=== PATIENT | male | born 1950 | race Caucasian/White ===

== ENCOUNTER 2021-02-03 15:16 | Inpatient (IN) ==
[2021-02-03] MEDS ORDERED: ASPIRIN CHEW 324 MG PO STA (15:33)
[2021-02-03] MEDS ORDERED: SODIUM CHLORIDE 0.9% 500 ML IV ONE (15:33)
[2021-02-03] MEDS ORDERED: ASPIRIN CHEW 324 MG ONE (15:37)
[2021-02-03 15:48] LABS: Hemoglobin 17.2 g/dL (14.0-18.0); Mean Corpuscular Hemoglobin 30.3 pg (25-34); Mean Corpuscular Hgb Conc 33.7 g/dL (32-36); Mean Corpuscular Volume 89.9 fL (80-100); Mean Platelet Volume 12.2 fL (7.4-10.4); Platelet Count 326 K/uL (130-400); RDW Coefficient of Variation 13.6 % (11.5-14.5); RDW Standard Deviation 44.8 fL (36.4-46.3); Red Blood Count 5.67 M/uL (4.7-6.1); White Blood Count 11.34 K/uL (4.8-10.8)
--- NOTE | 2021-02-03 15:52 | XRay Report ---
XR chest 1V portable CLINICAL HISTORY: SEPSIS COMPARISON STUDY: Chest radiograph and chest CT February 27, 2012. FINDINGS: Left shoulder arthroplasty is incidentally noted. Lung volumes are diminished. Mild left ba silar opacity favors atelectasis. There is no evidence for pulmonary edema. Cardiomediastinal silhoue tte is unremarkable. Prominent gas-filled loops of bowel within the upper abdomen are partially image d on this study. IMPRESSION: 1. Low lung volumes with left basilar opacity that favors atelectasis. 2. Prominent gas-filled loops of bowel within the upper abdomen, partially imaged on this exam. ACT 112: Negative or not required by law. Electronically signed by: Ric Walton M.D. 02/03/2021 3:51 PM
[2021-02-03 15:55] LABS: iSTAT Creatinine 2.4 mg/dl (0.6-1.3); iSTAT Hemoglobin 18.4 g/dl (14.0-18.0); iSTAT Ionized Calcium 1.23 mmol/l (1.12-1.32); iSTAT Potassium 4.1 mmol/L (3.3-5.0)
[2021-02-03 15:56] LABS: Base Excess VBG -4.4 mEq/L; HCO3 VBG 23 mmol/L; PCO2 VBG 50 mmHg (38-50); PO2 VBG 33 mmHg; pH VBG 7.28 (7.36-7.41)
[2021-02-03] MEDS ORDERED: OPTIRAY 350 500ml IV ONE (15:56)
[2021-02-03 16:01] LABS: Oxygen Saturation VBG < 60.0 %
[2021-02-03 16:04] LABS: INR 1.3 (0.9-1.1); Partial Thromboplastin Time 26.4 Seconds (21.0-31.0); Prothrombin Time 12.9 Seconds (9.0-12.0)
[2021-02-03 16:15] LABS: Alanine Aminotransferase 127 U/L (12-78); Albumin Globulin Ratio 0.8 (0.9-2); Albumin Level 3.4 gm/dl (3.4-5.0); Alkaline Phosphatase 59 U/L (45-117); Aspartate Aminotransferase 280 U/L (15-37); BUN Creatinine Ratio 23.8 (10-20); Bilirubin Direct 0.4 mg/dl (0-0.2); Bilirubin,Total 1.6 mg/dl (0.2-1); Blood Urea Nitrogen 57 mg/dl (7-18); Calcium 11.5 mg/dl (8.5-10.1); Carbon Dioxide 23 mmol/L (21-32); Chloride 87 mmol/L (98-107); Est GFR (African American) 30.4 ml/min; Est GFR (Non-African American) 26.2 ml/min; Globulin 4.4 gm/dl (2.5-4.0); Glucose 310 mg/dl (70-99); Lipase 33 U/L (73-393); Magnesium 2.3 mg/dl (1.8-2.4); NT Pro B Type Natriuretic Pept 1194 pg/ml (0-900); Phosphorus 4.8 mg/dl (2.5-4.9); Sodium 129 mmol/L (136-145); Total Protein 7.8 gm/dl (6.4-8.2); Troponin I 0.041 ng/ml (0-0.045)
--- NOTE | 2021-02-03 16:17 | CT Scan Report ---
CT ANGIOGRAM OF THE CHEST CLINICAL HISTORY: Chest pain and shortness of breath COMPARISON STUDY: February 2012 TECHNIQUE: Following the IV administration of 120 mL of Optiray, CT angiogram of the thorax was perfo rmed from the thoracic inlet to the lung bases utilizing the pulmonary embolus protocol. Images are r eviewed in the axial, sagittal, and coronal planes. IV contrast was administered without complication . MIP imaging was performed. A dose lowering technique was utilized adhering to the principles of AL TAN. CT DOSE: 1457.22 mGy.cm FINDINGS: There is a dilated fluid-filled stomach. There is a moderate dilated fluid-filled esophagus. No pathologically enlarged axillary mediastinal or hilar lymph nodes were visualized. There was no evidence of thoracic aortic dilatation. The examination is significantly motion degraded. There are no pulmonary artery filling defects to in dicate acute pulmonary embolism given the technical limitations of the study Trace pleural fluid is suspected There are multifocal groundglass opacities most pronounced within the right upper lobe. The findings are suspicious for a multifocal pneumonia. There are coronary calcifications IMPRESSION: 1. Motion compromised study 2. No evidence of acute pulmonary embolism given the technical limitations of the study 3. Multifocal groundglass pulmonary opacities suspicious for multifocal pneumonia 4. Dilated fluid-filled stomach and esophagus ACT 112: Negative or not required by law. Electronically signed by: Reinaldo Castillo M.D. 02/03/2021 4:16 PM
--- NOTE | 2021-02-03 16:26 | CT Scan Report ---
CT abd pelvis IV con only CLINICAL HISTORY: Chest pain and shortness of breath COMPARISON STUDY: June 2019 TECHNIQUE: The patient was scanned in a dynamic helical fashion during intravenous administration of 120 cc of Optiray 350. A dose lowering technique was utilized adhering to the principles of ALARA. CT DOSE: FINDINGS: Lower chest: There is respiratory motion artifact. There are scattered groundglass opacities possibly representing a multifocal pneumonia. There is a dilated fluid-filled esophagus. There are coronary a rtery calcifications. Liver: There is an ill-defined 46 mm mass within the lateral segment left lobe of the liver. Gallbladder: Mildly distended. No calculi identified. Spleen: Normal in size and attenuation. Pancreas: Unremarkable. Adrenal glands: There is an indeterminate 24 mm left adrenal nodule. Kidneys: There are bilateral renal cortical cysts. There is no hydronephrosis. There are no solid oralia al masses identified Bowel: There is a high-grade small bowel obstruction with a transition at the level of an incarcerate d right inguinal hernia. There is no pneumatosis. There is no portal venous gas. Peritoneum: There is no intraperitoneal free air or abdominal ascites. Vasculature: The abdominal aorta is normal in course and caliber. Adenopathy: None. Pelvic viscera: There is mild prostatomegaly Skeletal structures: No destructive osseous lesions are seen. IMPRESSION: 1. High-grade small bowel obstruction with a transition zone at the level of an incarcerated right in guinal hernia. Surgical consultation recommended 2. Interval development of an indeterminate 46 mm ill-defined left hepatic lobe mass 3. Indeterminate 24 mm left adrenal nodule ACT 112: Negative or not required by law. Electronically signed by: Reinaldo Castillo M.D. 02/03/2021 4:24 PM
[2021-02-03] MEDS ORDERED: LACTATED RINGER'S 1,000 ML IV SCH (16:30)
[2021-02-03] MEDS ORDERED: LACTATED RINGER'S 1,000 ML IV ONE ×2 (16:31→16:58)
[2021-02-03 16:32] LABS: Beta-Hydroxybutyrate 3.98 mg/dl (0.2-2.81)
[2021-02-03] MEDS ORDERED: metroNIDAZOLE 500 MG/100 ML BAG IV STA (16:46)
[2021-02-03] MEDS ORDERED: VANCOMYCIN HCL 2,250 MG in SODIUM CHLORIDE 0.9% 500 ML IV ONE (16:46)
[2021-02-03] MEDS ORDERED: VANCOMYCIN CONSULT ACTIVE PRN ×2 (16:46→22:25)
[2021-02-03] MEDS ORDERED: CEFEPIME 2,000 MG/20 ML VIAL IV STA (16:46)
[2021-02-03 16:56] LABS: Basophils # (auto) 0.02 K/uL (0-0.2); Basophils % (auto) 0.2 %; Immature Granulocytes # (auto) 0.09 K/uL (0.00-0.02); Immature Granulocytes % (auto) 0.8 %; Lymphocytes # (auto) 0.82 K/uL (1.2-3.4); Lymphocytes % (auto) 7.2 %; Monocytes # (auto) 2.32 K/uL (0.11-0.59); Monocytes % (auto) 20.5 %; Neutrophils # (auto) 8.09 K/uL (1.4-6.5); Neutrophils % (auto) 71.3 %
--- NOTE | 2021-02-03 17:18 | Emergency Department Note ---
Impression & Plan SBO (small bowel obstruction), High anion gap metabolic acidosis, LIGIA (acute kidney injury), Pneumonia, Incarcerated inguinal hernia, Acute respiratory failure with hypoxia, Sepsis ED Provider Note NAME: SELAM CUEVAS AGE: 70 SEX: M ARRIVES VIA: Ambulance INFORMANT: Patient, ED PROVIDER(S): Jeff Quiroga MD CHIEF COMPLAINT: Shortness of breath PLAN: Disposition: Admit MEDICAL DECISION MAKING: The patient is a pleasant 70-year-old gentleman with a past medical history of diabetes, vascular dementia, hyperlipidemia who presents to the emergency department via EMS for worsening shortness of breath over the past several days leading to severe respiratory distress upon arrival breathing in the 40s and hypoxic placed on CPAP per EMS for transfer. Transmitted twelve-lead did show suspicious ST elevations anteriorly though the patient denied any chest pain suggestive of acute DE. He reports he had intermittent pain lasting a couple of minutes yesterday and the day before but nothing prolonged or anything like heavy pressure. He does report abdominal pain but denies any nausea or vomiting. He admits to decreased oral intake over the past week. He reports a mild sore throat as his main symptom. He denies any fevers. His unfortunately did pass away from COVID-19 on Mother's Day. He reports completing his second COVID-19 immunization last week and had not had any symptoms of Covid. On arrival the patient is in severe respiratory distress, tachypneic in the 40s. His lungs are relatively clear with mild rhonchi at the bases. He appears clinically dry. His abdomen is distended with moderate tenderness and involuntary guarding in the mid abdomen. He has a tender and reducible right inguinal hernia. EKG in the emergency department did not show evidence of acute ischemia nor any resemblance of prior ST abnormalities from EMS twelve-lead. Chest x-ray without overt acute cardiopulmonary process but dilated loops of bowel that are visualized are appreciated. WBC 11.3K. H/H 17/51 consistent with patient's clinical dry appearance. Platelets within normal limits. VBG with mild acidemia to 7.28 in the setting of the patient's tachypnea likely compensatory as the patient's chemistry does demonstrate elevated anion gap with a lactic acid of 13 which did improve to 9.1 following initial IV fluid hydration and antibiotics. There is however no significant metabolic acidosis noted this time. Initial creatinine 2.6 consistent with the patient's clinically dry appearance. Total bilirubin 1.6 with direct bilirubin 0.4 with AST and ALT elevated to 80 and 127, respectively. Troponin is within normal limits at 0.041. BNP 1100, nonspecific likely related to the patient's prolonged tachycardia. Lipase is not elevated. Procalcitonin is elevated at 34. The patient was treated with broad-spectrum antibiotics with cefepime, Flagyl and vancomycin. IV fluid hydration was administered cautiously given the patient's respiratory failure but he did tolerate hydration well. CT of the chest was performed and was negative for PE and was warranted despite renal failure given the patient's respiratory failure. CT abdomen pelvis demonstrates evidence of high-grade bowel obstruction related to incarcerated right inguinal hernia. Upon reevaluation patient's heart rate was improving to the 130s with IV fluid hydration. His work of breathing also showed interval improvement. I did review the findings with the patient and given his bowel obstruction and improving respiratory status we will proceed with transition from BiPAP to place NG tube with close monitoring. Unfortunately, I did attempt to reduce the patient's incarcerated right inguinal hernia and was unsuccessful. Case was discussed with Dr. Donald, general surgery on-call who evaluate the patient for further management. I also did review the case with Dr. Patel, interventional cardiology upon the patient's arrival and following further work- up and we agree that the patient's presentation is not consistent with ACS at this time and reasonable to proceed with acute management of his sepsis and bowel obstruction. Case also discussed with Dr. Barriga, ICU beef grinder, who will manage patient following OR. Case discussed with Sanjuana Sheppard and [facility] who will admit the patient to the ICU following OR. Patient was taken to the OR with Dr. Donald for surgical intervention for his bowel obstruction. NG tube placed prior to leaving for the OR with good effect and placement and improvement in patient's symptoms with removal of dark liquid gastric contents. Sister at bedside updated and in agreement with plan. Triage Nursing notes reviewed and agree them. Additional history obtained from EMS Prior medical records reviewed Vital Signs: reviewed and remarkable for tachycardia, tachypnea. Differential diagnosis: Sepsis, UTI, pneumonia, metabolic, electrolyte abnormalities, cardiac sources, intracerebral event, toxicologic, neurologic, as well as other pathologies. ER treatment provided: See below. Diagnostics interpreted by me: ECG:Sinus tachycardia, 139 bpm, no ectopy, no overt ST elevation or depression, QTC 413, QRS 80. Cardiac Monitoring: An order for continuous cardiac monitoring was placed and demonstrated sinus tachycardia, 139 bpm, no ectopy. Laboratory studies: See below Imaging studies: See below Consultation(s): Dr. Patel, interventional cardiology on-call Dr. Donald, General surgery on-call Dr. Barriga, ICU beef grinder. Sanjuana Sheppard, [facility] PAC with Dr. Rust, [facility] hospitalist. HPI: The patient is a pleasant 70-year-old gentleman with a past medical history of diabetes, vascular dementia, hyperlipidemia who presents emergency department via EMS for worsening shortness of breath over the past several days leading to severe respiratory distress upon arrival breathing in the 40s and hypoxic placed on CPAP per EMS for transfer. Transmitted twelve-lead did show suspicious ST elevations anteriorly though the patient denied any chest pain suggestive of a cute DE. He reports he had intermittent pain lasting a couple of minutes yesterday and the day before but nothing prolonged or anything like heavy pressure. He does report abdominal pain but denies any nausea vomiting. He reports a mild sore throat is his main symptom. He denies any fevers. His unfortunately did pass away from COVID-19 on Mother's Day. He reports completing his second COVID-19 immunization last week and had not had any symptoms of Covid. ROS: See above HPI for pertinent positives & negatives. A total of 10 systems reviewed and were otherwise negative. PAST MEDICAL HISTORY:See Below PAST SURGICAL HISTORY:See Below FAMILY HISTORY:See Below SOCIAL HISTORY:See Below HOME MEDICATIONS:See Below ALLERGIES:See Below VITALS:See Below PHYSICAL EXAMINATION: GENERAL: Awake, alert, ill-appearing, in no distress HENT: Normocephalic, atraumatic. Oropharynx with dry mucous membranes and otherwise unremarkable. EYES: Normal conjunctiva. Sclera non-icteric. NECK: Supple. No nuchal rigidity. FROM. No JVD. RESPIRATORY: Mild rhonchi at the bases otherwise clear to auscultation. CARDIAC: Tachycardic rate, normal rhythm. Extremities warm and well perfused. Pulses equal. ABDOMEN: Moderate distention. Moderate mid abdominal tenderness to palpation. Involuntary guarding. No rebound. Mildly tender right inguinal hernia that is hardened and not reducible. RECTAL: Deferred. MUSCULOSKELETAL: Chest examination reveals no tenderness. The back is symmetrical on inspection without obvious abnormality. There is no CVA tenderness to palpation. No joint edema. LOWER EXTREMITIES: Calves are equal size bilaterally and non-tender. No edema. No discoloration. NEURO: Normal sensorium. No sensory or motor deficits noted. SKIN: No rash or jaundice noted. ED COURSE: Critical Care: I have personally spent greater than 75 minutes of critical care time in the direct management of this patient. This includes bedside care, interpretation of diagnostic studies, and testing, discussion with consultants, patient, and family members, and other required patient management activities. This 75 minutes is in excess of all separately billable procedures. 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 H/O alcohol abuse H/O cerebral infarction H/O traumatic brain injury HLD (hyperlipidemia) HTN (hypertension) Hyperparathyroidism CODY (obstructive sleep apnea) T2DM (type 2 diabetes mellitus) Ulcerative pancolitis Surgical History History of appendectomy History of arthroscopic knee surgery History of arthroscopy of shoulder History of colonoscopy last 05/2020 erythematous mucosa in sigmoid colon, repeat in 2 years History of elbow surgery left, 1962 Social History Smoking Status: Former smoker Tobacco Type: Cigarettes packs per day: 1; Years Smoked: 30; Smoking End Date: 2009; Do You Dip or Chew Tobacco: No; Hx Alcohol Use: No Hx Substance Use: No Preferred Language: Greek Communication Ability: Effective Fish Worm Grower Required: No Beliefs That Will Affect Care: None marital status: / marital status details: recently 01/30/21 Current Living Situation: Alone Other Information That Helps Us Care for You: No Feels Safe at Home: Declines to Answer Allergies Allergies Allergy/AdvReac Type Severity Reaction Status Date / Time No Known Allergies Allergy Unknown Verified 02/03/21 19:41 Home Meds Home Medications Medication Instructions Recorded Confirmed atorvastatin 40 mg PO HS 07/14/19 02/03/21 balsalazide 2,250 mg PO TID 07/14/19 02/03/21 losartan [Cozaar] 25 mg PO DAILY 07/14/19 02/03/21 nortriptyline 50 mg PO HS 07/14/19 02/03/21 tamsulosin [Flomax] 0.8 mg PO DAILY 07/14/19 02/03/21 cholecalciferol (vitamin D3) 25 1,000 units PO DAILY 07/21/19 02/03/21 mcg (1,000 unit) capsule aspirin [Aspir-Low] 81 mg PO DAILY 02/03/21 02/03/21 mesalamine 1,000 mg NM UD 02/03/21 02/03/21 metformin 1,000 mg PO BID 02/03/21 02/03/21 nifedipine 60 mg PO DAILY 02/03/21 02/03/21 Results & Data (ED) Vital Signs Vital Signs - 24 hr 02/03/21 15:17 02/03/21 15:30 02/03/21 15:40 Pulse Rate 141 H 142 H Pulse Rate from SpO2 Sensor 143 H Pulse Rhythm Regular Respiratory Rate 45 H 42 H 42 H Respiratory Effort / Characteristics Short of Breath Spontaneous Labored Short of Breath Short of Breath Respiratory Depth Shallow Respiratory Pattern Rapid/Shallow Tachypnea Blood Pressure 127/81 114/91 Blood Pressure Mean 96 98 Pulse Oximetry 100 99 97 Oxygen Delivery Method BiPAP BiPAP BiPAP Oxygen Flow Rate Fraction of Inspired Oxygen 80 80 SaO2/FiO2 Ratio 125 Sepsis Recent Fever Within 48 Hours No Sepsis New/Unexplained Change in Mental Status No Sepsis Action Taken by Nursing Physician Notified End-Tidal CO2 43 02/03/21 15:41 02/03/21 15:46 02/03/21 16:25 Pulse Rate 142 H 141 H 136 H Pulse Rate from SpO2 Sensor 136 H Pulse Rhythm Regular Respiratory Rate 43 H Respiratory Effort / Characteristics Respiratory Depth Respiratory Pattern Blood Pressure 121/103 H 143/91 H Blood Pressure Mean 109 108 Pulse Oximetry 100 99 100 Oxygen Delivery Method BiPAP BiPAP BiPAP Oxygen Flow Rate Fraction of Inspired Oxygen 80 80 80 SaO2/FiO2 Ratio 125 Sepsis Recent Fever Within 48 Hours Sepsis New/Unexplained Change in Mental Status Sepsis Action Taken by Nursing End-Tidal CO2 43 39 02/03/21 16:47 02/03/21 17:00 02/03/21 17:15 Pulse Rate 138 H 132 H 128 H Pulse Rate from SpO2 Sensor 137 H 132 H 128 H Pulse Rhythm Respiratory Rate 36 H 38 H 36 H Respiratory Effort / Characteristics Respiratory Depth Respiratory Pattern Blood Pressure 127/85 130/76 121/80 Blood Pressure Mean 99 94 93 Pulse Oximetry 100 100 100 Oxygen Delivery Method BiPAP Oxygen Flow Rate Fraction of Inspired Oxygen 80 80 SaO2/FiO2 Ratio Sepsis Recent Fever Within 48 Hours Sepsis New/Unexplained Change in Mental Status Sepsis Action Taken by Nursing End-Tidal CO2 02/03/21 17:30 02/03/21 18:00 02/03/21 18:17 Pulse Rate 129 H 132 H 138 H Pulse Rate from SpO2 Sensor 129 H 126 H Pulse Rhythm Respiratory Rate 40 H 43 H 41 H Respiratory Effort / Characteristics Respiratory Depth Respiratory Pattern Blood Pressure 139/84 127/94 121/73 Blood Pressure Mean 102 105 89 Pulse Oximetry 100 96 96 Oxygen Delivery Method Oxygen Flow Rate Fraction of Inspired Oxygen 80 80 SaO2/FiO2 Ratio Sepsis Recent Fever Within 48 Hours Sepsis New/Unexplained Change in Mental Status Sepsis Action Taken by Nursing End-Tidal CO2 02/03/21 18:25 02/03/21 18:29 02/03/21 18:30 Pulse Rate 137 H Pulse Rate from SpO2 Sensor 139 H Pulse Rhythm Respiratory Rate Respiratory Effort / Characteristics Respiratory Depth Respiratory Pattern Blood Pressure 130/88 Blood Pressure Mean 102 Pulse Oximetry 99 100 Oxygen Delivery Method BiPAP Oxygen Flow Rate Fraction of Inspired Oxygen 50 50 50 SaO2/FiO2 Ratio 198 Sepsis Recent Fever Within 48 Hours Sepsis New/Unexplained Change in Mental Status Sepsis Action Taken by Nursing End-Tidal CO2 02/03/21 18:45 02/03/21 18:50 02/03/21 19:01 Pulse Rate 136 H 136 H Pulse Rate from SpO2 Sensor 136 H Pulse Rhythm Respiratory Rate Respiratory Effort / Characteristics Respiratory Depth Respiratory Pattern Blood Pressure 124/79 125/76 Blood Pressure Mean 94 92 Pulse Oximetry 100 96 94 Oxygen Delivery Method Oxymask Oxymask Oxygen Flow Rate 15 15 Fraction of Inspired Oxygen 50 SaO2/FiO2 Ratio Sepsis Recent Fever Within 48 Hours Sepsis New/Unexplained Change in Mental Status Sepsis Action Taken by Nursing End-Tidal CO2 02/03/21 19:06 Pulse Rate Pulse Rate from SpO2 Sensor Pulse Rhythm Respiratory Rate Respiratory Effort / Characteristics Respiratory Depth Respiratory Pattern Blood Pressure Blood Pressure Mean Pulse Oximetry Oxygen Delivery Method Oxymask Oxygen Flow Rate 15 Fraction of Inspired Oxygen SaO2/FiO2 Ratio Sepsis Recent Fever Within 48 Hours Sepsis New/Unexplained Change in Mental Status Sepsis Action Taken by Nursing End-Tidal CO2 Laboratory Data Attestation: I reviewed the patient's lab results. Result diagrams: 02/03/21 22:52 02/03/21 22:52 Lab Results 02/03/21 02/03/21 02/03/21 Range/Units 15:32 15:32 15:32 WBC 11.34 H (4.8-10.8) K/uL RBC 5.67 (4.7-6.1) M/uL Hgb 17.2 (14.0-18.0) g/dL POC Hgb (14.0-18.0) g/dl Hct 51.0 (42-52) % POC Hct (42-52) % MCV 89.9 (80-100) fL MCH 30.3 (25-34) pg MCHC 33.7 (32-36) g/dL RDW Std Deviation 44.8 (36.4-46.3) fL RDW Coeff of Marita 13.6 (11.5-14.5) % Plt Count 326 (130-400) K/uL MPV 12.2 H (7.4-10.4) fL Immature Gran % (Auto) 0.8 % Neut % (Auto) 71.3 % Lymph % (Auto) 7.2 % Florence % (Auto) 20.5 % Eos % (Auto) 0.0 % Baso % (Auto) 0.2 % Neut # (Auto) 8.09 H (1.4-6.5) K/uL Lymph # (Auto) 0.82 L (1.2-3.4) K/uL Florence # (Auto) 2.32 H (0.11-0.59) K/uL Eos # (Auto) 0.00 (0-0.5) K/uL Baso # (Auto) 0.02 (0-0.2) K/uL Immature Gran # (Auto) 0.09 H (0.00-0.02) K/uL PT (9.0-12.0) Seconds INR (0.9-1.1) APTT (21.0-31.0) Seconds PTT Ratio VBG pH (7.36-7.41) VBG pCO2 (38-50) mmHg VBG pO2 mmHg VBG HCO3 mmol/L VBG O2 Saturation % VBG Base Excess mEq/L Barometric Pressure mm/Hg POC Sodium (135-144) mmol/L Sodium 129 L (136-145) mmol/L POC Potassium (3.3-5.0) mmol/L Potassium 4.0 (3.5-5.1) mmol/L POC Chloride (101-112) mmol/L Chloride 87 L (98-107) mmol/L Carbon Dioxide 23 (21-32) mmol/L POC Total CO2 (24-31) mmol/L Anion Gap 19.0 H (3-11) POC Anion Gap (16-25) mmol/L POC BUN (7-18) mg/dl BUN 57 H (7-18) mg/dl Creatinine 2.41 H (0.6-1.4) mg/dl POC Creatinine (0.6-1.3) mg/dl Est Cr Clr Drug Dosing Not Reportable Est GFR ( Amer) 30.4 ml/min Est GFR (Non-Af Amer) 26.2 ml/min BUN/Creatinine Ratio 23.8 H (10-20) Glucose 310 H* (70-99) mg/dl POC Glucose (other) (70-99) mg/dl Lactate (0.4-2.0) mmol/L Calcium 11.5 H (8.5-10.1) mg/dl POC Ioniz Calcium Trey (1.12-1.32) mmol/l Phosphorus 4.8 (2.5-4.9) mg/dl Magnesium 2.3 (1.8-2.4) mg/dl Total Bilirubin 1.6 H (0.2-1) mg/dl Direct Bilirubin 0.4 H (0-0.2) mg/dl AST 280 H (15-37) U/L ALT 127 H (12-78) U/L Alkaline Phosphatase 59 (45-117) U/L Troponin I 0.041 (0-0.045) ng/ml NT-Pro-B Natriuret Pep 1194 H (0-900) pg/ml Total Protein 7.8 (6.4-8.2) gm/dl Albumin 3.4 (3.4-5.0) gm/dl Globulin 4.4 H (2.5-4.0) gm/dl Albumin/Globulin Ratio 0.8 L (0.9-2) Lipase 33 L (73-393) U/L Beta-Hydroxybutyric Acd 3.98 H (0.2-2.81) mg/dl Procalcitonin 34.13 H (0-0.5) ng/ml Urine Color Urine Appearance (Clear) Urine pH (4.5-7.5) Ur Specific Grass Range (1.000-1.030) Urine Protein (Negative) Urine Glucose (UA) (Negative) Urine Ketones (Negative) Urine Blood (Negative) Urine Nitrite (Negative) Urine Bilirubin (Negative) Urine Urobilinogen (Negative) Ur Leukocyte Esterase (Negative) Urine WBC (Auto) (0-5) /hpf Urine RBC (Auto) (0-4) /hpf U Hyaline Cast (Auto) (0-5) /lpf U Epithel Cells (Auto) (0-5) /lpf Urine Bacteria (Auto) (Negative) Urine Osmolality (500-800) mOsm/kg Ur Random Creatinine mg/dl Ur Random Sodium mmol/L Ur Random Potassium mmol/L Ur Random Chloride mmol/L Ur Random Uric Acid mg/dl COVID-19 Eval Order SARS-CoV-2 (PCR) (Negative) 02/03/21 02/03/21 02/03/21 Range/Units 15:32 15:32 15:32 WBC (4.8-10.8) K/uL RBC (4.7-6.1) M/uL Hgb (14.0-18.0) g/dL POC Hgb (14.0-18.0) g/dl Hct (42-52) % POC Hct (42-52) % MCV (80-100) fL MCH (25-34) pg MCHC (32-36) g/dL RDW Std Deviation (36.4-46.3) fL RDW Coeff of Marita (11.5-14.5) % Plt Count (130-400) K/uL MPV (7.4-10.4) fL Immature Gran % (Auto) % Neut % (Auto) % Lymph % (Auto) % Florence % (Auto) % Eos % (Auto) % Baso % (Auto) % Neut # (Auto) (1.4-6.5) K/uL Lymph # (Auto) (1.2-3.4) K/uL [place] # (Auto) (0.11-0.59) K/uL Eos # (Auto) (0-0.5) K/uL Baso # (Auto) (0-0.2) K/uL Immature Gran # (Auto) (0.00-0.02) K/uL PT 12.9 H (9.0-12.0) Seconds INR 1.3 H (0.9-1.1) APTT 26.4 (21.0-31.0) Seconds PTT Ratio 1.0 VBG pH 7.28 L (7.36-7.41) VBG pCO2 50 (38-50) mmHg VBG pO2 33 mmHg VBG HCO3 23 mmol/L VBG O2 Saturation < 60.0 % VBG Base Excess -4.4 mEq/L Barometric Pressure 737.7 mm/Hg POC Sodium (135-144) mmol/L Sodium (136-145) mmol/L POC Potassium (3.3-5.0) mmol/L Potassium (3.5-5.1) mmol/L POC Chloride (101-112) mmol/L Chloride (98-107) mmol/L Carbon Dioxide (21-32) mmol/L POC Total CO2 (24-31) mmol/L Anion Gap (3-11) POC Anion Gap (16-25) mmol/L POC BUN (7-18) mg/dl BUN (7-18) mg/dl Creatinine (0.6-1.4) mg/dl POC Creatinine (0.6-1.3) mg/dl Est Cr Clr Drug Dosing Est GFR ( Amer) ml/min Est GFR (Non-Af Amer) ml/min BUN/Creatinine Ratio (10-20) Glucose (70-99) mg/dl POC Glucose (other) (70-99) mg/dl Lactate 13.1 H* (0.4-2.0) mmol/L Calcium (8.5-10.1) mg/dl POC Ioniz Calcium Trey (1.12-1.32) mmol/l Phosphorus (2.5-4.9) mg/dl Magnesium (1.8-2.4) mg/dl Total Bilirubin (0.2-1) mg/dl Direct Bilirubin (0-0.2) mg/dl AST (15-37) U/L ALT (12-78) U/L Alkaline Phosphatase (45-117) U/L Troponin I (0-0.045) ng/ml NT-Pro-B Natriuret Pep (0-900) pg/ml Total Protein (6.4-8.2) gm/dl Albumin (3.4-5.0) gm/dl Globulin (2.5-4.0) gm/dl Albumin/Globulin Ratio (0.9-2) Lipase (73-393) U/L Beta-Hydroxybutyric Acd (0.2-2.81) mg/dl Procalcitonin (0-0.5) ng/ml Urine Color Urine Appearance (Clear) Urine pH (4.5-7.5) Ur Specific Grass Range (1.000-1.030) Urine Protein (Negative) Urine Glucose (UA) (Negative) Urine Ketones (Negative) Urine Blood (Negative) Urine Nitrite (Negative) Urine Bilirubin (Negative) Urine Urobilinogen (Negative) Ur Leukocyte Esterase (Negative) Urine WBC (Auto) (0-5) /hpf Urine RBC (Auto) (0-4) /hpf U Hyaline Cast (Auto) (0-5) /lpf U Epithel Cells (Auto) (0-5) /lpf Urine Bacteria (Auto) (Negative) Urine Osmolality (500-800) mOsm/kg Ur Random Creatinine mg/dl Ur Random Sodium mmol/L Ur Random Potassium mmol/L Ur Random Chloride mmol/L Ur Random Uric Acid mg/dl COVID-19 Eval Order SARS-CoV-2 (PCR) (Negative) 02/03/21 02/03/21 02/03/21 Range/Units 15:38 15:38 15:39 WBC (4.8-10.8) K/uL RBC (4.7-6.1) M/uL Hgb (14.0-18.0) g/dL POC Hgb 18.4 H (14.0-18.0) g/dl Hct (42-52) % POC Hct 54 H (42-52) % MCV (80-100) fL MCH (25-34) pg MCHC (32-36) g/dL RDW Std Deviation (36.4-46.3) fL RDW Coeff of Marita (11.5-14.5) % Plt Count (130-400) K/uL MPV (7.4-10.4) fL Immature Gran % (Auto) % Neut % (Auto) % Lymph % (Auto) % [place] % (Auto) % Eos % (Auto) % Baso % (Auto) % Neut # (Auto) (1.4-6.5) K/uL Lymph # (Auto) (1.2-3.4) K/uL [place] # (Auto) (0.11-0.59) K/uL Eos # (Auto) (0-0.5) K/uL Baso # (Auto) (0-0.2) K/uL Immature Gran # (Auto) (0.00-0.02) K/uL PT (9.0-12.0) Seconds INR (0.9-1.1) APTT (21.0-31.0) Seconds PTT Ratio VBG pH (7.36-7.41) VBG pCO2 (38-50) mmHg VBG pO2 mmHg VBG HCO3 mmol/L VBG O2 Saturation % VBG Base Excess mEq/L Barometric Pressure mm/Hg POC Sodium 129 L (135-144) mmol/L Sodium (136-145) mmol/L POC Potassium 4.1 (3.3-5.0) mmol/L Potassium (3.5-5.1) mmol/L POC Chloride 87 L (101-112) mmol/L Chloride (98-107) mmol/L Carbon Dioxide (21-32) mmol/L POC Total CO2 24 (24-31) mmol/L Anion Gap (3-11) POC Anion Gap 23.0 (16-25) mmol/L POC BUN 57 H (7-18) mg/dl BUN (7-18) mg/dl Creatinine (0.6-1.4) mg/dl POC Creatinine 2.4 H (0.6-1.3) mg/dl Est Cr Clr Drug Dosing Est GFR ( Amer) ml/min Est GFR (Non-Af Amer) ml/min BUN/Creatinine Ratio (10-20) Glucose (70-99) mg/dl POC Glucose (other) 321 H (70-99) mg/dl Lactate (0.4-2.0) mmol/L Calcium (8.5-10.1) mg/dl POC Ioniz Calcium Trey 1.23 (1.12-1.32) mmol/l Phosphorus (2.5-4.9) mg/dl Magnesium (1.8-2.4) mg/dl Total Bilirubin (0.2-1) mg/dl Direct Bilirubin (0-0.2) mg/dl AST (15-37) U/L ALT (12-78) U/L Alkaline Phosphatase (45-117) U/L Troponin I (0-0.045) ng/ml NT-Pro-B Natriuret Pep (0-900) pg/ml Total Protein (6.4-8.2) gm/dl Albumin (3.4-5.0) gm/dl Globulin (2.5-4.0) gm/dl Albumin/Globulin Ratio (0.9-2) Lipase (73-393) U/L Beta-Hydroxybutyric Acd (0.2-2.81) mg/dl Procalcitonin (0-0.5) ng/ml Urine Color Urine Appearance (Clear) Urine pH (4.5-7.5) Ur Specific Grass Range (1.000-1.030) Urine Protein (Negative) Urine Glucose (UA) (Negative) Urine Ketones (Negative) Urine Blood (Negative) Urine Nitrite (Negative) Urine Bilirubin (Negative) Urine Urobilinogen (Negative) Ur Leukocyte Esterase (Negative) Urine WBC (Auto) (0-5) /hpf Urine RBC (Auto) (0-4) /hpf U Hyaline Cast (Auto) (0-5) /lpf U Epithel Cells (Auto) (0-5) /lpf Urine Bacteria (Auto) (Negative) Urine Osmolality (500-800) mOsm/kg Ur Random Creatinine mg/dl Ur Random Sodium mmol/L Ur Random Potassium mmol/L Ur Random Chloride mmol/L Ur Random Uric Acid mg/dl COVID-19 Eval Order Covid19 at [facility] SARS-CoV-2 (PCR) NEGATIVE (Negative) 02/03/21 02/03/21 02/03/21 Range/Units 17:00 17:00 17:00 WBC (4.8-10.8) K/uL RBC (4.7-6.1) M/uL Hgb (14.0-18.0) g/dL POC Hgb (14.0-18.0) g/dl Hct (42-52) % POC Hct (42-52) % MCV (80-100) fL MCH (25-34) pg MCHC (32-36) g/dL RDW Std Deviation (36.4-46.3) fL RDW Coeff of Marita (11.5-14.5) % Plt Count (130-400) K/uL MPV (7.4-10.4) fL Immature Gran % (Auto) % Neut % (Auto) % Lymph % (Auto) % [place] % (Auto) % Eos % (Auto) % Baso % (Auto) % Neut # (Auto) (1.4-6.5) K/uL Lymph # (Auto) (1.2-3.4) K/uL [place] # (Auto) (0.11-0.59) K/uL Eos # (Auto) (0-0.5) K/uL Baso # (Auto) (0-0.2) K/uL Immature Gran # (Auto) (0.00-0.02) K/uL PT (9.0-12.0) Seconds INR (0.9-1.1) APTT (21.0-31.0) Seconds PTT Ratio VBG pH (7.36-7.41) VBG pCO2 (38-50) mmHg VBG pO2 mmHg VBG HCO3 mmol/L VBG O2 Saturation % VBG Base Excess mEq/L Barometric Pressure mm/Hg POC Sodium (135-144) mmol/L Sodium (136-145) mmol/L POC Potassium (3.3-5.0) mmol/L Potassium (3.5-5.1) mmol/L POC Chloride (101-112) mmol/L Chloride (98-107) mmol/L Carbon Dioxide (21-32) mmol/L POC Total CO2 (24-31) mmol/L Anion Gap (3-11) POC Anion Gap (16-25) mmol/L POC BUN (7-18) mg/dl BUN (7-18) mg/dl Creatinine (0.6-1.4) mg/dl POC Creatinine (0.6-1.3) mg/dl Est Cr Clr Drug Dosing Est GFR ( Amer) ml/min Est GFR (Non-Af Amer) ml/min BUN/Creatinine Ratio (10-20) Glucose (70-99) mg/dl POC Glucose (other) (70-99) mg/dl Lactate (0.4-2.0) mmol/L Calcium (8.5-10.1) mg/dl POC Ioniz Calcium Trey (1.12-1.32) mmol/l Phosphorus (2.5-4.9) mg/dl Magnesium (1.8-2.4) mg/dl Total Bilirubin (0.2-1) mg/dl Direct Bilirubin (0-0.2) mg/dl AST (15-37) U/L ALT (12-78) U/L Alkaline Phosphatase (45-117) U/L Troponin I (0-0.045) ng/ml NT-Pro-B Natriuret Pep (0-900) pg/ml Total Protein (6.4-8.2) gm/dl Albumin (3.4-5.0) gm/dl Globulin (2.5-4.0) gm/dl Albumin/Globulin Ratio (0.9-2) Lipase (73-393) U/L Beta-Hydroxybutyric Acd (0.2-2.81) mg/dl Procalcitonin (0-0.5) ng/ml Urine Color Dark Yellow Urine Appearance Cloudy A (Clear) Urine pH 5.0 (4.5-7.5) Ur Specific [place] 1.037 H (1.000-1.030) Urine Protein 1+ H (Negative) Urine Glucose (UA) 2+ H (Negative) Urine Ketones Trace H (Negative) Urine Blood 2+ H (Negative) Urine Nitrite Negative (Negative) Urine Bilirubin 1+ H (Negative) Urine Urobilinogen Negative (Negative) Ur Leukocyte Esterase Negative (Negative) Urine WBC (Auto) 1-5 (0-5) /hpf Urine RBC (Auto) 10-30 H (0-4) /hpf U Hyaline Cast (Auto) 10-30 H (0-5) /lpf U Epithel Cells (Auto) >30 H (0-5) /lpf Urine Bacteria (Auto) Negative (Negative) Urine Osmolality 509 (500-800) mOsm/kg Ur Random Creatinine 115.0 mg/dl Ur Random Sodium 15 mmol/L Ur Random Potassium 62.7 mmol/L Ur Random Chloride < 10 mmol/L Ur Random Uric Acid 14.4 mg/dl COVID-19 Eval Order SARS-CoV-2 (PCR) (Negative) 02/03/21 02/03/21 02/03/21 Range/Units 17:00 17:46 18:27 WBC (4.8-10.8) K/uL RBC (4.7-6.1) M/uL Hgb (14.0-18.0) g/dL POC Hgb (14.0-18.0) g/dl Hct (42-52) % POC Hct (42-52) % MCV (80-100) fL MCH (25-34) pg MCHC (32-36) g/dL RDW Std Deviation (36.4-46.3) fL RDW Coeff of Marita (11.5-14.5) % Plt Count (130-400) K/uL MPV (7.4-10.4) fL Immature Gran % (Auto) % Neut % (Auto) % Lymph % (Auto) % [place] % (Auto) % Eos % (Auto) % Baso % (Auto) % Neut # (Auto) (1.4-6.5) K/uL Lymph # (Auto) (1.2-3.4) K/uL [place] # (Auto) (0.11-0.59) K/uL Eos # (Auto) (0-0.5) K/uL Baso # (Auto) (0-0.2) K/uL Immature Gran # (Auto) (0.00-0.02) K/uL PT (9.0-12.0) Seconds INR (0.9-1.1) APTT (21.0-31.0) Seconds PTT Ratio VBG pH (7.36-7.41) VBG pCO2 (38-50) mmHg VBG pO2 mmHg VBG HCO3 mmol/L VBG O2 Saturation % VBG Base Excess mEq/L Barometric Pressure mm/Hg POC Sodium (135-144) mmol/L Sodium 131 L (136-145) mmol/L POC Potassium (3.3-5.0) mmol/L Potassium 4.0 (3.5-5.1) mmol/L POC Chloride (101-112) mmol/L Chloride 91 L (98-107) mmol/L Carbon Dioxide 25 (21-32) mmol/L POC Total CO2 (24-31) mmol/L Anion Gap 14.0 H (3-11) POC Anion Gap (16-25) mmol/L POC BUN (7-18) mg/dl BUN 55 H (7-18) mg/dl Creatinine 1.65 H D (0.6-1.4) mg/dl POC Creatinine (0.6-1.3) mg/dl Est Cr Clr Drug Dosing Not Reportable Est GFR ( Amer) 48.0 ml/min Est GFR (Non-Af Amer) 41.4 ml/min BUN/Creatinine Ratio 33.1 H (10-20) Glucose 253 H (70-99) mg/dl POC Glucose (other) (70-99) mg/dl Lactate 9.1 H* (0.4-2.0) mmol/L Calcium 10.8 H (8.5-10.1) mg/dl POC Ioniz Calcium Trey (1.12-1.32) mmol/l Phosphorus (2.5-4.9) mg/dl Magnesium (1.8-2.4) mg/dl Total Bilirubin 1.3 H (0.2-1) mg/dl Direct Bilirubin (0-0.2) mg/dl AST 548 H (15-37) U/L ALT 219 H (12-78) U/L Alkaline Phosphatase 50 (45-117) U/L Troponin I (0-0.045) ng/ml NT-Pro-B Natriuret Pep (0-900) pg/ml Total Protein 6.4 (6.4-8.2) gm/dl Albumin 2.9 L (3.4-5.0) gm/dl Globulin 3.5 (2.5-4.0) gm/dl Albumin/Globulin Ratio 0.8 L (0.9-2) Lipase (73-393) U/L Beta-Hydroxybutyric Acd (0.2-2.81) mg/dl Procalcitonin (0-0.5) ng/ml Urine Color Urine Appearance (Clear) Urine pH (4.5-7.5) Ur Specific [place] (1.000-1.030) Urine Protein (Negative) Urine Glucose (UA) (Negative) Urine Ketones (Negative) Urine Blood (Negative) Urine Nitrite (Negative) Urine Bilirubin (Negative) Urine Urobilinogen (Negative) Ur Leukocyte Esterase (Negative) Urine WBC (Auto) (0-5) /hpf Urine RBC (Auto) (0-4) /hpf U Hyaline Cast (Auto) (0-5) /lpf U Epithel Cells (Auto) (0-5) /lpf Urine Bacteria (Auto) (Negative) Urine Osmolality (500-800) mOsm/kg Ur Random Creatinine mg/dl Ur Random Sodium mmol/L Ur Random Potassium mmol/L Ur Random Chloride mmol/L Ur Random Uric Acid Cancelled mg/dl COVID-19 Eval Order SARS-CoV-2 (PCR) (Negative) Administered Medications Famotidine 20 mg/ Syringe 5 mls @ 2.5 mls/min IV Q12 [facility] Stop: 03/05/21 22:59 Last Admin: 02/03/21 23:38 Dose: 2.5 mls/min Documented by: [id number] Sodium Chloride (Nss) 500 mls @ 125 mls/hr IV .Q4H [facility] Stop: 03/05/21 22:24 Last Admin: 02/03/21 22:59 Dose: 125 mls/hr Documented by: [id number] Propofol (Diprivan) 1,000 mg in 100 mls @ 10.992 mls/hr IV .Q9H6M [facility]; Protocol Stop: 02/06/21 22:44 Last Admin: 02/03/21 22:48 Dose: 20 mcg/kg/min, 11 mls/hr Documented by: [id number] Cosigned by: [id number] Fentanyl Citrate (Fentanyl Drip) 1,250 mcg in 250 mls @ 5 mls/hr IV .Q50H [facility]; Protocol Stop: 02/17/21 22:44 Last Admin: 02/03/21 23:34 Dose: 25 mcg/hr, 5 mls/hr Documented by: [id number] Cosigned by: [id number] Discontinued Medications Aspirin (Aspirin Chew 324 Mg) Confirm Administered Dose 324 mg .ROUTE .STK-MED ONE Stop: 02/03/21 15:38 Last Admin: 02/03/21 15:45 Dose: Not Given Documented by: [id number] Aspirin (Aspirin Chew 324 Mg) 324 mg PO NOW STA Stop: 02/03/21 15:34 Last Admin: 02/03/21 15:38 Dose: 324 mg Documented by: [id number] Bupivacaine HCl (Bupivacaine 0.5 % 5 Mg/1 Ml Mpf 30ml Vial) Confirm Administered Dose 30 ml .ROUTE .STK-MED ONE Stop: 02/03/21 20:16 Last Admin: 02/03/21 21:41 Dose: 30 ml Documented by: [id number] Fentanyl Citrate (Fentanyl Citrate 100 Mcg/2 Ml Vial) 100 mcg IV NOW STA Stop: 02/03/21 22:40 Last Admin: 02/03/21 22:49 Dose: 100 mcg Documented by: [id number] Fentanyl Citrate (Fentanyl Citrate 100 Mcg/2 Ml Vial) Confirm Administered Dose 100 mcg .ROUTE .STK-MED ONE Stop: 02/03/21 22:42 Last Admin: 02/03/21 22:58 Dose: Not Given Documented by: [id number] Sodium Chloride (Nss) 500 mls @ 999 mls/hr IV .Q31M ONE Stop: 02/03/21 16:03 Last Infusion: 02/03/21 16:30 Dose: 0 mls/hr Documented by: [id number] Admin: 02/03/21 15:45 Dose: 999 mls/hr Documented by: [id number] Lactated Ringer's (Lr) 1,000 mls @ 125 mls/hr IV .Q8H [facility] Stop: 03/05/21 16:29 Last Admin: 02/03/21 16:52 Dose: Not Given Documented by: [id number] Lactated Ringer's (Lr) 1,000 mls @ 999 mls/hr IV .Q1H1M ONE Stop: 02/03/21 17:31 Last Infusion: 02/03/21 18:05 Dose: 0 mls/hr Documented by: [id number] Admin: 02/03/21 16:52 Dose: 999 mls/hr Documented by: [id number] Cefepime HCl (Maxipime) 2,000 mg in 20 mls @ 5 mls/min IV NOW STA; Protocol Stop: 02/03/21 16:49 Last Admin: 02/03/21 17:15 Dose: 5 mls/min Documented by: [id number] Metronidazole (Flagyl) 500 mg in 100 mls @ 100 mls/hr IV NOW STA Stop: 02/03/21 17:45 Last Infusion: 02/03/21 18:47 Dose: 0 mls/hr Documented by: [id number] Admin: 02/03/21 17:41 Dose: 100 mls/hr Documented by: [id number] Vancomycin HCl 2,250 mg/ (Sodium Chloride) 545 mls @ 200 mls/hr IV NOW ONE Stop: 02/03/21 19:29 Last Infusion: 02/03/21 18:47 Dose: 0 mls/hr Documented by: [id number] Admin: 02/03/21 17:15 Dose: 200 mls/hr Documented by: [id number] Lactated Ringer's (Lr) 1,000 mls @ 999 mls/hr IV .Q1H1M ONE Stop: 02/03/21 17:58 Last Infusion: 02/03/21 18:49 Dose: 0 mls/hr Documented by: [id number] Admin: 02/03/21 17:42 Dose: 999 mls/hr Documented by: [id number] Ioversol (Optiray 350 500ml) 120 ml IV ONCE ONE Stop: 02/03/21 15:57 Last Admin: 02/03/21 15:57 Dose: 120 ml Documented by: [id number] Propofol (Propofol Iv Emulsion 10 Mg/Ml 100 Ml Vial) Confirm Administered Dose 1,000 mg IV .STK-MED ONE Stop: 02/03/21 22:24 Last Admin: 02/03/21 22:58 Dose: Not Given Documented by: [id number] Imaging Data Radiologist's Impression: Chest X-Ray 02/03/21 15:21 XR chest 1V portable CLINICAL HISTORY: SEPSIS COMPARISON STUDY: Chest radiograph and chest CT February 27, 2012. FINDINGS: Left shoulder arthroplasty is incidentally noted. Lung volumes are diminished. Mild left basilar opacity favors atelectasis. There is no evidence for pulmonary edema. Cardiomediastinal silhouette is unremarkable. Prominent gas-filled loops of bowel within the upper abdomen are partially imaged on this study. IMPRESSION: 1. Low lung volumes with left basilar opacity that favors atelectasis. 2. Prominent gas-filled loops of bowel within the upper abdomen, partially imaged on this exam. ACT 112: Negative or not required by law. Electronically signed by: Ric Walton M.D. 02/03/2021 3:51 PM Abdomen/Pelvis CT 02/03/21 15:38 CT abd pelvis IV con only CLINICAL HISTORY: Chest pain and shortness of breath COMPARISON STUDY: June 2019 TECHNIQUE: The patient was scanned in a dynamic helical fashion during intravenous administration of 120 cc of Optiray 350. A dose lowering technique was utilized adhering to the principles of ALARA. CT DOSE: FINDINGS: Lower chest: There is respiratory motion artifact. There are scattered groundglass opacities possibly representing a multifocal pneumonia. There is a dilated fluid-filled esophagus. There are coronary artery calcifications. Liver: There is an ill-defined 46 mm mass within the lateral segment left lobe of the liver. Gallbladder: Mildly distended. No calculi identified. Spleen: Normal in size and attenuation. Pancreas: Unremarkable. Adrenal glands: There is an indeterminate 24 mm left adrenal nodule. Kidneys: There are bilateral renal cortical cysts. There is no hydronephrosis. There are no solid renal masses identified Bowel: There is a high-grade small bowel obstruction with a transition at the level of an incarcerated right inguinal hernia. There is no pneumatosis. There is no portal venous gas. Peritoneum: There is no intraperitoneal free air or abdominal ascites. Vasculature: The abdominal aorta is normal in course and caliber. Adenopathy: None. Pelvic viscera: There is mild prostatomegaly Skeletal structures: No destructive osseous lesions are seen. IMPRESSION: 1. High-grade small bowel obstruction with a transition zone at the level of an incarcerated right inguinal hernia. Surgical consultation recommended 2. Interval development of an indeterminate 46 mm ill-defined left hepatic lobe mass 3. Indeterminate 24 mm left adrenal nodule ACT 112: Negative or not required by law. Electronically signed by: Reinaldo Castillo M.D. 02/03/2021 4:24 PM Chest CTA 02/03/21 15:38 CT ANGIOGRAM OF THE CHEST CLINICAL HISTORY: Chest pain and shortness of breath COMPARISON STUDY: February 2012 TECHNIQUE: Following the IV administration of 120 mL of Optiray, CT angiogram of the thorax was performed from the thoracic inlet to the lung bases utilizing the pulmonary embolus protocol. Images are reviewed in the axial, sagittal, and coronal planes. IV contrast was administered without complication. MIP imaging was performed. A dose lowering technique was utilized adhering to the principles of ALARA. CT DOSE: 1457.22 mGy.cm FINDINGS: There is a dilated fluid-filled stomach. There is a moderate dilated fluid-fi lled esophagus. No pathologically enlarged axillary mediastinal or hilar lymph nodes were visualized. There was no evidence of thoracic aortic dilatation. The examination is significantly motion degraded. There are no pulmonary artery filling defects to indicate acute pulmonary embolism given the technical limitations of the study Trace pleural fluid is suspected There are multifocal groundglass opacities most pronounced within the right upper lobe. The findings are suspicious for a multifocal pneumonia. There are coronary calcifications IMPRESSION: 1. Motion compromised study 2. No evidence of acute pulmonary embolism given the technical limitations of the study 3. Multifocal groundglass pulmonary opacities suspicious for multifocal pneumonia 4. Dilated fluid-filled stomach and esophagus ACT 112: Negative or not required by law. Electronically signed by: Reinaldo Castillo M.D. 02/03/2021 4:16 PM Chest X-Ray 02/03/21 18:48 XR chest 1V portable CLINICAL HISTORY: Confirm NG Tube placement COMPARISON STUDY: 02/03/2021 FINDINGS: There is been interval placement of an enteric tube which passes into the stomach. There are nonspecific bilateral pulmonary airspace opacities.[ IMPRESSION: 1. Bilateral pulmonary airspace opacities 2. Enteric tube which passes into the stomach ACT 112: Negative or not required by law. Electronically signed by: Reinaldo Castillo M.D. 02/03/2021 7:05 PM Discharge Plan Visit Data Chief Complaint: Respiratory Distress ED Provider: Jeff Quiroga Discharge Problem: SBO (small bowel obstruction), High anion gap metabolic acidosis, LIGIA (acute kidney injury), Pneumonia, Incarcerated inguinal hernia, Acute respiratory failure with hypoxia, Sepsis Patient Disposition: Admitted As Inpatient Discharge Instructions Interventions: ED Discharge Assessment Last Done: 02/03/21 19:06
[2021-02-03 17:21] LABS: Appearance Urine Cloudy (Clear); Bacteria Urine Automated Negative (Negative); Blood Urine 2+ (Negative); Color Urine Dark Yellow; Epithelial Cell Urine Auto >30 /lpf (0-5); Glucose Urine UA 2+ (Negative); Ketones Urine Trace (Negative); Leukocyte Esterase Urine Negative (Negative); Nitrite Urine Negative (Negative); Protein Urine 1+ (Negative); Specific Gravity Urine 1.037 (1.000-1.030); Urobilinogen Urine Negative (Negative)
[2021-02-03 17:23] LABS: Bilirubin Urine 1+ (Negative)
--- NOTE | 2021-02-03 18:22 | Anesthesiology Consultation ---
Date of Service February 03, 2021 Assessment & Plan Chart Review Chart Review: Acceptable Risk for Surgery and Patient NOT seen in Pre Admission Testing Covid NEGATIVE 02/03/21 ER visit today 02/03/21: Troponin is within normal limits at 0.041. BNP 1100, nonspecific likely related to the patient's prolonged tachycardia. Lipase is not elevated. Procalcitonin is elevated at 34. CT of the chest was performed and was negative for PE and was warranted despite renal failure given the patient's respiratory failure. CT abdomen pelvis demonstrates evidence of high-grade bowel obstruction related to incarcerated right inguinal hernia. Upon reevaluation patient's heart rate was improving to the 130s with IV fluid hydration. His work of breathing also showed interval improvement. Did review the findings with the patient and given his bowel obstruction and improving respiratory status we will proceed with transition from BiPAP to place NG tube with close monitoring. Case was discussed with Dr. Donald, general surgery on-call who evaluate the patient for further management. I also did review the case with Dr. Patel, interventional cardiology upon the patient's arrival and following further work-up and we agree that the patient's presentation is not consistent with ACS at this time and reasonable to proceed with acute management of his sepsis and bowel obstruction. Consults Requested none History Surgery Operation Date: 02/03/21 19:00 Proposed Procedures p Exploratory Laparotomy - Kurt Donald MD Height/Weight Weight: 92.8 kg Allergies Allergy/AdvReac Type Severity Reaction Status Date / Time No Known Allergies Allergy Unknown Verified 02/03/21 19:41 Medications Home Medications Medication Instructions Recorded Confirmed Last Taken atorvastatin 40 mg PO HS 07/14/19 02/03/21 07/13/19 balsalazide 2,250 mg PO TID 07/14/19 02/03/21 07/14/19 losartan [Cozaar] 25 mg PO DAILY 07/14/19 02/03/21 07/14/19 nortriptyline 50 mg PO HS 07/14/19 02/03/21 07/13/19 tamsulosin [Flomax] 0.8 mg PO DAILY 07/14/19 02/03/21 07/14/19 cholecalciferol (vitamin D3) 25 1,000 units PO DAILY 07/21/19 02/03/21 Unknown mcg (1,000 unit) capsule aspirin [Aspir-Low] 81 mg PO DAILY 02/03/21 02/03/21 Unknown mesalamine 1,000 mg TX UD 02/03/21 02/03/21 Unknown metformin 1,000 mg PO BID 02/03/21 02/03/21 Unknown nifedipine 60 mg PO DAILY 02/03/21 02/03/21 Unknown Past Medical History Medical History Adenoma of 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 H/O alcohol abuse H/O cerebral infarction H/O traumatic brain injury HLD (hyperlipidemia) HTN (hypertension) Hyperparathyroidism CODY (obstructive sleep apnea) T2DM (type 2 diabetes mellitus) Ulcerative pancolitis Exercise / Class Metabolic Activity II 4-5 Yardwork/Stairs/Walk up hill Past Surgical History Surgical History History of appendectomy History of arthroscopic knee surgery History of arthroscopy of shoulder History of colonoscopy last 05/2020 erythematous mucosa in sigmoid colon, repeat in 2 years History of elbow surgery left, 1963 Past Anesthesia History No Hx of Anesthesia Complications and No Family Hx of Anesthesia Complications History of PONV No Hx of PONV and No Hx of Motion Sickness Social History Smoking Status: Former smoker Do You Dip or Chew Tobacco: No Physical Exam Vital Signs Last Vital Signs Pulse 136 H 02/03/21 19:01 Resp 41 H 02/03/21 18:17 BP 125/76 02/03/21 19:01 Pulse Ox 94 02/03/21 19:01 Testing Laboratory Results 02/03/21 15:32 02/03/21 18:27 PT 12.9 Seconds (9.0-12.0) H 02/03/21 15:32 INR 1.3 (0.9-1.1) H 02/03/21 15:32 APTT 26.4 Seconds (21.0-31.0) 02/03/21 15:32 Urine Color Dark Yellow 02/03/21 17:00 Urine Appearance Cloudy (Clear) A 02/03/21 17:00 Urine pH 5.0 (4.5-7.5) 02/03/21 17:00 Ur Specific [place] 1.037 (1.000-1.030) H 02/03/21 17:00 Urine Protein 1+ (Negative) H 02/03/21 17:00 Urine Glucose (UA) 2+ (Negative) H 02/03/21 17:00 Urine Ketones Trace (Negative) H 02/03/21 17:00 Urine Nitrite Negative (Negative) 02/03/21 17:00 Ur Leukocyte Esterase Negative (Negative) 02/03/21 17:00 Urine WBC (Auto) 1-5 /hpf (0-5) 02/03/21 17:00 Urine RBC (Auto) 10-30 /hpf (0-4) H 02/03/21 17:00 U Hyaline Cast (Auto) 10-30 /lpf (0-5) H 02/03/21 17:00 U Epithel Cells (Auto) >30 /lpf (0-5) H 02/03/21 17:00 Urine Bacteria (Auto) Negative (Negative) 02/03/21 17:00 02/03/21 15:39 POC Glucose (other) 321 H Electrocardiogram Date: 02/03/21 Sinus tachycardia Nonspecific T wave abnormality Abnormal ECG When compared with ECG of 03-FEB-2021 15:21, (unconfirmed) Nonspecific T wave abnormality now evident in Lateral leads Other Testing CT ANGIOGRAM OF THE CHEST CLINICAL HISTORY: Chest pain and shortness of breath COMPARISON STUDY: February 2012 TECHNIQUE: Following the IV administration of 120 mL of Optiray, CT angiogram of the thorax was performed from the thoracic inlet to the lung bases utilizing the pulmonary embolus protocol. Images are reviewed in the axial, sagittal, and coronal planes. IV contrast was administered without complication. MIP imaging was performed. A dose lowering technique was utilized adhering to the principles of ALARA. CT DOSE: 1457.22 mGy.cm FINDINGS: There is a dilated fluid-filled stomach. There is a moderate dilated fluid- filled esophagus. No pathologically enlarged axillary mediastinal or hilar lymph nodes were visualized. There was no evidence of thoracic aortic dilatation. The examination is significantly motion degraded. There are no pulmonary artery filling defects to indicate acute pulmonary embolism given the technical limitations of the study Trace pleural fluid is suspected There are multifocal groundglass opacities most pronounced within the right upper lobe. The findings are suspicious for a multifocal pneumonia. There are coronary calcifications IMPRESSION: 1. Motion compromised study 2. No evidence of acute pulmonary embolism given the technical limitations of the study 3. Multifocal groundglass pulmonary opacities suspicious for multifocal pneumonia 4. Dilated fluid-filled stomach and esophagus
[2021-02-03] MEDS ORDERED: ALBUMIN HUMAN 5% 12.5 GM/250 ML VIAL IV ONE (18:28)
--- NOTE | 2021-02-03 18:39 | Critical Care Consultation ---
Date of Consultation February 03, 2021 Assessment & Plan (1) SBO (small bowel obstruction): CT chest 02/03/2021 personally reviewed: Centrilobular emphysema appreciated bilaterally, patient had groundglass opacities in the right upper, left lower lobe. No mediastinal lymphadenopathy Dilated fluid-filled esophagus as well as dilated stomach --SBO Likely from incarcerated small bowel Patient has been seen by Dr. Donald Patient will be taken to the OR directly. NGT has not been placed right now. --Multilobar pneumonia Seems to be likely aspiration pneumonia Follow-up nasal MRSA COVID-19 PCR negative Procalcitonin 34.1 -- HAGMA Delta-delta: Greater than 2, combined metabolic acidosis with metabolic alkalosis Metabolic acidosis likely from lactic acidosis as well as elevated beta hydroxybutyrate likely from starvation Metabolic alkalosis likely from nausea and vomiting Follow up ABG Monitor -- LIGIA Likely prerenal from decreased p.o. intake Follow-up urine lites Monitor BUN/creatinine Avoid nephrotoxic medications Strict ins and outs --Transaminitis With elevated conjugated bilirubin Could be from the septic picture with incarcerated small bowel Continue to monitor --Hyponatremia with hypochloremia Likely from nausea and vomiting Patient is getting IV fluids --Diabetes type 2 We will start ICU hyperglycemia protocol Keep blood sugar between 140-180 --COPD with emphysema Not in exacerbation Continue with inhaled bronchodilators --CODY On CPAP at home --Erythrocytosis Likely combination of dehydration plus history of COPD and CODY Monitor --Prophylaxis VTE: IPC's GI: Protonix Lines: Peripheral Diet: N.p.o. Plan: Patient needs a decompression of his belly which will benefit his respiratory status. There is high likelihood that he might aspirate while putting the NG tube in. Need to be very careful while doing it. Currently he is not complaining of nausea. I did advise the patient that if at any time he feels like throwing up he should pull off the BiPAP mask. Repeat lactate has been ordered. I will repeat CMP as well Recommend aggressive IV fluid resuscitation. In the ED patient already got vancomycin cefepime and Flagyl which will take care of intra-abdominal anaerobes. Repeat CMP and lactate I have personally spent 62 minutes of critical care time in the direct management of this patient. This is a life/limb threatening event. This includes time spent evaluating patient, direct bedside care, chart review, placing orders, interpretation of diagnostic studies, discussion with consultants, patient, and family members, as well as other required patient management activities. This time is exclusive of all separately billable procedures, and teaching time and separate from and in addition to any other critical care service time. Please note the above document was generated using voice recognition software. It may contain grammatical, syntax or spelling errors. (2) Shortness of breath: (3) High anion gap metabolic acidosis: (4) LIGIA (acute kidney injury): (5) Pneumonia: History of Present Illness History of Present Illness 70-year-old male past medical history of diabetes type 2, dyslipidemia, COPD, CODY on CPAP presented to the ED with complaints of distention of the belly going on since the last couple of days. He was also in respiratory distress breathing in the 30s at the time of presentation. He was put on BiPAP given IV fluids. Patient had CT chest abdomen pelvis which showed distended bowel loops. ICU was consulted because of severe lactic acidosis and possibility of patient going to the OR and coming to the ICU following that. Dr. Quiroga as well as Dr. Donald gave brief signout on the phone. At the time of examination patient was on BiPAP 16/8 40% saturating in the 90s. His respiratory rate was in the low 30s. He was talking in full sentences. He said that his breathing was better than before. He complained of abdominal distention and pain especially epigastric which was reproducible on palpation. Patient denies any nausea right now. He says that he feels nauseous when he is leaning forward. Patient has decreased appetite and multiple bouts of throwing up since last couple of days. Denies any fever or chills. No cough. No dysuria, no diarrhea. No headache. Social history: Greater than [id number] smoking history quit approximately 10 years ago Allergies Allergy/AdvReac Type Severity Reaction Status Date / Time No Known Allergies Allergy Unknown Verified 02/03/21 15:43 Home Medications Medication Instructions Recorded Confirmed Type atorvastatin 40 mg PO HS 07/14/19 02/03/21 History balsalazide 2,250 mg PO TID 07/14/19 02/03/21 History losartan [Cozaar] 25 mg PO DAILY 07/14/19 02/03/21 History nortriptyline 50 mg PO HS 07/14/19 02/03/21 History tamsulosin [Flomax] 0.8 mg PO DAILY 07/14/19 02/03/21 History cholecalciferol (vitamin D3) 25 1,000 units PO DAILY 07/21/19 02/03/21 History mcg (1,000 unit) capsule aspirin [Aspir-Low] 81 mg PO DAILY 02/03/21 02/03/21 History mesalamine 1,000 mg CA UD 02/03/21 02/03/21 History metformin 1,000 mg PO BID 02/03/21 02/03/21 History nifedipine 60 mg PO DAILY 02/03/21 02/03/21 History Patient History Medical History (Updated 02/03/21 @ 18:19 by Alia Barriga MD) Prediabetes Social History Smoking Status: Former smoker Feels Safe at Home: Yes Review of Systems Review of Systems: All systems reviewed & are unremarkable except as noted in HPI & below Physical Exam Physical Exam: Constitutional: In respiratory distress, talking in full sentences HEENT: EOMI, PERRLA Respiratory system: Decreased air entry bilaterally, no wheeze, no rhonchi, mild crackles bilateral lower lobes CVS: S1-S2 positive, no murmurs or gallops, tachycardia Abdomen: Soft, distended, positive epigastric tenderness, tympanic to percussion, decreased bowel sounds x4, right inguinal hernia Extremities: +2 pulses bilaterally radialis/ dorsalis pedis, no cyanosis, no edema Neuro: Awake alert oriented x3 Psych: Normal mood and affect G/U: Positive [place] Skin: no rashes, warm and dry Lymphatic: no cervical or axillary lymphadenopathy Results & Data Results & Data ([facility]) Vital Signs (Past 12 Hours) Vital Signs Pulse Resp BP Pulse Ox 02/03/21 18:00 132 H 43 H 127/94 96 02/03/21 17:30 129 H 40 H 139/84 100 02/03/21 17:15 128 H 36 H 121/80 100 02/03/21 17:00 132 H 38 H 130/76 100 02/03/21 16:47 138 H 36 H 127/85 100 02/03/21 16:25 136 H 143/91 H 100 02/03/21 15:46 141 H 43 H 121/103 H 99 02/03/21 15:41 142 H 100 02/03/21 15:40 42 H 97 02/03/21 15:30 142 H 42 H 114/91 99 02/03/21 15:17 141 H 45 H 127/81 100 02/03/21 15:32 02/03/21 15:32 Coding Level of Care Code Critical Care 1st 30-74 mins Diagnoses SBO (small bowel obstruction) K56.609 Shortness of breath R06.02 High anion gap metabolic acidosis E87.2 LIGIA (acute kidney injury) N17.9 Pneumonia J18.9 Time Spent (min) 62
[2021-02-03] MEDS ORDERED: MIDAZOLAM HCL 1 MG/ML 2ML VIAL ONE ×2 (18:43→22:09)
[2021-02-03] MEDS ORDERED: fentaNYL citrate 100 MCG/2 ML VIAL ONE ×3 (18:43→22:41)
[2021-02-03 18:58] LABS: Alanine Aminotransferase 219 U/L (12-78); Albumin Level 2.9 gm/dl (3.4-5.0); Aspartate Aminotransferase 548 U/L (15-37); BUN Creatinine Ratio 33.1 (10-20); Blood Urea Nitrogen 55 mg/dl (7-18); Calcium 10.8 mg/dl (8.5-10.1); Carbon Dioxide 25 mmol/L (21-32); Chloride 91 mmol/L (98-107); Est GFR (Non-African American) 41.4 ml/min; Glucose 253 mg/dl (70-99); Sodium 131 mmol/L (136-145)
--- NOTE | 2021-02-03 18:59 | History & Physical Report ---
Date of Service February 03, 2021 Assessment & Plan (1) Incarcerated inguinal hernia: High-grade small bowel obstruction Secondary to incarcerated right inguinal hernia Lactic Acidosis likely secondary to bowel ischemia -CT ABD:High-grade small bowel obstruction with a transition zone at the level of an incarcerated right inguinal hernia. Surgical consultation recommended -NG tube placement, IV fluids, bowel rest Surgery on board Plan for exploratory laparotomy today Pain Control Acute respiratory failure Multifocal pneumonia Possible Sepsis Negative COVID screen CTA:No evidence of acute pulmonary embolism given the technical limitations of the study. Multifocal groundglass pulmonary opacities suspicious for multifocal pneumonia. Dilated fluid-filled stomach and esophagus Elevated procalcitonin Continue oxygen support with BiPAP Start on broad spectrum IV Antibiotics Duonebs Blood cultures Aspiration precautions Critical Care consulted Check MRSA screen Acute kidney injury Hyponatremia Hypochloremia Likely due to GI loses IV fluids Avoid nephrotoxic agents as able H/O COPD CODY on CPAP No signs of COPD exacerbation DM Type II: Will hold metformin Last A1c:7.7 on Oct 12 Insulin therapy while hospitalized Monitor BGs Transaminitis Likely secondary to above Monitor LFTs Left hepatic lobe mass Left adrenal nodule Incidental Findings on CT scan CT abd: Interval development of an indeterminate 46 mm ill-defined left hepatic lobe mass. Indeterminate 24 mm left adrenal nodule Further work-up as outpatient Ulcerative colitis On mesalamine Hyperlipidemia On atorvastatin BPH Continue Flomax as able H/O CVA Resume aspirin, statin as able DVT prophylaxis SCDs for now given Plan for surgery Code Status Full Code Disposition Admit in ICU History of Present Illness Chief Complaint: Shortness of breath Primary Care Provider: Bg Clarke MD Patient is a 70-year-old male with history of diabetes mellitus type 2, ulcerative colitis, hyperparathyroidism, obstructive sleep apnea, hypertension, BPH, traumatic brain injury, CVA, dyslipidemia, history of alcohol abuse, Raynaud's phenomenon and other medical problems presents with history of worsening shortness of breath, respiratory distress associated with dizziness since 2-3 days duration. Patient was noted to be have significant respiratory distress, tachypneic while in ED and so was placed on BiPAP. Detailed history was difficult to obtain from the patient secondary to respiratory distress. Most of the history is obtained from patient's records, ER physician and patient's family as well. Patient's recently and was undergoing through a lot of stress since last few days. His initial EKG was suspicious for ST elevation PA but patient denied any chest pain as per ER physician, and repeat EKGs showed sinus tachycardia without any significant ischemic changes. He admits to having significant abdominal pain associated with distention but denies any fever, chills. Admits to being nauseous when he leans forward and had vomited since last 2 days. Reports having decreased appetite. CT abdomen showed high-grade small bowel obstruction with transition zone at the level of the incarcerated right inguinal hernia. Patient was planned to be taken to the OR for exploratory laparotomy by Dr. Donald. Allergies Allergy/AdvReac Type Severity Reaction Status Date / Time No Known Allergies Allergy Unknown Verified 02/03/21 19:41 Home Medications Medication Instructions Recorded Confirmed Type atorvastatin 40 mg PO HS 07/14/19 02/03/21 History balsalazide 2,250 mg PO TID 07/14/19 02/03/21 History losartan [Cozaar] 25 mg PO DAILY 07/14/19 02/03/21 History nortriptyline 50 mg PO HS 07/14/19 02/03/21 History tamsulosin [Flomax] 0.8 mg PO DAILY 07/14/19 02/03/21 History cholecalciferol (vitamin D3) 25 1,000 units PO DAILY 07/21/19 02/03/21 History mcg (1,000 unit) capsule aspirin [Aspir-Low] 81 mg PO DAILY 02/03/21 02/03/21 History mesalamine 1,000 mg [place] UD 02/03/21 02/03/21 History metformin 1,000 mg PO BID 02/03/21 02/03/21 History nifedipine 60 mg PO DAILY 02/03/21 02/03/21 History Past Med/Surg History Medical History Adenoma of 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 H/O alcohol abuse H/O cerebral infarction H/O traumatic brain injury HLD (hyperlipidemia) HTN (hypertension) Hyperparathyroidism CODY (obstructive sleep apnea) T2DM (type 2 diabetes mellitus) Ulcerative pancolitis Surgical History History of appendectomy History of arthroscopic knee surgery History of arthroscopy of shoulder History of colonoscopy last 05/2020 erythematous mucosa in sigmoid colon, repeat in 2 years History of elbow surgery left, 1963 Social History Smoking Status: Former smoker Tobacco Type: Cigarettes packs per day: 1; Years Smoked: 30; Smoking End Date: 2009; Hx Alcohol Use: Yes (h/o alcoholism, quit in 1994) Hx Substance Use: No Preferred Language: Turkish Communication Ability: Effective marital status: / marital status details: recently 01/30/21 Current Living Situation: Alone Feels Safe at Home: Yes Review of Systems Review of Systems: All systems reviewed & are unremarkable except as noted in HPI & below Physical Exam Physical Exam: Physical Exam: Vitals signs as noted above General Appearance:Moderately built and nourished, + respiratory distress Head: normocephalic, Atraumatic Eyes: normal inspection, EOMI Neck: supple, Trachea midline Respiratory/Chest: Decreased breath sounds, minimal crackles, +accessory muscle use Cardiovascular: S1, S2, No murmur, Tachycardia Abdomen/GI:Soft, tender, distended, Hypoactive Bowel sounds Extremities/Musculoskeletal:normal inspection, no edema Neurologic/Psych:AAOX3, grossly no focal neurological deficits Skin: normal color, warm Results & Data Results & Data ([facility]) Vital Signs (Past 12 Hours) Vital Signs Pulse Resp BP Pulse Ox 02/03/21 18:50 96 02/03/21 18:45 136 H 124/79 100 02/03/21 18:30 137 H 130/88 100 02/03/21 18:25 99 02/03/21 18:17 138 H 41 H 121/73 96 02/03/21 18:00 132 H 43 H 127/94 96 02/03/21 17:30 129 H 40 H 139/84 100 02/03/21 17:15 128 H 36 H 121/80 100 02/03/21 17:00 132 H 38 H 130/76 100 02/03/21 16:47 138 H 36 H 127/85 100 02/03/21 16:25 136 H 143/91 H 100 02/03/21 15:46 141 H 43 H 121/103 H 99 02/03/21 15:41 142 H 100 02/03/21 15:40 42 H 97 02/03/21 15:30 142 H 42 H 114/91 99 02/03/21 15:17 141 H 45 H 127/81 100 Laboratory Results Short CBC 02/03/21 Range/Units 15:32 WBC 11.34 H (4.8-10.8) K/uL Hgb 17.2 (14.0-18.0) g/dL Hct 51.0 (42-52) % Plt Count 326 (130-400) K/uL BMP 02/03/21 02/03/21 15:32 18:27 Sodium 129 L 131 L Potassium 4.0 4.0 Chloride 87 L 91 L Carbon Dioxide 23 25 BUN 57 H 55 H Creatinine 2.41 H 1.65 H D Glucose 310 H* 253 H Calcium 11.5 H 10.8 H Cardiac Enzymes 02/03/21 Range/Units 15:32 Troponin I 0.041 (0-0.045) ng/ml Liver Function 02/03/21 02/03/21 Range/Units 15:32 18:27 Total Bilirubin 1.6 H 1.3 H (0.2-1) mg/dl Direct Bilirubin 0.4 H (0-0.2) mg/dl AST 280 H 548 H (15-37) U/L ALT 127 H 219 H (12-78) U/L Alkaline Phosphatase 59 50 (45-117) U/L Albumin 3.4 2.9 L (3.4-5.0) gm/dl Urine 02/03/21 Range/Units 17:00 Urine Color Dark Yellow Urine Appearance Cloudy A (Clear) Urine pH 5.0 (4.5-7.5) Ur Specific [place] 1.037 H (1.000-1.030) Urine Protein 1+ H (Negative) Urine Glucose (UA) 2+ H (Negative) Diagnostic Findings CTA:1. Motion compromised study 2. No evidence of acute pulmonary embolism given the technical limitations of the study 3. Multifocal groundglass pulmonary opacities suspicious for multifocal pneumonia 4. Dilated fluid-filled stomach and esophagus CT ABD: 1. High-grade small bowel obstruction with a transition zone at the level of an incarcerated right inguinal hernia. Surgical consultation recommended 2. Interval development of an indeterminate 46 mm ill-defined left hepatic lobe mass 3. Indeterminate 24 mm left adrenal nodule ECG Additional Comments: EKG: Sinus tachycardia, nonspecific T wave abnormality, QTC 406.
[2021-02-03 19:07] LABS: Chloride Random Urine < 10 mmol/L; Potassium Random Urine 62.7 mmol/L; Sodium Random Urine 15 mmol/L; Uric Acid Urine Random 14.4 mg/dl
--- NOTE | 2021-02-03 19:07 | XRay Report ---
XR chest 1V portable CLINICAL HISTORY: Confirm NG Tube placement COMPARISON STUDY: 02/03/2021 FINDINGS: There is been interval placement of an enteric tube which passes into the stomach. There ar e nonspecific bilateral pulmonary airspace opacities.[ IMPRESSION: 1. Bilateral pulmonary airspace opacities 2. Enteric tube which passes into the stomach ACT 112: Negative or not required by law. Electronically signed by: Reinaldo Castillo M.D. 02/03/2021 7:05 PM
[2021-02-03 19:11] LABS: Albumin Globulin Ratio 0.8 (0.9-2); Alkaline Phosphatase 50 U/L (45-117); Bilirubin,Total 1.3 mg/dl (0.2-1); Globulin 3.5 gm/dl (2.5-4.0); Total Protein 6.4 gm/dl (6.4-8.2)
--- NOTE | 2021-02-03 19:24 | Surgery Consultation ---
Date of Consultation February 03, 2021 Assessment & Plan (1) Incarcerated inguinal hernia: This patient has a right inguinal hernia that is not reducible. It is resulting in a small bowel obstruction. I explained to the patient that repair would be indicated. I would do this with an open procedure due to the significant distention of the small bowel. I explained the procedure and the possible complications. We may also need to perform a laparotomy with removal portion of small bowel if there is any ischemic bowel identified. I explained the possible complications and answered his questions. An NG can be placed after he has been put to sleep for decompression of his stomach. Critical care medicine has been consulted as I believe he will need intensive care unit care following the procedure. History of Present Illness Reason for Consultation: Incarcerated inguinal hernia with bowel obstruction Requesting Physician: Dr. Quiroga History of Present Illness I was asked by Dr. Quiroga to see this 70-year-old male who presented to the emergency room with shortness of breath, tachypnea and hypoxia. The patient was not able to give a good history and much of the history was obtained from nursing. His 3 days ago as a result of Covid complications. He began to develop abdominal discomfort yesterday. His abdomen became distended. He has had vomiting when he bends over. He did not move his bowels today and he has not been passing flatus. He has never had the symptoms in the past. He is not had any fever or chills. Upon arrival he was found to be quite tachypneic. He was placed on CPAP. He was also tachycardic. He underwent a CT scan of the chest that did not demonstrate pulmonary embolus but he did have then a CT of the abdomen and pelvis that demonstrated a bowel obstruction with a transition point with in an incarcerated right inguinal hernia. There was no pneumatosis nor was there any free air. He was unaware that he had a hernia. Allergies Allergy/AdvReac Type Severity Reaction Status Date / Time No Known Allergies Allergy Unknown Verified 02/03/21 15:43 Home Medications Medication Instructions Recorded Confirmed Type atorvastatin 40 mg PO HS 07/14/19 02/03/21 History balsalazide 2,250 mg PO TID 07/14/19 02/03/21 History losartan [Cozaar] 25 mg PO DAILY 07/14/19 02/03/21 History nortriptyline 50 mg PO HS 07/14/19 02/03/21 History tamsulosin [Flomax] 0.8 mg PO DAILY 07/14/19 02/03/21 History cholecalciferol (vitamin D3) 25 1,000 units PO DAILY 07/21/19 02/03/21 History mcg (1,000 unit) capsule aspirin [Aspir-Low] 81 mg PO DAILY 02/03/21 02/03/21 History mesalamine 1,000 mg [place] UD 02/03/21 02/03/21 History metformin 1,000 mg PO BID 02/03/21 02/03/21 History nifedipine 60 mg PO DAILY 02/03/21 02/03/21 History Patient History Medical History Prediabetes Surgical History (Updated 02/03/21 @ 19:26 by Kurt Donald MD) History of appendectomy Social History Smoking Status: Former smoker Feels Safe at Home: Yes Physical Exam Neck: trachea midline Respiratory: + labored breathing and + uses accessory muscles Auscultation: + rhonchi (Scattered) Cardiovascular: Rate/Rhythm: regular rate, regular rhythm and + tachycardic Gastrointestinal (Abdomen): Inspection/Auscultation: + abdomen distended (Markedly distended but soft) and + hypoactive bowel sounds Percussion/Palpation: + abdomen tender (Right inguinal area), abdomen soft and + hernia (Right inguinal hernia that cannot be reduced it is small but tender) Results & Data ([facility]) Vital Signs (Past 12 Hours) Vital Signs Pulse Resp BP Pulse Ox 02/03/21 19:01 136 H 125/76 94 02/03/21 18:50 96 02/03/21 18:45 136 H 124/79 100 02/03/21 18:30 137 H 130/88 100 02/03/21 18:25 99 02/03/21 18:17 138 H 41 H 121/73 96 02/03/21 18:00 132 H 43 H 127/94 96 02/03/21 17:30 129 H 40 H 139/84 100 02/03/21 17:15 128 H 36 H 121/80 100 02/03/21 17:00 132 H 38 H 130/76 100 02/03/21 16:47 138 H 36 H 127/85 100 02/03/21 16:25 136 H 143/91 H 100 02/03/21 15:46 141 H 43 H 121/103 H 99 02/03/21 15:41 142 H 100 02/03/21 15:40 42 H 97 02/03/21 15:30 142 H 42 H 114/91 99 02/03/21 15:17 141 H 45 H 127/81 100 Laboratory Results 02/03/21 02/03/21 02/03/21 Range/Units 18:27 17:46 17:00 WBC (4.8-10.8) K/uL RBC (4.7-6.1) M/uL Hgb (14.0-18.0) g/dL POC Hgb (14.0-18.0) g/dl Hct (42-52) % POC Hct (42-52) % MCV (80-100) fL MCH (25-34) pg MCHC (32-36) g/dL RDW Std Deviation (36.4-46.3) fL RDW Coeff of Marita (11.5-14.5) % Plt Count (130-400) K/uL MPV (7.4-10.4) fL Immature Gran % (Auto) % Neut % (Auto) % Lymph % (Auto) % Miller % (Auto) % Eos % (Auto) % Baso % (Auto) % Neut # (Auto) (1.4-6.5) K/uL Lymph # (Auto) (1.2-3.4) K/uL Miller # (Auto) (0.11-0.59) K/uL Eos # (Auto) (0-0.5) K/uL Baso # (Auto) (0-0.2) K/uL Immature Gran # (Auto) (0.00-0.02) K/uL PT (9.0-12.0) Seconds INR (0.9-1.1) APTT (21.0-31.0) Seconds PTT Ratio VBG pH (7.36-7.41) VBG pCO2 (38-50) mmHg VBG pO2 mmHg VBG HCO3 mmol/L VBG O2 Saturation % VBG Base Excess mEq/L Barometric Pressure mm/Hg POC Sodium (135-144) mmol/L Sodium 131 L (136-145) mmol/L POC Potassium (3.3-5.0) mmol/L Potassium 4.0 (3.5-5.1) mmol/L POC Chloride (101-112) mmol/L Chloride 91 L (98-107) mmol/L Carbon Dioxide 25 (21-32) mmol/L POC Total CO2 (24-31) mmol/L Anion Gap 14.0 H (3-11) POC Anion Gap (16-25) mmol/L POC BUN (7-18) mg/dl BUN 55 H (7-18) mg/dl Creatinine 1.65 H D (0.6-1.4) mg/dl POC Creatinine (0.6-1.3) mg/dl Est Cr Clr Drug Dosing Not Reportable Est GFR ( Amer) 48.0 ml/min Est GFR (Non-Af Amer) 41.4 ml/min BUN/Creatinine Ratio 33.1 H (10-20) Glucose 253 H (70-99) mg/dl POC Glucose (other) (70-99) mg/dl Lactate 9.1 H* (0.4-2.0) mmol/L Calcium 10.8 H (8.5-10.1) mg/dl POC Ioniz Calcium Trey (1.12-1.32) mmol/l Phosphorus (2.5-4.9) mg/dl Magnesium (1.8-2.4) mg/dl Total Bilirubin 1.3 H (0.2-1) mg/dl Direct Bilirubin (0-0.2) mg/dl AST 548 H (15-37) U/L ALT 219 H (12-78) U/L Alkaline Phosphatase 50 (45-117) U/L Troponin I (0-0.045) ng/ml NT-Pro-B Natriuret Pep (0-900) pg/ml Total Protein 6.4 (6.4-8.2) gm/dl Albumin 2.9 L (3.4-5.0) gm/dl Globulin 3.5 (2.5-4.0) gm/dl Albumin/Globulin Ratio 0.8 L (0.9-2) Lipase (73-393) U/L Beta-Hydroxybutyric Acd (0.2-2.81) mg/dl Procalcitonin (0-0.5) ng/ml Urine Color Urine Appearance (Clear) Urine pH (4.5-7.5) Ur Specific [place] (1.000-1.030) Urine Protein (Negative) Urine Glucose (UA) (Negative) Urine Ketones (Negative) Urine Blood (Negative) Urine Nitrite (Negative) Urine Bilirubin (Negative) Urine Urobilinogen (Negative) Ur Leukocyte Esterase (Negative) Urine WBC (Auto) (0-5) /hpf Urine RBC (Auto) (0-4) /hpf U Hyaline Cast (Auto) (0-5) /lpf U Epithel Cells (Auto) (0-5) /lpf Urine Bacteria (Auto) (Negative) Urine Osmolality (500-800) mOsm/kg Ur Random Creatinine mg/dl Ur Random Sodium mmol/L Ur Random Potassium mmol/L Ur Random Chloride mmol/L Ur Random Uric Acid Cancelled mg/dl COVID-19 Eval Order SARS-CoV-2 (PCR) (Negative) 02/03/21 02/03/21 02/03/21 Range/Units 17:00 17:00 17:00 WBC (4.8-10.8) K/uL RBC (4.7-6.1) M/uL Hgb (14.0-18.0) g/dL POC Hgb (14.0-18.0) g/dl Hct (42-52) % POC Hct (42-52) % MCV (80-100) fL MCH (25-34) pg MCHC (32-36) g/dL RDW Std Deviation (36.4-46.3) fL RDW Coeff of Marita (11.5-14.5) % Plt Count (130-400) K/uL MPV (7.4-10.4) fL Immature Gran % (Auto) % Neut % (Auto) % Lymph % (Auto) % Miller % (Auto) % Eos % (Auto) % Baso % (Auto) % Neut # (Auto) (1.4-6.5) K/uL Lymph # (Auto) (1.2-3.4) K/uL Miller # (Auto) (0.11-0.59) K/uL Eos # (Auto) (0-0.5) K/uL Baso # (Auto) (0-0.2) K/uL Immature Gran # (Auto) (0.00-0.02) K/uL PT (9.0-12.0) Seconds INR (0.9-1.1) APTT (21.0-31.0) Seconds PTT Ratio VBG pH (7.36-7.41) VBG pCO2 (38-50) mmHg VBG pO2 mmHg VBG HCO3 mmol/L VBG O2 Saturation % VBG Base Excess mEq/L Barometric Pressure mm/Hg POC Sodium (135-144) mmol/L Sodium (136-145) mmol/L POC Potassium (3.3-5.0) mmol/L Potassium (3.5-5.1) mmol/L POC Chloride (101-112) mmol/L Chloride (98-107) mmol/L Carbon Dioxide (21-32) mmol/L POC Total CO2 (24-31) mmol/L Anion Gap (3-11) POC Anion Gap (16-25) mmol/L POC BUN (7-18) mg/dl BUN (7-18) mg/dl Creatinine (0.6-1.4) mg/dl POC Creatinine (0.6-1.3) mg/dl Est Cr Clr Drug Dosing Est GFR ( Amer) ml/min Est GFR (Non-Af Amer) ml/min BUN/Creatinine Ratio (10-20) Glucose (70-99) mg/dl POC Glucose (other) (70-99) mg/dl Lactate (0.4-2.0) mmol/L Calcium (8.5-10.1) mg/dl POC Ioniz Calcium Trey (1.12-1.32) mmol/l Phosphorus (2.5-4.9) mg/dl Magnesium (1.8-2.4) mg/dl Total Bilirubin (0.2-1) mg/dl Direct Bilirubin (0-0.2) mg/dl AST (15-37) U/L ALT (12-78) U/L Alkaline Phosphatase (45-117) U/L Troponin I (0-0.045) ng/ml NT-Pro-B Natriuret Pep (0-900) pg/ml Total Protein (6.4-8.2) gm/dl Albumin (3.4-5.0) gm/dl Globulin (2.5-4.0) gm/dl Albumin/Globulin Ratio (0.9-2) Lipase (73-393) U/L Beta-Hydroxybutyric Acd (0.2-2.81) mg/dl Procalcitonin (0-0.5) ng/ml Urine Color Dark Yellow Urine Appearance Cloudy A (Clear) Urine pH 5.0 (4.5-7.5) Ur Specific [place] 1.037 H (1.000-1.030) Urine Protein 1+ H (Negative) Urine Glucose (UA) 2+ H (Negative) Urine Ketones Trace H (Negative) Urine Blood 2+ H (Negative) Urine Nitrite Negative (Negative) Urine Bilirubin 1+ H (Negative) Urine Urobilinogen Negative (Negative) Ur Leukocyte Esterase Negative (Negative) Urine WBC (Auto) 1-5 (0-5) /hpf Urine RBC (Auto) 10-30 H (0-4) /hpf U Hyaline Cast (Auto) 10-30 H (0-5) /lpf U Epithel Cells (Auto) >30 H (0-5) /lpf Urine Bacteria (Auto) Negative (Negative) Urine Osmolality 509 (500-800) mOsm/kg Ur Random Creatinine 115.0 mg/dl Ur Random Sodium 15 mmol/L Ur Random Potassium 62.7 mmol/L Ur Random Chloride < 10 mmol/L Ur Random Uric Acid 14.4 mg/dl COVID-19 Eval Order SARS-CoV-2 (PCR) (Negative) 02/03/21 02/03/21 02/03/21 Range/Units 15:39 15:38 15:38 WBC (4.8-10.8) K/uL RBC (4.7-6.1) M/uL Hgb (14.0-18.0) g/dL POC Hgb 18.4 H (14.0-18.0) g/dl Hct (42-52) % POC Hct 54 H (42-52) % MCV (80-100) fL MCH (25-34) pg MCHC (32-36) g/dL RDW Std Deviation (36.4-46.3) fL RDW Coeff of Marita (11.5-14.5) % Plt Count (130-400) K/uL MPV (7.4-10.4) fL Immature Gran % (Auto) % Neut % (Auto) % Lymph % (Auto) % Miller % (Auto) % Eos % (Auto) % Baso % (Auto) % Neut # (Auto) (1.4-6.5) K/uL Lymph # (Auto) (1.2-3.4) K/uL [place] # (Auto) (0.11-0.59) K/uL Eos # (Auto) (0-0.5) K/uL Baso # (Auto) (0-0.2) K/uL Immature Gran # (Auto) (0.00-0.02) K/uL PT (9.0-12.0) Seconds INR (0.9-1.1) APTT (21.0-31.0) Seconds PTT Ratio VBG pH (7.36-7.41) VBG pCO2 (38-50) mmHg VBG pO2 mmHg VBG HCO3 mmol/L VBG O2 Saturation % VBG Base Excess mEq/L Barometric Pressure mm/Hg POC Sodium 129 L (135-144) mmol/L Sodium (136-145) mmol/L POC Potassium 4.1 (3.3-5.0) mmol/L Potassium (3.5-5.1) mmol/L POC Chloride 87 L (101-112) mmol/L Chloride (98-107) mmol/L Carbon Dioxide (21-32) mmol/L POC Total CO2 24 (24-31) mmol/L Anion Gap (3-11) POC Anion Gap 23.0 (16-25) mmol/L POC BUN 57 H (7-18) mg/dl BUN (7-18) mg/dl Creatinine (0.6-1.4) mg/dl POC Creatinine 2.4 H (0.6-1.3) mg/dl Est Cr Clr Drug Dosing Est GFR ( Amer) ml/min Est GFR (Non-Af Amer) ml/min BUN/Creatinine Ratio (10-20) Glucose (70-99) mg/dl POC Glucose (other) 321 H (70-99) mg/dl Lactate (0.4-2.0) mmol/L Calcium (8.5-10.1) mg/dl POC Ioniz Calcium Trey 1.23 (1.12-1.32) mmol/l Phosphorus (2.5-4.9) mg/dl Magnesium (1.8-2.4) mg/dl Total Bilirubin (0.2-1) mg/dl Direct Bilirubin (0-0.2) mg/dl AST (15-37) U/L ALT (12-78) U/L Alkaline Phosphatase (45-117) U/L Troponin I (0-0.045) ng/ml NT-Pro-B Natriuret Pep (0-900) pg/ml Total Protein (6.4-8.2) gm/dl Albumin (3.4-5.0) gm/dl Globulin (2.5-4.0) gm/dl Albumin/Globulin Ratio (0.9-2) Lipase (73-393) U/L Beta-Hydroxybutyric Acd (0.2-2.81) mg/dl Procalcitonin (0-0.5) ng/ml Urine Color Urine Appearance (Clear) Urine pH (4.5-7.5) Ur Specific [place] (1.000-1.030) Urine Protein (Negative) Urine Glucose (UA) (Negative) Urine Ketones (Negative) Urine Blood (Negative) Urine Nitrite (Negative) Urine Bilirubin (Negative) Urine Urobilinogen (Negative) Ur Leukocyte Esterase (Negative) Urine WBC (Auto) (0-5) /hpf Urine RBC (Auto) (0-4) /hpf U Hyaline Cast (Auto) (0-5) /lpf U Epithel Cells (Auto) (0-5) /lpf Urine Bacteria (Auto) (Negative) Urine Osmolality (500-800) mOsm/kg Ur Random Creatinine mg/dl Ur Random Sodium mmol/L Ur Random Potassium mmol/L Ur Random Chloride mmol/L Ur Random Uric Acid mg/dl COVID-19 Eval Order Covid19 at [facility] SARS-CoV-2 (PCR) NEGATIVE (Negative) 02/03/21 02/03/21 02/03/21 Range/Units 15:32 15:32 15:32 WBC (4.8-10.8) K/uL RBC (4.7-6.1) M/uL Hgb (14.0-18.0) g/dL POC Hgb (14.0-18.0) g/dl Hct (42-52) % POC Hct (42-52) % MCV (80-100) fL MCH (25-34) pg MCHC (32-36) g/dL RDW Std Deviation (36.4-46.3) fL RDW Coeff of Marita (11.5-14.5) % Plt Count (130-400) K/uL MPV (7.4-10.4) fL Immature Gran % (Auto) % Neut % (Auto) % Lymph % (Auto) % Miller % (Auto) % Eos % (Auto) % Baso % (Auto) % Neut # (Auto) (1.4-6.5) K/uL Lymph # (Auto) (1.2-3.4) K/uL Miller # (Auto) (0.11-0.59) K/uL Eos # (Auto) (0-0.5) K/uL Baso # (Auto) (0-0.2) K/uL Immature Gran # (Auto) (0.00-0.02) K/uL PT 12.9 H (9.0-12.0) Seconds INR 1.3 H (0.9-1.1) APTT 26.4 (21.0-31.0) Seconds PTT Ratio 1.0 VBG pH 7.28 L (7.36-7.41) VBG pCO2 50 (38-50) mmHg VBG pO2 33 mmHg VBG HCO3 23 mmol/L VBG O2 Saturation < 60.0 % VBG Base Excess -4.4 mEq/L Barometric Pressure 737.7 mm/Hg POC Sodium (135-144) mmol/L Sodium (136-145) mmol/L POC Potassium (3.3-5.0) mmol/L Potassium (3.5-5.1) mmol/L POC Chloride (101-112) mmol/L Chloride (98-107) mmol/L Carbon Dioxide (21-32) mmol/L POC Total CO2 (24-31) mmol/L Anion Gap (3-11) POC Anion Gap (16-25) mmol/L POC BUN (7-18) mg/dl BUN (7-18) mg/dl Creatinine (0.6-1.4) mg/dl POC Creatinine (0.6-1.3) mg/dl Est Cr Clr Drug Dosing Est GFR ( Amer) ml/min Est GFR (Non-Af Amer) ml/min BUN/Creatinine Ratio (10-20) Glucose (70-99) mg/dl POC Glucose (other) (70-99) mg/dl Lactate 13.1 H* (0.4-2.0) mmol/L Calcium (8.5-10.1) mg/dl POC Ioniz Calcium Trey (1.12-1.32) mmol/l Phosphorus (2.5-4.9) mg/dl Magnesium (1.8-2.4) mg/dl Total Bilirubin (0.2-1) mg/dl Direct Bilirubin (0-0.2) mg/dl AST (15-37) U/L ALT (12-78) U/L Alkaline Phosphatase (45-117) U/L Troponin I (0-0.045) ng/ml NT-Pro-B Natriuret Pep (0-900) pg/ml Total Protein (6.4-8.2) gm/dl Albumin (3.4-5.0) gm/dl Globulin (2.5-4.0) gm/dl Albumin/Globulin Ratio (0.9-2) Lipase (73-393) U/L Beta-Hydroxybutyric Acd (0.2-2.81) mg/dl Procalcitonin (0-0.5) ng/ml Urine Color Urine Appearance (Clear) Urine pH (4.5-7.5) Ur Specific [place] (1.000-1.030) Urine Protein (Negative) Urine Glucose (UA) (Negative) Urine Ketones (Negative) Urine Blood (Negative) Urine Nitrite (Negative) Urine Bilirubin (Negative) Urine Urobilinogen (Negative) Ur Leukocyte Esterase (Negative) Urine WBC (Auto) (0-5) /hpf Urine RBC (Auto) (0-4) /hpf U Hyaline Cast (Auto) (0-5) /lpf U Epithel Cells (Auto) (0-5) /lpf Urine Bacteria (Auto) (Negative) Urine Osmolality (500-800) mOsm/kg Ur Random Creatinine mg/dl Ur Random Sodium mmol/L Ur Random Potassium mmol/L Ur Random Chloride mmol/L Ur Random Uric Acid mg/dl COVID-19 Eval Order SARS-CoV-2 (PCR) (Negative) 02/03/21 02/03/21 02/03/21 Range/Units 15:32 15:32 15:32 WBC 11.34 H (4.8-10.8) K/uL RBC 5.67 (4.7-6.1) M/uL Hgb 17.2 (14.0-18.0) g/dL POC Hgb (14.0-18.0) g/dl Hct 51.0 (42-52) % POC Hct (42-52) % MCV 89.9 (80-100) fL MCH 30.3 (25-34) pg MCHC 33.7 (32-36) g/dL RDW Std Deviation 44.8 (36.4-46.3) fL RDW Coeff of Marita 13.6 (11.5-14.5) % Plt Count 326 (130-400) K/uL MPV 12.2 H (7.4-10.4) fL Immature Gran % (Auto) 0.8 % Neut % (Auto) 71.3 % Lymph % (Auto) 7.2 % Miller % (Auto) 20.5 % Eos % (Auto) 0.0 % Baso % (Auto) 0.2 % Neut # (Auto) 8.09 H (1.4-6.5) K/uL Lymph # (Auto) 0.82 L (1.2-3.4) K/uL [place] # (Auto) 2.32 H (0.11-0.59) K/uL Eos # (Auto) 0.00 (0-0.5) K/uL Baso # (Auto) 0.02 (0-0.2) K/uL Immature Gran # (Auto) 0.09 H (0.00-0.02) K/uL PT (9.0-12.0) Seconds INR (0.9-1.1) APTT (21.0-31.0) Seconds PTT Ratio VBG pH (7.36-7.41) VBG pCO2 (38-50) mmHg VBG pO2 mmHg VBG HCO3 mmol/L VBG O2 Saturation % VBG Base Excess mEq/L Barometric Pressure mm/Hg POC Sodium (135-144) mmol/L Sodium 129 L (136-145) mmol/L POC Potassium (3.3-5.0) mmol/L Potassium 4.0 (3.5-5.1) mmol/L POC Chloride (101-112) mmol/L Chloride 87 L (98-107) mmol/L Carbon Dioxide 23 (21-32) mmol/L POC Total CO2 (24-31) mmol/L Anion Gap 19.0 H (3-11) POC Anion Gap (16-25) mmol/L POC BUN (7-18) mg/dl BUN 57 H (7-18) mg/dl Creatinine 2.41 H (0.6-1.4) mg/dl POC Creatinine (0.6-1.3) mg/dl Est Cr Clr Drug Dosing Not Reportable Est GFR ( Amer) 30.4 ml/min Est GFR (Non-Af Amer) 26.2 ml/min BUN/Creatinine Ratio 23.8 H (10-20) Glucose 310 H* (70-99) mg/dl POC Glucose (other) (70-99) mg/dl Lactate (0.4-2.0) mmol/L Calcium 11.5 H (8.5-10.1) mg/dl POC Ioniz Calcium Trey (1.12-1.32) mmol/l Phosphorus 4.8 (2.5-4.9) mg/dl Magnesium 2.3 (1.8-2.4) mg/dl Total Bilirubin 1.6 H (0.2-1) mg/dl Direct Bilirubin 0.4 H (0-0.2) mg/dl AST 280 H (15-37) U/L ALT 127 H (12-78) U/L Alkaline Phosphatase 59 (45-117) U/L Troponin I 0.041 (0-0.045) ng/ml NT-Pro-B Natriuret Pep 1194 H (0-900) pg/ml Total Protein 7.8 (6.4-8.2) gm/dl Albumin 3.4 (3.4-5.0) gm/dl Globulin 4.4 H (2.5-4.0) gm/dl Albumin/Globulin Ratio 0.8 L (0.9-2) Lipase 33 L (73-393) U/L Beta-Hydroxybutyric Acd 3.98 H (0.2-2.81) mg/dl Procalcitonin 34.13 H (0-0.5) ng/ml Urine Color Urine Appearance (Clear) Urine pH (4.5-7.5) Ur Specific [place] (1.000-1.030) Urine Protein (Negative) Urine Glucose (UA) (Negative) Urine Ketones (Negative) Urine Blood (Negative) Urine Nitrite (Negative) Urine Bilirubin (Negative) Urine Urobilinogen (Negative) Ur Leukocyte Esterase (Negative) Urine WBC (Auto) (0-5) /hpf Urine RBC (Auto) (0-4) /hpf U Hyaline Cast (Auto) (0-5) /lpf U Epithel Cells (Auto) (0-5) /lpf Urine Bacteria (Auto) (Negative) Urine Osmolality (500-800) mOsm/kg Ur Random Creatinine mg/dl Ur Random Sodium mmol/L Ur Random Potassium mmol/L Ur Random Chloride mmol/L Ur Random Uric Acid mg/dl COVID-19 Eval Order SARS-CoV-2 (PCR) (Negative) Diagnostic Findings CT abd pelvis IV con only CLINICAL HISTORY: Chest pain and shortness of breath COMPARISON STUDY: June 2019 TECHNIQUE: The patient was scanned in a dynamic helical fashion during intravenous administration of 120 cc of Optiray 350. A dose lowering technique was utilized adhering to the principles of ALARA. CT DOSE: FINDINGS: Lower chest: There is respiratory motion artifact. There are scattered groundgl ass opacities possibly representing a multifocal pneumonia. There is a dilated fluid-filled esophagus. There are coronary artery calcifications. Liver: There is an ill-defined 46 mm mass within the lateral segment left lobe of the liver. Gallbladder: Mildly distended. No calculi identified. Spleen: Normal in size and attenuation. Pancreas: Unremarkable. Adrenal glands: There is an indeterminate 24 mm left adrenal nodule. Kidneys: There are bilateral renal cortical cysts. There is no hydronephrosis. There are no solid renal masses identified Bowel: There is a high-grade small bowel obstruction with a transition at the level of an incarcerated right inguinal hernia. There is no pneumatosis. There is no portal venous gas. Peritoneum: There is no intraperitoneal free air or abdominal ascites. Vasculature: The abdominal aorta is normal in course and caliber. Adenopathy: None. Pelvic viscera: There is mild prostatomegaly Skeletal structures: No destructive osseous lesions are seen. IMPRESSION: 1. High-grade small bowel obstruction with a transition zone at the level of an incarcerated right inguinal hernia. Surgical consultation recommended 2. Interval development of an indeterminate 46 mm ill-defined left hepatic lobe mass 3. Indeterminate 24 mm left adrenal nodule
[2021-02-03] MEDS ORDERED: BUPIVACAINE 0.5 % 5 MG/1 ML MPF 30ML VIAL ONE (20:15)
[2021-02-03] MEDS ORDERED: PROPOFOL IV EMULSION 10 MG/ML 20 ML VIAL IV ONE (20:29)
[2021-02-03] MEDS ORDERED: PHENYLEPHRINE HCL 10 MG/ML VIAL ONE (20:29)
[2021-02-03] MEDS ORDERED: ROCURONIUM BROMIDE 10 MG/ML 5 ML VIAL IV ONE (20:29)
[2021-02-03] MEDS ORDERED: SUCCINYLCHOLINE CHLORIDE 20 MG/ML 10 ML VIAL IV ONE (20:29)
--- NOTE | 2021-02-03 21:48 | Post Operative Brief Note ---
Immediate Post Op Note v1 Date of Surgery February 03, 2021 Pre & Post Diagnosis Operation Date: 02/03/21 19:00 Pre-Op Diagnosis: Incarcerated inguinal hernia Post-Op Diagnosis: Incarcerated inguinal hernia, small bowel obstruction I identified the patient and participated in the time-out.: Yes Procedure Operation Date: 02/03/21 19:00 Actual Procedures p Exploratory Laparotomy, Small Bowel Resection, Reduction of Incarcerated Right Femoral Hernia(Not Applicable) - Kurt Donald MD Surgeon Kurt Donald MD Rn Recovery None Estimated Blood Loss 5 Findings Consistent with Post-Op Diagnosis Drains Kovacs Catheter
[2021-02-03] MEDS ORDERED: PROPOFOL IV EMULSION 10 MG/ML 100 ML VIAL IV ONE (22:23)
[2021-02-03] MEDS ORDERED: ALBUT/IPRATROP 3MG/0.5MG NEB 3 ML VIAL NEB PRN (22:25)
[2021-02-03] MEDS ORDERED: ICU PROTOCOL FOR HYPERGLYCEMIA PRN ×2 (22:25→22:39)
[2021-02-03] MEDS ORDERED: CEFEPIME CONSULT ACTIVE PRN (22:25)
--- NOTE | 2021-02-03 22:37 | Anesthesiology Progress Note ---
Date of Service February 03, 2021 Anesthesia Post Procedure Vital Signs Vital Signs: Pulse Resp BP Pulse Ox 02/03/21 22:20 117 H 132/75 95 02/03/21 22:15 114 H 14 122/72 02/03/21 19:01 136 H 125/76 94 02/03/21 18:50 96 02/03/21 18:45 136 H 124/79 100 02/03/21 18:30 137 H 130/88 100 02/03/21 18:25 99 02/03/21 18:17 138 H 41 H 121/73 96 02/03/21 18:00 132 H 43 H 127/94 96 02/03/21 17:30 129 H 40 H 139/84 100 02/03/21 17:15 128 H 36 H 121/80 100 02/03/21 17:00 132 H 38 H 130/76 100 02/03/21 16:47 138 H 36 H 127/85 100 02/03/21 16:25 136 H 143/91 H 100 02/03/21 15:46 141 H 43 H 121/103 H 99 02/03/21 15:41 142 H 100 02/03/21 15:40 42 H 97 02/03/21 15:30 142 H 42 H 114/91 99 02/03/21 15:17 141 H 45 H 127/81 100 Transfer of Care Handoff Completed per policy Notes Mental Status: see notes below Airway Patency, RR, SpO2: see Notes below BP & HR: stable & adequate and see Notes below Hydration State: stable & adequate and see Notes below Anesthetic Complications: see Notes below Notes: Patient kept intubated and sedated after the procedure and brought to ICU on monitors with oxygen via ambu bag. Full report given to ICU nursing and providers. Questions answered. Patient was not on vasoactive support with stable BP. Of note, gave 2mg versed on the way to ICU for sedation (total of 4mg for the case).
[2021-02-03] MEDS ORDERED: PROPOFOL BOLUS FROM BAG IV PRN (22:39)
[2021-02-03] MEDS ORDERED: fentaNYL citrate 100 MCG/2 ML VIAL IV STA (22:39)
[2021-02-03] MEDS ORDERED: STAT IV Infusion **Titration per Protocol STA (22:39)
--- NOTE | 2021-02-03 22:39 | Communication Note ---
Date of Service: February 03, 2021 Patient presents to the ICU postoperatively status post exploratory laparotomy with reduction of incarcerated RIGHT femoral hernia with repair of RIGHT femoral hernia, partial small bowel resection, and exploration of right inguinal canal. Patient remains intubated and sedated status post abdominal surgery. Orders placed for fentanyl and propofol drips. Will repeat labs status post surgical intervention. Continue with current antibiotics. Wean ventilator settings as able. I have personally spent 25 minutes of critical care time in the direct ma nagement of this patient. This is a life/limb threatening event. This includes time spent evaluating patient, direct bedside care, chart review, placing orders, interpretation of diagnostic studies, discussion with consultants, patient, and family members, as well as other required patient management activities. This time is exclusive of all separately billable procedures, and teaching time and separate from and in addition to any other critical care service time. Coding Level of Care Code Critical Care [email or web address] 30 min Time Spent (min) 25
[2021-02-03] MEDS ORDERED: PATIENT'S HEIGHT AND/OR WEIGHT NEEDED SCH (22:45)
[2021-02-03] MEDS: propofoL 1,000 MG/100 ML VIAL IV SCH (22:48)
[2021-02-03] MEDS: SODIUM CHLORIDE 0.9% 500 ML IV SCH (22:59)
[2021-02-03 23:04] LABS: Base Excess VBG 1.3 mEq/L; Oxygen Saturation VBG 94.2 %; pH VBG 7.39 (7.36-7.41)
[2021-02-03 23:05] LABS: Hematocrit (blood only) 39.6 % (42-52); Hemoglobin 13.5 g/dL (14.0-18.0)
[2021-02-03] MEDS ORDERED: PNEUMOCOCCAL POLYSACCHARIDES 25 MCG/0.5 ML VIAL/SYR IM ONE (23:26)
[2021-02-03 23:32] LABS: Albumin Level 2.7 gm/dl (3.4-5.0); BUN Creatinine Ratio 46.1 (10-20); Bilirubin,Total 1.5 mg/dl (0.2-1); Calcium 9.1 mg/dl (8.5-10.1); Creatinine Clr Calc Pharmacy 69.9 ml/min; Est GFR (African American) 80.2 ml/min; Est GFR (Non-African American) 69.2 ml/min; Globulin 2.6 gm/dl (2.5-4.0); Magnesium 1.7 mg/dl (1.8-2.4); Potassium 3.4 mmol/L (3.5-5.1); Total Protein 5.3 gm/dl (6.4-8.2); Troponin I 0.036 ng/ml (0-0.045)
[2021-02-03] MEDS: fentaNYL DRIP 1,250 MCG/250 ML BAG IV SCH (23:34)
[2021-02-03] MEDS: FAMOTIDINE 20 MG in SYRINGE 3 ML IV SCH (23:38)
[2021-02-03] MEDS ORDERED: MAGNESIUM SULFATE / D5W 1 GM/100 ML BAG IV ONE (23:44)
[2021-02-04 00:23] LABS: Phosphorus 3.2 mg/dl (2.5-4.9)
[2021-02-04] MEDS: POTASSIUM CHLORIDE / WTR 10 MEQ/100 ML PLCT IV SCH ×6 (00:38→14:31)
[2021-02-04] MEDS: NORMOSOL-R 1,000 ML IV SCH ×2 (00:38→14:32)
--- NOTE | 2021-02-04 01:03 | Operative Report (OR) ---
DATE OF OPERATION: 02/03/2021 PREOPERATIVE DIAGNOSIS: Incarcerated right femoral hernia with ischemic portion of ileum. POSTOPERATIVE DIAGNOSIS: Incarcerated right femoral hernia with ischemic portion of ileum. PROCEDURE: Exploratory laparotomy with reduction of incarcerated right femoral hernia, repair of right femoral hernia, partial small bowel resection, and exploration of right inguinal canal. SURGEON: Kurt Donald MD FINDINGS: The right inguinal area was opened first. The CT scan indicated a probable inguinal hernia. After opening the inguinal canal, it was clear that there was no hernia, incarcerated; however, I could feel the hernia sac laterally and inferiorly below the inguinal ligament. After freeing that up and opening it, it was clear that there was a loop of bowel within the small hernia defect protruding. I then opened the abdomen and after reducing the hernia, it was a Pérez type hernia, but the portion of bowel that had been protruding was clearly ischemic. It was black in color. The actual hernia defect was to a size that it only admitted my index fingertip. The inguinal canal was inspected. There was no indirect sac. TECHNIQUE: The patient was given a general anesthetic and the area was prepped and draped in the usual sterile fashion. Right inguinal incision was made and carried down through the subcutaneous tissue. There was one bridging vein that was doubly clamped, divided, and ligated with 2-0 Vicryl ties. The dissection was carried posteriorly until the external oblique fascia could be identified. A small incision was made in the external oblique and the underlying structures were off its undersurface and it was opened through the external ring. The cord structures were identified and away from the floor. The cord was dissected. The cremasteric fibers were opened and there was no indirect sac identified protruding through the internal ring. The direct space was inspected and there was no hernia there either. I could then feel thickening inferior to the inguinal ligament. I dissected away the tissues there and identified the sac. I opened the sac and then bluntly and sharply dissected the sac away from the subcutaneous tissue and fatty tissue in that area. I dissected down in the sac and was able to see what appeared to be a loop of bowel that appeared black. I could not bring any additional bowel out through the defect since it was so small. I made a transverse incision in the right lower quadrant, carried that down through the subcutaneous tissue to the external oblique and anterior sheath fascia. These were opened. The lateral portion of the rectus muscle was divided. The posterior sheath and peritoneum were opened and the abdomen was entered. I then began to place upward traction on the small bowel and the portion of the bowel that had been incarcerated was easily identified and brought out through the incision. It appeared then that it was a Pérez type hernia; however, the antimesenteric border of the small bowel that had been protruding through the femoral canal was clearly not vascularized. I made a decision to remove that portion of the bowel. A site on the small bowel proximal and distal to that area was chosen for transection and the mesentery was away from the wall of the bowel at those two sites. The bowel was then transected at both of those places. The intervening mesentery was then divided using a clamp, clamp, divide, and ligate technique using 2-0 Vicryl ties. The necrotic bowel was sent for pathology. The anastomosis was then performed. The bowel wall on each side was approximated to each other using 3-0 silk stay sutures. The mesentery was not twisted in performing that part of the procedure. The antimesenteric border of each of the limbs was removed and a limb of the YOBANY was then passed into each limb. The YOBANY was fired. The common opening was closed with a TA stapler. Additional silk sutures were placed for reinforcement with one at the crotch of the anastomosis and others over the anterior staple line. The mesentery was then closed with a running 2-0 Vicryl. This was placed back into its anatomic position. I then approached the femoral hernia. The hernia sac was amputated using cautery. Once that was amputated and it fell back into its anatomic position, then the femoral hernia was closed approximating Randal's ligament to the inguinal ligament using 2-0 Prolene suture. The external oblique fascia of the inguinal canal was closed with a running 2-0 Vicryl. The peritoneum of the right lower quadrant site was closed with running 2-0 Vicryl and the internal oblique fascia was closed with a running 2-0 Vicryl and the anterior sheath and external oblique fascia was closed with a running #1 PDS. The wounds were irrigated and the skin was closed with braxton. The estimated blood loss was 5 mL. Sponge, needle, and instrument counts were correct prior to closure. The patient tolerated the surgical procedure without complication and was transferred to recovery. I attest to the content of the Intraoperative Record and any orders documented therein. Any exception s are noted below.
[2021-02-04] MEDS: metroNIDAZOLE 500 MG/100 ML BAG IV SCH ×3 (01:29→17:14)
[2021-02-04] MEDS: propofoL 1,000 MG/100 ML VIAL IV SCH ×5 (02:29→21:37)
[2021-02-04 02:57] LABS: Albumin Level 2.7 gm/dl (3.4-5.0); BUN Creatinine Ratio 45.3 (10-20); Calcium 8.7 mg/dl (8.5-10.1); Creatinine Clr Calc Pharmacy 79.4 ml/min; Est GFR (African American) 93.6 ml/min; Est GFR (Non-African American) 80.8 ml/min; Potassium 3.3 mmol/L (3.5-5.1)
[2021-02-04 03:00] LABS: Bilirubin,Total 1.2 mg/dl (0.2-1); Globulin 2.6 gm/dl (2.5-4.0); Total Protein 5.3 gm/dl (6.4-8.2)
[2021-02-04 03:19] LABS: Base Excess VBG 1.9 mEq/L; HCO3 VBG 25 mmol/L; Oxygen Saturation VBG 97.8 %; PCO2 VBG 36 mmHg (38-50); PO2 VBG 100 mmHg; pH VBG 7.47 (7.36-7.41)
[2021-02-04] MEDS: SODIUM CHLORIDE 0.9% 500 ML IV SCH ×2 (03:34→06:55)
[2021-02-04 04:26] LABS: iSTAT Arterial Blood Gas HCO3 27 meg/L (19-24); iSTAT Arterial Blood Gas pCO2 40 mmHg (35-46); iSTAT Arterial Blood Gas pH 7.44 (7.35-7.45); iSTAT Arterial Blood Gas pO2 90 mmHg (80-95); iSTAT Carbon Dioxide 28 mmol/L (24-31)
[2021-02-04 04:53] LABS: Hematocrit (blood only) 41.2 % (42-52); Mean Corpuscular Hemoglobin 30.3 pg (25-34); Mean Corpuscular Volume 89.2 fL (80-100); Mean Platelet Volume 11.6 fL (7.4-10.4); Platelet Count 270 K/uL (130-400); RDW Coefficient of Variation 13.7 % (11.5-14.5); Red Blood Count 4.62 M/uL (4.7-6.1); White Blood Count 6.87 K/uL (4.8-10.8)
[2021-02-04] MEDS ORDERED: CEFEPIME 2,000 MG in SYRINGE 0 ML IV SCH (05:00)
[2021-02-04 05:13] LABS: Albumin Level 2.6 gm/dl (3.4-5.0); BUN Creatinine Ratio 44.1 (10-20); Bilirubin Direct 0.4 mg/dl (0-0.2); Calcium 8.6 mg/dl (8.5-10.1); Creatinine Clr Calc Pharmacy 85.7 ml/min; Est GFR (African American) 100.9 ml/min; Magnesium 2.4 mg/dl (1.8-2.4); Potassium 3.9 mmol/L (3.5-5.1)
[2021-02-04 05:32] LABS: Bilirubin,Total 1.2 mg/dl (0.2-1); Total Protein 5.4 gm/dl (6.4-8.2); Troponin I 0.025 ng/ml (0-0.045)
[2021-02-04 05:45] LABS: ALC (manual) 0.66 K/uL (1.2-3.4); Eosinophils # (manual) 0.06 K/uL (0-0.5); Eosinophils % (manual) 0.9 %; Lymphocytes # (manual) 0.66 K/uL (1.2-3.4); Lymphocytes % (manual) 9.6 %; Metamyelocytes # (manual) 1.33 K/uL (0-0); Metamyelocytes % (manual) 19.3 %; Monocytes # (manual) 0.72 K/uL (0.11-0.59); Monocytes % (manual) 10.5 %; Myelocytes % (manual) 8.8 %; Neutrophils % (manual) 50.9 %; RBC Morphology Unremarkable
[2021-02-04 07:06] LABS: Oxygen Saturation VBG 95.7 %; pH VBG 7.47 (7.36-7.41)
[2021-02-04 07:49] LABS: Albumin Globulin Ratio 0.8 (0.9-2); Albumin Level 2.2 gm/dl (3.4-5.0); BUN Creatinine Ratio 53.3 (10-20); Bilirubin,Total 0.9 mg/dl (0.2-1); Calcium 7.9 mg/dl (8.5-10.1); Creatinine Clr Calc Pharmacy 116.1 ml/min; Est GFR (African American) 114.2 ml/min; Est GFR (Non-African American) 98.6 ml/min; Globulin 2.6 gm/dl (2.5-4.0); Potassium 3.1 mmol/L (3.5-5.1); Total Protein 4.8 gm/dl (6.4-8.2)
--- NOTE | 2021-02-04 08:20 | XRay Report ---
SINGLE VIEW CHEST CLINICAL HISTORY: Respiratory failure. Intubation. FINDINGS: An AP, portable, upright chest radiograph is compared to chest x-ray and chest CT dated 01/22. The examination is degraded by portable technique and patient rotation. An endotracheal tube has been placed. The tip projects 3 cm above the giovany. An enteric tube has been placed. The tip pro jects below the diaphragm over the gastric fundus. The cardiomediastinal silhouette is unremarkable. There is elevation of the right hemidiaphragm and bibasilar atelectasis. Patchy airspace consolidatio n is present in both lungs. Trace pleural effusions are suspected. No pneumothorax is seen. The skele rj structures are osteopenic. The bony thorax is grossly intact. A left shoulder arthroplasty is in place. IMPRESSION: 1. Endotracheal and enteric tubes have been placed as above. 2. Patchy airspace consolidation is noted in both lungs. Correlate clinically for evidence of pneumon ia/aspiration pneumonitis. Radiographic follow-up to resolution is recommended. 3. Trace pleural effusions. ACT 112: Negative or not required by law. Electronically signed by: Bob Croft M.D. 02/04/2021 8:19 AM
--- NOTE | 2021-02-04 08:21 | XRay Report ---
SINGLE VIEW CHEST CLINICAL HISTORY: Respiratory failure. FINDINGS: 2 AP, portable, upright chest radiographs are compared to chest x-rays and chest CT dated . The examination is degraded by portable technique and patient rotation. Endotracheal and en teric tubes are unchanged in position. The cardiomediastinal silhouette is unremarkable. There is butch vation of the right hemidiaphragm and bibasilar atelectasis. Patchy airspace consolidation is present in both lungs. Trace pleural effusions are suspected. No pneumothorax is seen. The skeletal structur es are osteopenic. The bony thorax is grossly intact. A left shoulder arthroplasty is in place. IMPRESSION: 1. Stable lines and tubes. 2. Patchy airspace opacities and trace pleural effusions are unchanged. ACT 112: Negative or not required by law. Electronically signed by: Bob Croft M.D. 02/04/2021 8:20 AM
[2021-02-04] MEDS ORDERED: PHARMACY GLYCEMIC MGMT CONSULT PRN (08:41)
[2021-02-04] MEDS: ACETAMINOPHEN 65 ML IV PRN ×2 (08:41→17:15)
[2021-02-04] MEDS: FAMOTIDINE 20 MG in SYRINGE 3 ML IV SCH ×2 (08:41→20:51)
[2021-02-04] MEDS ORDERED: GLUCOSE 40% GEL 15 GM TUBE PO PRN (08:45)
[2021-02-04] MEDS ORDERED: GLUCAGON FOR INJ 1 MG VIAL IM PRN (08:45)
[2021-02-04] MEDS ORDERED: CARBOHYDRATES FOR HYPOGLYCEMIA PO PRN (08:45)
[2021-02-04] MEDS ORDERED: DEXTROSE 50% 50 ML SYRINGE IV PRN (08:45)
[2021-02-04] MEDS ORDERED: GLUCOSE 10 TABS/TUBE PO PRN (08:45)
[2021-02-04] MEDS ORDERED: METOPROLOL TARTRATE 1 MG/ML VIAL IV PRN (08:56)
[2021-02-04] MEDS: INSULIN ASPART 100 UNITS/ML 3 ML PEN SC SCH ×4 (09:22→20:59)
--- NOTE | 2021-02-04 10:31 | Surgery Progress Note ---
Date of Service February 04, 2021 Assessment & Plan (1) Incarcerated inguinal hernia: Postoperative day #1 status post reduction and repair of incarcerated femoral hernia with partial small bowel resection. Remains intubated Vent management as per ICU team No peristalsis as yet. I would expect that he is going to have an ileus. Continue NG tube. Febrile. Continue antibiotics Urine output seems adequate. Creatinine has returned to normal Continue supportive measures Admission and Anticipated Discharge Date Admission Date: February 03, 2021 Subjective Postoperative day #1 status post reduction of incarcerated femoral hernia with small bowel resection. Remains intubated and sedated Has had 1000 cc additional out of his NG tube since the operation Temperature has been consistently 38.6 Physical Exam Gastrointestinal (Abdomen): Inspection/Auscultation: + abdomen distended (Less than preop), + abdominal surgical incision (Dressings are clean and dry) and + hypoactive bowel sounds (Some high-pitched sounds present) Perc ussion/Palpation: + abdomen tender (Cannot assess) and abdomen soft Results & Data ([facility]) Vital Signs (Past 12 Hours) Vital Signs Temp Pulse Resp BP Pulse Ox 02/04/21 10:00 38.6 C H 127 H 93 02/04/21 09:46 38.6 C H 129 H 130/79 94 02/04/21 09:16 38.6 C H 127 H 131/79 94 02/04/21 09:00 38.6 C H 128 H 94 02/04/21 08:46 38.6 C H 128 H 130/78 94 02/04/21 08:16 38.6 C H 129 H 127/79 94 02/04/21 08:15 128 H 21 94 02/04/21 08:00 38.5 C H 123 H 95 02/04/21 07:46 126 H 147/83 H 95 02/04/21 07:16 126 H 130/79 95 02/04/21 07:00 123 H 95 02/04/21 06:46 123 H 136/75 94 02/04/21 06:16 122 H 131/82 95 02/04/21 06:00 120 H 96 02/04/21 05:46 120 H 137/81 96 02/04/21 05:15 119 H 130/80 96 02/04/21 05:00 118 H 96 02/04/21 04:46 120 H 133/78 96 02/04/21 04:15 118 H 140/76 96 02/04/21 04:00 117 H 96 02/04/21 03:46 117 H 119/76 96 02/04/21 03:45 117 H 21 96 02/04/21 03:15 117 H 139/76 97 02/04/21 03:00 116 H 97 02/04/21 02:45 115 H 120/72 97 02/04/21 02:24 114 H 120/71 96 02/04/21 02:15 114 H 120/71 97 02/04/21 02:00 114 H 96 02/04/21 01:45 109 H 118/71 96 02/04/21 01:15 117 H 127/73 96 02/04/21 01:00 117 H 97 02/04/21 00:45 118 H 118/70 97 02/04/21 00:15 122 H 135/77 97 02/04/21 00:00 124 H 97 02/03/21 23:45 125 H 145/76 H 96 02/03/21 23:16 123 H 95 02/03/21 23:15 124 H 142/73 H 96 02/03/21 23:14 123 H 142/74 H 96 02/03/21 23:10 124 H 142/74 H 95 02/03/21 23:05 124 H 146/77 H 95 02/03/21 23:01 124 H 96 02/03/21 23:00 124 H 162/81 H 95 02/03/21 22:55 124 H 154/83 H 95 02/03/21 22:50 123 H 146/86 H 95 02/03/21 22:46 122 H 93 02/03/21 22:45 122 H 139/81 94 02/03/21 22:43 121 H 142/78 H 94 02/03/21 22:40 122 H 151/82 H 94 02/03/21 22:35 124 H 160/97 H 95 Laboratory Results 02/04/21 02/04/21 02/04/21 Range/Units 09:21 07:54 07:14 WBC (4.8-10.8) K/uL RBC (4.7-6.1) M/uL Hgb (14.0-18.0) g/dL POC Hgb (14.0-18.0) g/dl Hct (42-52) % POC Hct (42-52) % MCV (80-100) fL MCH (25-34) pg MCHC (32-36) g/dL RDW Std Deviation (36.4-46.3) fL RDW Coeff of Marita (11.5-14.5) % Plt Count (130-400) K/uL MPV (7.4-10.4) fL Immature Gran % (Auto) % Neut % (Auto) % Lymph % (Auto) % Russell % (Auto) % Eos % (Auto) % Baso % (Auto) % Neut # (Auto) (1.4-6.5) K/uL Lymph # (Auto) (1.2-3.4) K/uL Russell # (Auto) (0.11-0.59) K/uL Eos # (Auto) (0-0.5) K/uL Baso # (Auto) (0-0.2) K/uL Immature Gran # (Auto) (0.00-0.02) K/uL Neutrophils % (Manual) % Lymphocytes % (Manual) % Monocytes % (Manual) % Eosinophils % (Manual) % Metamyelocytes % (Man) % Myelocytes % (Man) % Neutrophils # (Manual) (1.4-6.5) K/uL Total Absolute Neuts (1.4-6.5) K/uL Lymphocytes # (Manual) (1.2-3.4) K/uL Total Abs Lymphocytes (1.2-3.4) K/uL Monocytes # (Manual) (0.11-0.59) K/uL Eosinophils # (Manual) (0-0.5) K/uL Metamyelocytes # (Man) (0-0) K/uL Myelocytes # (Manual) (0-0) K/uL RBC Morphology PT (9.0-12.0) Seconds INR (0.9-1.1) APTT (21.0-31.0) Seconds PTT Ratio POC pH (7.35-7.45) POC pCO2 (35-46) mmHg POC pO2 (80-95) mmHg POC HCO3 (19-24) franck/L POC Base Excess (-9-1.8) franck/L POC ABG O2 Sat (90-95) % VBG pH (7.36-7.41) VBG pCO2 (38-50) mmHg VBG pO2 mmHg VBG HCO3 mmol/L VBG O2 Saturation % VBG Base Excess mEq/L Barometric Pressure mm/Hg POC Sodium (135-144) mmol/L Sodium (136-145) mmol/L POC Potassium (3.3-5.0) mmol/L Potassium (3.5-5.1) mmol/L POC Chloride (101-112) mmol/L Chloride (98-107) mmol/L Carbon Dioxide (21-32) mmol/L POC Total CO2 (24-31) mmol/L Anion Gap (3-11) POC Anion Gap (16-25) mmol/L POC BUN (7-18) mg/dl BUN (7-18) mg/dl Creatinine (0.6-1.4) mg/dl POC Creatinine (0.6-1.3) mg/dl Est Cr Clr Drug Dosing Est GFR ( Amer) ml/min Est GFR (Non-Af Amer) ml/min BUN/Creatinine Ratio (10-20) Glucose (70-99) mg/dl POC Glucose 141 H 147 H (70-99) mg/dl POC Glucose (other) (70-99) mg/dl Lactate (0.4-2.0) mmol/L Calcium (8.5-10.1) mg/dl POC Ioniz Calcium Trey (1.12-1.32) mmol/l Phosphorus (2.5-4.9) mg/dl Magnesium (1.8-2.4) mg/dl Total Bilirubin (0.2-1) mg/dl Direct Bilirubin (0-0.2) mg/dl AST (15-37) U/L ALT (12-78) U/L Alkaline Phosphatase (45-117) U/L Troponin I (0-0.045) ng/ml NT-Pro-B Natriuret Pep (0-900) pg/ml Total Protein (6.4-8.2) gm/dl Albumin (3.4-5.0) gm/dl Globulin (2.5-4.0) gm/dl Albumin/Globulin Ratio (0.9-2) Lipase (73-393) U/L Beta-Hydroxybutyric Acd (0.2-2.81) mg/dl Procalcitonin (0-0.5) ng/ml Urine Color Urine Appearance (Clear) Urine pH (4.5-7.5) Ur Specific [place] (1.000-1.030) Urine Protein (Negative) Urine Glucose (UA) (Negative) Urine Ketones (Negative) Urine Blood (Negative) Urine Nitrite (Negative) Urine Bilirubin (Negative) Urine Urobilinogen (Negative) Ur Leukocyte Esterase (Negative) Urine WBC (Auto) (0-5) /hpf Urine RBC (Auto) (0-4) /hpf U Hyaline Cast (Auto) (0-5) /lpf U Epithel Cells (Auto) (0-5) /lpf Urine Bacteria (Auto) (Negative) Urine Osmolality (500-800) mOsm/kg Ur Random Creatinine mg/dl Ur Random Sodium mmol/L Ur Random Potassium mmol/L Ur Random Chloride mmol/L Ur Random Uric Acid mg/dl Nasal Screen MRSA (PCR) Negative (Negative) COVID-19 Eval Order SARS-CoV-2 (PCR) (Negative) 02/04/21 02/04/21 02/04/21 Range/Units 06:43 06:43 06:43 WBC (4.8-10.8) K/uL RBC (4.7-6.1) M/uL Hgb (14.0-18.0) g/dL POC Hgb (14.0-18.0) g/dl Hct (42-52) % POC Hct (42-52) % MCV (80-100) fL MCH (25-34) pg MCHC (32-36) g/dL RDW Std Deviation (36.4-46.3) fL RDW Coeff of Marita (11.5-14.5) % Plt Count (130-400) K/uL MPV (7.4-10.4) fL Immature Gran % (Auto) % Neut % (Auto) % Lymph % (Auto) % Russell % (Auto) % Eos % (Auto) % Baso % (Auto) % Neut # (Auto) (1.4-6.5) K/uL Lymph # (Auto) (1.2-3.4) K/uL Russell # (Auto) (0.11-0.59) K/uL Eos # (Auto) (0-0.5) K/uL Baso # (Auto) (0-0.2) K/uL Immature Gran # (Auto) (0.00-0.02) K/uL Neutrophils % (Manual) % Lymphocytes % (Manual) % Monocytes % (Manual) % Eosinophils % (Manual) % Metamyelocytes % (Man) % Myelocytes % (Man) % Neutrophils # (Manual) (1.4-6.5) K/uL Total Absolute Neuts (1.4-6.5) K/uL Lymphocytes # (Manual) (1.2-3.4) K/uL Total Abs Lymphocytes (1.2-3.4) K/uL Monocytes # (Manual) (0.11-0.59) K/uL Eosinophils # (Manual) (0-0.5) K/uL Metamyelocytes # (Man) (0-0) K/uL Myelocytes # (Manual) (0-0) K/uL RBC Morphology PT (9.0-12.0) Seconds INR (0.9-1.1) APTT (21.0-31.0) Seconds PTT Ratio POC pH (7.35-7.45) POC pCO2 (35-46) mmHg POC pO2 (80-95) mmHg POC HCO3 (19-24) franck/L POC Base Excess (-9-1.8) franck/L POC ABG O2 Sat (90-95) % VBG pH 7.47 H (7.36-7.41) VBG pCO2 34 L (38-50) mmHg VBG pO2 72 mmHg VBG HCO3 24 mmol/L VBG O2 Saturation 95.7 % VBG Base Excess 1.0 mEq/L Barometric Pressure 739.4 mm/Hg POC Sodium (135-144) mmol/L Sodium 136 (136-145) mmol/L POC Potassium (3.3-5.0) mmol/L Potassium 3.1 L D (3.5-5.1) mmol/L POC Chloride (101-112) mmol/L Chloride 105 (98-107) mmol/L Carbon Dioxide 25 (21-32) mmol/L POC Total CO2 (24-31) mmol/L Anion Gap 7.0 (3-11) POC Anion Gap (16-25) mmol/L POC BUN (7-18) mg/dl BUN 35 H (7-18) mg/dl Creatinine 0.65 (0.6-1.4) mg/dl POC Creatinine (0.6-1.3) mg/dl Est Cr Clr Drug Dosing 116.1 Est GFR ( Amer) 114.2 ml/min Est GFR (Non-Af Amer) 98.6 ml/min BUN/Creatinine Ratio 53.3 H (10-20) Glucose 147 H (70-99) mg/dl POC Glucose (70-99) mg/dl POC Glucose (other) (70-99) mg/dl Lactate 2.4 H* (0.4-2.0) mmol/L Calcium 7.9 L (8.5-10.1) mg/dl POC Ioniz Calcium Trey (1.12-1.32) mmol/l Phosphorus (2.5-4.9) mg/dl Magnesium (1.8-2.4) mg/dl Total Bilirubin 0.9 (0.2-1) mg/dl Direct Bilirubin (0-0.2) mg/dl AST 245 H (15-37) U/L ALT 150 H (12-78) U/L Alkaline Phosphatase 30 L (45-117) U/L Troponin I (0-0.045) ng/ml NT-Pro-B Natriuret Pep (0-900) pg/ml Total Protein 4.8 L (6.4-8.2) gm/dl Albumin 2.2 L (3.4-5.0) gm/dl Globulin 2.6 (2.5-4.0) gm/dl Albumin/Globulin Ratio 0.8 L (0.9-2) Lipase (73-393) U/L Beta-Hydroxybutyric Acd (0.2-2.81) mg/dl Procalcitonin (0-0.5) ng/ml Urine Color Urine Appearance (Clear) Urine pH (4.5-7.5) Ur Specific [place] (1.000-1.030) Urine Protein (Negative) Urine Glucose (UA) (Negative) Urine Ketones (Negative) Urine Blood (Negative) Urine Nitrite (Negative) Urine Bilirubin (Negative) Urine Urobilinogen (Negative) Ur Leukocyte Esterase (Negative) Urine WBC (Auto) (0-5) /hpf Urine RBC (Auto) (0-4) /hpf U Hyaline Cast (Auto) (0-5) /lpf U Epithel Cells (Auto) (0-5) /lpf Urine Bacteria (Auto) (Negative) Urine Osmolality (500-800) mOsm/kg Ur Random Creatinine mg/dl Ur Random Sodium mmol/L Ur Random Potassium mmol/L Ur Random Chloride mmol/L Ur Random Uric Acid mg/dl Nasal Screen MRSA (PCR) (Negative) COVID-19 Eval Order SARS-CoV-2 (PCR) (Negative) 02/04/21 02/04/21 02/04/21 Range/Units 04:38 04:38 04:38 WBC 6.87 (4.8-10.8) K/uL RBC 4.62 L (4.7-6.1) M/uL Hgb 14.0 (14.0-18.0) g/dL POC Hgb (14.0-18.0) g/dl Hct 41.2 L (42-52) % POC Hct (42-52) % MCV 89.2 (80-100) fL MCH 30.3 (25-34) pg MCHC 34.0 (32-36) g/dL RDW Std Deviation 45.0 (36.4-46.3) fL RDW Coeff of Marita 13.7 (11.5-14.5) % Plt Count 270 (130-400) K/uL MPV 11.6 H (7.4-10.4) fL Immature Gran % (Auto) % Neut % (Auto) % Lymph % (Auto) % Russell % (Auto) % Eos % (Auto) % Baso % (Auto) % Neut # (Auto) (1.4-6.5) K/uL Lymph # (Auto) (1.2-3.4) K/uL Russell # (Auto) (0.11-0.59) K/uL Eos # (Auto) (0-0.5) K/uL Baso # (Auto) (0-0.2) K/uL Immature Gran # (Auto) (0.00-0.02) K/uL Neutrophils % (Manual) 50.9 % Lymphocytes % (Manual) 9.6 % Monocytes % (Manual) 10.5 % Eosinophils % (Manual) 0.9 % Metamyelocytes % (Man) 19.3 % Myelocytes % (Man) 8.8 % Neutrophils # (Manual) 3.50 (1.4-6.5) K/uL Total Absolute Neuts 3.50 (1.4-6.5) K/uL Lymphocytes # (Manual) 0.66 L (1.2-3.4) K/uL Total Abs Lymphocytes 0.66 L (1.2-3.4) K/uL Monocytes # (Manual) 0.72 H (0.11-0.59) K/uL Eosinophils # (Manual) 0.06 (0-0.5) K/uL Metamyelocytes # (Man) 1.33 H (0-0) K/uL Myelocytes # (Manual) 0.60 H (0-0) K/uL RBC Morphology Unremarkable PT (9.0-12.0) Seconds INR (0.9-1.1) APTT (21.0-31.0) Seconds PTT Ratio POC pH (7.35-7.45) POC pCO2 (35-46) mmHg POC pO2 (80-95) mmHg POC HCO3 (19-24) franck/L POC Base Excess (-9-1.8) franck/L POC ABG O2 Sat (90-95) % VBG pH (7.36-7.41) VBG pCO2 (38-50) mmHg VBG pO2 mmHg VBG HCO3 mmol/L VBG O2 Saturation % VBG Base Excess mEq/L Barometric Pressure mm/Hg POC Sodium (135-144) mmol/L Sodium 134 L (136-145) mmol/L POC Potassium (3.3-5.0) mmol/L Potassium 3.9 D (3.5-5.1) mmol/L POC Chloride (101-112) mmol/L Chloride 101 (98-107) mmol/L Carbon Dioxide 28 (21-32) mmol/L POC Total CO2 (24-31) mmol/L Anion Gap 5.0 (3-11) POC Anion Gap (16-25) mmol/L POC BUN (7-18) mg/dl BUN 39 H (7-18) mg/dl Creatinine 0.88 (0.6-1.4) mg/dl POC Creatinine (0.6-1.3) mg/dl Est Cr Clr Drug Dosing 85.7 Est GFR ( Amer) 100.9 ml/min Est GFR (Non-Af Amer) 87.0 ml/min BUN/Creatinine Ratio 44.1 H (10-20) Glucose 178 H (70-99) mg/dl POC Glucose (70-99) mg/dl POC Glucose (other) (70-99) mg/dl Lactate (0.4-2.0) mmol/L Calcium 8.6 (8.5-10.1) mg/dl POC Ioniz Calcium Trey (1.12-1.32) mmol/l Phosphorus (2.5-4.9) mg/dl Magnesium 2.4 (1.8-2.4) mg/dl Total Bilirubin 1.2 H (0.2-1) mg/dl Direct Bilirubin 0.4 H (0-0.2) mg/dl AST 318 H (15-37) U/L ALT 176 H (12-78) U/L Alkaline Phosphatase 35 L (45-117) U/L Troponin I 0.025 (0-0.045) ng/ml NT-Pro-B Natriuret Pep (0-900) pg/ml Total Protein 5.4 L (6.4-8.2) gm/dl Albumin 2.6 L (3.4-5.0) gm/dl Globulin (2.5-4.0) gm/dl Albumin/Globulin Ratio (0.9-2) Lipase (73-393) U/L Beta-Hydroxybutyric Acd (0.2-2.81) mg/dl Procalcitonin 35.52 H (0-0.5) ng/ml Urine Color Urine Appearance (Clear) Urine pH (4.5-7.5) Ur Specific [place] (1.000-1.030) Urine Protein (Negative) Urine Glucose (UA) (Negative) Urine Ketones (Negative) Urine Blood (Negative) Urine Nitrite (Negative) Urine Bilirubin (Negative) Urine Urobilinogen (Negative) Ur Leukocyte Esterase (Negative) Urine WBC (Auto) (0-5) /hpf Urine RBC (Auto) (0-4) /hpf U Hyaline Cast (Auto) (0-5) /lpf U Epithel Cells (Auto) (0-5) /lpf Urine Bacteria (Auto) (Negative) Urine Osmolality (500-800) mOsm/kg Ur Random Creatinine mg/dl Ur Random Sodium mmol/L Ur Random Potassium mmol/L Ur Random Chloride mmol/L Ur Random Uric Acid mg/dl Nasal Screen MRSA (PCR) (Negative) COVID-19 Eval Order SARS-CoV-2 (PCR) (Negative) 02/04/21 02/04/21 02/04/21 Range/Units 04:13 02:26 02:26 WBC (4.8-10.8) K/uL RBC (4.7-6.1) M/uL Hgb (14.0-18.0) g/dL POC Hgb (14.0-18.0) g/dl Hct (42-52) % POC Hct (42-52) % MCV (80-100) fL MCH (25-34) pg MCHC (32-36) g/dL RDW Std Deviation (36.4-46.3) fL RDW Coeff of Marita (11.5-14.5) % Plt Count (130-400) K/uL MPV (7.4-10.4) fL Immature Gran % (Auto) % Neut % (Auto) % Lymph % (Auto) % Russell % (Auto) % Eos % (Auto) % Baso % (Auto) % Neut # (Auto) (1.4-6.5) K/uL Lymph # (Auto) (1.2-3.4) K/uL Russell # (Auto) (0.11-0.59) K/uL Eos # (Auto) (0-0.5) K/uL Baso # (Auto) (0-0.2) K/uL Immature Gran # (Auto) (0.00-0.02) K/uL Neutrophils % (Manual) % Lymphocytes % (Manual) % Monocytes % (Manual) % Eosinophils % (Manual) % Metamyelocytes % (Man) % Myelocytes % (Man) % Neutrophils # (Manual) (1.4-6.5) K/uL Total Absolute Neuts (1.4-6.5) K/uL Lymphocytes # (Manual) (1.2-3.4) K/uL Total Abs Lymphocytes (1.2-3.4) K/uL Monocytes # (Manual) (0.11-0.59) K/uL Eosinophils # (Manual) (0-0.5) K/uL Metamyelocytes # (Man) (0-0) K/uL Myelocytes # (Manual) (0-0) K/uL RBC Morphology PT (9.0-12.0) Seconds INR (0.9-1.1) APTT (21.0-31.0) Seconds PTT Ratio POC pH 7.44 (7.35-7.45) POC pCO2 40 (35-46) mmHg POC pO2 90 (80-95) mmHg POC HCO3 27 H (19-24) franck/L POC Base Excess 3.0 H (-9-1.8) franck/L POC ABG O2 Sat 97.0 H (90-95) % VBG pH 7.47 H (7.36-7.41) VBG pCO2 36 L (38-50) mmHg VBG pO2 100 mmHg VBG HCO3 25 mmol/L VBG O2 Saturation 97.8 % VBG Base Excess 1.9 mEq/L Barometric Pressure mm/Hg POC Sodium (135-144) mmol/L Sodium (136-145) mmol/L POC Potassium (3.3-5.0) mmol/L Potassium (3.5-5.1) mmol/L POC Chloride (101-112) mmol/L Chloride (98-107) mmol/L Carbon Dioxide (21-32) mmol/L POC Total CO2 28 (24-31) mmol/L Anion Gap (3-11) POC Anion Gap (16-25) mmol/L POC BUN (7-18) mg/dl BUN (7-18) mg/dl Creatinine (0.6-1.4) mg/dl POC Creatinine (0.6-1.3) mg/dl Est Cr Clr Drug Dosing Est GFR ( Amer) ml/min Est GFR (Non-Af Amer) ml/min BUN/Creatinine Ratio (10-20) Glucose (70-99) mg/dl POC Glucose (70-99) mg/dl POC Glucose (other) (70-99) mg/dl Lactate 2.8 H* (0.4-2.0) mmol/L Calcium (8.5-10.1) mg/dl POC Ioniz Calcium Trey (1.12-1.32) mmol/l Phosphorus (2.5-4.9) mg/dl Magnesium (1.8-2.4) mg/dl Total Bilirubin (0.2-1) mg/dl Direct Bilirubin (0-0.2) mg/dl AST (15-37) U/L ALT (12-78) U/L Alkaline Phosphatase (45-117) U/L Troponin I (0-0.045) ng/ml NT-Pro-B Natriuret Pep (0-900) pg/ml Total Protein (6.4-8.2) gm/dl Albumin (3.4-5.0) gm/dl Globulin (2.5-4.0) gm/dl Albumin/Globulin Ratio (0.9-2) Lipase (73-393) U/L Beta-Hydroxybutyric Acd (0.2-2.81) mg/dl Procalcitonin (0-0.5) ng/ml Urine Color Urine Appearance (Clear) Urine pH (4.5-7.5) Ur Specific [place] (1.000-1.030) Urine Protein (Negative) Urine Glucose (UA) (Negative) Urine Ketones (Negative) Urine Blood (Negative) Urine Nitrite (Negative) Urine Bilirubin (Negative) Urine Urobilinogen (Negative) Ur Leukocyte Esterase (Negative) Urine WBC (Auto) (0-5) /hpf Urine RBC (Auto) (0-4) /hpf U Hyaline Cast (Auto) (0-5) /lpf U Epithel Cells (Auto) (0-5) /lpf Urine Bacteria (Auto) (Negative) Urine Osmolality (500-800) mOsm/kg Ur Random Creatinine mg/dl Ur Random Sodium mmol/L Ur Random Potassium mmol/L Ur Random Chloride mmol/L Ur Random Uric Acid mg/dl Nasal Screen MRSA (PCR) (Negative) COVID-19 Eval Order SARS-CoV-2 (PCR) (Negative) 02/04/21 02/03/21 02/03/21 Range/Units 02:26 22:52 22:52 WBC (4.8-10.8) K/uL RBC (4.7-6.1) M/uL Hgb 13.5 L D (14.0-18.0) g/dL POC Hgb (14.0-18.0) g/dl Hct 39.6 L (42-52) % POC Hct (42-52) % MCV (80-100) fL MCH (25-34) pg MCHC (32-36) g/dL RDW Std Deviation (36.4-46.3) fL RDW Coeff of Marita (11.5-14.5) % Plt Count (130-400) K/uL MPV (7.4-10.4) fL Immature Gran % (Auto) % Neut % (Auto) % Lymph % (Auto) % Russell % (Auto) % Eos % (Auto) % Baso % (Auto) % Neut # (Auto) (1.4-6.5) K/uL Lymph # (Auto) (1.2-3.4) K/uL Russell # (Auto) (0.11-0.59) K/uL Eos # (Auto) (0-0.5) K/uL Baso # (Auto) (0-0.2) K/uL Immature Gran # (Auto) (0.00-0.02) K/uL Neutrophils % (Manual) % Lymphocytes % (Manual) % Monocytes % (Manual) % Eosinophils % (Manual) % Metamyelocytes % (Man) % Myelocytes % (Man) % Neutrophils # (Manual) (1.4-6.5) K/uL Total Absolute Neuts (1.4-6.5) K/uL Lymphocytes # (Manual) (1.2-3.4) K/uL Total Abs Lymphocytes (1.2-3.4) K/uL Monocytes # (Manual) (0.11-0.59) K/uL Eosinophils # (Manual) (0-0.5) K/uL Metamyelocytes # (Man) (0-0) K/uL Myelocytes # (Manual) (0-0) K/uL RBC Morphology PT (9.0-12.0) Seconds INR (0.9-1.1) APTT (21.0-31.0) Seconds PTT Ratio POC pH (7.35-7.45) POC pCO2 (35-46) mmHg POC pO2 (80-95) mmHg POC HCO3 (19-24) franck/L POC Base Excess (-9-1.8) franck/L POC ABG O2 Sat (90-95) % VBG pH (7.36-7.41) VBG pCO2 (38-50) mmHg VBG pO2 mmHg VBG HCO3 mmol/L VBG O2 Saturation % VBG Base Excess mEq/L Barometric Pressure mm/Hg POC Sodium (135-144) mmol/L Sodium 136 (136-145) mmol/L POC Potassium (3.3-5.0) mmol/L Potassium 3.3 L (3.5-5.1) mmol/L POC Chloride (101-112) mmol/L Chloride 100 (98-107) mmol/L Carbon Dioxide 28 (21-32) mmol/L POC Total CO2 (24-31) mmol/L Anion Gap 8.0 (3-11) POC Anion Gap (16-25) mmol/L POC BUN (7-18) mg/dl BUN 43 H (7-18) mg/dl Creatinine 0.95 (0.6-1.4) mg/dl POC Creatinine (0.6-1.3) mg/dl Est Cr Clr Drug Dosing 79.4 Est GFR ( Amer) 93.6 ml/min Est GFR (Non-Af Amer) 80.8 ml/min BUN/Creatinine Ratio 45.3 H (10-20) Glucose 207 H (70-99) mg/dl POC Glucose (70-99) mg/dl POC Glucose (other) (70-99) mg/dl Lactate 3.5 H* (0.4-2.0) mmol/L Calcium 8.7 (8.5-10.1) mg/dl POC Ioniz Calcium Trey (1.12-1.32) mmol/l Phosphorus (2.5-4.9) mg/dl Magnesium (1.8-2.4) mg/dl Total Bilirubin 1.2 H (0.2-1) mg/dl Direct Bilirubin (0-0.2) mg/dl AST 380 H (15-37) U/L ALT 177 H (12-78) U/L Alkaline Phosphatase 36 L (45-117) U/L Troponin I (0-0.045) ng/ml NT-Pro-B Natriuret Pep (0-900) pg/ml Total Protein 5.3 L (6.4-8.2) gm/dl Albumin 2.7 L (3.4-5.0) gm/dl Globulin 2.6 (2.5-4.0) gm/dl Albumin/Globulin Ratio 1.0 (0.9-2) Lipase (73-393) U/L Beta-Hydroxybutyric Acd (0.2-2.81) mg/dl Procalcitonin (0-0.5) ng/ml Urine Color Urine Appearance (Clear) Urine pH (4.5-7.5) Ur Specific [place] (1.000-1.030) Urine Protein (Negative) Urine Glucose (UA) (Negative) Urine Ketones (Negative) Urine Blood (Negative) Urine Nitrite (Negative) Urine Bilirubin (Negative) Urine Urobilinogen (Negative) Ur Leukocyte Esterase (Negative) Urine WBC (Auto) (0-5) /hpf Urine RBC (Auto) (0-4) /hpf U Hyaline Cast (Auto) (0-5) /lpf U Epithel Cells (Auto) (0-5) /lpf Urine Bacteria (Auto) (Negative) Urine Osmolality (500-800) mOsm/kg Ur Random Creatinine mg/dl Ur Random Sodium mmol/L Ur Random Potassium mmol/L Ur Random Chloride mmol/L Ur Random Uric Acid mg/dl Nasal Screen MRSA (PCR) (Negative) COVID-19 Eval Order SARS-CoV-2 (PCR) (Negative) 02/03/21 02/03/21 02/03/21 Range/Units 22:52 22:51 22:42 WBC (4.8-10.8) K/uL RBC (4.7-6.1) M/uL Hgb (14.0-18.0) g/dL POC Hgb (14.0-18.0) g/dl Hct (42-52) % POC Hct (42-52) % MCV (80-100) fL MCH (25-34) pg MCHC (32-36) g/dL RDW Std Deviation (36.4-46.3) fL RDW Coeff of Marita (11.5-14.5) % Plt Count (130-400) K/uL MPV (7.4-10.4) fL Immature Gran % (Auto) % Neut % (Auto) % Lymph % (Auto) % Russell % (Auto) % Eos % (Auto) % Baso % (Auto) % Neut # (Auto) (1.4-6.5) K/uL Lymph # (Auto) (1.2-3.4) K/uL Russell # (Auto) (0.11-0.59) K/uL Eos # (Auto) (0-0.5) K/uL Baso # (Auto) (0-0.2) K/uL Immature Gran # (Auto) (0.00-0.02) K/uL Neutrophils % (Manual) % Lymphocytes % (Manual) % Monocytes % (Manual) % Eosinophils % (Manual) % Metamyelocytes % (Man) % Myelocytes % (Man) % Neutrophils # (Manual) (1.4-6.5) K/uL Total Absolute Neuts (1.4-6.5) K/uL Lymphocytes # (Manual) (1.2-3.4) K/uL Total Abs Lymphocytes (1.2-3.4) K/uL Monocytes # (Manual) (0.11-0.59) K/uL Eosinophils # (Manual) (0-0.5) K/uL Metamyelocytes # (Man) (0-0) K/uL Myelocytes # (Manual) (0-0) K/uL RBC Morphology PT (9.0-12.0) Seconds INR (0.9-1.1) APTT (21.0-31.0) Seconds PTT Ratio POC pH (7.35-7.45) POC pCO2 (35-46) mmHg POC pO2 (80-95) mmHg POC HCO3 (19-24) franck/L POC Base Excess (-9-1.8) franck/L POC ABG O2 Sat (90-95) % VBG pH 7.39 (7.36-7.41) VBG pCO2 45 (38-50) mmHg VBG pO2 71 mmHg VBG HCO3 27 mmol/L VBG O2 Saturation 94.2 % VBG Base Excess 1.3 mEq/L Barometric Pressure 738.3 mm/Hg POC Sodium (135-144) mmol/L Sodium 134 L (136-145) mmol/L POC Potassium (3.3-5.0) mmol/L Potassium 3.4 L (3.5-5.1) mmol/L POC Chloride (101-112) mmol/L Chloride 98 (98-107) mmol/L Carbon Dioxide 27 (21-32) mmol/L POC Total CO2 (24-31) mmol/L Anion Gap 9.0 (3-11) POC Anion Gap (16-25) mmol/L POC BUN (7-18) mg/dl BUN 50 H (7-18) mg/dl Creatinine 1.08 (0.6-1.4) mg/dl POC Creatinine (0.6-1.3) mg/dl Est Cr Clr Drug Dosing 69.9 Est GFR ( Amer) 80.2 ml/min Est GFR (Non-Af Amer) 69.2 ml/min BUN/Creatinine Ratio 46.1 H (10-20) Glucose 183 H (70-99) mg/dl POC Glucose 200 H (70-99) mg/dl POC Glucose (other) (70-99) mg/dl Lactate (0.4-2.0) mmol/L Calcium 9.1 D (8.5-10.1) mg/dl POC Ioniz Calcium Trey (1.12-1.32) mmol/l Phosphorus 3.2 D (2.5-4.9) mg/dl Magnesium 1.7 L (1.8-2.4) mg/dl Total Bilirubin 1.5 H (0.2-1) mg/dl Direct Bilirubin (0-0.2) mg/dl AST 496 H (15-37) U/L ALT 178 H (12-78) U/L Alkaline Phosphatase 35 L (45-117) U/L Troponin I 0.036 (0-0.045) ng/ml NT-Pro-B Natriuret Pep (0-900) pg/ml Total Protein 5.3 L (6.4-8.2) gm/dl Albumin 2.7 L (3.4-5.0) gm/dl Globulin 2.6 (2.5-4.0) gm/dl Albumin/Globulin Ratio 1.0 (0.9-2) Lipase (73-393) U/L Beta-Hydroxybutyric Acd (0.2-2.81) mg/dl Procalcitonin (0-0.5) ng/ml Urine Color Urine Appearance (Clear) Urine pH (4.5-7.5) Ur Specific [place] (1.000-1.030) Urine Protein (Negative) Urine Glucose (UA) (Negative) Urine Ketones (Negative) Urine Blood (Negative) Urine Nitrite (Negative) Urine Bilirubin (Negative) Urine Urobilinogen (Negative) Ur Leukocyte Esterase (Negative) Urine WBC (Auto) (0-5) /hpf Urine RBC (Auto) (0-4) /hpf U Hyaline Cast (Auto) (0-5) /lpf U Epithel Cells (Auto) (0-5) /lpf Urine Bacteria (Auto) (Negative) Urine Osmolality (500-800) mOsm/kg Ur Random Creatinine mg/dl Ur Random Sodium mmol/L Ur Random Potassium mmol/L Ur Random Chloride mmol/L Ur Random Uric Acid mg/dl Nasal Screen MRSA (PCR) (Negative) COVID-19 Eval Order SARS-CoV-2 (PCR) (Negative) 02/03/21 02/03/21 02/03/21 Range/Units 18:27 17:46 17:00 WBC (4.8-10.8) K/uL RBC (4.7-6.1) M/uL Hgb (14.0-18.0) g/dL POC Hgb (14.0-18.0) g/dl Hct (42-52) % POC Hct (42-52) % MCV (80-100) fL MCH (25-34) pg MCHC (32-36) g/dL RDW Std Deviation (36.4-46.3) fL RDW Coeff of Marita (11.5-14.5) % Plt Count (130-400) K/uL MPV (7.4-10.4) fL Immature Gran % (Auto) % Neut % (Auto) % Lymph % (Auto) % Russell % (Auto) % Eos % (Auto) % Baso % (Auto) % Neut # (Auto) (1.4-6.5) K/uL Lymph # (Auto) (1.2-3.4) K/uL Russell # (Auto) (0.11-0.59) K/uL Eos # (Auto) (0-0.5) K/uL Baso # (Auto) (0-0.2) K/uL Immature Gran # (Auto) (0.00-0.02) K/uL Neutrophils % (Manual) % Lymphocytes % (Manual) % Monocytes % (Manual) % Eosinophils % (Manual) % Metamyelocytes % (Man) % Myelocytes % (Man) % Neutrophils # (Manual) (1.4-6.5) K/uL Total Absolute Neuts (1.4-6.5) K/uL Lymphocytes # (Manual) (1.2-3.4) K/uL Total Abs Lymphocytes (1.2-3.4) K/uL Monocytes # (Manual) (0.11-0.59) K/uL Eosinophils # (Manual) (0-0.5) K/uL Metamyelocytes # (Man) (0-0) K/uL Myelocytes # (Manual) (0-0) K/uL RBC Morphology PT (9.0-12.0) Seconds INR (0.9-1.1) APTT (21.0-31.0) Seconds PTT Ratio POC pH (7.35-7.45) POC pCO2 (35-46) mmHg POC pO2 (80-95) mmHg POC HCO3 (19-24) franck/L POC Base Excess (-9-1.8) franck/L POC ABG O2 Sat (90-95) % VBG pH (7.36-7.41) VBG pCO2 (38-50) mmHg VBG pO2 mmHg VBG HCO3 mmol/L VBG O2 Saturation % VBG Base Excess mEq/L Barometric Pressure mm/Hg POC Sodium (135-144) mmol/L Sodium 131 L (136-145) mmol/L POC Potassium (3.3-5.0) mmol/L Potassium 4.0 (3.5-5.1) mmol/L POC Chloride (101-112) mmol/L Chloride 91 L (98-107) mmol/L Carbon Dioxide 25 (21-32) mmol/L POC Total CO2 (24-31) mmol/L Anion Gap 14.0 H (3-11) POC Anion Gap (16-25) mmol/L POC BUN (7-18) mg/dl BUN 55 H (7-18) mg/dl Creatinine 1.65 H D (0.6-1.4) mg/dl POC Creatinine (0.6-1.3) mg/dl Est Cr Clr Drug Dosing Not Reportable Est GFR ( Amer) 48.0 ml/min Est GFR (Non-Af Amer) 41.4 ml/min BUN/Creatinine Ratio 33.1 H (10-20) Glucose 253 H (70-99) mg/dl POC Glucose (70-99) mg/dl POC Glucose (other) (70-99) mg/dl Lactate 9.1 H* (0.4-2.0) mmol/L Calcium 10.8 H (8.5-10.1) mg/dl POC Ioniz Calcium Trey (1.12-1.32) mmol/l Phosphorus (2.5-4.9) mg/dl Magnesium (1.8-2.4) mg/dl Total Bilirubin 1.3 H (0.2-1) mg/dl Direct Bilirubin (0-0.2) mg/dl AST 548 H (15-37) U/L ALT 219 H (12-78) U/L Alkaline Phosphatase 50 (45-117) U/L Troponin I (0-0.045) ng/ml NT-Pro-B Natriuret Pep (0-900) pg/ml Total Protein 6.4 (6.4-8.2) gm/dl Albumin 2.9 L (3.4-5.0) gm/dl Globulin 3.5 (2.5-4.0) gm/dl Albumin/Globulin Ratio 0.8 L (0.9-2) Lipase (73-393) U/L Beta-Hydroxybutyric Acd (0.2-2.81) mg/dl Procalcitonin (0-0.5) ng/ml Urine Color Urine Appearance (Clear) Urine pH (4.5-7.5) Ur Specific [place] (1.000-1.030) Urine Protein (Negative) Urine Glucose (UA) (Negative) Urine Ketones (Negative) Urine Blood (Negative) Urine Nitrite (Negative) Urine Bilirubin (Negative) Urine Urobilinogen (Negative) Ur Leukocyte Esterase (Negative) Urine WBC (Auto) (0-5) /hpf Urine RBC (Auto) (0-4) /hpf U Hyaline Cast (Auto) (0-5) /lpf U Epithel Cells (Auto) (0-5) /lpf Urine Bacteria (Auto) (Negative) Urine Osmolality (500-800) mOsm/kg Ur Random Creatinine mg/dl Ur Random Sodium mmol/L Ur Random Potassium mmol/L Ur Random Chloride mmol/L Ur Random Uric Acid Cancelled mg/dl Nasal Screen MRSA (PCR) (Negative) COVID-19 Eval Order SARS-CoV-2 (PCR) (Negative) 02/03/21 02/03/21 02/03/21 Range/Units 17:00 17:00 17:00 WBC (4.8-10.8) K/uL RBC (4.7-6.1) M/uL Hgb (14.0-18.0) g/dL POC Hgb (14.0-18.0) g/dl Hct (42-52) % POC Hct (42-52) % MCV (80-100) fL MCH (25-34) pg MCHC (32-36) g/dL RDW Std Deviation (36.4-46.3) fL RDW Coeff of Marita (11.5-14.5) % Plt Count (130-400) K/uL MPV (7.4-10.4) fL Immature Gran % (Auto) % Neut % (Auto) % Lymph % (Auto) % Russell % (Auto) % Eos % (Auto) % Baso % (Auto) % Neut # (Auto) (1.4-6.5) K/uL Lymph # (Auto) (1.2-3.4) K/uL Russell # (Auto) (0.11-0.59) K/uL Eos # (Auto) (0-0.5) K/uL Baso # (Auto) (0-0.2) K/uL Immature Gran # (Auto) (0.00-0.02) K/uL Neutrophils % (Manual) % Lymphocytes % (Manual) % Monocytes % (Manual) % Eosinophils % (Manual) % Metamyelocytes % (Man) % Myelocytes % (Man) % Neutrophils # (Manual) (1.4-6.5) K/uL Total Absolute Neuts (1.4-6.5) K/uL Lymphocytes # (Manual) (1.2-3.4) K/uL Total Abs Lymphocytes (1.2-3.4) K/uL Monocytes # (Manual) (0.11-0.59) K/uL Eosinophils # (Manual) (0-0.5) K/uL Metamyelocytes # (Man) (0-0) K/uL Myelocytes # (Manual) (0-0) K/uL RBC Morphology PT (9.0-12.0) Seconds INR (0.9-1.1) APTT (21.0-31.0) Seconds PTT Ratio POC pH (7.35-7.45) POC pCO2 (35-46) mmHg POC pO2 (80-95) mmHg POC HCO3 (19-24) franck/L POC Base Excess (-9-1.8) franck/L POC ABG O2 Sat (90-95) % VBG pH (7.36-7.41) VBG pCO2 (38-50) mmHg VBG pO2 mmHg VBG HCO3 mmol/L VBG O2 Saturation % VBG Base Excess mEq/L Barometric Pressure mm/Hg POC Sodium (135-144) mmol/L Sodium (136-145) mmol/L POC Potassium (3.3-5.0) mmol/L Potassium (3.5-5.1) mmol/L POC Chloride (101-112) mmol/L Chloride (98-107) mmol/L Carbon Dioxide (21-32) mmol/L POC Total CO2 (24-31) mmol/L Anion Gap (3-11) POC Anion Gap (16-25) mmol/L POC BUN (7-18) mg/dl BUN (7-18) mg/dl Creatinine (0.6-1.4) mg/dl POC Creatinine (0.6-1.3) mg/dl Est Cr Clr Drug Dosing Est GFR ( Amer) ml/min Est GFR (Non-Af Amer) ml/min BUN/Creatinine Ratio (10-20) Glucose (70-99) mg/dl POC Glucose (70-99) mg/dl POC Glucose (other) (70-99) mg/dl Lactate (0.4-2.0) mmol/L Calcium (8.5-10.1) mg/dl POC Ioniz Calcium Trey (1.12-1.32) mmol/l Phosphorus (2.5-4.9) mg/dl Magnesium (1.8-2.4) mg/dl Total Bilirubin (0.2-1) mg/dl Direct Bilirubin (0-0.2) mg/dl AST (15-37) U/L ALT (12-78) U/L Alkaline Phosphatase (45-117) U/L Troponin I (0-0.045) ng/ml NT-Pro-B Natriuret Pep (0-900) pg/ml Total Protein (6.4-8.2) gm/dl Albumin (3.4-5.0) gm/dl Globulin (2.5-4.0) gm/dl Albumin/Globulin Ratio (0.9-2) Lipase (73-393) U/L Beta-Hydroxybutyric Acd (0.2-2.81) mg/dl Procalcitonin (0-0.5) ng/ml Urine Color Dark Yellow Urine Appearance Cloudy A (Clear) Urine pH 5.0 (4.5-7.5) Ur Specific [place] 1.037 H (1.000-1.030) Urine Protein 1+ H (Negative) Urine Glucose (UA) 2+ H (Negative) Urine Ketones Trace H (Negative) Urine Blood 2+ H (Negative) Urine Nitrite Negative (Negative) Urine Bilirubin 1+ H (Negative) Urine Urobilinogen Negative (Negative) Ur Leukocyte Esterase Negative (Negative) Urine WBC (Auto) 1-5 (0-5) /hpf Urine RBC (Auto) 10-30 H (0-4) /hpf U Hyaline Cast (Auto) 10-30 H (0-5) /lpf U Epithel Cells (Auto) >30 H (0-5) /lpf Urine Bacteria (Auto) Negative (Negative) Urine Osmolality 509 (500-800) mOsm/kg Ur Random Creatinine 115.0 mg/dl Ur Random Sodium 15 mmol/L Ur Random Potassium 62.7 mmol/L Ur Random Chloride < 10 mmol/L Ur Random Uric Acid 14.4 mg/dl Nasal Screen MRSA (PCR) (Negative) COVID-19 Eval Order SARS-CoV-2 (PCR) (Negative) 02/03/21 02/03/21 02/03/21 Range/Units 15:39 15:38 15:38 WBC (4.8-10.8) K/uL RBC (4.7-6.1) M/uL Hgb (14.0-18.0) g/dL POC Hgb 18.4 H (14.0-18.0) g/dl Hct (42-52) % POC Hct 54 H (42-52) % MCV (80-100) fL MCH (25-34) pg MCHC (32-36) g/dL RDW Std Deviation (36.4-46.3) fL RDW Coeff of Marita (11.5-14.5) % Plt Count (130-400) K/uL MPV (7.4-10.4) fL Immature Gran % (Auto) % Neut % (Auto) % Lymph % (Auto) % Russell % (Auto) % Eos % (Auto) % Baso % (Auto) % Neut # (Auto) (1.4-6.5) K/uL Lymph # (Auto) (1.2-3.4) K/uL Russell # (Auto) (0.11-0.59) K/uL Eos # (Auto) (0-0.5) K/uL Baso # (Auto) (0-0.2) K/uL Immature Gran # (Auto) (0.00-0.02) K/uL Neutrophils % (Manual) % Lymphocytes % (Manual) % Monocytes % (Manual) % Eosinophils % (Manual) % Metamyelocytes % (Man) % Myelocytes % (Man) % Neutrophils # (Manual) (1.4-6.5) K/uL Total Absolute Neuts (1.4-6.5) K/uL Lymphocytes # (Manual) (1.2-3.4) K/uL Total Abs Lymphocytes (1.2-3.4) K/uL Monocytes # (Manual) (0.11-0.59) K/uL Eosinophils # (Manual) (0-0.5) K/uL Metamyelocytes # (Man) (0-0) K/uL Myelocytes # (Manual) (0-0) K/uL RBC Morphology PT (9.0-12.0) Seconds INR (0.9-1.1) APTT (21.0-31.0) Seconds PTT Ratio POC pH (7.35-7.45) POC pCO2 (35-46) mmHg POC pO2 (80-95) mmHg POC HCO3 (19-24) franck/L POC Base Excess (-9-1.8) franck/L POC ABG O2 Sat (90-95) % VBG pH (7.36-7.41) VBG pCO2 (38-50) mmHg VBG pO2 mmHg VBG HCO3 mmol/L VBG O2 Saturation % VBG Base Excess mEq/L Barometric Pressure mm/Hg POC Sodium 129 L (135-144) mmol/L Sodium (136-145) mmol/L POC Potassium 4.1 (3.3-5.0) mmol/L Potassium (3.5-5.1) mmol/L POC Chloride 87 L (101-112) mmol/L Chloride (98-107) mmol/L Carbon Dioxide (21-32) mmol/L POC Total CO2 24 (24-31) mmol/L Anion Gap (3-11) POC Anion Gap 23.0 (16-25) mmol/L POC BUN 57 H (7-18) mg/dl BUN (7-18) mg/dl Creatinine (0.6-1.4) mg/dl POC Creatinine 2.4 H (0.6-1.3) mg/dl Est Cr Clr Drug Dosing Est GFR ( Amer) ml/min Est GFR (Non-Af Amer) ml/min BUN/Creatinine Ratio (10-20) Glucose (70-99) mg/dl POC Glucose (70-99) mg/dl POC Glucose (other) 321 H (70-99) mg/dl Lactate (0.4-2.0) mmol/L Calcium (8.5-10.1) mg/dl POC Ioniz Calcium Trey 1.23 (1.12-1.32) mmol/l Phosphorus (2.5-4.9) mg/dl Magnesium (1.8-2.4) mg/dl Total Bilirubin (0.2-1) mg/dl Direct Bilirubin (0-0.2) mg/dl AST (15-37) U/L ALT (12-78) U/L Alkaline Phosphatase (45-117) U/L Troponin I (0-0.045) ng/ml NT-Pro-B Natriuret Pep (0-900) pg/ml Total Protein (6.4-8.2) gm/dl Albumin (3.4-5.0) gm/dl Globulin (2.5-4.0) gm/dl Albumin/Globulin Ratio (0.9-2) Lipase (73-393) U/L Beta-Hydroxybutyric Acd (0.2-2.81) mg/dl Procalcitonin (0-0.5) ng/ml Urine Color Urine Appearance (Clear) Urine pH (4.5-7.5) Ur Specific [place] (1.000-1.030) Urine Protein (Negative) Urine Glucose (UA) (Negative) Urine Ketones (Negative) Urine Blood (Negative) Urine Nitrite (Negative) Urine Bilirubin (Negative) Urine Urobilinogen (Negative) Ur Leukocyte Esterase (Negative) Urine WBC (Auto) (0-5) /hpf Urine RBC (Auto) (0-4) /hpf U Hyaline Cast (Auto) (0-5) /lpf U Epithel Cells (Auto) (0-5) /lpf Urine Bacteria (Auto) (Negative) Urine Osmolality (500-800) mOsm/kg Ur Random Creatinine mg/dl Ur Random Sodium mmol/L Ur Random Potassium mmol/L Ur Random Chloride mmol/L Ur Random Uric Acid mg/dl Nasal Screen MRSA (PCR) (Negative) COVID-19 Eval Order Covid19 at [facility] SARS-CoV-2 (PCR) NEGATIVE (Negative) 02/03/21 02/03/21 02/03/21 Range/Units 15:32 15:32 15:32 WBC (4.8-10.8) K/uL RBC (4.7-6.1) M/uL Hgb (14.0-18.0) g/dL POC Hgb (14.0-18.0) g/dl Hct (42-52) % POC Hct (42-52) % MCV (80-100) fL MCH (25-34) pg MCHC (32-36) g/dL RDW Std Deviation (36.4-46.3) fL RDW Coeff of Marita (11.5-14.5) % Plt Count (130-400) K/uL MPV (7.4-10.4) fL Immature Gran % (Auto) % Neut % (Auto) % Lymph % (Auto) % Russell % (Auto) % Eos % (Auto) % Baso % (Auto) % Neut # (Auto) (1.4-6.5) K/uL Lymph # (Auto) (1.2-3.4) K/uL Russell # (Auto) (0.11-0.59) K/uL Eos # (Auto) (0-0.5) K/uL Baso # (Auto) (0-0.2) K/uL Immature Gran # (Auto) (0.00-0.02) K/uL Neutrophils % (Manual) % Lymphocytes % (Manual) % Monocytes % (Manual) % Eosinophils % (Manual) % Metamyelocytes % (Man) % Myelocytes % (Man) % Neutrophils # (Manual) (1.4-6.5) K/uL Total Absolute Neuts (1.4-6.5) K/uL Lymphocytes # (Manual) (1.2-3.4) K/uL Total Abs Lymphocytes (1.2-3.4) K/uL Monocytes # (Manual) (0.11-0.59) K/uL Eosinophils # (Manual) (0-0.5) K/uL Metamyelocytes # (Man) (0-0) K/uL Myelocytes # (Manual) (0-0) K/uL RBC Morphology PT 12.9 H (9.0-12.0) Seconds INR 1.3 H (0.9-1.1) APTT 26.4 (21.0-31.0) Seconds PTT Ratio 1.0 POC pH (7.35-7.45) POC pCO2 (35-46) mmHg POC pO2 (80-95) mmHg POC HCO3 (19-24) franck/L POC Base Excess (-9-1.8) franck/L POC ABG O2 Sat (90-95) % VBG pH 7.28 L (7.36-7.41) VBG pCO2 50 (38-50) mmHg VBG pO2 33 mmHg VBG HCO3 23 mmol/L VBG O2 Saturation < 60.0 % VBG Base Excess -4.4 mEq/L Barometric Pressure 737.7 mm/Hg POC Sodium (135-144) mmol/L Sodium (136-145) mmol/L POC Potassium (3.3-5.0) mmol/L Potassium (3.5-5.1) mmol/L POC Chloride (101-112) mmol/L Chloride (98-107) mmol/L Carbon Dioxide (21-32) mmol/L POC Total CO2 (24-31) mmol/L Anion Gap (3-11) POC Anion Gap (16-25) mmol/L POC BUN (7-18) mg/dl BUN (7-18) mg/dl Creatinine (0.6-1.4) mg/dl POC Creatinine (0.6-1.3) mg/dl Est Cr Clr Drug Dosing Est GFR ( Amer) ml/min Est GFR (Non-Af Amer) ml/min BUN/Creatinine Ratio (10-20) Glucose (70-99) mg/dl POC Glucose (70-99) mg/dl POC Glucose (other) (70-99) mg/dl Lactate 13.1 H* (0.4-2.0) mmol/L Calcium (8.5-10.1) mg/dl POC Ioniz Calcium Trey (1.12-1.32) mmol/l Phosphorus (2.5-4.9) mg/dl Magnesium (1.8-2.4) mg/dl Total Bilirubin (0.2-1) mg/dl Direct Bilirubin (0-0.2) mg/dl AST (15-37) U/L ALT (12-78) U/L Alkaline Phosphatase (45-117) U/L Troponin I (0-0.045) ng/ml NT-Pro-B Natriuret Pep (0-900) pg/ml Total Protein (6.4-8.2) gm/dl Albumin (3.4-5.0) gm/dl Globulin (2.5-4.0) gm/dl Albumin/Globulin Ratio (0.9-2) Lipase (73-393) U/L Beta-Hydroxybutyric Acd (0.2-2.81) mg/dl Procalcitonin (0-0.5) ng/ml Urine Color Urine Appearance (Clear) Urine pH (4.5-7.5) Ur Specific [place] (1.000-1.030) Urine Protein (Negative) Urine Glucose (UA) (Negative) Urine Ketones (Negative) Urine Blood (Negative) Urine Nitrite (Negative) Urine Bilirubin (Negative) Urine Urobilinogen (Negative) Ur Leukocyte Esterase (Negative) Urine WBC (Auto) (0-5) /hpf Urine RBC (Auto) (0-4) /hpf U Hyaline Cast (Auto) (0-5) /lpf U Epithel Cells (Auto) (0-5) /lpf Urine Bacteria (Auto) (Negative) Urine Osmolality (500-800) mOsm/kg Ur Random Creatinine mg/dl Ur Random Sodium mmol/L Ur Random Potassium mmol/L Ur Random Chloride mmol/L Ur Random Uric Acid mg/dl Nasal Screen MRSA (PCR) (Negative) COVID-19 Eval Order SARS-CoV-2 (PCR) (Negative) 02/03/21 02/03/21 02/03/21 Range/Units 15:32 15:32 15:32 WBC 11.34 H (4.8-10.8) K/uL RBC 5.67 (4.7-6.1) M/uL Hgb 17.2 (14.0-18.0) g/dL POC Hgb (14.0-18.0) g/dl Hct 51.0 (42-52) % POC Hct (42-52) % MCV 89.9 (80-100) fL MCH 30.3 (25-34) pg MCHC 33.7 (32-36) g/dL RDW Std Deviation 44.8 (36.4-46.3) fL RDW Coeff of Marita 13.6 (11.5-14.5) % Plt Count 326 (130-400) K/uL MPV 12.2 H (7.4-10.4) fL Immature Gran % (Auto) 0.8 % Neut % (Auto) 71.3 % Lymph % (Auto) 7.2 % Russell % (Auto) 20.5 % Eos % (Auto) 0.0 % Baso % (Auto) 0.2 % Neut # (Auto) 8.09 H (1.4-6.5) K/uL Lymph # (Auto) 0.82 L (1.2-3.4) K/uL Russell # (Auto) 2.32 H (0.11-0.59) K/uL Eos # (Auto) 0.00 (0-0.5) K/uL Baso # (Auto) 0.02 (0-0.2) K/uL Immature Gran # (Auto) 0.09 H (0.00-0.02) K/uL Neutrophils % (Manual) % Lymphocytes % (Manual) % Monocytes % (Manual) % Eosinophils % (Manual) % Metamyelocytes % (Man) % Myelocytes % (Man) % Neutrophils # (Manual) (1.4-6.5) K/uL Total Absolute Neuts (1.4-6.5) K/uL Lymphocytes # (Manual) (1.2-3.4) K/uL Total Abs Lymphocytes (1.2-3.4) K/uL Monocytes # (Manual) (0.11-0.59) K/uL Eosinophils # (Manual) (0-0.5) K/uL Metamyelocytes # (Man) (0-0) K/uL Myelocytes # (Manual) (0-0) K/uL RBC Morphology PT (9.0-12.0) Seconds INR (0.9-1.1) APTT (21.0-31.0) Seconds PTT Ratio POC pH (7.35-7.45) POC pCO2 (35-46) mmHg POC pO2 (80-95) mmHg POC HCO3 (19-24) franck/L POC Base Excess (-9-1.8) franck/L POC ABG O2 Sat (90-95) % VBG pH (7.36-7.41) VBG pCO2 (38-50) mmHg VBG pO2 mmHg VBG HCO3 mmol/L VBG O2 Saturation % VBG Base Excess mEq/L Barometric Pressure mm/Hg POC Sodium (135-144) mmol/L Sodium 129 L (136-145) mmol/L POC Potassium (3.3-5.0) mmol/L Potassium 4.0 (3.5-5.1) mmol/L POC Chloride (101-112) mmol/L Chloride 87 L (98-107) mmol/L Carbon Dioxide 23 (21-32) mmol/L POC Total CO2 (24-31) mmol/L Anion Gap 19.0 H (3-11) POC Anion Gap (16-25) mmol/L POC BUN (7-18) mg/dl BUN 57 H (7-18) mg/dl Creatinine 2.41 H (0.6-1.4) mg/dl POC Creatinine (0.6-1.3) mg/dl Est Cr Clr Drug Dosing Not Reportable Est GFR ( Amer) 30.4 ml/min Est GFR (Non-Af Amer) 26.2 ml/min BUN/Creatinine Ratio 23.8 H (10-20) Glucose 310 H* (70-99) mg/dl POC Glucose (70-99) mg/dl POC Glucose (other) (70-99) mg/dl Lactate (0.4-2.0) mmol/L Calcium 11.5 H (8.5-10.1) mg/dl POC Ioniz Calcium Trey (1.12-1.32) mmol/l Phosphorus 4.8 (2.5-4.9) mg/dl Magnesium 2.3 (1.8-2.4) mg/dl Total Bilirubin 1.6 H (0.2-1) mg/dl Direct Bilirubin 0.4 H (0-0.2) mg/dl AST 280 H (15-37) U/L ALT 127 H (12-78) U/L Alkaline Phosphatase 59 (45-117) U/L Troponin I 0.041 (0-0.045) ng/ml NT-Pro-B Natriuret Pep 1194 H (0-900) pg/ml Total Protein 7.8 (6.4-8.2) gm/dl Albumin 3.4 (3.4-5.0) gm/dl Globulin 4.4 H (2.5-4.0) gm/dl Albumin/Globulin Ratio 0.8 L (0.9-2) Lipase 33 L (73-393) U/L Beta-Hydroxybutyric Acd 3.98 H (0.2-2.81) mg/dl Procalcitonin 34.13 H (0-0.5) ng/ml Urine Color Urine Appearance (Clear) Urine pH (4.5-7.5) Ur Specific [place] (1.000-1.030) Urine Protein (Negative) Urine Glucose (UA) (Negative) Urine Ketones (Negative) Urine Blood (Negative) Urine Nitrite (Negative) Urine Bilirubin (Negative) Urine Urobilinogen (Negative) Ur Leukocyte Esterase (Negative) Urine WBC (Auto) (0-5) /hpf Urine RBC (Auto) (0-4) /hpf U Hyaline Cast (Auto) (0-5) /lpf U Epithel Cells (Auto) (0-5) /lpf Urine Bacteria (Auto) (Negative) Urine Osmolality (500-800) mOsm/kg Ur Random Creatinine mg/dl Ur Random Sodium mmol/L Ur Random Potassium mmol/L Ur Random Chloride mmol/L Ur Random Uric Acid mg/dl Nasal Screen MRSA (PCR) (Negative) COVID-19 Eval Order SARS-CoV-2 (PCR) (Negative)
[2021-02-04 10:43] LABS: Base Excess VBG 2.9 mEq/L; Oxygen Saturation VBG 87.1 %; pH VBG 7.46 (7.36-7.41)
--- NOTE | 2021-02-04 13:12 | Pharmacy Report ---
Pharmacy Glycemic Short Note 2 - Date of Service February 04, 2021 - Glycemic Short BSG Results (Last 24 hours): 02/03/21 02/03/21 02/03/21 15:32 15:39 18:27 Glucose 310 H* 253 H POC Glucose POC Glucose (other) 321 H 02/03/21 02/03/21 02/04/21 22:42 22:52 02:26 Glucose 183 H 207 H POC Glucose 200 H POC Glucose (other) 02/04/21 02/04/21 02/04/21 04:38 06:43 07:54 Glucose 178 H 147 H POC Glucose 147 H POC Glucose (other) 02/04/21 02/04/21 09:21 12:06 Glucose POC Glucose 141 H 155 H POC Glucose (other) OUTPATIENT ANTIDIABETIC REGIMEN: * Metformin 1000mg PO BID * A1c = ? ASSESSMENT: * Type 2 diabetic admitted to ICU for incarcerated hernia repair, SBO, need for vent support * Patient is POD # 1 s/p exp-lap w/ reduction/repair * BSGs elevated > 140 x 2, auto consult for glycemic control generated * Patient remains intubated, NPO, large amounts of NG suction overnight * Will begin Novolog SQ Q 4 hr regimen. A portion of the "basal" insulin requirements will be provided w/ the Q 4 hr regimen. This may be safer than giving long acting insulin in the setting of possible prolonged NPO. PLAN FOR INPATIENT GLYCEMIC CONTROL: * Hold outpatient oral diabetes medications (metformin) * Check A1c * Basal insulin * None at this time * Bolus insulin * NovoLog per scale Q 4 hrs: PLAN FOR DISCHARGE: * to be determined
[2021-02-04 13:43] LABS: Estimated Average Glucose 154 mg/dl
--- NOTE | 2021-02-04 14:16 | Critical Care Progress Note ---
Date of Service February 04, 2021 Assessment & Plan (1) SBO (small bowel obstruction): CT chest 02/03/2021 personally reviewed: Centrilobular emphysema appreciated bilaterally, patient had groundglass opacities in the right upper, left lower lobe. No mediastinal lymphadenopathy Dilated fluid-filled esophagus as well as dilated stomach -- VDRF Postop s/p ex lap 02/03/2021 Continue with ventilatory support Keep RASS -1 Daily sedation holidays and SBT's --SBO Likely from incarcerated small bowel S/p ORIF 02/03/2021 Continue with cefepime and Flagyl for anaerobic and gram-negative coverage --Multilobar pneumonia Seems to be likely aspiration pneumonia Nasal MRSA negative COVID-19 PCR negative Procalcitonin 34.1 --S/p LIGIA Likely prerenal from decreased p.o. 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 Plan: In/out: + 4 L, urine output 650 Chest x-ray shows mild elevation of the right hemidiaphragm. Patchy alveolar opacities appreciated bilaterally. Hypokalemia being replaced Decrease the rate of IV fluids to 60 mL AST and ALT trending down. Continue with antibiotics for gram-negative and pseudomonal coverage. Nasal MRSA negative will discontinue vancomycin Resume DVT prophylaxis with renal dose. Given the patient is still spiking continuous fever, I would continue with ventilation support Patient's blood pressure is on the higher side. Start patient on as needed albuterol 5 mg IV every 6 hours Cooling blanket if the fever does not subside. I have personally spent 42 minutes of critical care time in the direct management of this patient. This is a life/limb threatening event. This includes time spent evaluating patient, direct bedside care, chart review, placing orders, interpretation of diagnostic studies, discussion with consultants, patient, and family members, as well as other required patient management activities. This time is exclusive of all separately billable procedures, and teaching time and separate from and in addition to any other critical care service time. Please note the above document was generated using voice recognition software. It may contain grammatical, syntax or spelling errors. (2) Shortness of breath: (3) High anion gap metabolic acidosis: (4) LIGIA (acute kidney injury): (5) Pneumonia: Admission and Anticipated Discharge Date Admission Date: February 03, 2021 Subjective Patient seen and examined at bedside. No acute distress. Patient is post ex lap for incarcerated femoral hernia Patient was on 35 propofol, 25 fentanyl at the time of examination RASS -2. He is continuously spiking fever. Making good amount of urine. Review of Systems Review of Systems: All systems reviewed & are unremarkable except as noted in Subjective Physical Exam Physical Exam: Constitutional: In respiratory distress, talking in full sentences HEENT: PERRLA, positive ETT Respiratory system: Decreased air entry bilaterally, no wheeze, no rhonchi, mild crackles bilateral lower lobes CVS: S1-S2 positive, no murmurs or gallops, tachycardia Abdomen: Soft, decreased bowel sounds, JUAN JOSE drains in place Extremities: +2 pulses bilaterally radialis/ dorsalis pedis, no cyanosis, no edema Neuro: RASS -2, breathing over the vent, positive corneal, positive gag, positive pupillary Psych: Unable to assess G/U: Positive [place] Skin: no rashes, warm and dry Lymphatic: no cervical or axillary lymphadenopathy Results & Data Results & Data ([facility]) Vital Signs (Past 12 Hours) Vital Signs Temp Pulse Resp BP Pulse Ox 02/04/21 13:16 38.4 C H 126 H 135/82 100 02/04/21 13:00 38.4 C H 124 H 100 02/04/21 12:46 38.4 C H 124 H 144/90 H 99 02/04/21 12:17 38.3 C H 123 H 98 02/04/21 12:16 38.3 C H 125 H 138/80 97 02/04/21 12:00 38.3 C H 125 H 97 02/04/21 11:50 124 H 18 97 02/04/21 11:46 38.3 C H 125 H 147/82 H 97 02/04/21 11:16 38.3 C H 126 H 133/81 94 02/04/21 11:00 38.4 C H 125 H 95 02/04/21 10:46 38.4 C H 123 H 131/83 95 02/04/21 10:16 38.5 C H 124 H 131/74 94 02/04/21 10:00 38.6 C H 127 H 93 02/04/21 09:46 38.6 C H 129 H 130/79 94 02/04/21 09:16 38.6 C H 127 H 131/79 94 02/04/21 09:00 38.6 C H 128 H 94 02/04/21 08:46 38.6 C H 128 H 130/78 94 02/04/21 08:16 38.6 C H 129 H 127/79 94 02/04/21 08:15 128 H 21 94 02/04/21 08:00 38.5 C H 123 H 95 02/04/21 07:46 126 H 147/83 H 95 02/04/21 07:16 126 H 130/79 95 02/04/21 07:00 123 H 95 02/04/21 06:46 123 H 136/75 94 02/04/21 06:16 122 H 131/82 95 02/04/21 06:00 120 H 96 02/04/21 05:46 120 H 137/81 96 02/04/21 05:15 119 H 130/80 96 02/04/21 05:00 118 H 96 02/04/21 04:46 120 H 133/78 96 02/04/21 04:15 118 H 140/76 96 02/04/21 04:00 117 H 96 02/04/21 03:46 117 H 119/76 96 02/04/21 03:45 117 H 21 96 02/04/21 03:15 117 H 139/76 97 02/04/21 03:00 116 H 97 02/04/21 02:45 115 H 120/72 97 02/04/21 02:24 114 H 120/71 96 02/04/21 02:15 114 H 120/71 97 02/04/21 04:38 02/04/21 06:43 Coding Level of Care Code Critical Care 1st 30-74 mins Diagnoses SBO (small bowel obstruction) K56.609 Shortness of breath R06.02 High anion gap metabolic acidosis E87.2 LIGIA (acute kidney injury) N17.9 Pneumonia J18.9 Time Spent (min) 42
[2021-02-04] MEDS: CEFEPIME 2,000 MG in SYRINGE 0 ML IV SCH ×2 (14:32→20:54)
[2021-02-04 16:37] LABS: BUN Creatinine Ratio 41.9 (10-20); Est GFR (African American) 108.3 ml/min; Est GFR (Non-African American) 93.5 ml/min; Magnesium 2.5 mg/dl (1.8-2.4); Phosphorus 1.8 mg/dl (2.5-4.9); Potassium 4.1 mmol/L (3.5-5.1)
--- NOTE | 2021-02-04 17:40 | Hospitalist Progress Note ---
Date of Service February 04, 2021 Assessment & Plan (1) Incarcerated inguinal hernia: High-grade small bowel obstruction Secondary to incarcerated right inguinal hernia CT ABD/pelvis on admission:High-grade small bowel obstruction with a transition zone at the level of an incarcerated right inguinal hernia. Status post exploratory laparotomy, postoperative day 1 Remains intubated postoperatively Lactic Acidosis likely secondary to bowel ischemia-improved after IV hydration Acute hypoxemic respiratory failure Multifocal pneumonia/on intubation hood and postoperatively Possible Sepsis -incarcerated right inguinal hernia, bowel ischemia Negative COVID screen CTA:No evidence of acute pulmonary embolism given the technical limitations of the study. Multifocal groundglass pulmonary opacities suspicious for multifocal pneumonia. Dilated fluid-filled stomach and esophagus Elevated procalcitonin Appreciate input from pulmonary critical care, vent management per ICU Acute kidney injury Due to bowel obstruction/ischemia, sepsis. Blood pressure has been stable, creatinine continues to improve with hydration Avoid nephrotoxic agents as able DM Type II: Last A1c:7.7 on Oct 12 Treatment per ICU glycemic management Transaminitis Likely secondary to above Continues to improve Left hepatic lobe mass Left adrenal nodule Incidental Findings on CT scan CT abd: Interval development of an indeterminate 46 mm ill-defined left hepatic lobe mass. Indeterminate 24 mm left adrenal nodule Further work-up as outpatient DVT prophylaxis Subcu Lovenox, Code Status Full Code Disposition Patient remains critically ill, continue to monitor in ICU Admission and Anticipated Discharge Date Admission Date: February 03, 2021 Subjective Postoperative day #1 status post reduction of incarcerated femoral hernia with small bowel resection. Remains intubated and sedated Review of Systems Review of Systems: Unobtainable due to endotracheal tube Physical Exam Physical Exam: Physical exam: General: Obese, sedated on vent / Heart: Regular no lower extremity edema Lungs: Diminished, no rales appreciated Abdomen: Distended, mid abdominal surgery bandage present, with a drain Neuro: Unable to assess, patient is intubated, on sedation for mechanical ventil ation Results & Data Results & Data ([facility]) Vital Signs (Past 12 Hours) Vital Signs Temp Pulse Resp BP Pulse Ox 02/04/21 16:16 38.8 C H 132 H 126/80 91 02/04/21 16:01 128 H 20 100 02/04/21 16:00 38.8 C H 130 H 96 02/04/21 15:46 38.7 C H 128 H 144/85 H 100 02/04/21 15:16 38.7 C H 129 H 143/87 H 02/04/21 15:00 38.7 C H 129 H 02/04/21 14:47 38.7 C H 130 H 02/04/21 14:46 38.7 C H 132 H 146/84 H 02/04/21 14:17 38.5 C H 127 H 98 02/04/21 14:16 38.5 C H 130 H 109/71 02/04/21 14:15 38.5 C H 128 H 96 02/04/21 14:00 38.5 C H 124 H 99 02/04/21 13:46 38.5 C H 127 H 141/84 H 99 02/04/21 13:45 38.5 C H 125 H 99 02/04/21 13:30 38.4 C H 125 H 100 02/04/21 13:17 38.4 C H 125 H 100 02/04/21 13:16 38.4 C H 126 H 135/82 100 02/04/21 13:00 38.4 C H 124 H 100 02/04/21 12:46 38.4 C H 124 H 144/90 H 99 02/04/21 12:17 38.3 C H 123 H 98 02/04/21 12:16 38.3 C H 125 H 138/80 97 02/04/21 12:00 38.3 C H 125 H 97 02/04/21 11:50 124 H 18 97 02/04/21 11:46 38.3 C H 125 H 147/82 H 97 02/04/21 11:16 38.3 C H 126 H 133/81 94 02/04/21 11:00 38.4 C H 125 H 95 02/04/21 10:46 38.4 C H 123 H 131/83 95 02/04/21 10:16 38.5 C H 124 H 131/74 94 02/04/21 10:00 38.6 C H 127 H 93 02/04/21 09:46 38.6 C H 129 H 130/79 94 02/04/21 09:16 38.6 C H 127 H 131/79 94 02/04/21 09:00 38.6 C H 128 H 94 02/04/21 08:46 38.6 C H 128 H 130/78 94 02/04/21 08:16 38.6 C H 129 H 127/79 94 02/04/21 08:15 128 H 21 94 02/04/21 08:00 38.5 C H 123 H 95 02/04/21 07:46 126 H 147/83 H 95 02/04/21 07:16 126 H 130/79 95 02/04/21 07:00 123 H 95 02/04/21 06:46 123 H 136/75 94 02/04/21 06:16 122 H 131/82 95 02/04/21 06:00 120 H 96 02/04/21 05:46 120 H 137/81 96
[2021-02-04] MEDS: ICU ELECTROLYTE REPLACEMENT PROTOCOL SCH (19:54)
[2021-02-04] MEDS ORDERED: NORMOSOL-R 500 ML IV ONE (21:35)
--- NOTE | 2021-02-04 23:18 | Electrocardiogram Report ---
Test Reason : Blood Pressure : / mmHG Vent. Rate : 139 BPM Atrial Rate : 139 BPM P-R Int : 152 ms QRS Dur : 080 ms QT Int : 272 ms P-R-T Axes : 052 065 047 degrees QTc Int : 413 ms Sinus tachycardia Otherwise normal ECG When compared with ECG of 15-JUL-2019 01:23, No significant change was found Confirmed by Anton Currie ([id number]) on 02/04/2021 11:18:21 PM Referred By: REFERRED SELF Confirmed By:Anton Currie
--- NOTE | 2021-02-04 23:20 | Electrocardiogram Report ---
Test Reason : Blood Pressure : / mmHG Vent. Rate : 134 BPM Atrial Rate : 134 BPM P-R Int : 148 ms QRS Dur : 078 ms QT Int : 272 ms P-R-T Axes : 050 064 064 degrees QTc Int : 406 ms Sinus tachycardia Nonspecific T wave abnormality Abnormal ECG When compared with ECG of 03-FEB-2021 15:21, Nonspecific T wave abnormality now evident in Lateral leads Confirmed by Anton Currie ([id number]) on 02/04/2021 11:20:04 PM Referred By: REFERRED SELF Confirmed By:Anton Currie
[2021-02-05] MEDS: INSULIN ASPART 100 UNITS/ML 3 ML PEN SC SCH ×5 (02:27→17:42)
[2021-02-05] MEDS: propofoL 1,000 MG/100 ML VIAL IV SCH ×5 (02:27→22:02)
[2021-02-05] MEDS: metroNIDAZOLE 500 MG/100 ML BAG IV SCH ×3 (02:28→16:00)
[2021-02-05] MEDS: NORMOSOL-R 1,000 ML IV SCH (02:29)
[2021-02-05] MEDS ORDERED: GLUCAGON FOR INJ 1 MG VIAL SQ PRN (02:32)
[2021-02-05] MEDS ORDERED: GLUCOSE 10 TABS/TUBE PO PRN (02:32)
[2021-02-05] MEDS ORDERED: GLUCOSE 40% GEL 15 GM TUBE PO PRN (02:32)
[2021-02-05] MEDS ORDERED: DEXTROSE 50% 50 ML SYRINGE IV PRN (02:32)
[2021-02-05] MEDS ORDERED: CARBOHYDRATES FOR HYPOGLYCEMIA PO PRN (02:32)
[2021-02-05 03:42] LABS: iSTAT Arterial Blood Gas HCO3 28 meg/L (19-24); iSTAT Arterial Blood Gas pCO2 33 mmHg (35-46); iSTAT Arterial Blood Gas pH 7.53 (7.35-7.45); iSTAT Arterial Blood Gas pO2 91 mmHg (80-95); iSTAT Carbon Dioxide 29 mmol/L (24-31); iSTAT Hematocrit 42 % (42-52); iSTAT Hemoglobin 14.3 g/dl (14.0-18.0); iSTAT Potassium 3.3 mmol/L (3.3-5.0); iSTAT Sodium 133 mmol/L (135-144)
[2021-02-05] MEDS: fentaNYL DRIP 1,250 MCG/250 ML BAG IV SCH ×3 (03:57→20:45)
[2021-02-05 04:24] LABS: Hemoglobin 14.8 g/dL (14.0-18.0); Mean Corpuscular Hemoglobin 30.4 pg (25-34); Mean Corpuscular Hgb Conc 34.4 g/dL (32-36); Mean Corpuscular Volume 88.3 fL (80-100); Mean Platelet Volume 11.4 fL (7.4-10.4); Platelet Count 270 K/uL (130-400); RDW Coefficient of Variation 13.6 % (11.5-14.5); RDW Standard Deviation 43.9 fL (36.4-46.3); Red Blood Count 4.87 M/uL (4.7-6.1); White Blood Count 11.69 K/uL (4.8-10.8)
[2021-02-05 04:59] LABS: Basophils # (auto) 0.03 K/uL (0-0.2); Basophils % (auto) 0.3 %; Eosinophils # (auto) 0.18 K/uL (0-0.5); Eosinophils % (auto) 1.5 %; Immature Granulocytes # (auto) 0.15 K/uL (0.00-0.02); Immature Granulocytes % (auto) 1.3 %; Lymphocytes # (auto) 1.16 K/uL (1.2-3.4); Lymphocytes % (auto) 9.9 %; Monocytes # (auto) 1.67 K/uL (0.11-0.59); Monocytes % (auto) 14.3 %; Neutrophils % (auto) 72.7 %
[2021-02-05 05:09] LABS: Albumin Level 2.3 gm/dl (3.4-5.0); BUN Creatinine Ratio 46.7 (10-20); Bilirubin Direct 0.3 mg/dl (0-0.2); Bilirubin,Total 0.7 mg/dl (0.2-1); Calcium 8.8 mg/dl (8.5-10.1); Creatinine Clr Calc Pharmacy 150.9 ml/min; Est GFR (African American) 127.3 ml/min; Est GFR (Non-African American) 109.8 ml/min; Magnesium 2.7 mg/dl (1.8-2.4); Phosphorus 1.7 mg/dl (2.5-4.9); Potassium 3.4 mmol/L (3.5-5.1); Total Protein 5.9 gm/dl (6.4-8.2)
[2021-02-05] MEDS: CEFEPIME 2,000 MG in SYRINGE 0 ML IV SCH ×3 (05:58→20:44)
[2021-02-05] MEDS: ICU ELECTROLYTE REPLACEMENT PROTOCOL SCH ×2 (05:58→18:35)
--- NOTE | 2021-02-05 06:22 | Electrocardiogram Report ---
Test Reason : Blood Pressure : / mmHG Vent. Rate : 124 BPM Atrial Rate : 124 BPM P-R Int : 144 ms QRS Dur : 084 ms QT Int : 284 ms P-R-T Axes : 051 072 065 degrees QTc Int : 408 ms Sinus tachycardia Nonspecific T wave abnormality Abnormal ECG When compared with ECG of 03-FEB-2021 16:40, No significant change was found Confirmed by Anton Currie ([id number]) on 02/05/2021 6:21:59 AM Referred By: REFERRED SELF Confirmed By:Anton Currie
[2021-02-05] MEDS ORDERED: POTASSIUM PHOS 3 MMOL/1 ML INFUSION IV STA ×2 (06:55→18:30)
[2021-02-05] MEDS ORDERED: POTASSIUM PHOSPHATE 21 MMOL in SODIUM CHLORIDE 0.9% 500 ML IV ONE (07:15)
--- NOTE | 2021-02-05 07:29 | Surgery Progress Note ---
Date of Service February 05, 2021 Assessment & Plan (1) Incarcerated inguinal hernia: Postoperative day #2 repair of incarcerated inguinal hernia -Patient remains on a ventilator is to be managed as directed by the ICU team -Patient will remain n.p.o. while on ventilator and once extubated until return of bowel function is noted Discussed with nurse at bedside that if patient has recurrence of fever appropriate evaluation should be undertaken including but not limited to checking for possible source of infection and patient sputum and urine. At the present time there is little utility in obtaining a repeat CT scan of the abdomen Admission and Anticipated Discharge Date Admission Date: February 03, 2021 Subjective Patient is sedated on the vent therefore cannot provide any meaningful subjective data. Discussed with nurse at bedside. Patient had approximately 200 cc of drainage from NG tube last shift. Patient was also noted to be febrile which has resolved with use of cooling blankets. No other acute issues have been that identified. Physical Exam Gastrointestinal (Abdomen): Abdomen is moderately distended. Bowel sounds are hypoactive. With palpation near surgical incision is did appear to elicit a pain response in the patient. Results & Data ([facility]) Vital Signs (Past 12 Hours) Vital Signs Temp Pulse Resp BP Pulse Ox 02/05/21 06:00 37.2 C 112 H 98 02/05/21 05:46 37.2 C 110 H 141/85 H 99 02/05/21 05:16 37.3 C 113 H 143/85 H 97 02/05/21 05:00 37.4 C 117 H 90 02/05/21 04:47 37.4 C 119 H 128/94 96 02/05/21 04:16 37.5 C 112 H 144/91 H 95 02/05/21 04:00 37.5 C 113 H 94 02/05/21 03:46 37.6 C H 113 H 146/90 H 96 02/05/21 03:19 111 H 19 96 02/05/21 03:16 37.8 C H 112 H 142/83 H 96 02/05/21 03:00 37.8 C H 115 H 98 02/05/21 02:46 37.8 C H 115 H 130/77 97 02/05/21 02:16 37.9 C H 119 H 149/89 H 96 02/05/21 02:00 38.0 C H 120 H 94 02/05/21 01:46 38.1 C H 117 H 146/85 H 97 02/05/21 01:16 38.1 C H 117 H 143/85 H 98 02/05/21 01:00 38.1 C H 117 H 99 02/05/21 00:46 38.2 C H 117 H 143/81 H 98 02/05/21 00:16 38.2 C H 118 H 126/83 98 02/05/21 00:00 38.2 C H 119 H 99 02/04/21 23:46 38.1 C H 115 H 120/81 100 02/04/21 23:16 38.2 C H 122 H 125/89 98 02/04/21 23:00 38.3 C H 120 H 98 02/04/21 22:47 38.3 C H 119 H 98 02/04/21 22:46 38.3 C H 119 H 136/82 98 02/04/21 22:40 122 H 02/04/21 22:35 115 H 18 96 02/04/21 22:16 38.4 C H 120 H 133/85 97 02/04/21 22:00 38.5 C H 117 H 91 02/04/21 21:46 38.5 C H 120 H 140/80 88 L 02/04/21 21:17 38.6 C H 122 H 94 02/04/21 21:16 38.6 C H 116 H 103/68 91 02/04/21 21:00 38.6 C H 125 H 93 02/04/21 20:46 38.6 C H 124 H 118/77 94 02/04/21 20:16 38.7 C H 123 H 113/77 94 02/04/21 20:00 38.7 C H 127 H 95 02/04/21 19:46 38.8 C H 124 H 135/83 97 PG Care Time/CCT Total # of Minutes Spent Total Time Spent with Patient: Total time spent is greater than 50% in coordination of care (as documented) at patient's floor/unit and/or counseling patient: Coding Level of Care Code None Diagnoses Incarcerated inguinal hernia K40.30
[2021-02-05] MEDS: POTASSIUM CHLORIDE / WTR 10 MEQ/100 ML PLCT IV SCH ×2 (07:49→08:49)
--- NOTE | 2021-02-05 08:59 | XRay Report ---
XR chest 1V portable CLINICAL HISTORY: Respiratory failure. Follow-up study. COMPARISON STUDY: 02/04/2021 FINDINGS: There is an endotracheal tube approximately 4 cm above the giovany. There is an enteric tube which passes into the stomach. The cardiac and mediastinal contours remain stable. There is no failu re. There are minimally prominent basilar markings, likely atelectatic although an infectious/inflamm atory processes could appear similar. There are no large pleural effusions. IMPRESSION: 1. Minor basilar opacities likely atelectatic although an infectious/inflammatory process could appea r similar. ACT 112: Negative or not required by law. Electronically signed by: Reinaldo Castillo M.D. 02/05/2021 8:58 AM
[2021-02-05] MEDS: D5W AND NSS 1,000 ML IV SCH (09:08)
[2021-02-05] MEDS: FAMOTIDINE 20 MG in SYRINGE 3 ML IV SCH ×2 (10:17→20:44)
[2021-02-05] MEDS: HEPARIN SOD 5,000 UNIT/0.5 ML VIAL SQ SCH ×2 (10:18→20:40)
--- NOTE | 2021-02-05 12:15 | Critical Care Progress Note ---
Date of Service February 05, 2021 Assessment & Plan (1) SBO (small bowel obstruction): CT chest 02/03/2021 personally reviewed: Centrilobular emphysema appreciated bilaterally, patient had groundglass opacities in the right upper, left lower lobe. No mediastinal lymphadenopathy Dilated fluid-filled esophagus as well as dilated stomach -- VDRF Postop s/p ex lap 02/03/2021 Continue with ventilatory support Keep RASS -1 Daily sedation holidays and SBT's --Gram-negative bacteremia Source is likely intra-abdominal Continue with antibiotic Follow-up sensitivity Procalcitonin 35 --> 22 --SBO Likely from incarcerated small bowel S/p OR 02/03/2021 Continue with cefepime and Flagyl for anaerobic and gram-negative coverage --Multilobar pneumonia Seems to be likely aspiration pneumonia Nasal MRSA negative COVID-19 PCR negative Procalcitonin 34.1 --S/p LIGIA Likely prerenal from decreased p.o. 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 Plan: In/out: +970, urine output 2040 ABG 7.53/33/91 Chest x-ray shows bilateral costophrenic and cardiac angles are clean, mildly elevated right hemidiaphragm, Hypokalemia and hypophosphatemia being replaced Gram-negative bacteremia likely intra-abdominal source. Continue with cefepime. Continue with Flagyl for anaerobic coverage Patient's belly is not distended. Still no bowel movement. Continue with NGT suction. Patient is staying hypertensive. We will start patient on metoprolol 2.5 mg every 6 hours. Will increase to 5 mg if need be Patient was hypoglycemic early in the morning. We will start the patient on D5 NS at 50 mL an hour. I have personally spent 42 minutes of critical care time in the direct management of this patient. This is a life/limb threatening event. This includes time spent evaluating patient, direct bedside care, chart review, placing orders, interpretation of diagnostic studies, discussion with consultants, patient, and family members, as well as other required patient management activities. This time is exclusive of all separately billable procedures, and teaching time and separate from and in addition to any other critical care service time. Please note the above document was generated using voice recognition software. It may contain grammatical, syntax or spelling errors. (2) Shortness of breath: (3) High anion gap metabolic acidosis: (4) LIGIA (acute kidney injury): (5) Pneumonia: Admission and Anticipated Discharge Date Admission Date: February 03, 2021 Subjective Patient seen and examined at bedside. T-max 38.9 Patient has been's finally euthermic. He was on propofol 20, fentanyl 50 at the time of examination. He was RASS 0. He was moving all his extremities but not following commands. 30 mg of bolus propofol was given as he was very restless. No bowel movement. NG tube is still draining bilious. Review of Systems Review of Systems: All systems reviewed & are unremarkable except as noted in Subjective Physical Exam Physical Exam: Constitutional: Intubated HEENT: PERRLA, positive ETT Respiratory system: Decreased air entry bilaterally, no wheeze, no rhonchi, mild crackles bilateral lower lobes CVS: S1-S2 positive, no murmurs or gallops, tachycardia Abdomen: Soft, nondistended, decreased bowel sounds, JUAN JOSE drains in place Extremities: +2 pulses bilaterally radialis/ dorsalis pedis, no cyanosis, no edema Neuro: RASS 0, breathing over the vent, positive corneal, positive gag, positive pupillary Psych: Unable to assess G/U: Positive [place] Skin: no rashes, warm and dry Lymphatic: no cervical or axillary lymphadenopathy Results & Data Results & Data ([facility]) Vital Signs (Past 12 Hours) Vital Signs Temp Pulse Resp BP Pulse Ox 02/05/21 12:00 37.1 C 108 H 100 02/05/21 11:20 108 H 19 100 02/05/21 11:00 37.0 C 109 H 100 02/05/21 10:00 37.0 C 112 H 99 02/05/21 09:16 37.1 C 110 H 126/77 100 02/05/21 09:00 37.1 C 112 H 98 02/05/21 08:46 37.2 C 115 H 140/84 99 02/05/21 08:17 37.2 C 114 H 146/80 H 99 02/05/21 08:00 37.2 C 113 H 99 02/05/21 07:47 37.1 C 112 H 125/53 L 99 02/05/21 07:16 37.1 C 112 H 147/89 H 99 02/05/21 07:10 112 H 19 99 02/05/21 07:00 37.1 C 112 H 98 02/05/21 06:46 37.1 C 112 H 141/92 H 99 02/05/21 06:16 37.2 C 113 H 142/91 H 97 02/05/21 06:00 37.2 C 112 H 98 02/05/21 05:46 37.2 C 110 H 141/85 H 99 02/05/21 05:16 37.3 C 113 H 143/85 H 97 02/05/21 05:00 37.4 C 117 H 90 02/05/21 04:47 37.4 C 119 H 128/94 96 02/05/21 04:16 37.5 C 112 H 144/91 H 95 02/05/21 04:00 37.5 C 113 H 94 02/05/21 03:46 37.6 C H 113 H 146/90 H 96 02/05/21 03:19 111 H 19 96 02/05/21 03:16 37.8 C H 112 H 142/83 H 96 02/05/21 03:00 37.8 C H 115 H 98 02/05/21 02:46 37.8 C H 115 H 130/77 97 02/05/21 02:16 37.9 C H 119 H 149/89 H 96 02/05/21 02:00 38.0 C H 120 H 94 02/05/21 01:46 38.1 C H 117 H 146/85 H 97 02/05/21 01:16 38.1 C H 117 H 143/85 H 98 02/05/21 01:00 38.1 C H 117 H 99 02/05/21 00:46 38.2 C H 117 H 143/81 H 98 02/05/21 00:16 38.2 C H 118 H 126/83 98 02/05/21 04:11 02/05/21 04:11 Coding Level of Care Code Critical Care 1st 30-74 mins Diagnoses SBO (small bowel obstruction) K56.609 Shortness of breath R06.02 High anion gap metabolic acidosis E87.2 LIGIA (acute kidney injury) N17.9 Pneumonia J18.9 Time Spent (min) 42
[2021-02-05] MEDS: METOPROLOL TARTRATE 1 MG/ML VIAL IV SCH ×2 (12:18→17:46)
--- NOTE | 2021-02-05 16:22 | Hospitalist Progress Note ---
Date of Service February 05, 2021 Assessment & Plan (1) Incarcerated inguinal hernia: Severe sepsis with gram-negative bacteremia: Stable secondary to incarcerated rt inguinal hernia leading to bowel ischemia On IV cefepime, Flagyl,-should be adequate coverage. Repeat blood culture ordered Continue to monitor in ICU High-grade small bowel obstruction Secondary to incarcerated right inguinal hernia CT ABD/pelvis on admission:High-grade small bowel obstruction with a transition zone at the level of an incarcerated right inguinal hernia. Status post exploratory laparotomy, postoperative day2 Remains intubated postoperatively Lactic Acidosis likely secondary to bowel ischemia/sepsis -improved after IV hydration/biotic treatment Acute hypoxemic respiratory failure Multifocal pneumonia/on intubation hood and postoperatively Possible Sepsis -incarcerated right inguinal hernia, bowel ischemia Negative COVID screen CTA:No evidence of acute pulmonary embolism given the technical limitations of the study. Multifocal groundglass pulmonary opacities suspicious for multifocal pneumonia. Dilated fluid-filled stomach and esophagus Procalcitonin continues to improve, antibiotic as above Appreciate input from pulmonary critical care, vent management per ICU Acute kidney injury Resolved after IV hydration Due to bowel obstruction/ischemia, sepsis. Blood pressure has been stable, creatinine continues to improve with hydration Avoid nephrotoxic agents as able DM Type II: Last A1c:7.7 on Oct 12 Treatment per ICU glycemic management Transaminitis Improved, Left hepatic lobe mass Left adrenal nodule Incidental Findings on CT scan CT abd: Interval development of an indeterminate 46 mm ill-defined left hepatic lobe mass. Indeterminate 24 mm left adrenal nodule Further work-up as outpatient DVT prophylaxis Subcu heparin Code Status Full Code Disposition Patient remains critically ill, continue to monitor in ICU Admission and Anticipated Discharge Date Admission Date: February 03, 2021 Subjective Follow-up visit in ICU for incarcerated right inguinal hernia bowel ischemia respiratory failure/sepsis: Patient is day 2 status post exploratory laparotomy for incarcerated right inguinal hernia. Has been stable hemodynamically, has not required any pressor support post surgery Remains intubated/mechanically ventilated for respiratory support Temperature spike noted earlier today, has been afebrile since, Blood culture 02/03/2021 1 bottle gram-negative bacilli, possible source bowel ischemia, Patient is already on broad-spectrum antibiotic with cefepime/Flagyl [place] blood culture ordered Review of Systems Review of Systems: Unobtainable due to endotracheal tube Physical Exam Physical Exam: Physical exam: General: Obese, sedated on vent / Heart: Regular no lower extremity edema Lungs: Diminished, no rales appreciated Abdomen: Distended, mid abdominal surgery bandage present, with a drain/no audible bowel sound Neuro: Unable to assess, patient is intubated, on sedation for mechanical ventilation Results & Data Results & Data ([facility]) Vital Signs (Past 12 Hours) Vital Signs Temp Pulse Resp BP Pulse Ox 02/05/21 16:00 36.4 C L 114 H 100 02/05/21 15:00 37.8 C H 119 H 99 02/05/21 14:59 111 H 20 100 02/05/21 14:00 37.5 C 106 H 100 02/05/21 13:00 37.2 C 100 H 100 02/05/21 12:18 108 H 154/67 H 02/05/21 12:00 37.1 C 108 H 100 02/05/21 11:20 108 H 19 100 02/05/21 11:00 37.0 C 109 H 100 02/05/21 10:00 37.0 C 112 H 99 02/05/21 09:16 37.1 C 110 H 126/77 100 02/05/21 09:00 37.1 C 112 H 98 02/05/21 08:46 37.2 C 115 H 140/84 99 02/05/21 08:17 37.2 C 114 H 146/80 H 99 02/05/21 08:00 37.2 C 113 H 99 02/05/21 07:47 37.1 C 112 H 125/53 L 99 02/05/21 07:16 37.1 C 112 H 147/89 H 99 02/05/21 07:10 112 H 19 99 02/05/21 07:00 37.1 C 112 H 98 02/05/21 06:46 37.1 C 112 H 141/92 H 99 02/05/21 06:16 37.2 C 113 H 142/91 H 97 02/05/21 06:00 37.2 C 112 H 98 02/05/21 05:46 37.2 C 110 H 141/85 H 99 02/05/21 05:16 37.3 C 113 H 143/85 H 97 02/05/21 05:00 37.4 C 117 H 90 02/05/21 04:47 37.4 C 119 H 128/94 96
--- NOTE | 2021-02-05 16:33 | Electrocardiogram Report ---
Test Reason : Blood Pressure : / mmHG Vent. Rate : 113 BPM Atrial Rate : 113 BPM P-R Int : 152 ms QRS Dur : 084 ms QT Int : 320 ms P-R-T Axes : 054 073 065 degrees QTc Int : 438 ms Sinus tachycardia Otherwise normal ECG When compared with ECG of 04-FEB-2021 11:34, No significant change was found Confirmed by Jesus Manuel Degroot ([id number]) on 02/05/2021 4:33:08 PM Referred By: REFERRED SELF Confirmed By:Prosper Degroot
[2021-02-05 18:14] LABS: BUN Creatinine Ratio 32.1 (10-20); Calcium 8.7 mg/dl (8.5-10.1); Creatinine Clr Calc Pharmacy 117.9 ml/min; Est GFR (Non-African American) 99.2 ml/min; Magnesium 2.4 mg/dl (1.8-2.4); Potassium 3.3 mmol/L (3.5-5.1)
[2021-02-05 18:25] LABS: Phosphorus 1.2 mg/dl (2.5-4.9)
[2021-02-05] MEDS ORDERED: POTASSIUM PHOSPHATE 45 MMOL in SODIUM CHLORIDE 0.9% 1000ML 1,000 ML IV ONE (18:45)
[2021-02-06] MEDS: INSULIN ASPART 100 UNITS/ML 3 ML PEN SC SCH ×4 (00:05→18:40)
[2021-02-06] MEDS: metroNIDAZOLE 500 MG/100 ML BAG IV SCH ×2 (00:06→09:17)
[2021-02-06] MEDS: METOPROLOL TARTRATE 1 MG/ML VIAL IV SCH ×4 (00:07→18:41)
[2021-02-06] MEDS: propofoL 1,000 MG/100 ML VIAL IV SCH ×5 (02:27→10:11)
[2021-02-06 03:28] LABS: iSTAT Arterial Blood Gas HCO3 25 meg/L (19-24); iSTAT Arterial Blood Gas pCO2 35 mmHg (35-46); iSTAT Arterial Blood Gas pH 7.46 (7.35-7.45); iSTAT Arterial Blood Gas pO2 86 mmHg (80-95); iSTAT Carbon Dioxide 26 mmol/L (24-31); iSTAT Hematocrit 36 % (42-52); iSTAT Hemoglobin 12.2 g/dl (14.0-18.0); iSTAT Potassium 3.5 mmol/L (3.3-5.0); iSTAT Sodium 136 mmol/L (135-144)
[2021-02-06] MEDS: D5W AND NSS 1,000 ML IV SCH (04:07)
[2021-02-06 05:03] LABS: Hematocrit (blood only) 38.6 % (42-52); Mean Corpuscular Hemoglobin 30.6 pg (25-34); Mean Corpuscular Hgb Conc 33.7 g/dL (32-36); Mean Corpuscular Volume 90.8 fL (80-100); Mean Platelet Volume 11.7 fL (7.4-10.4); Platelet Count 289 K/uL (130-400); RDW Coefficient of Variation 13.8 % (11.5-14.5); RDW Standard Deviation 45.9 fL (36.4-46.3); Red Blood Count 4.25 M/uL (4.7-6.1); White Blood Count 18.59 K/uL (4.8-10.8)
[2021-02-06 05:23] LABS: Alanine Aminotransferase 109 U/L (12-78); Albumin Level 1.9 gm/dl (3.4-5.0); Aspartate Aminotransferase 67 U/L (15-37); BUN Creatinine Ratio 32.8 (10-20); Blood Urea Nitrogen 16 mg/dl (7-18); Calcium 7.9 mg/dl (8.5-10.1); Carbon Dioxide 26 mmol/L (21-32); Chloride 107 mmol/L (98-107); Creatinine Clr Calc Pharmacy 157.2 ml/min; Est GFR (African American) 129.4 ml/min; Est GFR (Non-African American) 111.7 ml/min; Glucose 155 mg/dl (70-99); Magnesium 2.3 mg/dl (1.8-2.4); Potassium 3.5 mmol/L (3.5-5.1); Sodium 139 mmol/L (136-145)
[2021-02-06 05:31] LABS: Alkaline Phosphatase 44 U/L (45-117); Bilirubin,Total 0.4 mg/dl (0.2-1); Phosphorus 1.8 mg/dl (2.5-4.9); Total Protein 5.3 gm/dl (6.4-8.2)
--- NOTE | 2021-02-06 05:43 | Surgery Progress Note ---
Date of Service February 06, 2021 Assessment & Plan (1) Incarcerated inguinal hernia: Postoperative day #3 repair of incarcerated inguinal hernia -Ventilator management as directed by ICU staff -Continue n.p.o. status while on ventilator and once extubated until return of bowel function is noted -Continue antibiotics in the form of cefepime and Flagyl White blood cell count noted to be elevated. Blood culture from 02/03/2021 shows gram-negative rods. We will continue antibiotics listed above until further sensitivities are available. Subcu heparin is in place for DVT prevention Admission and Anticipated Discharge Date Admission Date: February 03, 2021 Supervising Physician Co-Signing Physician Notes I personally saw and evaluated the patient with [place] PA-C and agree with the assessment and plan WBC trending up, has Gram+ cocci bacteremia Continue ABX Had a bowel movement, but still distended Keep NGT while intubated Vent management per ICU Subjective Patient remains on ventilator therefore no subjective data could be obtained. Discussed with nurse and patient was noted to have a small bowel movement last shift. Patient has been afebrile. No other concerns noted Physical Exam Gastrointestinal (Abdomen): Abdomen is mildly distended with hypoactive bowel sounds. With palpation this did appear to elicit a painful response. Results & Data ([facility]) Vital Signs (Past 12 Hours) Vital Signs Temp Pulse Resp BP Pulse Ox 02/06/21 04:52 37.1 C 02/06/21 04:47 101 H 126/75 97 02/06/21 04:17 100 H 119/74 96 02/06/21 03:47 99 H 133/77 97 02/06/21 03:17 108 H 112/77 96 02/06/21 03:12 107 H 21 96 02/06/21 02:47 101 H 112/69 95 02/06/21 02:17 99 H 119/72 95 02/06/21 01:47 102 H 108/66 92 02/06/21 01:37 36.7 C 02/06/21 01:18 105 H 94 02/06/21 01:17 104 H 108/69 94 02/06/21 01:00 108 H 92 02/06/21 00:47 109 H 125/76 89 L 02/06/21 00:18 106 H 133/106 H 93 02/06/21 00:10 36.9 C 02/06/21 00:07 108 H 159/46 H 02/05/21 23:48 106 H 96 02/05/21 23:47 109 H 121/86 96 02/05/21 23:34 106 H 21 97 02/05/21 23:18 76 130/83 97 02/05/21 22:47 104 H 128/75 97 02/05/21 22:17 105 H 134/79 97 02/05/21 22:00 105 H 98 02/05/21 21:47 105 H 120/75 97 02/05/21 21:17 106 H 122/73 97 02/05/21 20:47 107 H 120/73 96 02/05/21 20:17 106 H 121/75 96 02/05/21 20:04 106 H 21 96 02/05/21 20:00 105 H 96 02/05/21 19:47 107 H 16 129/77 95 02/05/21 19:37 107 H 16 124/78 96 02/05/21 19:18 108 H 16 126/83 100 02/05/21 19:00 36.9 C 105 H 20 97 02/05/21 18:00 37.2 C 112 H 98 02/05/21 17:46 112 H 152/59 H PG Care Time/CCT Total # of Minutes Spent Total Time Spent with Patient: Total time spent is greater than 50% in coordination of care (as documented) at patient's floor/unit and/or counseling patient: Coding Level of Care Code None Diagnoses Incarcerated inguinal hernia K40.30
[2021-02-06] MEDS ORDERED: SODIUM PHOSPHATE 3 MMOL/1 ML INFUSION IV STA (05:54)
[2021-02-06] MEDS: ICU ELECTROLYTE REPLACEMENT PROTOCOL SCH ×2 (06:16→18:05)
[2021-02-06] MEDS: CEFEPIME 2,000 MG in SYRINGE 0 ML IV SCH (06:18)
[2021-02-06] MEDS: POTASSIUM CHLORIDE / WTR 10 MEQ/100 ML PLCT IV SCH ×4 (06:19→10:11)
[2021-02-06] MEDS ORDERED: SODIUM PHOSPHATE 21 MMOL in SODIUM CHLORIDE 0.9% 500 ML IV ONE (06:30)
[2021-02-06 06:35] LABS: ALC (manual) 2.58 K/uL (1.2-3.4); ANC (manual) 13.09 K/uL (1.4-6.5); Eosinophils # (manual) 0.65 K/uL (0-0.5); Eosinophils % (manual) 3.5 %; Lymphocytes # (manual) 2.58 K/uL (1.2-3.4); Lymphocytes % (manual) 13.9 %; Monocytes # (manual) 1.62 K/uL (0.11-0.59); Monocytes % (manual) 8.7 %; Myelocytes # (manual) 0.65 K/uL (0-0); Myelocytes % (manual) 3.5 %; Neutrophils # (manual) 13.09 K/uL (1.4-6.5); Neutrophils % (manual) 70.4 %; Toxic Granulation 1+
--- NOTE | 2021-02-06 06:59 | XRay Report ---
XR chest 1V portable CLINICAL HISTORY: f/u COMPARISON STUDY: Chest CT February 03, 2021. Chest radiograph February 05, 2021. FINDINGS: Tip of endotracheal tube is 3.9 cm above the giovany. Tip of nasogastric tube is within the gastric fundus. There is no pneumothorax. No pleural effusion is identified. Left shoulder arthroplas ty is incidentally noted. Bibasilar airspace opacities persist. IMPRESSION: 1. Satisfactory positioning of lines and tubes. 2. Persistent bibasilar opacities which favor pneumonia. ACT 112: Negative or not required by law. Electronically signed by: Ric Walton M.D. 02/06/2021 6:58 AM
[2021-02-06] MEDS ORDERED: PIPERACILL/TAZOBAC CONSULT ACTIVE PRN (08:49)
[2021-02-06] MEDS ORDERED: PIPERACILLIN/TAZOBACTAM 4.5 GM in DEXTROSE 5% 100 ML IV ONE (09:00)
[2021-02-06] MEDS: HEPARIN SOD 5,000 UNIT/0.5 ML VIAL SQ SCH ×2 (09:17→21:07)
[2021-02-06] MEDS: FAMOTIDINE 20 MG in SYRINGE 3 ML IV SCH ×2 (09:17→21:08)
--- NOTE | 2021-02-06 09:39 | Critical Care Progress Note ---
Date of Service February 06, 2021 Assessment & Plan (1) SBO (small bowel obstruction): Impression: 70-year-old male presenting with incarcerated inguinal hernia status post emergent surgery with partial small bowel resection 02/03. 24-hour events: Patient is remained hemodynamically stable. He is on minimal vent settings currently. He is currently undergoing a sedation break and appears to be moving all 4 extremities. Recommendations: 1. Neurologic: No current issues. Continue to wean propofol and fentanyl as tolerated. 2. Cardiovascular: Hemodynamically stable. Lactate is normal. He is trending towards hypertension. Will increase his beta-maximo. Reinstitute losartan once p.o. approved by surgery 3. Pulmonary: Minimal vent settings currently. We will proceed with sedation break and SBT and plans on extubating if does well. Will need pulmonary toilet postoperatively. Patient has a history of sleep disordered breathing so we will apply CPAP postoperatively when sleeping. His prior sleep studies are not available to review so we will use empiric CPAP at 8 to 10 cm of water. If the patient can bring his own machine in, that would be helpful. Patient did have emphysematous changes identified on CT scan but is not wheezing. 4. Renal: Serum creatinine normal. Acid-base status improving and electrolytes are within normal limits. Continue to follow. Given his fluid resuscitation, trial of diuretics will be pursued. Follow kidney function electrolytes. 5. GI: Incarcerated hernia status post bowel resection. NG tube management and diet per general surgery. 6. ID: Incarcerated hernia with probable peritonitis and questionable secondary aspiration pneumonia. Day #4 cefepime and Flagyl. He received 1 dose of vancomycin on the . White count is increasing however procalcitonin appears to be decreasing and the patient is hemodynamically stable with improving lactate. Respiratory cultures have shown no growth to date. Blood cultures showed a gram-negative sampson on the which has not yet been speciated as well as gram-positive cocci in chains identified on the . There are no surgical cultures taken from the OR. The hospitalist has transitioned to Zosyn to cover potential Enterococcus which is certainly reasonable given the gram-positive cocci in chains. We will discontinue Flagyl at this point time as we do not need to double cover anaerobes. We will continue to trend white blood cell count and defer additional imaging to surgery. 7. Heme-onc: White count increasing. See comments above in ID. Hemoglobin and hematocrit slightly decreased but no evidence of active ongoing bleeding and no indication for transfusion. Continue to follow at this time. 8. Endocrine: History of diabetes: Continue glycemic control per ICU protocol. I have personally spent 45 minutes of critical care time in the direct management of this patient. This is a life/limb threatening event. This includes time spent evaluating patient, direct bedside care, chart review, placing orders, interpretation of diagnostic studies, discussion with consultants, as well as other required patient management activities. This time is exclusive of all separately billable procedures, and teaching time and separate from and in addition to any other critical care service time. Please note the above document was generated using voice recognition software. It may contain grammatical, syntax or spelling errors. (2) Shortness of breath: (3) High anion gap metabolic acidosis: (4) LIGIA (acute kidney injury): (5) Pneumonia: Admission and Anticipated Discharge Date Admission Date: February 03, 2021 Subjective Intubated and sedated Review of Systems Review of Systems: Unobtainable due to endotracheal tube Physical Exam Physical Exam: Constitutional: Intubated HEENT: PERRLA, positive ETT Respiratory system: Decreased air entry bilaterally, no wheeze, no rhonchi, mild crackles bilateral lower lobes CVS: S1-S2 positive, no murmurs or gallops, tachycardia Abdomen: Soft, nondistended, decreased bowel sounds, JUAN JOSE drains in place Extremities: +2 pulses bilaterally radialis/ dorsalis pedis, no cyanosis, no edema Neuro: RASS 0, breathing over the vent, positive corneal, positive gag, positive pupillary Psych: Unable to assess G/U: Positive [place] Skin: no rashes, warm and dry Lymphatic: no cervical or axillary lymphadenopathy Results & Data Results & Data ([facility]) Vital Signs (Past 12 Hours) Vital Signs Temp Pulse Resp BP Pulse Ox 02/06/21 07:20 94 H 21 96 02/06/21 07:18 37.0 C 94 H 127/69 97 02/06/21 07:00 37.0 C 94 H 96 02/06/21 06:48 37.0 C 93 H 114/72 96 02/06/21 06:28 37.1 C 02/06/21 06:17 100 H 115/71 96 02/06/21 06:14 102 H 121/73 02/06/21 06:00 100 H 96 02/06/21 05:47 101 H 121/73 96 02/06/21 05:17 105 H 115/71 96 02/06/21 05:00 107 H 97 02/06/21 04:52 37.1 C 02/06/21 04:48 100 H 97 02/06/21 04:47 101 H 126/75 97 02/06/21 04:17 100 H 119/74 96 02/06/21 03:47 99 H 133/77 97 02/06/21 03:17 108 H 112/77 96 02/06/21 03:12 107 H 21 96 02/06/21 02:47 101 H 112/69 95 02/06/21 02:17 99 H 119/72 95 02/06/21 01:47 102 H 108/66 92 02/06/21 01:37 36.7 C 02/06/21 01:18 105 H 94 02/06/21 01:17 104 H 108/69 94 02/06/21 01:00 108 H 92 02/06/21 00:47 109 H 125/76 89 L 02/06/21 00:18 106 H 133/106 H 93 02/06/21 00:10 36.9 C 02/06/21 00:07 108 H 159/46 H 02/05/21 23:48 106 H 96 02/05/21 23:47 109 H 121/86 96 02/05/21 23:34 106 H 21 97 02/05/21 23:18 76 130/83 97 02/05/21 22:47 104 H 128/75 97 02/05/21 22:17 105 H 134/79 97 02/05/21 22:00 105 H 98 02/05/21 21:47 105 H 120/75 97 Critical Care Results & Data Vital Signs (Past 12 Hours) Vital Signs Temp Pulse Resp BP Pulse Ox 02/06/21 07:20 94 H 21 96 02/06/21 07:18 37.0 C 94 H 127/69 97 02/06/21 07:00 37.0 C 94 H 96 02/06/21 06:48 37.0 C 93 H 114/72 96 02/06/21 06:28 37.1 C 02/06/21 06:17 100 H 115/71 96 02/06/21 06:14 102 H 121/73 02/06/21 06:00 100 H 96 02/06/21 05:47 101 H 121/73 96 02/06/21 05:17 105 H 115/71 96 02/06/21 05:00 107 H 97 02/06/21 04:52 37.1 C 02/06/21 04:48 100 H 97 02/06/21 04:47 101 H 126/75 97 02/06/21 04:17 100 H 119/74 96 02/06/21 03:47 99 H 133/77 97 02/06/21 03:17 108 H 112/77 96 02/06/21 03:12 107 H 21 96 02/06/21 02:47 101 H 112/69 95 02/06/21 02:17 99 H 119/72 95 02/06/21 01:47 102 H 108/66 92 02/06/21 01:37 36.7 C 02/06/21 01:18 105 H 94 02/06/21 01:17 104 H 108/69 94 02/06/21 01:00 108 H 92 02/06/21 00:47 109 H 125/76 89 L 02/06/21 00:18 106 H 133/106 H 93 02/06/21 00:10 36.9 C 02/06/21 00:07 108 H 159/46 H 02/05/21 23:48 106 H 96 02/05/21 23:47 109 H 121/86 96 02/05/21 23:34 106 H 21 97 02/05/21 23:18 76 130/83 97 02/05/21 22:47 104 H 128/75 97 02/05/21 22:17 105 H 134/79 97 02/05/21 22:00 105 H 98 02/05/21 21:47 105 H 120/75 97 Lab & Micro Results (Past 24 Hours) RBC 4.25 M/uL (4.7-6.1) L 02/06/21 WBC 18.59 K/uL (4.8-10.8) H 02/06/21 Hgb 13.0 g/dL (14.0-18.0) L 02/06/21 Hct 38.6 % (42-52) L 02/06/21 MCV 90.8 fL (80-100) 02/06/21 MCH 30.6 pg (25-34) 02/06/21 MCHC 33.7 g/dL (32-36) 02/06/21 RDW Standard Deviation 45.9 fL (36.4-46.3) 02/06/21 RDW Coefficient of Variation 13.8 % (11.5-14.5) 02/06/21 Plt Count 289 K/uL (130-400) 02/06/21 MPV 11.7 fL (7.4-10.4) H 02/06/21 ANC 13.09 K/uL (1.4-6.5) H 02/06/21 ALC 2.58 K/uL (1.2-3.4) 02/06/21 Neutrophils % (Manual) 70.4 % 02/06/21 Lymphocytes % (Manual) 13.9 % 02/06/21 Monocytes % (Manual) 8.7 % 02/06/21 Eosinophils % (Manual) 3.5 % 02/06/21 Myelocytes % (Manual) 3.5 % 02/06/21 Neutrophils # (Manual) 13.09 K/uL (1.4-6.5) H 02/06/21 Lymphocytes # (Manual) 2.58 K/uL (1.2-3.4) 02/06/21 Monocytes # (Manual) 1.62 K/uL (0.11-0.59) H 02/06/21 Eosinophils # (Manual) 0.65 K/uL (0-0.5) H 02/06/21 Myelocytes # (Manual) 0.65 K/uL (0-0) H 02/06/21 Toxic Granulation 1+ 02/06/21 Na 139 mmol/L (136-145) 02/06/21 K 3.5 mmol/L (3.5-5.1) 02/06/21 Cl 107 mmol/L (98-107) 02/06/21 CO2 26 mmol/L (21-32) 02/06/21 Anion Gap 6.0 (3-11) 02/06/21 BUN 16 mg/dl (7-18) 02/06/21 Creatinine 0.48 mg/dl (0.6-1.4) L 02/06/21 Estimated GFR ( Amer) 129.4 ml/min 02/06/21 Estimated GFR (Non-Af Amer) 111.7 ml/min 02/06/21 BUN/Creatinine Ratio 32.8 (10-20) H 02/06/21 Glu 155 mg/dl (70-99) H 02/06/21 Ca 7.9 mg/dl (8.5-10.1) L 02/06/21 Phosphorus Level 1.8 mg/dl (2.5-4.9) L 02/06/21 Total Bilirubin 0.4 mg/dl (0.2-1) 02/06/21 AST 67 U/L (15-37) H 02/06/21 ALT 109 U/L (12-78) H 02/06/21 Alkaline Phosphatase 44 U/L (45-117) L 02/06/21 TP 5.3 gm/dl (6.4-8.2) L 02/06/21 Albumin 1.9 gm/dl (3.4-5.0) L 02/06/21 Mg 2.3 mg/dl (1.8-2.4) 02/06/21 04:35 02/06/21 Calcium Level 7.9 mg/dl (8.5-10.1) L 02/06/21 04:35 02/06/21 Microbiology 02/04/21 08:39 Gram Stain - Final Sputum,Vent Suction Sputum Culture - Final Moderate normal govind. 02/05/21 17:36 Aerobic Blood Culture - Preliminary Blood Gram positive cocci in chains 02/03/21 15:32 Aerobic Blood Culture - Preliminary Blood No growth in Aerobic bottle after 48 hours. Anaerobic Blood Culture - Preliminary No growth in Anaerobic bottle after 48 hours. 02/03/21 16:42 Aerobic Blood Culture - Preliminary Blood No growth in Aerobic bottle after 48 hours. Anaerobic Blood Culture - Preliminary Gram negative bacilli Diagnostic Findings (Past 24 Hours) Chest X-Ray 02/06/21 07:00 XR chest 1V portable CLINICAL HISTORY: f/u COMPARISON STUDY: Chest CT February 03, 2021. Chest radiograph February 05, 2021. FINDINGS: Tip of endotracheal tube is 3.9 cm above the giovany. Tip of nasogastric tube is within the gastric fundus. There is no pneumothorax. No pleural effusion is identified. Left shoulder arthroplasty is incidentally noted. Bibasilar airspace opacities persist. IMPRESSION: 1. Satisfactory positioning of lines and tubes. 2. Persistent bibasilar opacities which favor pneumonia. ACT 112: Negative or not required by law. Electronically signed by: Ric Walton M.D. 02/06/2021 6:58 AM I & O Totals 24 Hours 02/05/21 02/06/21 02/07/21 06:59 06:59 06:59 Intake Total 3010.715 / 3010.715 4836.916 / 4836.916 278.436 / 278.436 Output Total 3265 / 3265 1650 / 1650 Balance -254.285 / -829.425 2856.916 / 3186.916 278.436 / 278.436 Cumulative 02/03/21 15:05 thru 02/06/21 09:16 Intake Total 06880.417 Output Total 5565 Balance 7280.417 RT Ventilator Mngmt (Last Documented) Ventilator Ordered Settings Ventilator Support Mode Assist Control 02/06/21 07:20 Respiratory Rate 21 02/06/21 07:20 Ventilator Tidal Volume 450 02/06/21 07:20 Setting Minute Ventilation 7.1 02/06/21 07:20 Positive End Expiratory 5 02/06/21 07:20 Pressure Fraction of Inspired Oxygen 30 02/06/21 07:20 Machine Comment Settings changed post ABG 02/05/21 03:19 Ventilator - PT Measurements Respiratory Rate 21 Exhaled Tidal Volume 487 Minute Ventilation 7.1 Peak Inspiratory Airway 16 Pressure Mean Airway Pressure 10 Plateau Pressure 13 Respiratory Cycle Inspiratory: 1:2.1 Expiratory Ratio Inspiratory Phase Time 1.2 End-Tidal CO2 30 Static Lung Compliance 60.88 Dynamic Lung Compliance 44.27 Normal Static Lung Compliance 48.00 Patient Measurements Comment sputum sample sent at this time. Coding Level of Care Code Critical Care 1st 30-74 mins Diagnoses SBO (small bowel obstruction) K56.609 Shortness of breath R06.02 High anion gap metabolic acidosis E87.2 LIGIA (acute kidney injury) N17.9 Pneumonia J18.9 Time Spent (min) 45
[2021-02-06 09:46] LABS: Bilirubin Direct < 0.1 mg/dl (0-0.2)
[2021-02-06] MEDS: fentaNYL DRIP 1,250 MCG/250 ML BAG IV SCH (10:11)
[2021-02-06] MEDS: PIPERACILLIN/TAZOBACTAM 4.5 GM in DEXTROSE 5% 100 ML IV SCH ×2 (14:40→21:08)
--- NOTE | 2021-02-06 15:10 | Hospitalist Progress Note ---
Date of Service February 06, 2021 Assessment & Plan (1) Incarcerated inguinal hernia: Severe sepsis with gram-negative bacteremia: Stable secondary to incarcerated rt inguinal hernia leading to bowel ischemia Blood culture: Shows gram-positive cocci in chain-coverage for enterococci Antibiotic changed to IV Zosyn High-grade small bowel obstruction Secondary to incarcerated right inguinal hernia CT ABD/pelvis on admission:High-grade small bowel obstruction with a transition zone at the level of an incarcerated right inguinal hernia. Status post exploratory laparotomy, postoperative day#3 Patient extubated earlier today, currently remains in room air with stable vitals and respiratory status Lactic Acidosis Resolved likely secondary to bowel ischemia/sepsis -normal lactate acid level after receiving adequate fluid resuscitation Acute hypoxemic respiratory failure Possible secondary to severe sepsis with multifocal pneumonia/intubated perioperatively, and postoperatively. Extubated today 02/06/2021 Negative COVID screen CTA:No evidence of acute pulmonary embolism given the technical limitations of the study. Multifocal groundglass pulmonary opacities suspicious for multifocal pneumonia. Dilated fluid-filled stomach and esophagus Procalcitonin continues to improve, antibiotic as above Appreciate input from pulmonary critical care, vent management per ICU Antibiotic: IV Zosyn Acute kidney injury Resolved after IV hydration Due to bowel obstruction/ischemia, sepsis. Blood pressure has been stable, creatinine continues to improve with hydration Avoid nephrotoxic agents as able DM Type II: Last A1c:7.7 on Oct 12 Treatment per ICU glycemic management Transaminitis Improved, Left hepatic lobe mass Left adrenal nodule Incidental Findings on CT scan CT abd: Interval development of an indeterminate 46 mm ill-defined left hepatic lobe mass. Indeterminate 24 mm left adrenal nodule Further work-up as outpatient DVT prophylaxis Subcu heparin Code Status Full Code Disposition Patient clinically improved, observe in ICU overnight, plan to transfer to PCU/medical telemetry floor tomorrow Admission and Anticipated Discharge Date Admission Date: February 03, 2021 Subjective Patient extubated earlier today, NG tube draining green bilious fluid In room air, no cough or shortness of breath, afebrile Awake, able to answer question, nursing patient appears to be very forgetful, short-term memory loss, possible secondary to just being of sedation for mechanical ventilation Vitals been stable We will transition patient out of ICU tomorrow Review of Systems Review of Systems: All systems reviewed & are unremarkable except as noted in HPI & below Physical Exam Physical Exam: Physical exam: General: No acute distress, alert and awake HEENT: Nonicteric sclera Heart: Regular S1-S2, Lungs: Clear to auscultate, no wheeze or rales Abdomen: Soft, diminished bowel sounds, Neuro: No focal neurological deficit normal speech, n Results & Data Results & Data ([facility]) Vital Signs (Past 12 Hours) Vital Signs Temp Pulse Resp BP Pulse Ox 02/06/21 14:18 37.6 C H 113 H 136/85 93 02/06/21 14:00 37.6 C H 108 H 95 02/06/21 13:48 37.5 C 112 H 168/106 H 93 02/06/21 13:18 37.3 C 102 H 145/83 H 94 02/06/21 13:00 37.3 C 105 H 92 02/06/21 12:48 37.2 C 97 H 130/92 94 02/06/21 12:19 37.2 C 96 H 97 02/06/21 12:18 37.2 C 96 H 150/94 H 97 02/06/21 12:13 37.1 C 107 H 140/90 94 02/06/21 12:06 108 H 123/81 02/06/21 12:00 37.2 C 109 H 92 02/06/21 11:48 37.1 C 104 H 123/81 96 02/06/21 11:18 37.2 C 105 H 136/77 96 02/06/21 11:00 37.3 C 113 H 91 02/06/21 10:48 37.3 C 111 H 136/89 96 02/06/21 10:18 37.3 C 107 H 148/83 H 96 02/06/21 10:00 37.4 C 114 H 96 02/06/21 09:55 108 H 96 02/06/21 09:50 108 H 22 96 02/06/21 09:48 37.3 C 107 H 132/84 96 02/06/21 09:18 37.4 C 112 H 144/75 H 96 02/06/21 09:00 37.4 C 104 H 96 02/06/21 08:48 37.4 C 100 H 142/74 H 97 02/06/21 08:18 37.3 C 103 H 130/76 97 02/06/21 08:00 37.2 C 100 H 97 02/06/21 07:48 37.1 C 96 H 136/75 98 02/06/21 07:20 94 H 21 96 02/06/21 07:19 37.0 C 94 H 97 02/06/21 07:18 37.0 C 94 H 127/69 97 02/06/21 07:00 37.0 C 94 H 96 02/06/21 06:48 37.0 C 93 H 114/72 96 02/06/21 06:28 37.1 C 02/06/21 06:17 100 H 115/71 96 02/06/21 06:14 102 H 121/73 02/06/21 06:00 100 H 96 02/06/21 05:47 101 H 121/73 96 02/06/21 05:17 105 H 115/71 96 02/06/21 05:00 107 H 97 02/06/21 04:52 37.1 C 02/06/21 04:48 100 H 97 02/06/21 04:47 101 H 126/75 97 02/06/21 04:17 100 H 119/74 96 02/06/21 03:47 99 H 133/77 97 02/06/21 03:17 108 H 112/77 96 02/06/21 03:12 107 H 21 96
[2021-02-06] MEDS: ACETAMINOPHEN 65 ML IV PRN (21:14)
[2021-02-07] MEDS: D5W AND NSS 1,000 ML IV SCH ×2 (00:06→18:25)
[2021-02-07] MEDS: METOPROLOL TARTRATE 1 MG/ML VIAL IV SCH ×2 (00:14→06:09)
[2021-02-07] MEDS: INSULIN ASPART 100 UNITS/ML 3 ML PEN SC SCH ×5 (00:14→21:14)
[2021-02-07 05:41] LABS: Mean Corpuscular Hgb Conc 33.1 g/dL (32-36); Mean Platelet Volume 11.6 fL (7.4-10.4); Platelet Count 297 K/uL (130-400)
[2021-02-07 06:03] LABS: ALC (manual) 1.37 K/uL (1.2-3.4); ANC (manual) 20.34 K/uL (1.4-6.5); Hematocrit (blood only) 41.1 % (42-52); Hemoglobin 13.6 g/dL (14.0-18.0); Lymphocytes # (manual) 1.37 K/uL (1.2-3.4); Lymphocytes % (manual) 5.3 %; Mean Corpuscular Hemoglobin 30.4 pg (25-34); Mean Corpuscular Volume 91.7 fL (80-100); Monocytes # (manual) 2.27 K/uL (0.11-0.59); Monocytes % (manual) 8.8 %; Neutrophils # (manual) 20.34 K/uL (1.4-6.5); Neutrophils % (manual) 78.9 %; RDW Coefficient of Variation 13.8 % (11.5-14.5); RDW Standard Deviation 46.1 fL (36.4-46.3); Red Blood Count 4.48 M/uL (4.7-6.1); White Blood Count 25.78 K/uL (4.8-10.8)
[2021-02-07 06:06] LABS: Albumin Level 2.1 gm/dl (3.4-5.0); Calcium 8.6 mg/dl (8.5-10.1); Est GFR (African American) 120.6 ml/min; Magnesium 2.2 mg/dl (1.8-2.4); Potassium 3.5 mmol/L (3.5-5.1)
[2021-02-07 06:09] LABS: Albumin Globulin Ratio 0.6 (0.9-2); Bilirubin,Total 0.4 mg/dl (0.2-1); Globulin 3.5 gm/dl (2.5-4.0); Phosphorus 1.6 mg/dl (2.5-4.9); Total Protein 5.6 gm/dl (6.4-8.2)
[2021-02-07] MEDS ORDERED: POTASSIUM PHOS 3 MMOL/1 ML INFUSION IV STA (06:09)
[2021-02-07] MEDS: PIPERACILLIN/TAZOBACTAM 4.5 GM in DEXTROSE 5% 100 ML IV SCH ×3 (06:09→21:15)
[2021-02-07] MEDS: ICU ELECTROLYTE REPLACEMENT PROTOCOL SCH (06:27)
[2021-02-07] MEDS ORDERED: POTASSIUM PHOSPHATE 21 MMOL in SODIUM CHLORIDE 0.9% 500 ML IV ONE (07:00)
--- NOTE | 2021-02-07 07:49 | Critical Care Progress Note ---
Date of Service February 07, 2021 Assessment & Plan (1) SBO (small bowel obstruction): Impression: 70-year-old male presenting with incarcerated inguinal hernia status post emergent surgery with partial small bowel resection 02/03. 24-hour events: Patient extubated. He had intermittent periods of delirium overnight and intermittently removed his NG was not replaced after discussion with surgery. He is calm this morning. He states he feels like he needs to have a bowel movement. Recommendations: 1. Neurologic: No current issues. Pain meds as needed 2. Cardiovascular: Hemodynamically stable. Lactate is normal. Started hydralazine as needed yesterday. If cleared to use oral medications by surgery, would restart the patient's losartan 3. Pulmonary: Continue to wean oxygen as tolerated. CPAP overnight. If the patient can bring his own machine or have someone bring his machine, he should use that device. Otherwise we will continue empiric CPAP between 6 and 10 cm of water nightly 4. Renal: Serum creatinine normal. Acid-base status improving and electrolytes are within normal limits. Continue to follow. Give additional dose of Lasix today.. Follow kidney function electrolytes. 5. GI: Incarcerated hernia status post bowel resection. Diet per surgery 6. ID: Incarcerated hernia with probable peritonitis and questionable secondary aspiration pneumonia. Day #2 Zosyn after completing 4 days of cefepime and Flagyl. He received 1 dose of vancomycin on the . White count continues to climb however procalcitonin appears to be decreasing and the patient is hemodynamically stable with improving lactate and he has been afebrile. Respiratory cultures have shown no growth to date. Blood cultures showed a gram-negative sampson on the which has not yet been speciated as well as gram-positive cocci in chains identified on the . There are no surgical cultures taken from the OR. The hospitalist has transitioned to Zosyn to cover potential Enterococcus which is certainly reasonable given the gram-positive cocci in chains. We will continue to trend white blood cell count and defer additional imaging to surgery. 7. Heme-onc: White count increasing. See comments above in ID. Hemoglobin and hematocrit slightly decreased but no evidence of active ongoing bleeding and no indication for transfusion. Continue to follow at this time. 8. Endocrine: History of diabetes: Continue glycemic control per ICU protocol. Discussed with bedside nurse and patient at bedside. Patient is stable to transfer out of the intensive care unit to the floor. We will sign off at this point time. Additional management per the admitting hospitalist and general surgery service. Feel free to contact us with additional critical care questions. Please note the above document was generated using voice recognition software. It may contain grammatical, syntax or spelling errors. (2) Shortness of breath: (3) High anion gap metabolic acidosis: (4) LIGIA (acute kidney injury): (5) Pneumonia: Admission and Anticipated Discharge Date Admission Date: February 03, 2021 Subjective Patient seen and examined. Discussed with critical care AIDE overnight. The patient was extubated yesterday and is doing well. He was placed on CPAP at 6 cmH2O as we do not have his home settings overnight. He did have some delirium and inadvertently removed his. He is asking to get up to have a bowel movement this morning. He does not have much of an appetite. Physical Exam Constitutional: well developed; not ill appearing Neck: trachea midline, no thyromegaly Respiratory: normal respiratory effort, lungs clear to auscultation Cardiovascular: RRR, no murmur, no edema Gastrointestinal (Abdomen): Inspection/Auscultation: abdomen normal to inspection, + abdomen distended and normal bowel sounds Percussion/Palpation: abdomen nontender and no guarding Musculoskeletal: Extremities: extremities normal to inspection Skin: no rashes, warm and dry Neurologic: Nonfocal exam Psychiatric: Slightly confused this morning Lymphatic: no cervical lymphadenopathy Results & Data Results & Data ([facility]) Vital Signs (Past 12 Hours) Vital Signs Temp Pulse Resp BP Pulse Ox 02/07/21 06:18 37.3 C 87 26 H 159/90 H 02/07/21 06:09 98 H 180/98 H 02/07/21 05:50 37.3 C 120 H 33 H 180/98 H 96 02/07/21 05:18 37.3 C 98 H 25 H 148/87 H 94 02/07/21 04:48 37.2 C 101 H 24 145/91 H 94 02/07/21 04:26 37.2 C 98 H 25 H 172/112 H 02/07/21 03:48 37.3 C 92 H 24 149/87 H 99 02/07/21 03:18 37.2 C 94 H 23 139/86 96 05/17/21 03:04 97 H 22 95 02/07/21 02:48 37.3 C 96 H 26 H 157/86 H 94 02/07/21 02:18 37.3 C 94 H 24 141/87 H 99 02/07/21 01:48 37.3 C 96 H 30 H 153/83 H 93 02/07/21 01:19 37.3 C 105 H 24 139/81 96 02/07/21 00:49 37.4 C 93 H 24 134/80 94 02/07/21 00:18 37.5 C 107 H 32 H 129/74 96 02/07/21 00:14 105 H 126/85 02/06/21 23:48 37.5 C 102 H 19 126/85 100 02/06/21 23:18 37.6 C H 105 H 25 H 126/76 97 02/06/21 23:00 37.7 C H 105 H 24 100 02/06/21 22:45 100 H 20 100 02/06/21 22:35 37.8 C H 106 H 31 H 93 02/06/21 22:18 38.0 C H 116 H 30 H 142/85 H 93 02/06/21 21:48 38.0 C H 110 H 36 H 149/84 H 97 02/06/21 21:18 38.1 C H 124 H 30 H 184/94 H 95 02/06/21 20:48 38.0 C H 112 H 28 H 145/83 H 83 L 02/06/21 20:18 37.9 C H 113 H 15 138/82 93 02/06/21 19:48 37.9 C H 116 H 28 H 141/92 H 93 Critical Care Results & Data Vital Signs (Past 12 Hours) Vital Signs Temp Pulse Resp BP Pulse Ox 02/07/21 06:18 37.3 C 87 26 H 159/90 H 02/07/21 06:09 98 H 180/98 H 02/07/21 05:50 37.3 C 120 H 33 H 180/98 H 96 02/07/21 05:18 37.3 C 98 H 25 H 148/87 H 94 02/07/21 04:48 37.2 C 101 H 24 145/91 H 94 02/07/21 04:26 37.2 C 98 H 25 H 172/112 H 02/07/21 03:48 37.3 C 92 H 24 149/87 H 99 02/07/21 03:18 37.2 C 94 H 23 139/86 96 02/07/21 03:04 97 H 22 95 02/07/21 02:48 37.3 C 96 H 26 H 157/86 H 94 02/07/21 02:18 37.3 C 94 H 24 141/87 H 99 02/07/21 01:48 37.3 C 96 H 30 H 153/83 H 93 02/07/21 01:19 37.3 C 105 H 24 139/81 96 02/07/21 00:49 37.4 C 93 H 24 134/80 94 02/07/21 00:18 37.5 C 107 H 32 H 129/74 96 02/07/21 00:14 105 H 126/85 02/06/21 23:48 37.5 C 102 H 19 126/85 100 02/06/21 23:18 37.6 C H 105 H 25 H 126/76 97 02/06/21 23:00 37.7 C H 105 H 24 100 02/06/21 22:45 100 H 20 100 02/06/21 22:35 37.8 C H 106 H 31 H 93 02/06/21 22:18 38.0 C H 116 H 30 H 142/85 H 93 02/06/21 21:48 38.0 C H 110 H 36 H 149/84 H 97 02/06/21 21:18 38.1 C H 124 H 30 H 184/94 H 95 02/06/21 20:48 38.0 C H 112 H 28 H 145/83 H 83 L 02/06/21 20:18 37.9 C H 113 H 15 138/82 93 02/06/21 19:48 37.9 C H 116 H 28 H 141/92 H 93 Lab & Micro Results (Past 24 Hours) RBC 4.48 M/uL (4.7-6.1) L 02/07/21 WBC 25.78 K/uL (4.8-10.8) H 02/07/21 Hgb 13.6 g/dL (14.0-18.0) L 02/07/21 Hct 41.1 % (42-52) L 02/07/21 MCV 91.7 fL (80-100) 02/07/21 MCH 30.4 pg (25-34) 02/07/21 MCHC 33.1 g/dL (32-36) 02/07/21 RDW Standard Deviation 46.1 fL (36.4-46.3) 02/07/21 RDW Coefficient of Variation 13.8 % (11.5-14.5) 02/07/21 Plt Count 297 K/uL (130-400) 02/07/21 MPV 11.6 fL (7.4-10.4) H 02/07/21 ANC 20.34 K/uL (1.4-6.5) H 02/07/21 ALC 1.37 K/uL (1.2-3.4) 02/07/21 Neutrophils % (Manual) 78.9 % 02/07/21 Lymphocytes % (Manual) 5.3 % 02/07/21 Monocytes % (Manual) 8.8 % 02/07/21 Myelocytes % (Manual) 7.0 % 02/07/21 Neutrophils # (Manual) 20.34 K/uL (1.4-6.5) H 02/07/21 Lymphocytes # (Manual) 1.37 K/uL (1.2-3.4) 02/07/21 Monocytes # (Manual) 2.27 K/uL (0.11-0.59) H 02/07/21 Myelocytes # (Manual) 1.80 K/uL (0-0) H 02/07/21 Na 143 mmol/L (136-145) 02/07/21 K 3.5 mmol/L (3.5-5.1) 02/07/21 Cl 110 mmol/L (98-107) H 02/07/21 CO2 28 mmol/L (21-32) 02/07/21 Anion Gap 5.0 (3-11) 02/07/21 BUN 11 mg/dl (7-18) 02/07/21 Creatinine 0.57 mg/dl (0.6-1.4) L 02/07/21 Estimated GFR ( Amer) 120.6 ml/min 02/07/21 Estimated GFR (Non-Af Amer) 104.0 ml/min 02/07/21 BUN/Creatinine Ratio 20.0 (10-20) 02/07/21 Glu 128 mg/dl (70-99) H 02/07/21 Ca 8.6 mg/dl (8.5-10.1) 02/07/21 Phosphorus Level 1.6 mg/dl (2.5-4.9) L 02/07/21 Total Bilirubin 0.4 mg/dl (0.2-1) 02/07/21 AST 103 U/L (15-37) H 02/07/21 ALT 94 U/L (12-78) H 02/07/21 Alkaline Phosphatase 55 U/L (45-117) 02/07/21 TP 5.6 gm/dl (6.4-8.2) L 02/07/21 Albumin 2.1 gm/dl (3.4-5.0) L 02/07/21 Globulin 3.5 gm/dl (2.5-4.0) 02/07/21 Albumin/Globulin Ratio 0.6 (0.9-2) L 02/07/21 Mg 2.2 mg/dl (1.8-2.4) 02/07/21 05:19 02/07/21 Calcium Level 8.6 mg/dl (8.5-10.1) 02/07/21 05:19 02/07/21 Microbiology 02/05/21 17:36 Aerobic Blood Culture - Preliminary Blood Gram positive cocci in chains Anaerobic Blood Culture - Final 02/05/21 17:31 Aerobic Blood Culture - Preliminary Blood No growth in Aerobic bottle after 24 hours. Anaerobic Blood Culture - Preliminary No growth in Anaerobic bottle after 24 hours. 02/04/21 08:39 Gram Stain - Final Sputum,Vent Suction Sputum Culture - Final Moderate normal govnid. I & O Totals 24 Hours 02/06/21 02/07/21 02/08/21 06:59 06:59 06:59 Intake Total 4836.916 / 4836.916 2509.603 / 2509.603 Output Total 1650 / 1650 1525 / 1525 Balance 3186.916 / 3186.916 984.603 / 984.603 Cumulative 02/03/21 15:05 thru 02/07/21 06:48 Intake Total 81641.584 Output Total 7090 Balance 7986.584 RT Ventilator Mngmt (Last Documented) Ventilator Ordered Settings Ventilator Support Mode CPAP 02/06/21 09:50 Respiratory Rate 26 02/07/21 06:18 Ventilator Tidal Volume 450 02/06/21 08:00 Setting Minute Ventilation 10.6 02/06/21 09:50 Ventilator Positive Pressure 8 02/06/21 09:50 Support Setting Positive End Expiratory 5 02/06/21 09:50 Pressure Fraction of Inspired Oxygen 21 02/07/21 03:04 Machine Comment Patient Extubated per Dr. Johnson 02/06/21 09:55 Ventilator - PT Measurements Respiratory Rate 26 Exhaled Tidal Volume 467 Minute Ventilation 10.6 Peak Inspiratory Airway 16 Pressure Mean Airway Pressure 9 Plateau Pressure 13 Respiratory Cycle Inspiratory: 1:2.1 Expiratory Ratio Inspiratory Phase Time 1.2 End-Tidal CO2 28 Static Lung Compliance 60.88 Dynamic Lung Compliance 42.45 Normal Static Lung Compliance 48.00 Patient Measurements Comment Patient extubated per Dr. Johnson. Placed on a 40% aerosol mask. Will monitor and wean as appropriate. Coding Level of Care Code 11782 Subseq Hosp Care Lvl 3 Diagnoses SBO (small bowel obstruction) K56.609 Shortness of breath R06.02 High anion gap metabolic acidosis E87.2 LIGIA (acute kidney injury) N17.9 Pneumonia J18.9
[2021-02-07] MEDS: FAMOTIDINE 20 MG in SYRINGE 3 ML IV SCH ×2 (08:44→21:14)
[2021-02-07] MEDS: HEPARIN SOD 5,000 UNIT/0.5 ML VIAL SQ SCH ×2 (08:45→21:14)
--- NOTE | 2021-02-07 11:28 | Surgery Progress Note ---
Date of Service February 07, 2021 Assessment & Plan (1) Incarcerated inguinal hernia: Postoperative day #4 status post reduction repair of incarcerated right femoral hernia with partial small bowel resection Peristalsis returning Patient having bowel movements and passing gas Remains mildly distended but there is no nausea or vomiting Can begin clear liquid diet Etiology of white blood cell count elevation is unclear Continue antibiotics Admission and Anticipated Discharge Date Admission Date: February 03, 2021 Subjective Postoperative day #4 status post exploratory laparotomy repair of incarcerated femoral hernia with partial small bowel resection Extubated respiratory effort is normal Having bowel movements Ambulated to the restroom Has an appetite feels like he is hungry Denies nausea and vomiting Physical Exam Gastrointestinal (Abdomen): Inspection/Auscultation: + abdomen distended and + hypoactive bowel sounds Percussion/Palpation: + abdomen tender (Minimal and mostly incisional) and abdomen soft Results & Data ([facility]) Vital Signs (Past 12 Hours) Vital Signs Temp Pulse Resp BP Pulse Ox 02/07/21 10:34 96 H 20 152/81 H 94 02/07/21 09:00 87 24 92 02/07/21 08:13 94 H 19 163/96 H 93 02/07/21 07:18 37.3 C 84 27 H 149/79 H 95 02/07/21 06:18 37.3 C 87 26 H 159/90 H 02/07/21 06:09 98 H 180/98 H 02/07/21 05:50 37.3 C 120 H 33 H 180/98 H 96 02/07/21 05:18 37.3 C 98 H 25 H 148/87 H 94 02/07/21 04:48 37.2 C 101 H 24 145/91 H 94 02/07/21 04:26 37.2 C 98 H 25 H 172/112 H 02/07/21 03:48 37.3 C 92 H 24 149/87 H 99 02/07/21 03:18 37.2 C 94 H 23 139/86 96 02/07/21 03:04 97 H 22 95 02/07/21 02:48 37.3 C 96 H 26 H 157/86 H 94 02/07/21 02:18 37.3 C 94 H 24 141/87 H 99 02/07/21 01:48 37.3 C 96 H 30 H 153/83 H 93 02/07/21 01:19 37.3 C 105 H 24 139/81 96 02/07/21 00:49 37.4 C 93 H 24 134/80 94 02/07/21 00:18 37.5 C 107 H 32 H 129/74 96 02/07/21 00:14 105 H 126/85 02/06/21 23:48 37.5 C 102 H 19 126/85 100 Laboratory Results 02/07/21 02/07/21 02/07/21 Range/Units 06:23 05:19 05:19 WBC 25.78 H (4.8-10.8) K/uL RBC 4.48 L (4.7-6.1) M/uL Hgb 13.6 L (14.0-18.0) g/dL Hct 41.1 L (42-52) % MCV 91.7 (80-100) fL MCH 30.4 (25-34) pg MCHC 33.1 (32-36) g/dL RDW Std Deviation 46.1 (36.4-46.3) fL RDW Coeff of Marita 13.8 (11.5-14.5) % Plt Count 297 (130-400) K/uL MPV 11.6 H (7.4-10.4) fL Neutrophils % (Manual) 78.9 % Lymphocytes % (Manual) 5.3 % Monocytes % (Manual) 8.8 % Myelocytes % (Man) 7.0 % Neutrophils # (Manual) 20.34 H (1.4-6.5) K/uL Total Absolute Neuts 20.34 H (1.4-6.5) K/uL Lymphocytes # (Manual) 1.37 (1.2-3.4) K/uL Total Abs Lymphocytes 1.37 (1.2-3.4) K/uL Monocytes # (Manual) 2.27 H (0.11-0.59) K/uL Myelocytes # (Manual) 1.80 H (0-0) K/uL Sodium 143 (136-145) mmol/L Potassium 3.5 (3.5-5.1) mmol/L Chloride 110 H (98-107) mmol/L Carbon Dioxide 28 (21-32) mmol/L Anion Gap 5.0 (3-11) BUN 11 (7-18) mg/dl Creatinine 0.57 L (0.6-1.4) mg/dl Est Cr Clr Drug Dosing 145.0 ml/min Est GFR ( Amer) 120.6 ml/min Est GFR (Non-Af Amer) 104.0 ml/min BUN/Creatinine Ratio 20.0 (10-20) Glucose 128 H (70-99) mg/dl POC Glucose 103 H (70-99) mg/dl Calcium 8.6 (8.5-10.1) mg/dl Phosphorus 1.6 L (2.5-4.9) mg/dl Magnesium 2.2 (1.8-2.4) mg/dl Total Bilirubin 0.4 (0.2-1) mg/dl AST 103 H (15-37) U/L ALT 94 H (12-78) U/L Alkaline Phosphatase 55 (45-117) U/L Total Protein 5.6 L (6.4-8.2) gm/dl Albumin 2.1 L (3.4-5.0) gm/dl Globulin 3.5 (2.5-4.0) gm/dl Albumin/Globulin Ratio 0.6 L (0.9-2) 02/07/21 02/06/21 Range/Units 00:12 18:37 WBC (4.8-10.8) K/uL RBC (4.7-6.1) M/uL Hgb (14.0-18.0) g/dL Hct (42-52) % MCV (80-100) fL MCH (25-34) pg MCHC (32-36) g/dL RDW Std Deviation (36.4-46.3) fL RDW Coeff of Marita (11.5-14.5) % Plt Count (130-400) K/uL MPV (7.4-10.4) fL Neutrophils % (Manual) % Lymphocytes % (Manual) % Monocytes % (Manual) % Myelocytes % (Man) % Neutrophils # (Manual) (1.4-6.5) K/uL Total Absolute Neuts (1.4-6.5) K/uL Lymphocytes # (Manual) (1.2-3.4) K/uL Total Abs Lymphocytes (1.2-3.4) K/uL Monocytes # (Manual) (0.11-0.59) K/uL Myelocytes # (Manual) (0-0) K/uL Sodium (136-145) mmol/L Potassium (3.5-5.1) mmol/L Chloride (98-107) mmol/L Carbon Dioxide (21-32) mmol/L Anion Gap (3-11) BUN (7-18) mg/dl Creatinine (0.6-1.4) mg/dl Est Cr Clr Drug Dosing ml/min Est GFR ( Amer) ml/min Est GFR (Non-Af Amer) ml/min BUN/Creatinine Ratio (10-20) Glucose (70-99) mg/dl POC Glucose 102 H 104 H (70-99) mg/dl Calcium (8.5-10.1) mg/dl Phosphorus (2.5-4.9) mg/dl Magnesium (1.8-2.4) mg/dl Total Bilirubin (0.2-1) mg/dl AST (15-37) U/L ALT (12-78) U/L Alkaline Phosphatase (45-117) U/L Total Protein (6.4-8.2) gm/dl Albumin (3.4-5.0) gm/dl Globulin (2.5-4.0) gm/dl Albumin/Globulin Ratio (0.9-2)
[2021-02-07] MEDS: NIFEdipine EXTENDED REL 30 MG TABCR PO SCH (12:03)
[2021-02-07] MEDS: LOSARTAN POTASSIUM 25 MG TAB PO SCH (12:04)
[2021-02-07] MEDS ORDERED: Nursing to Pharmacy Communication SCH (14:00)
--- NOTE | 2021-02-07 14:16 | Pharmacy Report ---
Pharmacy Glycemic Short Note 2 - Date of Service February 07, 2021 - Glycemic Short BSG Results (Last 24 hours): 02/06/21 02/07/21 02/07/21 18:37 00:12 05:19 Glucose 128 H POC Glucose 104 H 102 H 02/07/21 02/07/21 06:23 12:05 Glucose POC Glucose 103 H 99 OUTPATIENT ANTIDIABETIC REGIMEN: * Metformin 1000mg PO BID * A1c = 7% on 02/04/21 ASSESSMENT: 02/07 * Patient extubated on 02/06, POD #3, continues on D5NS @50 ml/hr * Pt has not required any insulin in the past 48 hrs, diet advanced to clear liquid, will continue novolog scale today with slight adjustments (0 units for BSG 160 mg/dL or less, 1 unit if BSG 161-180 mg/dL) Continue carb ratio of 1:15. Monitor, if BSGs remain stable with advanced diet may d/c carb ratio and then use a set correction factor. 02/04 * Type 2 diabetic admitted to ICU for incarcerated hernia repair, SBO, need for vent support * Patient is POD # 1 s/p exp-lap w/ reduction/repair * BSGs elevated > 140 x 2, auto consult for glycemic control generated * Patient remains intubated, NPO, large amounts of NG suction overnight * Will begin Novolog SQ Q 4 hr regimen. A portion of the "basal" insulin requirements will be provided w/ the Q 4 hr regimen. This may be safer than giving long acting insulin in the setting of possible prolonged NPO. PLAN FOR INPATIENT GLYCEMIC CONTROL: * Hold outpatient oral diabetes medications (metformin) * Check A1c * Basal insulin * None at this time * Bolus insulin * NovoLog per scale Q 4 hrs- See EMAR for record PLAN FOR DISCHARGE: * to be determined
--- NOTE | 2021-02-07 17:16 | Hospitalist Progress Note ---
Date of Service February 07, 2021 Assessment & Plan (1) Incarcerated inguinal hernia: Severe sepsis with gram-negative bacteremia: Stable secondary to incarcerated rt inguinal hernia leading to bowel ischemia Blood culture: Shows gram-positive cocci in chain-coverage for enterococci Antibiotic changed to IV Zosyn High-grade small bowel obstruction Secondary to incarcerated right inguinal hernia CT ABD/pelvis on admission:High-grade small bowel obstruction with a transition zone at the level of an incarcerated right inguinal hernia. Status post exploratory laparotomy, postoperative day#4 Appreciate input from surgery team Had bowel movement, started on clears, Leukocytosis: White count remains persistently elevated, patient already on IV Zosyn, respiratory status stable, afebrile, no cough or shortness of breath Ordered for stool for C. difficile check Monitor closely Lactic Acidosis Resolved likely secondary to bowel ischemia/sepsis -normal lactate acid level after receiving adequate fluid resuscitation Acute hypoxemic respiratory failure Possible secondary to severe sepsis with multifocal pneumonia/intubated perioperatively, and postoperatively. Extubated 02/06/2021 Negative COVID screen CTA:No evidence of acute pulmonary embolism given the technical limitations of the study. Multifocal groundglass pulmonary opacities suspicious for multifocal pneumonia. Dilated fluid-filled stomach and esophagus Procalcitonin continues to improve, antibiotic as above Acute kidney injury Resolved after IV hydration Due to bowel obstruction/ischemia, sepsis. Blood pressure has been stable, creatinine continues to improve with hydration Avoid nephrotoxic agents as able DM Type II: Last A1c:7.7 on Oct 12 Transaminitis Improved, Left hepatic lobe mass Left adrenal nodule Incidental Findings on CT scan CT abd: Interval development of an indeterminate 46 mm ill-defined left hepatic lobe mass. Indeterminate 24 mm left adrenal nodule Further work-up as outpatient DVT prophylaxis Subcu heparin Code Status Full Code Disposition To be determined, significant deconditioning noted, PT OT evaluation prior to discharge. Patient's sister updated over phone Admission and Anticipated Discharge Date Admission Date: February 03, 2021 Subjective Postoperative day #4 status post exploratory laparotomy repair of incarcerated femoral hernia with partial small bowel resection Remains confused somewhat, forgets that he is in the hospital, denies of any pain or discomfort Had bowel movement earlier today, started on clear liquid diet, tolerated, no nausea vomiting, no abdominal pain Has been afebrile Review of Systems Review of Systems: All systems reviewed & are unremarkable except as noted in Subjective Physical Exam Physical Exam: Physical exam: General: No acute distress, alert and awake HEENT: Nonicteric sclera Heart: Regular S1-S2, Lungs: Clear to auscultate, no wheeze or rales Abdomen: Soft, diminished bowel sounds, Neuro: No focal neurological deficit normal speech, n Results & Data Results & Data ([facility]) Vital Signs (Past 12 Hours) Vital Signs Temp Pulse Resp BP Pulse Ox 02/07/21 16:33 37.3 C 105 H 21 155/88 H 93 02/07/21 16:00 106 H 21 93 02/07/21 15:33 102 H 24 136/85 92 02/07/21 14:34 108 H 19 158/99 H 94 02/07/21 13:53 102 H 14 166/97 H 94 02/07/21 12:33 100 H 32 H 150/89 H 90 02/07/21 12:00 37.3 C 98 H 26 H 94 02/07/21 11:33 87 24 138/78 95 02/07/21 10:34 96 H 20 152/81 H 94 02/07/21 09:00 87 24 92 02/07/21 08:13 94 H 19 163/96 H 93 02/07/21 07:18 37.3 C 84 27 H 149/79 H 95 02/07/21 06:18 37.3 C 87 26 H 159/90 H 02/07/21 06:09 98 H 180/98 H 02/07/21 05:50 37.3 C 120 H 33 H 180/98 H 96 02/07/21 05:18 37.3 C 98 H 25 H 148/87 H 94
[2021-02-08] MEDS: PIPERACILLIN/TAZOBACTAM 4.5 GM in DEXTROSE 5% 100 ML IV SCH ×3 (05:26→22:00)
[2021-02-08 08:33] LABS: Albumin Globulin Ratio 0.6 (0.9-2); Albumin Level 2.3 gm/dl (3.4-5.0); BUN Creatinine Ratio 17.2 (10-20); Bilirubin,Total 0.3 mg/dl (0.2-1); Calcium 9.7 mg/dl (8.5-10.1); Creatinine Clr Calc Pharmacy 119.8 ml/min; Est GFR (African American) 115.7 ml/min; Est GFR (Non-African American) 99.8 ml/min; Hematocrit (blood only) 41.6 % (42-52); Mean Corpuscular Hgb Conc 33.7 g/dL (32-36); Mean Corpuscular Volume 89.1 fL (80-100); Mean Platelet Volume 10.9 fL (7.4-10.4); Platelet Count 374 K/uL (130-400); Potassium 3.8 mmol/L (3.5-5.1); RDW Standard Deviation 45.8 fL (36.4-46.3); Red Blood Count 4.67 M/uL (4.7-6.1); Total Protein 6.3 gm/dl (6.4-8.2); White Blood Count 30.97 K/uL (4.8-10.8)
[2021-02-08 08:34] LABS: ALC (manual) 1.86 K/uL (1.2-3.4); ANC (manual) 26.42 K/uL (1.4-6.5); Basophils # (manual) 0.28 K/uL (0-0.2); Basophils % (manual) 0.9 %; Eosinophils # (manual) 0.28 K/uL (0-0.5); Eosinophils % (manual) 0.9 %; Lymphocytes # (manual) 1.86 K/uL (1.2-3.4); Metamyelocytes # (manual) 0.81 K/uL (0-0); Metamyelocytes % (manual) 2.6 %; Monocytes # (manual) 0.81 K/uL (0.11-0.59); Monocytes % (manual) 2.6 %; Myelocytes # (manual) 0.53 K/uL (0-0); Myelocytes % (manual) 1.7 %; Neutrophils # (manual) 26.42 K/uL (1.4-6.5); Neutrophils % (manual) 85.3 %; Toxic Granulation 1+
[2021-02-08] MEDS: INSULIN ASPART 100 UNITS/ML 3 ML PEN SC SCH ×3 (08:42→16:17)
[2021-02-08] MEDS: HEPARIN SOD 5,000 UNIT/0.5 ML VIAL SQ SCH (08:45)
[2021-02-08] MEDS: LOSARTAN POTASSIUM 25 MG TAB PO SCH (08:45)
[2021-02-08] MEDS: NIFEdipine EXTENDED REL 30 MG TABCR PO SCH (08:46)
[2021-02-08] MEDS: FAMOTIDINE 20 MG in SYRINGE 3 ML IV SCH ×2 (08:54→21:05)
[2021-02-08] MEDS ORDERED: OPTIRAY 300 100mL IV ONE (09:21)
--- NOTE | 2021-02-08 10:16 | CT Scan Report ---
ABDOMEN AND PELVIS CT WITH IV CONTRAST CT DOSE: 1369.45 mGycm HISTORY: Generalized abdominal pain. post op /eval for abdomen abscess TECHNIQUE: Multiaxial CT images of the abdomen and pelvis were performed following the use of intrave nous contrast. A dose lowering technique was utilized adhering to the principles of ALARA. COMPARISON STUDY: Abdomen and pelvis CT 02/03/2021. FINDINGS: A few bibasilar linear densities consistent with subsegmental atelectasis. There are also p atchy groundglass nodular densities within the bilateral mid to lower lung zones. This is consistent with a pneumonia could be due to a viral process or aspiration. No pneumoperitoneum. No pneumatosis. No suspicious lytic or blastic osseous lesions. The liver, spleen, right adrenal gland, and pancreas unremarkable. There is a stable 1.7 cm left adrenal gland nodule. This is technically indeterminate. Mild bilateral perinephric edema has progressed. No hydronephrosis. There are few bilateral renal hyp odense lesions which remain unchanged. These favor cysts. Small amount of increased density within th e gallbladder lumen likely due to vicarious excretion of contrast to the prior CT examination. Disten ded and fluid-filled stomach and small bowel loops to the level of the right lower quadrant where the re is a thickened and decompressed loop of distal ileum at the level of the suture material best seen on image 386. This is consistent with the transition point of the small bowel obstruction. Decompres sed fluid-filled colon. Moderate body wall edema. The bladder is unremarkable. Skin braxton within th e right groin suggestive of prior inguinal hernia repair. There are few prominent right inguinal lymp h nodes which are likely reactive. No retroperitoneal lymphadenopathy. Moderate calcified plaque with in the normal caliber abdominal aorta. The small bowel measures up to 5.3 cm in diameter. IMPRESSION: 1. Multiple dilated and fluid-filled loops of small bowel to the level the right lower quadrant where there is a decompressed loop of distal ileum at the surgical anastomosis corresponding to the transi tion point of the small bowel obstruction. 2. Status post right inguinal hernia repair. No evidence for an incarcerated right inguinal hernia. 3. Left adrenal gland nodule is again noted. 4. Patchy groundglass and nodular densities within the mid to lower lung zones consistent with a pneu monia. This could be due to aspiration or viral process. ACT 112: Negative or not required by law. Electronically signed by: Daryn Browning M.D. 02/08/2021 10:15 AM
[2021-02-08] MEDS ORDERED: INSULIN ASPART 100 UNITS/ML 3 ML PEN SC SCH (11:30)
[2021-02-08] MEDS ORDERED: ONDANSETRON INJ 2 MG/ML 2 ML VIAL IV PRN (11:39)
[2021-02-08] MEDS ORDERED: MoRPHine SULFATE 2 MG/ML CARP IV PRN (11:39)
[2021-02-08] MEDS ORDERED: ACETAMINOPHEN 1,000 MG/100 ML VIAL IV PRN (11:39)
[2021-02-08] MEDS ORDERED: Nursing to Pharmacy Communication SCH (11:45)
--- NOTE | 2021-02-08 16:20 | Surgery Progress Note ---
Date of Service February 08, 2021 Assessment & Plan (1) Incarcerated femoral hernia: Postoperative day #5 status post repair of incarcerated right femoral hernia with partial small bowel resection CT noted Suspect there is edema at the anastomosis Would not recommend surgical intervention at this time Having bowel movements Doubt complete obstruction Continue sips of clear liquids No evidence of intra-abdominal abscess Etiology of white blood cell count elevation is unclear, await infectious disease opinion Admission and Anticipated Discharge Date Admission Date: February 03, 2021 Subjective 2 bowel movements today Postoperative day #5 status post reduction and repair of incarcerated right femoral hernia with partial small bowel resection Denies nausea and vomiting Tolerating sips of liquids Had at least 2 bowel movements today Ambulated Physical Exam Gastrointestinal (Abdomen): Inspection/Auscultation: + abdomen distended, + abdominal surgical incision (Both are clean, dry, intact and without erythema) and + hypoactive bowel sounds (Present and of normal pitch but hypoactive) Percussion/Palpation: abdomen soft; abdomen nontender Results & Data ([facility]) Vital Signs (Past 12 Hours) Vital Signs Temp Pulse Pulse Resp BP BP Pulse Ox 02/08/21 15:05 36.8 C 85 18 152/85 H 93 02/08/21 14:57 92 H 02/08/21 11:09 36.9 C 96 H 18 151/82 H 94 02/08/21 08:00 102 H 02/08/21 07:49 36.4 C L 64 18 161/82 H 94 02/08/21 04:30 36.4 C L 90 22 129/71 94 Laboratory Results 02/08/21 02/08/21 02/08/21 Range/Units 15:58 11:22 10:02 WBC (4.8-10.8) K/uL RBC (4.7-6.1) M/uL Hgb (14.0-18.0) g/dL Hct (42-52) % MCV (80-100) fL MCH (25-34) pg MCHC (32-36) g/dL RDW Std Deviation (36.4-46.3) fL RDW Coeff of Marita (11.5-14.5) % Plt Count (130-400) K/uL MPV (7.4-10.4) fL Neutrophils % (Manual) % Lymphocytes % (Manual) % Monocytes % (Manual) % Eosinophils % (Manual) % Basophils % (Manual) % Metamyelocytes % (Man) % Myelocytes % (Man) % Neutrophils # (Manual) (1.4-6.5) K/uL Total Absolute Neuts (1.4-6.5) K/uL Lymphocytes # (Manual) (1.2-3.4) K/uL Total Abs Lymphocytes (1.2-3.4) K/uL Monocytes # (Manual) (0.11-0.59) K/uL Eosinophils # (Manual) (0-0.5) K/uL Basophils # (Manual) (0-0.2) K/uL Metamyelocytes # (Man) (0-0) K/uL Myelocytes # (Manual) (0-0) K/uL Toxic Granulation Peripher Smr Path Cons Sodium (136-145) mmol/L Potassium (3.5-5.1) mmol/L Chloride (98-107) mmol/L Carbon Dioxide (21-32) mmol/L Anion Gap (3-11) BUN (7-18) mg/dl Creatinine (0.6-1.4) mg/dl Est Cr Clr Drug Dosing ml/min Est GFR ( Amer) ml/min Est GFR (Non-Af Amer) ml/min BUN/Creatinine Ratio (10-20) Glucose (70-99) mg/dl POC Glucose 136 H 248 H (70-99) mg/dl Lactate (0.4-2.0) mmol/L Calcium (8.5-10.1) mg/dl Total Bilirubin (0.2-1) mg/dl AST (15-37) U/L ALT (12-78) U/L Alkaline Phosphatase (45-117) U/L Total Protein (6.4-8.2) gm/dl Albumin (3.4-5.0) gm/dl Globulin (2.5-4.0) gm/dl Albumin/Globulin Ratio (0.9-2) Procalcitonin 2.50 H (0-0.5) ng/ml Specimen Hemolysis 02/08/21 02/08/21 02/08/21 Range/Units 10:02 10:02 07:51 WBC (4.8-10.8) K/uL RBC (4.7-6.1) M/uL Hgb (14.0-18.0) g/dL Hct (42-52) % MCV (80-100) fL MCH (25-34) pg MCHC (32-36) g/dL RDW Std Deviation (36.4-46.3) fL RDW Coeff of Marita (11.5-14.5) % Plt Count (130-400) K/uL MPV (7.4-10.4) fL Neutrophils % (Manual) % Lymphocytes % (Manual) % Monocytes % (Manual) % Eosinophils % (Manual) % Basophils % (Manual) % Metamyelocytes % (Man) % Myelocytes % (Man) % Neutrophils # (Manual) (1.4-6.5) K/uL Total Absolute Neuts (1.4-6.5) K/uL Lymphocytes # (Manual) (1.2-3.4) K/uL Total Abs Lymphocytes (1.2-3.4) K/uL Monocytes # (Manual) (0.11-0.59) K/uL Eosinophils # (Manual) (0-0.5) K/uL Basophils # (Manual) (0-0.2) K/uL Metamyelocytes # (Man) (0-0) K/uL Myelocytes # (Manual) (0-0) K/uL Toxic Granulation Peripher Smr Path Cons Sodium 141 (136-145) mmol/L Potassium 3.8 (3.5-5.1) mmol/L Chloride 107 (98-107) mmol/L Carbon Dioxide 29 (21-32) mmol/L Anion Gap 5.0 (3-11) BUN 11 (7-18) mg/dl Creatinine 0.63 (0.6-1.4) mg/dl Est Cr Clr Drug Dosing 119.8 ml/min Est GFR ( Amer) 115.7 ml/min Est GFR (Non-Af Amer) 99.8 ml/min BUN/Creatinine Ratio 17.2 (10-20) Glucose 173 H (70-99) mg/dl POC Glucose (70-99) mg/dl Lactate 1.4 (0.4-2.0) mmol/L Calcium 9.7 (8.5-10.1) mg/dl Total Bilirubin 0.3 (0.2-1) mg/dl AST 113 H (15-37) U/L ALT 102 H (12-78) U/L Alkaline Phosphatase 53 (45-117) U/L Total Protein 6.3 L (6.4-8.2) gm/dl Albumin 2.3 L (3.4-5.0) gm/dl Globulin 4.0 (2.5-4.0) gm/dl Albumin/Globulin Ratio 0.6 L (0.9-2) Procalcitonin (0-0.5) ng/ml Specimen Hemolysis 02/08/21 02/08/21 02/07/21 Range/Units 07:51 07:27 20:37 WBC 30.97 H* (4.8-10.8) K/uL RBC 4.67 L (4.7-6.1) M/uL Hgb 14.0 (14.0-18.0) g/dL Hct 41.6 L (42-52) % MCV 89.1 (80-100) fL MCH 30.0 (25-34) pg MCHC 33.7 (32-36) g/dL RDW Std Deviation 45.8 (36.4-46.3) fL RDW Coeff of Marita 14.0 (11.5-14.5) % Plt Count 374 (130-400) K/uL MPV 10.9 H (7.4-10.4) fL Neutrophils % (Manual) 85.3 % Lymphocytes % (Manual) 6.0 % Monocytes % (Manual) 2.6 % Eosinophils % (Manual) 0.9 % Basophils % (Manual) 0.9 % Metamyelocytes % (Man) 2.6 % Myelocytes % (Man) 1.7 % Neutrophils # (Manual) 26.42 H (1.4-6.5) K/uL Total Absolute Neuts 26.42 H (1.4-6.5) K/uL Lymphocytes # (Manual) 1.86 (1.2-3.4) K/uL Total Abs Lymphocytes 1.86 (1.2-3.4) K/uL Monocytes # (Manual) 0.81 H (0.11-0.59) K/uL Eosinophils # (Manual) 0.28 (0-0.5) K/uL Basophils # (Manual) 0.28 H (0-0.2) K/uL Metamyelocytes # (Man) 0.81 H (0-0) K/uL Myelocytes # (Manual) 0.53 H (0-0) K/uL Toxic Granulation 1+ Peripher Smr Path Cons Sodium (136-145) mmol/L Potassium (3.5-5.1) mmol/L Chloride (98-107) mmol/L Carbon Dioxide (21-32) mmol/L Anion Gap (3-11) BUN (7-18) mg/dl Creatinine (0.6-1.4) mg/dl Est Cr Clr Drug Dosing ml/min Est GFR ( Amer) ml/min Est GFR (Non-Af Amer) ml/min BUN/Creatinine Ratio (10-20) Glucose (70-99) mg/dl POC Glucose 173 H 174 H (70-99) mg/dl Lactate (0.4-2.0) mmol/L Calcium (8.5-10.1) mg/dl Total Bilirubin (0.2-1) mg/dl AST (15-37) U/L ALT (12-78) U/L Alkaline Phosphatase (45-117) U/L Total Protein (6.4-8.2) gm/dl Albumin (3.4-5.0) gm/dl Globulin (2.5-4.0) gm/dl Albumin/Globulin Ratio (0.9-2) Procalcitonin (0-0.5) ng/ml Specimen Hemolysis 02/07/21 Range/Units 16:40 WBC (4.8-10.8) K/uL RBC (4.7-6.1) M/uL Hgb (14.0-18.0) g/dL Hct (42-52) % MCV (80-100) fL MCH (25-34) pg MCHC (32-36) g/dL RDW Std Deviation (36.4-46.3) fL RDW Coeff of Marita (11.5-14.5) % Plt Count (130-400) K/uL MPV (7.4-10.4) fL Neutrophils % (Manual) % Lymphocytes % (Manual) % Monocytes % (Manual) % Eosinophils % (Manual) % Basophils % (Manual) % Metamyelocytes % (Man) % Myelocytes % (Man) % Neutrophils # (Manual) (1.4-6.5) K/uL Total Absolute Neuts (1.4-6.5) K/uL Lymphocytes # (Manual) (1.2-3.4) K/uL Total Abs Lymphocytes (1.2-3.4) K/uL Monocytes # (Manual) (0.11-0.59) K/uL Eosinophils # (Manual) (0-0.5) K/uL Basophils # (Manual) (0-0.2) K/uL Metamyelocytes # (Man) (0-0) K/uL Myelocytes # (Manual) (0-0) K/uL Toxic Granulation Peripher Smr Path Cons Sodium (136-145) mmol/L Potassium (3.5-5.1) mmol/L Chloride (98-107) mmol/L Carbon Dioxide (21-32) mmol/L Anion Gap (3-11) BUN (7-18) mg/dl Creatinine (0.6-1.4) mg/dl Est Cr Clr Drug Dosing ml/min Est GFR ( Amer) ml/min Est GFR (Non-Af Amer) ml/min BUN/Creatinine Ratio (10-20) Glucose (70-99) mg/dl POC Glucose 138 H (70-99) mg/dl Lactate (0.4-2.0) mmol/L Calcium (8.5-10.1) mg/dl Total Bilirubin (0.2-1) mg/dl AST (15-37) U/L ALT (12-78) U/L Alkaline Phosphatase (45-117) U/L Total Protein (6.4-8.2) gm/dl Albumin (3.4-5.0) gm/dl Globulin (2.5-4.0) gm/dl Albumin/Globulin Ratio (0.9-2) Procalcitonin (0-0.5) ng/ml Specimen Hemolysis Diagnostic Findings ABDOMEN AND PELVIS CT WITH IV CONTRAST (I reviewed the images as well as the report) CT DOSE: 1369.45 mGycm HISTORY: Generalized abdominal pain. post op /eval for abdomen abscess TECHNIQUE: Multiaxial CT images of the abdomen and pelvis were performed following the use of intravenous contrast. A dose lowering technique was utilized adhering to the principles of ALARA. COMPARISON STUDY: Abdomen and pelvis CT 02/03/2021. FINDINGS: A few bibasilar linear densities consistent with subsegmental atelectasis. There are also patchy groundglass nodular densities within the bilateral mid to lower lung zones. This is consistent with a pneumonia could be due to a viral process or aspiration. No pneumoperitoneum. No pneumatosis. No suspicious lytic or blastic osseous lesions. The liver, spleen, right adrenal gland, and pancreas unremarkable. There is a stable 1.7 cm left adrenal gland nodule. This is technically indeterminate. Mild bilateral perinephric edema has progressed. No hydronephrosis. There are few bilateral renal hypodense lesions which remain unchanged. These favor cysts. Small amount of increased density within the gallbladder lumen likely due to vicarious excretion of contrast to the prior CT examination. Distended and fluid-filled stomach and small bowel loops to the level of the right lower quadrant where there is a thickened and decompressed loop of distal ileum at the level of the suture material best seen on image [id number]. This is consistent with the transition point of the small bowel obstruction. Decompressed fluid-filled colon. Moderate body wall edema. The bladder is unremarkable. Skin braxton within the right groin suggestive of prior inguinal hernia repair. There are few prominent right inguinal lymph nodes which are likely reactive. No retroperitoneal lymphadenopathy. Moderate calcified plaque within the normal caliber abdominal aorta. The small bowel measures up to 5.3 cm in diameter. IMPRESSION: 1. Multiple dilated and fluid-filled loops of small bowel to the level the right lower quadrant where there is a decompressed loop of distal ileum at the surgical anastomosis corresponding to the transition point of the small bowel obstruction. 2. Status post right inguinal hernia repair. No evidence for an incarcerated right inguinal hernia. 3. Left adrenal gland nodule is again noted. 4. Patchy groundglass and nodular densities within the mid to lower lung zones consistent with a pneumonia. This could be due to aspiration or viral process.
[2021-02-08] MEDS ORDERED: INSULIN GLARGINE SOLOSTAR 100 UNITS/ML 3 ML PEN SC SCH (18:00)
[2021-02-09] MEDS: INSULIN ASPART 100 UNITS/ML 3 ML PEN SC SCH ×5 (00:25→20:05)
[2021-02-09] MEDS: HEPARIN SOD 5,000 UNIT/0.5 ML VIAL SQ SCH ×3 (01:33→20:04)
[2021-02-09 05:56] LABS: Hematocrit (blood only) 39.2 % (42-52); Hemoglobin 13.2 g/dL (14.0-18.0); Mean Corpuscular Hemoglobin 29.9 pg (25-34); Mean Corpuscular Hgb Conc 33.7 g/dL (32-36); Mean Corpuscular Volume 88.7 fL (80-100); Mean Platelet Volume 10.8 fL (7.4-10.4); Platelet Count 387 K/uL (130-400); RDW Coefficient of Variation 14.1 % (11.5-14.5); RDW Standard Deviation 46.1 fL (36.4-46.3); Red Blood Count 4.42 M/uL (4.7-6.1); White Blood Count 29.48 K/uL (4.8-10.8)
[2021-02-09] MEDS: PIPERACILLIN/TAZOBACTAM 4.5 GM in DEXTROSE 5% 100 ML IV SCH ×3 (06:03→21:59)
[2021-02-09 06:32] LABS: Basophils # (auto) 0.09 K/uL (0-0.2); Basophils % (auto) 0.3 %; Eosinophils # (auto) 0.17 K/uL (0-0.5); Eosinophils % (auto) 0.6 %; Immature Granulocytes # (auto) 2.38 K/uL (0.00-0.02); Immature Granulocytes % (auto) 8.1 %; Lymphocytes # (auto) 3.19 K/uL (1.2-3.4); Lymphocytes % (auto) 10.8 %; Monocytes # (auto) 3.18 K/uL (0.11-0.59); Monocytes % (auto) 10.8 %; Neutrophils # (auto) 20.47 K/uL (1.4-6.5); Neutrophils % (auto) 69.4 %; Toxic Granulation 1+
[2021-02-09 06:37] LABS: Albumin Level 2.2 gm/dl (3.4-5.0); BUN Creatinine Ratio 21.5 (10-20); Calcium 8.6 mg/dl (8.5-10.1); Creatinine Clr Calc Pharmacy 157.2 ml/min; Est GFR (African American) 129.4 ml/min; Est GFR (Non-African American) 111.7 ml/min; Potassium 3.5 mmol/L (3.5-5.1)
[2021-02-09 06:39] LABS: Albumin Globulin Ratio 0.6 (0.9-2); Bilirubin,Total 0.6 mg/dl (0.2-1); Globulin 3.4 gm/dl (2.5-4.0); Total Protein 5.6 gm/dl (6.4-8.2)
--- NOTE | 2021-02-09 08:07 | Surgery Progress Note ---
Date of Service February 09, 2021 Assessment & Plan (1) Incarcerated femoral hernia: Postoperative day #6 status post reduction and repair of incarcerated right femoral hernia with partial small bowel resection Much improved today Abdomen much less distended and bowels are moving Begin clear liquids again Increase ambulation Admission and Anticipated Discharge Date Admission Date: February 03, 2021 Subjective Postoperative day #6 status post repair of incarcerated right femoral hernia with partial excision of small bowel Having multiple bowel movements that are liquid to loose Denies abdominal pain No nausea or vomiting Physical Exam Gastrointestinal (Abdomen): Inspection/Auscultation: + abdomen distended (Much less distended today) and normal bowel sounds Percussion/Palpation: abdomen soft; abdomen nontender Results & Data ([facility]) Vital Signs (Past 12 Hours) Vital Signs Temp Pulse Pulse Resp BP Pulse Ox 02/09/21 07:00 37.1 C 68 18 146/80 H 97 02/09/21 04:10 36.8 C 100 H 18 151/78 H 94 02/09/21 00:00 104 H 02/08/21 22:49 36.8 C 66 18 132/81 98 Laboratory Results 02/09/21 02/09/21 02/09/21 Range/Units 07:28 06:02 05:30 WBC (4.8-10.8) K/uL RBC (4.7-6.1) M/uL Hgb (14.0-18.0) g/dL Hct (42-52) % MCV (80-100) fL MCH (25-34) pg MCHC (32-36) g/dL RDW Std Deviation (36.4-46.3) fL RDW Coeff of Marita (11.5-14.5) % Plt Count (130-400) K/uL MPV (7.4-10.4) fL Immature Gran % (Auto) % Neut % (Auto) % Lymph % (Auto) % Glynn % (Auto) % Eos % (Auto) % Baso % (Auto) % Neut # (Auto) (1.4-6.5) K/uL Lymph # (Auto) (1.2-3.4) K/uL Glynn # (Auto) (0.11-0.59) K/uL Eos # (Auto) (0-0.5) K/uL Baso # (Auto) (0-0.2) K/uL Immature Gran # (Auto) (0.00-0.02) K/uL Neutrophils % (Manual) % Lymphocytes % (Manual) % Monocytes % (Manual) % Eosinophils % (Manual) % Basophils % (Manual) % Metamyelocytes % (Man) % Myelocytes % (Man) % Neutrophils # (Manual) (1.4-6.5) K/uL Total Absolute Neuts (1.4-6.5) K/uL Lymphocytes # (Manual) (1.2-3.4) K/uL Total Abs Lymphocytes (1.2-3.4) K/uL Monocytes # (Manual) (0.11-0.59) K/uL Eosinophils # (Manual) (0-0.5) K/uL Basophils # (Manual) (0-0.2) K/uL Metamyelocytes # (Man) (0-0) K/uL Myelocytes # (Manual) (0-0) K/uL Toxic Granulation Peripher Smr Path Cons Sodium 143 (136-145) mmol/L Potassium 3.5 (3.5-5.1) mmol/L Chloride 113 H (98-107) mmol/L Carbon Dioxide 23 (21-32) mmol/L Anion Gap 7.0 (3-11) BUN 10 (7-18) mg/dl Creatinine 0.48 L (0.6-1.4) mg/dl Est Cr Clr Drug Dosing 157.2 ml/min Est GFR ( Amer) 129.4 ml/min Est GFR (Non-Af Amer) 111.7 ml/min BUN/Creatinine Ratio 21.5 H (10-20) Glucose 134 H (70-99) mg/dl POC Glucose 125 H 119 H (70-99) mg/dl Lactate (0.4-2.0) mmol/L Calcium 8.6 (8.5-10.1) mg/dl Total Bilirubin 0.6 (0.2-1) mg/dl AST 71 H (15-37) U/L ALT 84 H (12-78) U/L Alkaline Phosphatase 45 (45-117) U/L Total Protein 5.6 L (6.4-8.2) gm/dl Albumin 2.2 L (3.4-5.0) gm/dl Globulin 3.4 (2.5-4.0) gm/dl Albumin/Globulin Ratio 0.6 L (0.9-2) Procalcitonin (0-0.5) ng/ml Specimen Hemolysis 02/09/21 02/09/21 02/08/21 Range/Units 05:30 01:37 20:12 WBC 29.48 H (4.8-10.8) K/uL RBC 4.42 L (4.7-6.1) M/uL Hgb 13.2 L (14.0-18.0) g/dL Hct 39.2 L (42-52) % MCV 88.7 (80-100) fL MCH 29.9 (25-34) pg MCHC 33.7 (32-36) g/dL RDW Std Deviation 46.1 (36.4-46.3) fL RDW Coeff of Marita 14.1 (11.5-14.5) % Plt Count 387 (130-400) K/uL MPV 10.8 H (7.4-10.4) fL Immature Gran % (Auto) 8.1 % Neut % (Auto) 69.4 % Lymph % (Auto) 10.8 % Glynn % (Auto) 10.8 % Eos % (Auto) 0.6 % Baso % (Auto) 0.3 % Neut # (Auto) 20.47 H (1.4-6.5) K/uL Lymph # (Auto) 3.19 (1.2-3.4) K/uL Glynn # (Auto) 3.18 H (0.11-0.59) K/uL Eos # (Auto) 0.17 (0-0.5) K/uL Baso # (Auto) 0.09 (0-0.2) K/uL Immature Gran # (Auto) 2.38 H (0.00-0.02) K/uL Neutrophils % (Manual) % Lymphocytes % (Manual) % Monocytes % (Manual) % Eosinophils % (Manual) % Basophils % (Manual) % Metamyelocytes % (Man) % Myelocytes % (Man) % Neutrophils # (Manual) (1.4-6.5) K/uL Total Absolute Neuts (1.4-6.5) K/uL Lymphocytes # (Manual) (1.2-3.4) K/uL Total Abs Lymphocytes (1.2-3.4) K/uL Monocytes # (Manual) (0.11-0.59) K/uL Eosinophils # (Manual) (0-0.5) K/uL Basophils # (Manual) (0-0.2) K/uL Metamyelocytes # (Man) (0-0) K/uL Myelocytes # (Manual) (0-0) K/uL Toxic Granulation 1+ Peripher Smr Path Cons Sodium (136-145) mmol/L Potassium (3.5-5.1) mmol/L Chloride (98-107) mmol/L Carbon Dioxide (21-32) mmol/L Anion Gap (3-11) BUN (7-18) mg/dl Creatinine (0.6-1.4) mg/dl Est Cr Clr Drug Dosing ml/min Est GFR ( Amer) ml/min Est GFR (Non-Af Amer) ml/min BUN/Creatinine Ratio (10-20) Glucose (70-99) mg/dl POC Glucose 129 H 129 H (70-99) mg/dl Lactate (0.4-2.0) mmol/L Calcium (8.5-10.1) mg/dl Total Bilirubin (0.2-1) mg/dl AST (15-37) U/L ALT (12-78) U/L Alkaline Phosphatase (45-117) U/L Total Protein (6.4-8.2) gm/dl Albumin (3.4-5.0) gm/dl Globulin (2.5-4.0) gm/dl Albumin/Globulin Ratio (0.9-2) Procalcitonin (0-0.5) ng/ml Specimen Hemolysis 02/08/21 02/08/21 02/08/21 Range/Units 15:58 11:22 10:02 WBC (4.8-10.8) K/uL RBC (4.7-6.1) M/uL Hgb (14.0-18.0) g/dL Hct (42-52) % MCV (80-100) fL MCH (25-34) pg MCHC (32-36) g/dL RDW Std Deviation (36.4-46.3) fL RDW Coeff of Marita (11.5-14.5) % Plt Count (130-400) K/uL MPV (7.4-10.4) fL Immature Gran % (Auto) % Neut % (Auto) % Lymph % (Auto) % Glynn % (Auto) % Eos % (Auto) % Baso % (Auto) % Neut # (Auto) (1.4-6.5) K/uL Lymph # (Auto) (1.2-3.4) K/uL Glynn # (Auto) (0.11-0.59) K/uL Eos # (Auto) (0-0.5) K/uL Baso # (Auto) (0-0.2) K/uL Immature Gran # (Auto) (0.00-0.02) K/uL Neutrophils % (Manual) % Lymphocytes % (Manual) % Monocytes % (Manual) % Eosinophils % (Manual) % Basophils % (Manual) % Metamyelocytes % (Man) % Myelocytes % (Man) % Neutrophils # (Manual) (1.4-6.5) K/uL Total Absolute Neuts (1.4-6.5) K/uL Lymphocytes # (Manual) (1.2-3.4) K/uL Total Abs Lymphocytes (1.2-3.4) K/uL Monocytes # (Manual) (0.11-0.59) K/uL Eosinophils # (Manual) (0-0.5) K/uL Basophils # (Manual) (0-0.2) K/uL Metamyelocytes # (Man) (0-0) K/uL Myelocytes # (Manual) (0-0) K/uL Toxic Granulation Peripher Smr Path Cons Sodium (136-145) mmol/L Potassium (3.5-5.1) mmol/L Chloride (98-107) mmol/L Carbon Dioxide (21-32) mmol/L Anion Gap (3-11) BUN (7-18) mg/dl Creatinine (0.6-1.4) mg/dl Est Cr Clr Drug Dosing ml/min Est GFR ( Amer) ml/min Est GFR (Non-Af Amer) ml/min BUN/Creatinine Ratio (10-20) Glucose (70-99) mg/dl POC Glucose 136 H 248 H (70-99) mg/dl Lactate (0.4-2.0) mmol/L Calcium (8.5-10.1) mg/dl Total Bilirubin (0.2-1) mg/dl AST (15-37) U/L ALT (12-78) U/L Alkaline Phosphatase (45-117) U/L Total Protein (6.4-8.2) gm/dl Albumin (3.4-5.0) gm/dl Globulin (2.5-4.0) gm/dl Albumin/Globulin Ratio (0.9-2) Procalcitonin 2.50 H (0-0.5) ng/ml Specimen Hemolysis 02/08/21 02/08/21 02/08/21 Range/Units 10:02 10:02 07:51 WBC (4.8-10.8) K/uL RBC (4.7-6.1) M/uL Hgb (14.0-18.0) g/dL Hct (42-52) % MCV (80-100) fL MCH (25-34) pg MCHC (32-36) g/dL RDW Std Deviation (36.4-46.3) fL RDW Coeff of Marita (11.5-14.5) % Plt Count (130-400) K/uL MPV (7.4-10.4) fL Immature Gran % (Auto) % Neut % (Auto) % Lymph % (Auto) % Glynn % (Auto) % Eos % (Auto) % Baso % (Auto) % Neut # (Auto) (1.4-6.5) K/uL Lymph # (Auto) (1.2-3.4) K/uL Glynn # (Auto) (0.11-0.59) K/uL Eos # (Auto) (0-0.5) K/uL Baso # (Auto) (0-0.2) K/uL Immature Gran # (Auto) (0.00-0.02) K/uL Neutrophils % (Manual) % Lymphocytes % (Manual) % Monocytes % (Manual) % Eosinophils % (Manual) % Basophils % (Manual) % Metamyelocytes % (Man) % Myelocytes % (Man) % Neutrophils # (Manual) (1.4-6.5) K/uL Total Absolute Neuts (1.4-6.5) K/uL Lymphocytes # (Manual) (1.2-3.4) K/uL Total Abs Lymphocytes (1.2-3.4) K/uL Monocytes # (Manual) (0.11-0.59) K/uL Eosinophils # (Manual) (0-0.5) K/uL Basophils # (Manual) (0-0.2) K/uL Metamyelocytes # (Man) (0-0) K/uL Myelocytes # (Manual) (0-0) K/uL Toxic Granulation Peripher Smr Path Cons Sodium 141 (136-145) mmol/L Potassium 3.8 (3.5-5.1) mmol/L Chloride 107 (98-107) mmol/L Carbon Dioxide 29 (21-32) mmol/L Anion Gap 5.0 (3-11) BUN 11 (7-18) mg/dl Creatinine 0.63 (0.6-1.4) mg/dl Est Cr Clr Drug Dosing 119.8 ml/min Est GFR ( Amer) 115.7 ml/min Est GFR (Non-Af Amer) 99.8 ml/min BUN/Creatinine Ratio 17.2 (10-20) Glucose 173 H (70-99) mg/dl POC Glucose (70-99) mg/dl Lactate 1.4 (0.4-2.0) mmol/L Calcium 9.7 (8.5-10.1) mg/dl Total Bilirubin 0.3 (0.2-1) mg/dl AST 113 H (15-37) U/L ALT 102 H (12-78) U/L Alkaline Phosphatase 53 (45-117) U/L Total Protein 6.3 L (6.4-8.2) gm/dl Albumin 2.3 L (3.4-5.0) gm/dl Globulin 4.0 (2.5-4.0) gm/dl Albumin/Globulin Ratio 0.6 L (0.9-2) Procalcitonin (0-0.5) ng/ml Specimen Hemolysis 02/08/21 Range/Units 07:51 WBC 30.97 H* (4.8-10.8) K/uL RBC 4.67 L (4.7-6.1) M/uL Hgb 14.0 (14.0-18.0) g/dL Hct 41.6 L (42-52) % MCV 89.1 (80-100) fL MCH 30.0 (25-34) pg MCHC 33.7 (32-36) g/dL RDW Std Deviation 45.8 (36.4-46.3) fL RDW Coeff of Marita 14.0 (11.5-14.5) % Plt Count 374 (130-400) K/uL MPV 10.9 H (7.4-10.4) fL Immature Gran % (Auto) % Neut % (Auto) % Lymph % (Auto) % Glynn % (Auto) % Eos % (Auto) % Baso % (Auto) % Neut # (Auto) (1.4-6.5) K/uL Lymph # (Auto) (1.2-3.4) K/uL Glynn # (Auto) (0.11-0.59) K/uL Eos # (Auto) (0-0.5) K/uL Baso # (Auto) (0-0.2) K/uL Immature Gran # (Auto) (0.00-0.02) K/uL Neutrophils % (Manual) 85.3 % Lymphocytes % (Manual) 6.0 % Monocytes % (Manual) 2.6 % Eosinophils % (Manual) 0.9 % Basophils % (Manual) 0.9 % Metamyelocytes % (Man) 2.6 % Myelocytes % (Man) 1.7 % Neutrophils # (Manual) 26.42 H (1.4-6.5) K/uL Total Absolute Neuts 26.42 H (1.4-6.5) K/uL Lymphocytes # (Manual) 1.86 (1.2-3.4) K/uL Total Abs Lymphocytes 1.86 (1.2-3.4) K/uL Monocytes # (Manual) 0.81 H (0.11-0.59) K/uL Eosinophils # (Manual) 0.28 (0-0.5) K/uL Basophils # (Manual) 0.28 H (0-0.2) K/uL Metamyelocytes # (Man) 0.81 H (0-0) K/uL Myelocytes # (Manual) 0.53 H (0-0) K/uL Toxic Granulation 1+ Peripher Smr Path Cons Sodium (136-145) mmol/L Potassium (3.5-5.1) mmol/L Chloride (98-107) mmol/L Carbon Dioxide (21-32) mmol/L Anion Gap (3-11) BUN (7-18) mg/dl Creatinine (0.6-1.4) mg/dl Est Cr Clr Drug Dosing ml/min Est GFR ( Amer) ml/min Est GFR (Non-Af Amer) ml/min BUN/Creatinine Ratio (10-20) Glucose (70-99) mg/dl POC Glucose (70-99) mg/dl Lactate (0.4-2.0) mmol/L Calcium (8.5-10.1) mg/dl Total Bilirubin (0.2-1) mg/dl AST (15-37) U/L ALT (12-78) U/L Alkaline Phosphatase (45-117) U/L Total Protein (6.4-8.2) gm/dl Albumin (3.4-5.0) gm/dl Globulin (2.5-4.0) gm/dl Albumin/Globulin Ratio (0.9-2) Procalcitonin (0-0.5) ng/ml Specimen Hemolysis
[2021-02-09] MEDS: FAMOTIDINE 20 MG in SYRINGE 3 ML IV SCH ×2 (09:20→21:59)
--- NOTE | 2021-02-09 12:37 | Hospitalist Progress Note ---
Date of Service Late entry, patient was seen on 02/08/2021 Assessment & Plan (1) Incarcerated inguinal hernia: Severe sepsis with gram-negative bacteremia: Secondary to incarcerated rt inguinal hernia leading to bowel ischemia Blood culture 02/05: Enterococcus ; repeat blood cultures 02/07 no growth Initially received IV cefepime and Flagyl that discontinued ID on board that recommended to continue Zosyn for 14 days High-grade small bowel obstruction Incarcerated femoral hernia: CT ABD/pelvis on admission:High-grade small bowel obstruction with a transition zone at the level of an incarcerated right inguinal hernia. Case discussed with surgery that recommended to continue clear liquid diet Leukocytosis: Possible secondary to gram-negative bacteremia/peritonitis/sepsis? No source of infection noted, To monitor, antibiotic as above Lactic Acidosis Resolved likely secondary to bowel ischemia/sepsis -normal lactate acid level after receiving adequate fluid resuscitation Acute hypoxemic respiratory failure Possible secondary to severe sepsis with multifocal pneumonia/intubated perioperatively, and postoperatively. Extubated 02/06/2021, on room air Negative COVID screen CTA:No evidence of acute pulmonary embolism given the technical limitations of the study. Multifocal groundglass pulmonary opacities suspicious for multifocal pneumonia. Dilated fluid-filled stomach and esophagus Antibiotic as above Acute kidney injury Resolved after IV hydration Due to bowel obstruction/ischemia, sepsis. Avoid nephrotoxic agents as able DM Type II: Last A1c:7.7 on Oct 12 Metformin on hold, NovoLog per protocol while hospitalized Transaminitis Continues to improve Left hepatic lobe mass Left adrenal nodule Incidental Findings on CT scan CT abd: Interval development of an indeterminate 46 mm ill-defined left hepatic lobe mass. Indeterminate 24 mm left adrenal nodule Further work-up as outpatient DVT prophylaxis Subcu heparin Admission and Anticipated Discharge Date Admission Date: February 03, 2021 Subjective Late entry, patient seen at 02/08/2021 Minimum abdominal pain, CT abdomen pelvis showed dilated large bowel, suggestive of small bowel obstruction with transition point at the anastomotic site. CT imaging discussed with surgery, possible postsurgical change/edema, as patient has continued to have bowel movement tolerating p.o., no surgical intervention needed Patient has been tolerating clear liquid diet, no nausea or vomiting, no fever chills Review of Systems Review of Systems: All systems reviewed & are unremarkable except as noted in Subjective Physical Exam Physical Exam: Physical exam: General: No acute distress, alert and awake HEENT: Nonicteric sclera Heart: Regular S1-S2, Lungs: Clear to auscultate, no wheeze or rales Abdomen: Soft, diminished bowel sounds, surgical bandage present Neuro: No focal neurological deficit normal speech, n Results & Data Results & Data ([facility]) Vital Signs (Past 12 Hours) Vital Signs Temp Pulse Pulse Resp BP Pulse Ox 02/09/21 08:00 98 H 02/09/21 07:00 37.1 C 68 18 146/80 H 97 02/09/21 04:10 36.8 C 100 H 18 151/78 H 94
--- NOTE | 2021-02-09 14:28 | Pharmacy Report ---
Pharmacy Glycemic Short Note 2 - Date of Service February 09, 2021 - Glycemic Short BSG Results (Last 24 hours): 02/08/21 02/08/21 02/09/21 15:58 20:12 01:37 Glucose POC Glucose 136 H 129 H 129 H 02/09/21 02/09/21 02/09/21 05:30 06:02 07:28 Glucose 134 H POC Glucose 119 H 125 H 02/09/21 11:24 Glucose POC Glucose 170 H OUTPATIENT ANTIDIABETIC REGIMEN: * Metformin 1000mg PO BID * A1c = 7% on 02/04/21 ASSESSMENT: 02/09 * Pt transferred to the floor, plan for zosyn x14 days if blood cultures remain negative * Diet resumed with clears at breakfast this morning * Adjusted Novolog orders to weight based stress of 2 dosing as patient no longer in the ICU * Continue to hold on basal insulin, fasting this morning was 134 mg/dL; continue to monitor for trend, will add if fasting BSG increases 02/07 * Patient extubated on 02/06, POD #3, continues on D5NS @50 ml/hr * Pt has not required any insulin in the past 48 hrs, diet advanced to clear liquid, will continue novolog scale today with slight adjustments (0 units for BSG 160 mg/dL or less, 1 unit if BSG 161-180 mg/dL) Continue carb ratio of 1:15. Monitor, if BSGs remain stable with advanced diet may d/c carb ratio and then use a set correction factor. 02/04 * Type 2 diabetic admitted to ICU for incarcerated hernia repair, SBO, need for vent support * Patient is POD # 1 s/p exp-lap w/ reduction/repair * BSGs elevated > 140 x 2, auto consult for glycemic control generated * Patient remains intubated, NPO, large amounts of NG suction overnight * Will begin Novolog SQ Q 4 hr regimen. A portion of the "basal" insulin requirements will be provided w/ the Q 4 hr regimen. This may be safer than giving long acting insulin in the setting of possible prolonged NPO. PLAN FOR INPATIENT GLYCEMIC CONTROL: * Hold outpatient oral diabetes medications (metformin) * Basal insulin * None at this time * Bolus insulin * NovoLog per scale ACHS or Q6hrs while NPO * Goal Range: Low 110 mg/dL - High 140 mg/dL * Correction Factor: 25 mg/dL/unit * Nutritional / Prandial insulin per carb ratio of 1 unit per 9 grams CHO consumed PLAN FOR DISCHARGE: * to be determined
--- NOTE | 2021-02-09 14:50 | Hospitalist Progress Note ---
Date of Service February 09, 2021 Assessment & Plan (1) Incarcerated inguinal hernia: Severe sepsis with gram-negative bacteremia: Sepsis resolved Secondary to incarcerated rt inguinal hernia leading to bowel ischemia Blood culture 02/05: Enterococcus ; repeat blood cultures 02/07 no growth Initially received IV cefepime and Flagyl, currently on Zosyn (day 4) High-grade small bowel obstruction Secondary to incarcerated right inguinal hernia CT ABD/pelvis on admission:High-grade small bowel obstruction with a transition zone at the level of an incarcerated right inguinal hernia. Status post exploratory laparotomy, postoperative day#6 Appreciate input from surgery team Had bowel movement, rating clears Leukocytosis: White count remains persistently elevated, patient already on IV Zosyn, respiratory status stable, afebrile, no cough or shortness of breath C. difficile negative WBC mildly lower today, 29K Monitor closely Lactic Acidosis Resolved likely secondary to bowel ischemia/sepsis -normal lactate acid level after receiving adequate fluid resuscitation Acute hypoxemic respiratory failure Possible secondary to severe sepsis with multifocal pneumonia/intubated perioperatively, and postoperatively. Extubated 02/06/2021, on room air Negative COVID screen CTA:No evidence of acute pulmonary embolism given the technical limitations of the study. Multifocal groundglass pulmonary opacities suspicious for multifocal pneumonia. Dilated fluid-filled stomach and esophagus Antibiotic as above Acute kidney injury Resolved after IV hydration Due to bowel obstruction/ischemia, sepsis. Avoid nephrotoxic agents as able DM Type II: Last A1c:7.7 on Oct 12 Metformin on hold, NovoLog per protocol while hospitalized Transaminitis Continues to improve Left hepatic lobe mass Left adrenal nodule Incidental Findings on CT scan CT abd: Interval development of an indeterminate 46 mm ill-defined left hepatic lobe mass. Indeterminate 24 mm left adrenal nodule Further work-up as outpatient DVT prophylaxis Subcu heparin Thank you for this consultation. We will follow the patient with you during their hospital stay. You can reach a member of the [facility] Hospitalist Team 16/04 via the [facility] Hospitalist role in [place] Text. Admission and Anticipated Discharge Date Admission Date: February 03, 2021 Supervising Physician Co-Signing Physician Notes Pt was seen and examined. Agreed with Tejal VASQUEZ exam, assessment and plan. S/P day 6 reduction and repair of incarcerated right femoral with partial small bowel resection. Currently denies any chest pain, palpitation, dizziness and fever. WBC 29K today. ID was consulted and recommended to continue IV Zosyn to complete 14 days course. Will start on clear liquid diet by surgery. No arrhythmia noted on tele monitor. Will transfer to [facility]. PT/OT eval and fall precaution. Will continue monitor while in the hospital. MD Sammy Subjective Patient seen and examined. Feeling well, offers no complaints. Tolerating clear liquids, + BM. Denies abdominal pain and nausea. No chest pain or shortness of breath. Physical Exam Constitutional: no acute distress Resting in bed Respiratory: normal respiratory effort, lungs clear to auscultation Cardiovascular: Rate/Rhythm: regular rate and regular rhythm Vessels: normal peripheral pulses Extremities: no edema Gastrointestinal (Abdomen): Inspection/Auscultation: normal bowel sounds Percussion/Palpation: abdomen soft; abdomen nontender right inguinal surgical braxton intact Neurologic: no focal motor deficits Psychiatric: Orientation: alert and oriented x 3 forgetful Results & Data Results & Data ([facility]) Vital Signs (Past 12 Hours) Vital Signs Temp Pulse Pulse Resp BP Pulse Ox 02/09/21 08:00 98 H 02/09/21 07:00 37.1 C 68 18 146/80 H 97 02/09/21 04:10 36.8 C 100 H 18 151/78 H 94 Laboratory Results Short CBC 02/09/21 Range/Units 05:30 WBC 29.48 H (4.8-10.8) K/uL Hgb 13.2 L (14.0-18.0) g/dL Hct 39.2 L (42-52) % Plt Count 387 (130-400) K/uL BMP 02/09/21 05:30 Sodium 143 Potassium 3.5 Chloride 113 H Carbon Dioxide 23 BUN 10 Creatinine 0.48 L Glucose 134 H Calcium 8.6 Liver Function 02/09/21 Range/Units 05:30 Total Bilirubin 0.6 (0.2-1) mg/dl AST 71 H (15-37) U/L ALT 84 H (12-78) U/L Alkaline Phosphatase 45 (45-117) U/L Albumin 2.2 L (3.4-5.0) gm/dl
[2021-02-09] MEDS ORDERED: MELATONIN 3 MG TAB PO PRN (20:06)
[2021-02-09] MEDS ORDERED: HALOPERIDOL LACTATE 5 MG/ML 1 ML VIAL IM STA (21:51)
[2021-02-10] MEDS: PIPERACILLIN/TAZOBACTAM 4.5 GM in DEXTROSE 5% 100 ML IV SCH ×3 (05:33→21:11)
[2021-02-10 09:15] LABS: Hematocrit (blood only) 41.3 % (42-52); Mean Corpuscular Hemoglobin 30.5 pg (25-34); Mean Corpuscular Hgb Conc 33.9 g/dL (32-36); Mean Platelet Volume 10.6 fL (7.4-10.4); Platelet Count 464 K/uL (130-400); RDW Coefficient of Variation 14.3 % (11.5-14.5); Red Blood Count 4.59 M/uL (4.7-6.1); White Blood Count 28.99 K/uL (4.8-10.8)
[2021-02-10] MEDS: LOSARTAN POTASSIUM 25 MG TAB PO SCH (09:22)
[2021-02-10] MEDS: HEPARIN SOD 5,000 UNIT/0.5 ML VIAL SQ SCH ×2 (09:23→21:12)
[2021-02-10] MEDS: FAMOTIDINE 20 MG in SYRINGE 3 ML IV SCH (09:23)
[2021-02-10] MEDS: INSULIN ASPART 100 UNITS/ML 3 ML PEN SC SCH ×4 (09:23→21:57)
[2021-02-10 09:48] LABS: BUN Creatinine Ratio 13.5 (10-20); Calcium 9.8 mg/dl (8.5-10.1); Est GFR (African American) 106.6 ml/min; Est GFR (Non-African American) 91.9 ml/min; Potassium 3.2 mmol/L (3.5-5.1)
[2021-02-10] MEDS ORDERED: POTASSIUM CHLORIDE CRTAB 20 MEQ TABCR PO STA (11:40)
[2021-02-10] MEDS ORDERED: COUGH DROP (SUGAR FREE) LOZ 24 LOZ/1 BOX BUCCAL PRN (14:32)
--- NOTE | 2021-02-10 14:36 | Surgery Progress Note ---
Date of Service February 10, 2021 Assessment & Plan (1) Incarcerated femoral hernia: POD# 7 S/P reduction and repair of incarcerated right femoral with partial small bowel resection. Abdominal exam is stable WBC unchanged Would continue liquid diet Encouraged ambulation Admission and Anticipated Discharge Date Admission Date: February 03, 2021 Subjective POD# 7 S/P reduction and repair of incarcerated right femoral with partial small bowel resection. Denies nausea and vomiting No bowel movement recorded for today. Tolerating liquid diet Physical Exam Gastrointestinal (Abdomen): Inspection/Auscultation: + abdomen distended (unchanged) and + abdominal surgical incision (clean, dry and intact) Percussion/Palpation: abdomen soft; abdomen nontender Results & Data ([facility]) Vital Signs (Past 12 Hours) Vital Signs Temp Pulse Pulse Resp BP Pulse Ox 02/10/21 07:47 37.4 C 81 20 147/79 H 95 02/10/21 06:43 36.8 C 02/10/21 03:30 92 H 25 H 97 Laboratory Results 02/10/21 02/10/21 02/10/21 Range/Units 12:05 08:59 08:59 WBC 28.99 H (4.8-10.8) K/uL RBC 4.59 L (4.7-6.1) M/uL Hgb 14.0 (14.0-18.0) g/dL Hct 41.3 L (42-52) % MCV 90.0 (80-100) fL MCH 30.5 (25-34) pg MCHC 33.9 (32-36) g/dL RDW Std Deviation 47.0 H (36.4-46.3) fL RDW Coeff of Marita 14.3 (11.5-14.5) % Plt Count 464 H (130-400) K/uL MPV 10.6 H (7.4-10.4) fL Sodium 141 (136-145) mmol/L Potassium 3.2 L (3.5-5.1) mmol/L Chloride 109 H (98-107) mmol/L Carbon Dioxide 26 (21-32) mmol/L Anion Gap 6.0 (3-11) BUN 10 (7-18) mg/dl Creatinine 0.77 (0.6-1.4) mg/dl Est Cr Clr Drug Dosing 95.0 ml/min Est GFR ( Amer) 106.6 ml/min Est GFR (Non-Af Amer) 91.9 ml/min BUN/Creatinine Ratio 13.5 (10-20) Glucose 159 H (70-99) mg/dl POC Glucose 172 H (70-99) mg/dl Calcium 9.8 (8.5-10.1) mg/dl Ammonia (11-32) umol/L TSH (0.300-4.500) uIu/ml 02/10/21 02/09/21 02/09/21 Range/Units 08:12 22:40 22:40 WBC (4.8-10.8) K/uL RBC (4.7-6.1) M/uL Hgb (14.0-18.0) g/dL Hct (42-52) % MCV (80-100) fL MCH (25-34) pg MCHC (32-36) g/dL RDW Std Deviation (36.4-46.3) fL RDW Coeff of Marita (11.5-14.5) % Plt Count (130-400) K/uL MPV (7.4-10.4) fL Sodium (136-145) mmol/L Potassium (3.5-5.1) mmol/L Chloride (98-107) mmol/L Carbon Dioxide (21-32) mmol/L Anion Gap (3-11) BUN (7-18) mg/dl Creatinine (0.6-1.4) mg/dl Est Cr Clr Drug Dosing ml/min Est GFR ( Amer) ml/min Est GFR (Non-Af Amer) ml/min BUN/Creatinine Ratio (10-20) Glucose (70-99) mg/dl POC Glucose 123 H (70-99) mg/dl Calcium (8.5-10.1) mg/dl Ammonia 34.5 H (11-32) umol/L TSH 1.630 (0.300-4.500) uIu/ml 02/09/21 02/09/21 Range/Units 20:01 16:50 WBC (4.8-10.8) K/uL RBC (4.7-6.1) M/uL Hgb (14.0-18.0) g/dL Hct (42-52) % MCV (80-100) fL MCH (25-34) pg MCHC (32-36) g/dL RDW Std Deviation (36.4-46.3) fL RDW Coeff of Marita (11.5-14.5) % Plt Count (130-400) K/uL MPV (7.4-10.4) fL Sodium (136-145) mmol/L Potassium (3.5-5.1) mmol/L Chloride (98-107) mmol/L Carbon Dioxide (21-32) mmol/L Anion Gap (3-11) BUN (7-18) mg/dl Creatinine (0.6-1.4) mg/dl Est Cr Clr Drug Dosing ml/min Est GFR ( Amer) ml/min Est GFR (Non-Af Amer) ml/min BUN/Creatinine Ratio (10-20) Glucose (70-99) mg/dl POC Glucose 154 H 122 H (70-99) mg/dl Calcium (8.5-10.1) mg/dl Ammonia (11-32) umol/L TSH (0.300-4.500) uIu/ml
--- NOTE | 2021-02-10 16:45 | Hospitalist Progress Note ---
Date of Service February 10, 2021 Assessment & Plan (1) Incarcerated inguinal hernia: Severe sepsis with gram-negative bacteremia: Secondary to incarcerated rt inguinal hernia leading to bowel ischemia Blood culture 02/05: Enterococcus ; repeat blood cultures 02/07 no growth Initially received IV cefepime and Flagyl that discontinued ID on board that recommended to continue Zosyn (day 5) for 14 days High-grade small bowel obstruction Incarcerated femoral hernia: CT ABD/pelvis on admission:High-grade small bowel obstruction with a transition zone at the level of an incarcerated right inguinal hernia. Status post exploratory laparotomy, postoperative day#7 Case discussed with surgery that recommended to continue clear liquid diet Leukocytosis: C. difficile negative WBC 28K today Monitor closely Lactic Acidosis Resolved likely secondary to bowel ischemia/sepsis -normal lactate acid level after receiving adequate fluid resuscitation Acute hypoxemic respiratory failure Possible secondary to severe sepsis with multifocal pneumonia/intubated perioperatively, and postoperatively. Extubated 02/06/2021, on room air Negative COVID screen CTA:No evidence of acute pulmonary embolism given the technical limitations of the study. Multifocal groundglass pulmonary opacities suspicious for multifocal pneumonia. Dilated fluid-filled stomach and esophagus Antibiotic as above Acute kidney injury Resolved after IV hydration Due to bowel obstruction/ischemia, sepsis. Avoid nephrotoxic agents as able DM Type II: Last A1c:7.7 on Oct 12 Metformin on hold, NovoLog per protocol while hospitalized Transaminitis Continues to improve Left hepatic lobe mass Left adrenal nodule Incidental Findings on CT scan CT abd: Interval development of an indeterminate 46 mm ill-defined left hepatic lobe mass. Indeterminate 24 mm left adrenal nodule Further work-up as outpatient DVT prophylaxis Subcu heparin Thank you for this consultation. We will follow the patient with you during their hospital stay. You can reach a member of the [facility] Hospitalist Team 16/04 via the [facility] Hospitalist role in [place] Text. Admission and Anticipated Discharge Date Admission Date: February 03, 2021 Subjective Pt was seen and examined for follow of inguinal hernia Lying in bed with no acute distress with sister at bedside Pt said that he feels ok Denies any chest pain, palpitation, dizziness and SOB Review of Systems Review of Systems: All systems reviewed & are unremarkable except as noted in Subjective Physical Exam Physical Exam: General- No acute distress Head- atraumatic Eyes- PERRL, EOMI, ENT- oropharynx clear Neck- supple, no JVD Lungs- clear to auscultation Heart- regular rhythm; no murmur Abdomen- normal bowel sounds, soft, nontender Pelvis- right inguinal surgical braxton intact Extremities- no calf tenderness Neuro- alert, oriented x 3; PERRL, EOMI; no facial palsy; no dysarthria Skin- warm & dry Results & Data Results & Data ([facility]) Vital Signs (Past 12 Hours) Vital Signs Temp Pulse Resp BP Pulse Ox 02/10/21 15:54 36.7 C 93 H 14 143/84 H 92 02/10/21 07:47 37.4 C 81 20 147/79 H 95 02/10/21 06:43 36.8 C
[2021-02-10] MEDS: FAMOTIDINE 20 MG TAB PO SCH (21:21)
[2021-02-10] MEDS ORDERED: ACETAMINOPHEN 325 MG TAB PO PRN (22:01)
[2021-02-10] MEDS ORDERED: POTASSIUM CHLORIDE 40 MEQ in SODIUM CHLORIDE 0.45 % 1,000 ML IV ONE (22:30)
[2021-02-10] MEDS: NIFEdipine EXTENDED REL 30 MG TABCR PO SCH (22:47)
[2021-02-10 22:58] LABS: Albumin Level 2.5 gm/dl (3.4-5.0); BUN Creatinine Ratio 14.5 (10-20); Calcium 9.7 mg/dl (8.5-10.1); Est GFR (African American) 118.9 ml/min; Est GFR (Non-African American) 102.6 ml/min; Magnesium 1.9 mg/dl (1.8-2.4); Potassium 3.3 mmol/L (3.5-5.1)
[2021-02-10 23:01] LABS: Albumin Globulin Ratio 0.7 (0.9-2); Bilirubin,Total 0.5 mg/dl (0.2-1); Globulin 3.7 gm/dl (2.5-4.0); Total Protein 6.2 gm/dl (6.4-8.2)
[2021-02-10] MEDS ORDERED: MAGNESIUM SULFATE / D5W 1 GM/100 ML BAG IV ONE (23:43)
[2021-02-10] MEDS ORDERED: LACTULOSE SYRUP 20 GM/30 ML UDC PO STA (23:43)
[2021-02-11] MEDS: PIPERACILLIN/TAZOBACTAM 4.5 GM in DEXTROSE 5% 100 ML IV SCH ×3 (05:43→22:29)
--- NOTE | 2021-02-11 07:27 | Surgery Progress Note ---
Date of Service February 11, 2021 Assessment & Plan (1) Incarcerated femoral hernia: POD# 8 S/P reduction and repair of incarcerated right femoral with partial small bowel resection. Abdominal exam is stable WBC Pending, Had mild temperature elevation last evening Would Advance to full liquid diet Encouraged ambulation Continue antibiotics Admission and Anticipated Discharge Date Admission Date: February 03, 2021 Subjective Postoperative day #8 status post reduction and repair of incarcerated right femoral hernia with partial small bowel resection Denies abdominal pain Had some mild nausea today but no vomiting 8 breakfast and lunch well yesterday according to nursing but did not eat quite as well for dinner Had 3 bowel movements this morning. He has been given lactulose yesterday States that he is hungry Physical Exam Gastrointestinal (Abdomen): Inspection/Auscultation: + abdomen distended (Unchanged) and + abdominal surgical incision (Clean, dry and intact) Percussion/Palpation: abdomen soft; abdomen nontender Results & Data ([facility]) Vital Signs (Past 12 Hours) Vital Signs Temp Pulse Pulse Resp BP Pulse Ox 02/11/21 07:02 37.2 C 95 H 20 154/80 H 95 02/11/21 06:28 37.3 C 02/11/21 02:37 94 H 12 93 02/10/21 22:54 38.1 C H 83 18 138/83 93 02/10/21 22:26 88 20 96 02/10/21 21:08 38.3 C H 100 H 20 156/79 H 96 02/10/21 21:00 104 H 22 94
[2021-02-11] MEDS: FAMOTIDINE 20 MG TAB PO SCH ×2 (09:25→20:48)
[2021-02-11] MEDS: LOSARTAN POTASSIUM 25 MG TAB PO SCH (09:25)
[2021-02-11] MEDS: INSULIN ASPART 100 UNITS/ML 3 ML PEN SC SCH ×4 (09:26→20:49)
[2021-02-11] MEDS: HEPARIN SOD 5,000 UNIT/0.5 ML VIAL SQ SCH ×2 (09:26→20:49)
--- NOTE | 2021-02-11 11:29 | Pharmacy Report ---
Pharmacy Glycemic Sign Off Nt - Date of Service February 11, 2021 - Assessment & Plan ASSESSMENT: * Pharmacy was consulted by Sanjuana Sheppard PA-C on 02/04/21 for glycemic control and to write orders per [facility] inpatient glycemic control protocol. * Patient has been receiving 8-22 units of insulin per day for adequate glycemic control * BSGs ranging 97 172 mg/dl * Regimen has required no adjustments over the past 48hrs to achieve this level of control * Please see recommendations for outpatient antidiabetic regimen below. PLAN FOR INPATIENT GLYCEMIC CONTROL: No changes needed to current regimen. * Continue NovoLog per scale ACHS/Q6hrs while NPO * Goal range = 110 140 mg/dl * CF = 25 mg/dl/unit * CR = 1 unit for ever 9 g CHO consumed * Pharmacy is signing off of glycemic consult and will no longer be making adjustments to inpatient regimen. Please feel free to re-consult if needed. Thank you. DISCHARGE RECOMMENDATIONS: * A1c 7 % on 02/04/21 - patient may resume outpatient therapy if no new contraindications exist.
[2021-02-11 12:19] LABS: Hematocrit (blood only) 39.3 % (42-52); Hemoglobin 13.1 g/dL (14.0-18.0); Mean Corpuscular Hemoglobin 30.3 pg (25-34); Mean Corpuscular Hgb Conc 33.3 g/dL (32-36); Mean Corpuscular Volume 90.8 fL (80-100); Mean Platelet Volume 10.2 fL (7.4-10.4); Platelet Count 453 K/uL (130-400); RDW Coefficient of Variation 14.5 % (11.5-14.5); Red Blood Count 4.33 M/uL (4.7-6.1); White Blood Count 40.38 K/uL (4.8-10.8)
[2021-02-11 12:27] LABS: BUN Creatinine Ratio 18.4 (10-20); Calcium 9.1 mg/dl (8.5-10.1); Creatinine Clr Calc Pharmacy 120.5 ml/min; Est GFR (African American) 118.1 ml/min; Est GFR (Non-African American) 101.9 ml/min; Magnesium 2.2 mg/dl (1.8-2.4); Potassium 3.7 mmol/L (3.5-5.1)
[2021-02-11 12:28] LABS: Phosphorus 2.3 mg/dl (2.5-4.9)
--- NOTE | 2021-02-11 16:21 | XRay Report ---
XR chest 1V portable HISTORY: Shortness of breath. COMPARISON: Chest 02/06/2021. FINDINGS: No pneumothorax. No pleural effusions. The heart is normal in size. Improved aeration withi n the mid lung zone airspace opacities. No pleural effusions. No pneumothorax. There is a left should er prosthesis. Mild interstitial thickening which is likely chronic. IMPRESSION: Improved aeration within the mid lung zone airspace opacities. This likely represents a resolving pne umonia. ACT 112: Negative or not required by law. Electronically signed by: Daryn Browning M.D. 02/11/2021 4:20 PM
--- NOTE | 2021-02-11 21:18 | Hospitalist Progress Note ---
Date of Service February 11, 2021 Assessment & Plan (1) Incarcerated inguinal hernia: Severe sepsis with gram-negative bacteremia: Secondary to incarcerated rt inguinal hernia leading to bowel ischemia Blood culture 02/05: Enterococcus ; repeat blood cultures 02/07 no growth Initially received IV cefepime and Flagyl that discontinued ID on board that recommended to continue Zosyn for 14 days High-grade small bowel obstruction Incarcerated femoral hernia: CT ABD/pelvis on admission:High-grade small bowel obstruction with a transition zone at the level of an incarcerated right inguinal hernia. Surgery on board Diet advanced to full liquid Leukocytosis: Possible secondary to gram-negative bacteremia/peritonitis/sepsis? No source of infection noted, WBC worsening If WBC does not trending down, will consider to get a TTE in am Lactic Acidosis Resolved likely secondary to bowel ischemia/sepsis -normal lactate acid level after receiving adequate fluid resuscitation Acute hypoxemic respiratory failure Possible secondary to severe sepsis with multifocal pneumonia/intubated perioperatively, and postoperatively. Extubated 02/06/2021, on room air Negative COVID screen CTA:No evidence of acute pulmonary embolism given the technical limitations of the study. Multifocal groundglass pulmonary opacities suspicious for multifocal pneumonia. Dilated fluid-filled stomach and esophagus Antibiotic as above Acute kidney injury Resolved after IV hydration Due to bowel obstruction/ischemia, sepsis. Avoid nephrotoxic agents as able DM Type II: Last A1c:7.7 on Oct 12 Metformin on hold, NovoLog per protocol while hospitalized Transaminitis Continues to improve Left hepatic lobe mass Left adrenal nodule Incidental Findings on CT scan CT abd: Interval development of an indeterminate 46 mm ill-defined left hepatic lobe mass. Indeterminate 24 mm left adrenal nodule Further work-up as outpatient DVT prophylaxis Subcu heparin Admission and Anticipated Discharge Date Admission Date: February 03, 2021 Subjective Pt was seen and examined for follow up of elevated WBC Sitting in chair with no distress Pt said that he is having a lot of hiccups that affect his breathing Denies any chest pain, palpitation, dizziness and fever Review of Systems Review of Systems: All systems reviewed & are unremarkable except as noted in Subjective Physical Exam Physical Exam: General- No acute distress Head- atraumatic Eyes- PERRL, EOMI, ENT- oropharynx clear Neck- supple, no JVD Lungs- clear to auscultation Heart- regular rhythm; no murmur Abdomen- normal bowel sounds, soft, nontender Pelvis- right inguinal surgical braxton intact Extremities- no calf tenderness Neuro- alert, oriented x 3; PERRL, EOMI; no facial palsy; no dysarthria Skin- warm & dry Results & Data Results & Data ([facility]) Vital Signs (Past 12 Hours) Vital Signs Temp Pulse Resp BP Pulse Ox 02/11/21 15:57 37.2 C 92 H 20 143/79 H 93 02/11/21 15:08 88 20 95 02/11/21 14:43 93
[2021-02-11] MEDS ORDERED: POTASSIUM PHOS 3 MMOL/1 ML INFUSION IV STA (21:34)
[2021-02-11] MEDS ORDERED: POTASSIUM PHOSPHATE 15 MMOL in SODIUM CHLORIDE 0.9% 250 ML IV ONE (22:00)
[2021-02-12] MEDS: PIPERACILLIN/TAZOBACTAM 4.5 GM in DEXTROSE 5% 100 ML IV SCH ×3 (05:56→21:23)
[2021-02-12 07:04] LABS: Hematocrit (blood only) 37.3 % (42-52); Hemoglobin 12.2 g/dL (14.0-18.0); Mean Corpuscular Hemoglobin 29.6 pg (25-34); Mean Corpuscular Hgb Conc 32.7 g/dL (32-36); Mean Corpuscular Volume 90.5 fL (80-100); Mean Platelet Volume 10.4 fL (7.4-10.4); Platelet Count 419 K/uL (130-400); RDW Coefficient of Variation 14.7 % (11.5-14.5); RDW Standard Deviation 48.1 fL (36.4-46.3); Red Blood Count 4.12 M/uL (4.7-6.1)
[2021-02-12 07:34] LABS: Phosphorus 2.6 mg/dl (2.5-4.9)
[2021-02-12] MEDS: HEPARIN SOD 5,000 UNIT/0.5 ML VIAL SQ SCH ×2 (09:11→21:23)
[2021-02-12] MEDS: NIFEdipine EXTENDED REL 30 MG TABCR PO SCH (09:11)
[2021-02-12] MEDS: INSULIN ASPART 100 UNITS/ML 3 ML PEN SC SCH ×4 (09:11→21:40)
[2021-02-12] MEDS: FAMOTIDINE 20 MG TAB PO SCH ×2 (09:11→21:23)
[2021-02-12] MEDS: LOSARTAN POTASSIUM 25 MG TAB PO SCH (09:11)
--- NOTE | 2021-02-12 10:33 | Surgery Progress Note ---
Date of Service February 12, 2021 Assessment & Plan (1) Incarcerated femoral hernia: POD# 9 S/P reduction and repair of incarcerated right femoral with partial small bowel resection. Abdominal exam is stable WBC 28.5 (improved from 40 yesterday) Would Advance to low fiber diet Encouraged ambulation Continue antibiotics Admission and Anticipated Discharge Date Admission Date: February 03, 2021 Subjective POD#9 exp lap, fem hernia repair, partial bowel resection. Overall, doing well. Laying in bed. States bowels are functioning, having loose stools. Tolerated advancement of diet. No nausea/ vomiting. Pain is well controlled. CXR done yesterday shows resolving pneumonia. Review of Systems Review of Systems: All systems reviewed & are unremarkable except as noted in HPI & below Physical Exam Constitutional: + obese; no acute distress Respiratory: normal respiratory effort, lungs clear to auscultation Cardiovascular: RRR, no murmur, no edema Gastrointestinal (Abdomen): Inspection/Auscultation: abdomen normal to inspection, normal bowel sounds and + abdominal surgical incision (clean and intact); abdomen not distended Percussion/Palpation: abdomen soft; abdomen nontender Neurologic: moves all extremities and awake Psychiatric: A+Ox3, euthymic affect Results & Data ([facility]) Vital Signs (Past 12 Hours) Vital Signs Temp Pulse Resp BP Pulse Ox 02/12/21 08:05 36.7 C 77 18 125/71 92 02/11/21 23:11 37.2 C 96 H 16 135/74 97
--- NOTE | 2021-02-12 16:52 | Hospitalist Progress Note ---
Date of Service February 12, 2021 Assessment & Plan (1) Incarcerated inguinal hernia: Severe sepsis with gram-negative bacteremia: Secondary to incarcerated rt inguinal hernia leading to bowel ischemia Blood culture 02/05: Enterococcus ; repeat blood cultures 02/07 no growth Initially received IV cefepime and Flagyl that discontinued ID on board that recommended to continue Zosyn for 14 days High-grade small bowel obstruction Incarcerated femoral hernia: CT ABD/pelvis on admission:High-grade small bowel obstruction with a transition zone at the level of an incarcerated right inguinal hernia. Surgery on board Diet advanced to low fiber, tolerated well so far Leukocytosis: Possible secondary to gram-negative bacteremia/peritonitis/sepsis? No source of infection note WBC improved from 40k to 28K today If WBC does not trending down, will consider to get a TTE in am Lactic Acidosis Resolved likely secondary to bowel ischemia/sepsis -normal lactate acid level after receiving adequate fluid resuscitation Acute hypoxemic respiratory failure Possible secondary to severe sepsis with multifocal pneumonia/intubated perioperatively, and postoperatively. Extubated 02/06/2021, on room air Negative COVID screen CTA:No evidence of acute pulmonary embolism given the technical limitations of the study. Multifocal groundglass pulmonary opacities suspicious for multifocal pneumonia. Dilated fluid-filled stomach and esophagus Antibiotic as above Acute kidney injury Resolved after IV hydration Due to bowel obstruction/ischemia, sepsis. Avoid nephrotoxic agents as able DM Type II: Last A1c:7.7 on Oct 12 Metformin on hold, NovoLog per protocol while hospitalized Transaminitis Continues to improve Left hepatic lobe mass Left adrenal nodule Incidental Findings on CT scan CT abd: Interval development of an indeterminate 46 mm ill-defined left hepatic lobe mass. Indeterminate 24 mm left adrenal nodule Further work-up as outpatient DVT prophylaxis Subcu heparin Admission and Anticipated Discharge Date Admission Date: February 03, 2021 Subjective Pt was seen and examined for follow up of elevated WBC Sitting in chair with no distress Pt said that he had a good meal today He said that the hiccups are less Denies any chest pain, palpitation, dizziness and SOB Review of Systems Review of Systems: All systems reviewed & are unremarkable except as noted in Subjective Physical Exam Physical Exam: General- No acute distress Head- atraumatic Eyes- PERRL, EOMI, ENT- oropharynx clear Neck- supple, no JVD Lungs- clear to auscultation Heart- regular rhythm; no murmur Abdomen- normal bowel sounds, soft, nontender Pelvis- right inguinal surgical braxton intact Extremities- no calf tenderness Neuro- alert, oriented x 3; PERRL, EOMI; no facial palsy; no dysarthria Skin- warm & dry Results & Data Results & Data ([facility]) Vital Signs (Past 12 Hours) Vital Signs Temp Pulse Resp BP Pulse Ox 02/12/21 16:21 37.5 C 77 18 144/63 H 92 02/12/21 08:05 36.7 C 77 18 125/71 92
[2021-02-13] MEDS: PIPERACILLIN/TAZOBACTAM 4.5 GM in DEXTROSE 5% 100 ML IV SCH ×3 (05:38→21:35)
[2021-02-13 08:34] LABS: Hematocrit (blood only) 37.7 % (42-52); Hemoglobin 12.5 g/dL (14.0-18.0); Mean Corpuscular Hemoglobin 29.7 pg (25-34); Mean Corpuscular Hgb Conc 33.2 g/dL (32-36); Mean Corpuscular Volume 89.5 fL (80-100); Mean Platelet Volume 10.1 fL (7.4-10.4); Platelet Count 421 K/uL (130-400); RDW Coefficient of Variation 14.7 % (11.5-14.5); RDW Standard Deviation 47.1 fL (36.4-46.3); Red Blood Count 4.21 M/uL (4.7-6.1); White Blood Count 23.37 K/uL (4.8-10.8)
[2021-02-13] MEDS: HEPARIN SOD 5,000 UNIT/0.5 ML VIAL SQ SCH ×2 (08:56→21:07)
[2021-02-13] MEDS: LOSARTAN POTASSIUM 25 MG TAB PO SCH (08:56)
[2021-02-13] MEDS: NIFEdipine EXTENDED REL 30 MG TABCR PO SCH (08:56)
[2021-02-13] MEDS: FAMOTIDINE 20 MG TAB PO SCH ×2 (08:56→21:07)
[2021-02-13] MEDS: INSULIN ASPART 100 UNITS/ML 3 ML PEN SC SCH ×4 (08:57→21:07)
--- NOTE | 2021-02-13 10:51 | Surgery Progress Note ---
Date of Service February 13, 2021 Assessment & Plan (1) Incarcerated femoral hernia: POD# 10 S/P reduction and repair of incarcerated right femoral with partial small bowel resection. Abdominal exam is stable WBC 23.37 - continues to slowly improve. Tolerating low fiber diet Encouraged ambulation Continue antibiotics Discharge planing. Admission and Anticipated Discharge Date Admission Date: February 03, 2021 Subjective Overall feels well. Tolerating diet. Having loose bowel movements in the morning. Feels weak and lives alone - wondering about rehab when he is ready for discharge. Physical Exam Constitutional: + obese; no acute distress Respiratory: normal respiratory effort, lungs clear to auscultation Cardiovascular: RRR, no murmur, no edema Gastrointestinal (Abdomen): Inspection/Auscultation: abdomen normal to inspection, normal bowel sounds and + abdominal surgical incision (clean and intact); abdomen not distended Percussion/Palpation: abdomen soft; abdomen nontender Neurologic: moves all extremities and awake Psychiatric: A+Ox3, euthymic affect Results & Data ([facility]) Vital Signs (Past 12 Hours) Vital Signs Temp Pulse Resp BP Pulse Ox 02/13/21 07:43 36.8 C 93 H 18 131/72 93 Laboratory Results Abnormal lab results 02/12/21 02/12/21 02/12/21 Range/Units 12:27 17:23 20:33 WBC (4.8-10.8) K/uL RBC (4.7-6.1) M/uL Hgb (14.0-18.0) g/dL Hct (42-52) % RDW Std Deviation (36.4-46.3) fL RDW Coeff of Marita (11.5-14.5) % Plt Count (130-400) K/uL POC Glucose 143 H 140 H 114 H (70-99) mg/dl 02/13/21 02/13/21 Range/Units 08:21 08:24 WBC 23.37 H (4.8-10.8) K/uL RBC 4.21 L (4.7-6.1) M/uL Hgb 12.5 L (14.0-18.0) g/dL Hct 37.7 L (42-52) % RDW Std Deviation 47.1 H (36.4-46.3) fL RDW Coeff of Marita 14.7 H (11.5-14.5) % Plt Count 421 H (130-400) K/uL POC Glucose 124 H (70-99) mg/dl
--- NOTE | 2021-02-13 15:53 | Hospitalist Progress Note ---
Date of Service February 13, 2021 Assessment & Plan (1) Incarcerated inguinal hernia: Severe sepsis with gram-negative bacteremia: Secondary to incarcerated rt inguinal hernia leading to bowel ischemia Blood culture 02/05: Enterococcus ; repeat blood cultures 02/07 no growth Initially received IV cefepime and Flagyl that discontinued ID on board that recommended to continue Zosyn for 14 days High-grade small bowel obstruction Incarcerated femoral hernia: CT ABD/pelvis on admission:High-grade small bowel obstruction with a transition zone at the level of an incarcerated right inguinal hernia. Surgery on board Diet advanced to low fiber, tolerated well so far Leukocytosis: Possible secondary to gram-negative bacteremia/peritonitis/sepsis? No source of infection note WBC continued trending down to 23K If WBC does not trending down, will consider to get a TTE in am Lactic Acidosis Resolved likely secondary to bowel ischemia/sepsis -normal lactate acid level after receiving adequate fluid resuscitation Acute hypoxemic respiratory failure Possible secondary to severe sepsis with multifocal pneumonia/intubated perioperatively, and postoperatively. Extubated 02/06/2021, on room air Negative COVID screen CTA:No evidence of acute pulmonary embolism given the technical limitations of the study. Multifocal groundglass pulmonary opacities suspicious for multifocal pneumonia. Dilated fluid-filled stomach and esophagus Antibiotic as above Acute kidney injury Resolved after IV hydration Due to bowel obstruction/ischemia, sepsis. Avoid nephrotoxic agents as able DM Type II: Last A1c:7.7 on Oct 12 Metformin on hold, NovoLog per protocol while hospitalized Transaminitis Continues to improve Left hepatic lobe mass Left adrenal nodule Incidental Findings on CT scan CT abd: Interval development of an indeterminate 46 mm ill-defined left hepatic lobe mass. Indeterminate 24 mm left adrenal nodule Further work-up as outpatient DVT prophylaxis Subcu heparin Disposition Will benefit to go to rehab to complete the abx course Admission and Anticipated Discharge Date Admission Date: February 03, 2021 Subjective Pt was seen and examined for follow up elevated WBC Lying in bed with no distress resting comfortable Pt said that he feels fine He said that he lives alone and he is interested to go to rehab Denies any chest pain, palpitation, dizziness and SOB Review of Systems Review of Systems: All systems reviewed & are unremarkable except as noted in Subjective Physical Exam Physical Exam: General- No acute distress Head- atraumatic Eyes- PERRL, EOMI, ENT- oropharynx clear Neck- supple, no JVD Lungs- clear to auscultation Heart- regular rhythm; no murmur Abdomen- normal bowel sounds, soft, nontender Pelvis- right inguinal surgical braxton intact Extremities- no calf tenderness Neuro- alert, oriented x 3; PERRL, EOMI; no facial palsy; no dysarthria Skin- warm & dry Results & Data Results & Data ([facility]) Vital Signs (Past 12 Hours) Vital Signs Temp Pulse Resp BP Pulse Ox 02/13/21 15:22 37.4 C 101 H 18 145/79 H 99 02/13/21 07:43 36.8 C 93 H 18 131/72 93
[2021-02-14] MEDS: PIPERACILLIN/TAZOBACTAM 4.5 GM in DEXTROSE 5% 100 ML IV SCH ×3 (05:59→20:37)
[2021-02-14 08:28] LABS: Basophils # (auto) 0.03 K/uL (0-0.2); Basophils % (auto) 0.2 %; Eosinophils # (auto) 0.14 K/uL (0-0.5); Eosinophils % (auto) 0.8 %; Hematocrit (blood only) 38.7 % (42-52); Hemoglobin 12.7 g/dL (14.0-18.0); Immature Granulocytes # (auto) 0.11 K/uL (0.00-0.02); Immature Granulocytes % (auto) 0.6 %; Lymphocytes # (auto) 2.75 K/uL (1.2-3.4); Lymphocytes % (auto) 15.5 %; Mean Corpuscular Hemoglobin 29.9 pg (25-34); Mean Corpuscular Hgb Conc 32.8 g/dL (32-36); Mean Corpuscular Volume 91.1 fL (80-100); Mean Platelet Volume 10.4 fL (7.4-10.4); Monocytes # (auto) 1.07 K/uL (0.11-0.59); Neutrophils # (auto) 13.59 K/uL (1.4-6.5); Neutrophils % (auto) 76.9 %; Platelet Count 500 K/uL (130-400); RDW Coefficient of Variation 14.8 % (11.5-14.5); RDW Standard Deviation 48.2 fL (36.4-46.3); Red Blood Count 4.25 M/uL (4.7-6.1); White Blood Count 17.69 K/uL (4.8-10.8)
[2021-02-14] MEDS: LOSARTAN POTASSIUM 25 MG TAB PO SCH (09:10)
[2021-02-14] MEDS: NIFEdipine EXTENDED REL 30 MG TABCR PO SCH (09:10)
[2021-02-14] MEDS: HEPARIN SOD 5,000 UNIT/0.5 ML VIAL SQ SCH ×2 (09:11→20:38)
[2021-02-14] MEDS: FAMOTIDINE 20 MG TAB PO SCH ×2 (09:11→20:38)
[2021-02-14] MEDS: INSULIN ASPART 100 UNITS/ML 3 ML PEN SC SCH ×4 (09:12→20:48)
--- NOTE | 2021-02-14 13:08 | Surgery Progress Note ---
Date of Service February 14, 2021 Assessment & Plan (1) Incarcerated femoral hernia: postoperative day 11. Status post reduction and repair of incarcerated right femoral hernia with partial small-bowel resection Peristalsis has returned Tolerating low-fiber diet without nausea or vomiting Bowels are moving WBC has again decreased today Incisions are clean and dry Encourage ambulation Admission and Anticipated Discharge Date Admission Date: February 03, 2021 Subjective Postoperative day 11 status post open reduction and repair of incarcerated right femoral hernia with partial small-bowel resection Patient sitting in the chair today Appears more awake and alert Denies nausea and vomiting Has been tolerating eating all of his soft diet Bowel movements have been recorded No nausea or vomiting Physical Exam Gastrointestinal (Abdomen): Inspection/Auscultation: normal bowel sounds and + abdominal surgical incision ( clean, dry and intact); abdomen not distended Percussion/Palpation: abdomen soft; abdomen nontender Results & Data ([facility]) Vital Signs (Past 12 Hours) Vital Signs Temp Pulse Resp BP Pulse Ox 02/14/21 08:35 36.7 C 96 H 18 148/79 H 97 Laboratory Results 02/14/21 02/14/21 02/14/21 Range/Units 12:01 08:33 07:52 WBC 17.69 H (4.8-10.8) K/uL RBC 4.25 L (4.7-6.1) M/uL Hgb 12.7 L (14.0-18.0) g/dL Hct 38.7 L (42-52) % MCV 91.1 (80-100) fL MCH 29.9 (25-34) pg MCHC 32.8 (32-36) g/dL RDW Std Deviation 48.2 H (36.4-46.3) fL RDW Coeff of Marita 14.8 H (11.5-14.5) % Plt Count 500 H (130-400) K/uL MPV 10.4 (7.4-10.4) fL Immature Gran % (Auto) 0.6 % Neut % (Auto) 76.9 % Lymph % (Auto) 15.5 % Sheridan % (Auto) 6.0 % Eos % (Auto) 0.8 % Baso % (Auto) 0.2 % Neut # (Auto) 13.59 H (1.4-6.5) K/uL Lymph # (Auto) 2.75 (1.2-3.4) K/uL Sheridan # (Auto) 1.07 H (0.11-0.59) K/uL Eos # (Auto) 0.14 (0-0.5) K/uL Baso # (Auto) 0.03 (0-0.2) K/uL Immature Gran # (Auto) 0.11 H (0.00-0.02) K/uL POC Glucose 185 H 128 H (70-99) mg/dl 02/13/21 02/13/21 Range/Units 20:18 17:07 WBC (4.8-10.8) K/uL RBC (4.7-6.1) M/uL Hgb (14.0-18.0) g/dL Hct (42-52) % MCV (80-100) fL MCH (25-34) pg MCHC (32-36) g/dL RDW Std Deviation (36.4-46.3) fL RDW Coeff of Marita (11.5-14.5) % Plt Count (130-400) K/uL MPV (7.4-10.4) fL Immature Gran % (Auto) % Neut % (Auto) % Lymph % (Auto) % Sheridan % (Auto) % Eos % (Auto) % Baso % (Auto) % Neut # (Auto) (1.4-6.5) K/uL Lymph # (Auto) (1.2-3.4) K/uL Sheridan # (Auto) (0.11-0.59) K/uL Eos # (Auto) (0-0.5) K/uL Baso # (Auto) (0-0.2) K/uL Immature Gran # (Auto) (0.00-0.02) K/uL POC Glucose 112 H 104 H (70-99) mg/dl
--- NOTE | 2021-02-14 16:53 | Hospitalist Progress Note ---
Date of Service February 14, 2021 Assessment & Plan (1) Incarcerated inguinal hernia: Severe sepsis with gram-negative bacteremia: Secondary to incarcerated rt inguinal hernia leading to bowel ischemia Blood culture 02/05: Enterococcus ; repeat blood cultures 02/07 no growth Initially received IV cefepime and Flagyl that discontinued ID on board that recommended to continue Zosyn for 14 days High-grade small bowel obstruction Incarcerated femoral hernia Postoperative day 11. Status post reduction and repair of incarcerated right femoral hernia with partial small-bowel resection CT ABD/pelvis on admission:High-grade small bowel obstruction with a transition zone at the level of an incarcerated right inguinal hernia. Surgery on board Diet advanced to low fiber, tolerated well so far Leukocytosis: Possible secondary to gram-negative bacteremia/peritonitis/sepsis? No source of infection note WBC continued trending down to 17K If WBC does not trending down, will consider to get a TTE in am Lactic Acidosis Resolved likely secondary to bowel ischemia/sepsis -normal lactate acid level after receiving adequate fluid resuscitation Acute hypoxemic respiratory failure Possible secondary to severe sepsis with multifocal pneumonia/intubated perioperatively, and postoperatively. Extubated 02/06/2021, on room air Negative COVID screen CTA:No evidence of acute pulmonary embolism given the technical limitations of the study. Multifocal groundglass pulmonary opacities suspicious for multifocal pneumonia. Dilated fluid-filled stomach and esophagus Antibiotic as above Acute kidney injury Resolved after IV hydration Due to bowel obstruction/ischemia, sepsis. Avoid nephrotoxic agents as able DM Type II: Last A1c:7.7 on Oct 12, Metformin on hold, NovoLog per protocol while hospitalized Transaminitis Continues to improve Left hepatic lobe mass Left adrenal nodule Incidental Findings on CT scan CT abd: Interval development of an indeterminate 46 mm ill-defined left hepatic lobe mass. Indeterminate 24 mm left adrenal nodule Further work-up as outpatient DVT prophylaxis Subcu heparin Disposition Plan to transition to rehab tomorrow Admission and Anticipated Discharge Date Admission Date: February 03, 2021 Subjective Pt was seen and examined for follow up elevated WBC Lying in bed with no distress resting comfortable Pt said that he feels fine and tolerated his diet Plan to transition to rehab Denies any chest pain, palpitation, dizziness and SOB Review of Systems Review of Systems: All systems reviewed & are unremarkable except as noted in Subjective Physical Exam Physical Exam: General- No acute distress Head- atraumatic Eyes- PERRL, EOMI, ENT- oropharynx clear Neck- supple, no JVD Lungs- clear to auscultation Heart- regular rhythm; no murmur Abdomen- normal bowel sounds, soft, nontender Pelvis- right inguinal surgical braxton intact Extremities- no calf tenderness Neuro- alert, oriented x 3; PERRL, EOMI; no facial palsy; no dysarthria Skin- warm & dry Results & Data Results & Data ([facility]) Vital Signs (Past 12 Hours) Vital Signs Temp Pulse Resp BP Pulse Ox 02/14/21 08:35 36.7 C 96 H 18 148/79 H 97
[2021-02-15] MEDS: PIPERACILLIN/TAZOBACTAM 4.5 GM in DEXTROSE 5% 100 ML IV SCH ×2 (05:17→14:41)
[2021-02-15] MEDS: HEPARIN SOD 5,000 UNIT/0.5 ML VIAL SQ SCH (08:10)
[2021-02-15] MEDS: FAMOTIDINE 20 MG TAB PO SCH (08:11)
[2021-02-15] MEDS: LOSARTAN POTASSIUM 25 MG TAB PO SCH (08:11)
[2021-02-15] MEDS: NIFEdipine EXTENDED REL 30 MG TABCR PO SCH (08:11)
[2021-02-15 11:09] LABS: Hematocrit (blood only) 42.5 % (42-52); Hemoglobin 14.2 g/dL (14.0-18.0); Mean Corpuscular Hemoglobin 30.6 pg (25-34); Mean Corpuscular Hgb Conc 33.4 g/dL (32-36); Mean Corpuscular Volume 91.6 fL (80-100); Mean Platelet Volume 10.3 fL (7.4-10.4); Platelet Count 620 K/uL (130-400); Red Blood Count 4.64 M/uL (4.7-6.1); White Blood Count 17.49 K/uL (4.8-10.8)
--- NOTE | 2021-02-15 14:19 | Progress Note ---
Date of Service pt is doing fine, no abdominal pain, not pass BM yet, no fever, February 15, 2021 Assessment & Plan (1) Incarcerated femoral hernia: postoperative day 11. Status post reduction and repair of incarcerated right femoral hernia with partial small-bowel resection Peristalsis has returned Tolerating low-fiber diet without nausea or vomiting Bowels are moving WBC has again decreased today Incisions are clean and dry Encourage ambulation 02/15/2021 2:18PM postoperative day 12. Status post reduction and repair of incarcerated right femoral hernia with partial small-bowel resection Peristalsis has returned Tolerating low-fiber diet without nausea or vomiting no Bowels moving yet WBC has again decreased today Incisions are clean and dry Encourage ambulation miralax. will F/U Admission and Anticipated Discharge Date Admission Date: February 03, 2021 Supervising Physician Co-Signing Physician Notes Pt was seen and examined. Agreed with Tejal VASQUEZ exam, assessment and plan. S/P day 6 reduction and repair of incarcerated right femoral with partial small bowel resection. Currently denies any chest pain, palpitation, dizziness and fever. WBC 29K today. ID was consulted and recommended to continue IV Zosyn to complete 14 days course. Will start on clear liquid diet by surgery. No arrhythmia noted on tele monitor. [facility] PT/OT eval and fall precaution. Will continue monitor while in the hospital. MD Sammy Subjective Pt was seen and examined for follow up elevated WBC Lying in bed with no distress resting comfortable Pt said that he feels fine and tolerated his diet Plan to transition to rehab Denies any chest pain, palpitation, dizziness and SOB Physical Exam Constitutional: WD/WN, vitals as above well developed and well nourished Eyes: PERRL, conjunctivae normal, anicteric sclerae Respiratory: normal respiratory effort, lungs clear to auscultation normal respiratory effort Cardiovascular: RRR, no murmur, no edema Gastrointestinal (Abdomen): normal bowel sounds, soft, nontender, no hepatosplenomegaly soft, NT, Nd the incision heals well, no redness, Neurologic: awake Psychiatric: Orientation: alert and oriented x 3 Results & Data ([facility]) Vital Signs (Past 12 Hours) Vital Signs Temp Pulse Resp BP Pulse Ox 02/15/21 07:48 36.6 C 84 16 128/73 95 Laboratory Results Abnormal lab results 02/14/21 02/14/21 02/15/21 Range/Units 17:09 20:33 07:57 WBC (4.8-10.8) K/uL RBC (4.7-6.1) M/uL RDW Std Deviation (36.4-46.3) fL RDW Coeff of Marita (11.5-14.5) % Plt Count (130-400) K/uL POC Glucose 133 H 106 H 134 H (70-99) mg/dl 02/15/21 02/15/21 Range/Units 10:50 11:49 WBC 17.49 H (4.8-10.8) K/uL RBC 4.64 L (4.7-6.1) M/uL RDW Std Deviation 49.0 H (36.4-46.3) fL RDW Coeff of Marita 15.0 H (11.5-14.5) % Plt Count 620 H (130-400) K/uL POC Glucose 147 H (70-99) mg/dl
--- NOTE | 2021-02-15 18:58 | Hospitalist Progress Note ---
Date of Service February 15, 2021 Assessment & Plan (1) Incarcerated inguinal hernia: Severe sepsis with gram-negative bacteremia: Secondary to incarcerated rt inguinal hernia leading to bowel ischemia Blood culture 02/05: Enterococcus ; repeat blood cultures 02/07 no growth Initially received IV cefepime and Flagyl that discontinued ID on board that recommended to continue Zosyn for 14 days (last dose of abx 02/21) High-grade small bowel obstruction Incarcerated femoral hernia Postoperative day 11. Status post reduction and repair of incarcerated right femoral hernia with partial small-bowel resection CT ABD/pelvis on admission:High-grade small bowel obstruction with a transition zone at the level of an incarcerated right inguinal hernia. Surgery on board Diet advanced to low fiber, tolerated well so far Pt had normal BM today Ok from surgery standpoint to discharge home Leukocytosis: Possible secondary to gram-negative bacteremia/peritonitis/sepsis? No source of infection note WBC continued trending down to 17K If WBC does not trending down, will consider to get a TTE in am Check CBC in 1 week Lactic Acidosis Resolved likely secondary to bowel ischemia/sepsis -normal lactate acid level after receiving adequate fluid resuscitation Acute hypoxemic respiratory failure Possible secondary to severe sepsis with multifocal pneumonia/intubated perioperatively, and postoperatively. Extubated 02/06/2021, on room air Negative COVID screen CTA:No evidence of acute pulmonary embolism given the technical limitations of the study. Multifocal groundglass pulmonary opacities suspicious for multifocal pneumonia. Dilated fluid-filled stomach and esophagus Antibiotic as above Acute kidney injury Resolved after IV hydration Due to bowel obstruction/ischemia, sepsis. Avoid nephrotoxic agents as able DM Type II: Last A1c:7.7 on Oct 12 Metformin on hold, NovoLog per protocol while hospitalized Transaminitis Continues to improve Left hepatic lobe mass Left adrenal nodule Incidental Findings on CT scan CT abd: Interval development of an indeterminate 46 mm ill-defined left hepatic lobe mass. Indeterminate 24 mm left adrenal nodule Further work-up as outpatient DVT prophylaxis Subcu heparin Disposition Plan to transition to rehab today Admission and Anticipated Discharge Date Admission Date: February 03, 2021 Subjective Pt was seen and examined for follow up elevated WBC Lying in bed with no distress resting comfortable Pt said that he feels fine and tolerated his diet He had a normal bowel movement today Denies any chest pain, palpitation, dizziness and SOB Review of Systems Review of Systems: All systems reviewed & are unremarkable except as noted in Subjective Physical Exam Physical Exam: General- No acute distress Head- atraumatic Eyes- PERRL, EOMI, ENT- oropharynx clear Neck- supple, no JVD Lungs- clear to auscultation Heart- regular rhythm; no murmur Abdomen- normal bowel sounds, soft, nontender Pelvis- right inguinal surgical braxton intact Extremities- no calf tenderness Neuro- alert, oriented x 3; PERRL, EOMI; no facial palsy; no dysarthria Skin- warm & dry Results & Data Results & Data ([facility]) Vital Signs (Past 12 Hours) Vital Signs Temp Pulse Pulse Resp BP BP Pulse Ox 02/15/21 18:34 37.2 C 72 95 H 18 124/73 114/71 95 02/15/21 15:31 37.2 C 95 H 18 114/71 95 02/15/21 07:48 36.6 C 84 16 128/73 95
--- NOTE | 2021-02-22 01:37 | Discharge Summary ---
Date of Service February 15, 2021 Admission HPI Per Admitting Provider Patient is a 70-year-old male with history of diabetes mellitus type 2, ulcerative colitis, hyperparathyroidism, obstructive sleep apnea, hypertension, BPH, traumatic brain injury, CVA, dyslipidemia, history of alcohol abuse, Raynaud's phenomenon and other medical problems presents with history of worsening shortness of breath, respiratory distress associated with dizziness since 2-3 days duration. Patient was noted to be have significant respiratory distress, tachypneic while in ED and so was placed on BiPAP. Detailed history was difficult to obtain from the patient secondary to respiratory distress. Most of the history is obtained from patient's records, ER physician and patient's family as well. Patient's recently and was undergoing through a lot of stress since last few days. His initial EKG was suspicious for ST elevation MO but patient denied any chest pain as per ER physician, and repeat EKGs showed sinus tachycardia without any significant ischemic changes. He admits to having significant abdominal pain associated with distention but denies any fever, chills. Admits to being nauseous when he leans forward and had vomited since last 2 days. Reports having decreased appetite. CT abdomen showed high-grade small bowel obstruction with transition zone at the level of the incarcerated right inguinal hernia. Patient was planned to be taken to the OR for exploratory laparotomy by Dr. Donald. Admission Exam Per Admitting Provider Physical Exam: Vitals signs as noted above General Appearance:Moderately built and nourished, + respiratory distress Head: normocephalic, Atraumatic Eyes: normal inspection, EOMI Neck: supple, Trachea midline Respiratory/Chest: Decreased breath sounds, minimal crackles, +accessory muscle use Cardiovascular: S1, S2, No murmur, Tachycardia Abdomen/GI:Soft, tender, distended, Hypoactive Bowel sounds Extremities/Musculoskeletal:normal inspection, no edema Neurologic/Psych:AAOX3, grossly no focal neurological deficits Skin: normal color, warm Principal Diagnosis High grade small bowel obstruction secondary to incarcerated femoral hernia containing bowel Metabolic acidosis Discharge Exam General- No acute distress Head- atraumatic Eyes- PERRL, EOMI, ENT- oropharynx clear Neck- supple, no JVD Lungs- clear to auscultation Heart- regular rhythm; no murmur Abdomen- normal bowel sounds, soft, nontender Pelvis- right inguinal surgical braxton intact Extremities- no calf tenderness Neuro- alert, oriented x 3; PERRL, EOMI; no facial palsy; no dysarthria Skin- warm & dry Discharge Data Allergies Allergy/AdvReac Type Severity Reaction Status Date / Time No Known Allergies Allergy Unknown Verified 02/03/21 19:41 Consultations 02/03/21 17:04 Consult General Surgery Stat 02/03/21 18:49 ED Decision to Admit Stat 02/03/21 19:01 Consult Polygraph Operator Routine 02/07/21 12:47 Consult Infectious Diseases Routine Procedures Performed Operation Date: 02/03/21 19:00 Actual Procedures p Exploratory Laparotomy, Small Bowel Resection, Reduction of Incarcerated Right Femoral Hernia(Not Applicable) - Kurt Donald MD Ordered Studies 02/03/21 15:38 CT abd pelvis IV con only Stat CT angio chest PE protocol Stat 02/08/21 08:42 CT abd pelvis IV con only Stat XR chest 1V portable HISTORY: Shortness of breath. COMPARISON: Chest 02/06/2021. FINDINGS: No pneumothorax. No pleural effusions. The heart is normal in size. Improved aeration within the mid lung zone airspace opacities. No pleural effusions. No pneumothorax. There is a left shoulder prosthesis. Mild interstitial thickening which is likely chronic. IMPRESSION: Improved aeration within the mid lung zone airspace opacities. This likely represents a resolving pneumonia. ACT 112: Negative or not required by law. Electronically signed by: Daryn Browning M.D. 02/11/2021 4:20 PM Dictated: 02/11/21 1615Transcribed: 02/11/[address] WITH IV CONTRAST CT DOSE: 1369.45 mGycm HISTORY: Generalized abdominal pain. post op /eval for abdomen abscess TECHNIQUE: Multiaxial CT images of the abdomen and pelvis were performed following the use of intravenous contrast. A dose lowering technique was utilized adhering to the principles of ALARA. COMPARISON STUDY: Abdomen and pelvis CT 02/03/2021. FINDINGS: A few bibasilar linear densities consistent with subsegmental atelectasis. There are also patchy groundglass nodular densities within the bilateral mid to lower lung zones. This is consistent with a pneumonia could be due to a viral process or aspiration. No pneumoperitoneum. No pneumatosis. No suspicious lytic or blastic osseous lesions. The liver, spleen, right adrenal gland, and pancreas unremarkable. There is a stable 1.7 cm left adrenal gland nodule. This is technically indeterminate. Mild bilateral perinephric edema has progressed. No hydronephrosis. There are few bilateral renal hypodense lesions which remain unchanged. These favor cysts. Small amount of increased density within the gallbladder lumen likely due to vicarious excretion of contrast to the prior CT examination. Distended and fluid-filled stomach and small bowel loops to the level of the right lower quadrant where there is a thickened and decompressed loop of distal ileum at the level of the suture material best seen on image 386. This is consistent with the transition point of the small bowel obstruction. Decompressed fluid-filled colon. Moderate body wall edema. The bladder is unremarkable. Skin braxton within the right groin suggestive of prior inguinal hernia repair. There are few prominent right inguinal lymph nodes which are likely reactive. No retroperitoneal lymphadenopathy. Moderate calcified plaque within the normal caliber abdominal aorta. The small bowel measures up to 5.3 cm in diameter. IMPRESSION: 1. Multiple dilated and fluid-filled loops of small bowel to the level the right lower quadrant where there is a decompressed loop of distal ileum at the surgical anastomosis corresponding to the transition point of the small bowel obstruction. 2. Status post right inguinal hernia repair. No evidence for an incarcerated right inguinal hernia. 3. Left adrenal gland nodule is again noted. 4. Patchy groundglass and nodular densities within the mid to lower lung zones consistent with a pneumonia. This could be due to aspiration or viral process. ACT 112: Negative or not required by law. Electronically signed by: Daryn Browning M.D. 02/08/2021 10:15 AM Dictated: 02/08/21 1005Transcribed: 02/08/21 1005 XR chest 1V portable CLINICAL HISTORY: f/u COMPARISON STUDY: Chest CT February 03, 2021. Chest radiograph February 05, 2021. FINDINGS: Tip of endotracheal tube is 3.9 cm above the giovany. Tip of nasogastric tube is within the gastric fundus. There is no pneumothorax. No pleural effusion is identified. Left shoulder arthroplasty is incidentally noted. Bibasilar airspace opacities persist. IMPRESSION: 1. Satisfactory positioning of lines and tubes. 2. Persistent bibasilar opacities which favor pneumonia. ACT 112: Negative or not required by law. Electronically signed by: Ric Walton M.D. 02/06/2021 6:58 AM Dictated: 02/06/21 0654Transcribed: 02/06/21 0654 XR chest 1V portable CLINICAL HISTORY: Respiratory failure. Follow-up study. COMPARISON STUDY: 02/04/2021 FINDINGS: There is an endotracheal tube approximately 4 cm above the giovany. There is an enteric tube which passes into the stomach. The cardiac and mediastinal contours remain stable. There is no failure. There are minimally pro minent basilar markings, likely atelectatic although an infectious/inflammatory processes could appear similar. There are no large pleural effusions. IMPRESSION: 1. Minor basilar opacities likely atelectatic although an infectious/inflammatory process could appear similar. ACT 112: Negative or not required by law. Electronically signed by: Reinaldo Castillo M.D. 02/05/2021 8:58 AM Dictated: 02/05/21 0856Transcribed: 02/05/21855 SINGLE VIEW CHEST CLINICAL HISTORY: Respiratory failure. FINDINGS: 2 AP, portable, upright chest radiographs are compared to chest x-rays and chest CT dated 02/03/2021. The examination is degraded by portable technique and patient rotation. Endotracheal and enteric tubes are unchanged in position. The cardiomediastinal silhouette is unremarkable. There is elevation of the right hemidiaphragm and bibasilar atelectasis. Patchy airspace consolidation is present in both lungs. Trace pleural effusions are suspected. No pneumothorax is seen. The skeletal structures are osteopenic. The bony thorax is grossly intact. A left shoulder arthroplasty is in place. IMPRESSION: 1. Stable lines and tubes. 2. Patchy airspace opacities and trace pleural effusions are unchanged. ACT 112: Negative or not required by law. Electronically signed by: Bob Croft M.D. 02/04/2021 8:20 AM Dictated: 02/04/21 08Transcribed: 02/04/21818 SINGLE VIEW CHEST CLINICAL HISTORY: Respiratory failure. Intubation. FINDINGS: An AP, portable, upright chest radiograph is compared to chest x-ray and chest CT dated 02/03/2021. The examination is degraded by portable technique and patient rotation. An endotracheal tube has been placed. The tip projects 3 cm above the giovany. An enteric tube has been placed. The tip projects below the diaphragm over the gastric fundus. The cardiomediastinal silhouette is unremarkable. There is elevation of the right hemidiaphragm and bibasilar atelectasis. Patchy airspace consolidation is present in both lungs. Trace pleural effusions are suspected. No pneumothorax is seen. The skeletal structures are osteopenic. The bony thorax is grossly intact. A left shoulder arthroplasty is in place. IMPRESSION: 1. Endotracheal and enteric tubes have been placed as above. 2. Patchy airspace consolidation is noted in both lungs. Correlate clinically for evidence of pneumonia/aspiration pneumonitis. Radiographic follow-up to resolution is recommended. 3. Trace pleural effusions. ACT 112: Negative or not required by law. Electronically signed by: Bob Croft M.D. 02/04/2021 8:19 AM Dictated: 02/04/21 0817Transcribed: 02/04/21 0817 XR chest 1V portable CLINICAL HISTORY: Confirm NG Tube placement COMPARISON STUDY: 02/03/2021 FINDINGS: There is been interval placement of an enteric tube which passes into the stomach. There are nonspecific bilateral pulmonary airspace opacities.[ IMPRESSION: 1. Bilateral pulmonary airspace opacities 2. Enteric tube which passes into the stomach ACT 112: Negative or not required by law. Electronically signed by: Reinaldo Castillo M.D. 02/03/2021 7:05 PM Dictated: 02/03/211903Transcribed: 02/03/211903 CT ANGIOGRAM OF THE CHEST CLINICAL HISTORY: Chest pain and shortness of breath COMPARISON STUDY: February 2012 TECHNIQUE: Following the IV administration of 120 mL of Optiray, CT angiogram of the thorax was performed from the thoracic inlet to the lung bases utilizing the pulmonary embolus protocol. Images are reviewed in the axial, sagittal, and coronal planes. IV contrast was administered without complication. MIP imaging was performed. A dose lowering technique was utilized adhering to the principles of ALARA. CT DOSE: 1457.22 mGy.cm FINDINGS: There is a dilated fluid-filled stomach. There is a moderate dilated fluid-fille d esophagus. No pathologically enlarged axillary mediastinal or hilar lymph nodes were visualized. There was no evidence of thoracic aortic dilatation. The examination is significantly motion degraded. There are no pulmonary artery filling defects to indicate acute pulmonary embolism given the technical limitations of the study Trace pleural fluid is suspected There are multifocal groundglass opacities most pronounced within the right upper lobe. The findings are suspicious for a multifocal pneumonia. There are coronary calcifications IMPRESSION: 1. Motion compromised study 2. No evidence of acute pulmonary embolism given the technical limitations of the study 3. Multifocal groundglass pulmonary opacities suspicious for multifocal pneumonia 4. Dilated fluid-filled stomach and esophagus ACT 112: Negative or not required by law. Electronically signed by: Reinaldo Castillo M.D. 02/03/2021 4:16 PM Dictated: 02/03/21 161Transcribed: 02/03/211611 CT abd pelvis IV con only CLINICAL HISTORY: Chest pain and shortness of breath COMPARISON STUDY: June 2019 TECHNIQUE: The patient was scanned in a dynamic helical fashion during intravenous administration of 120 cc of Optiray 350. A dose lowering technique was utilized adhering to the principles of ALARA. CT DOSE: FINDINGS: Lower chest: There is respiratory motion artifact. There are scattered groundglass opacities possibly representing a multifocal pneumonia. There is a dilated fluid-filled esophagus. There are coronary artery calcifications. Liver: There is an ill-defined 46 mm mass within the lateral segment left lobe of the liver. Gallbladder: Mildly distended. No calculi identified. Spleen: Normal in size and attenuation. Pancreas: Unremarkable. Adrenal glands: There is an indeterminate 24 mm left adrenal nodule. Kidneys: There are bilateral renal cortical cysts. There is no hydronephrosis. There are no solid renal masses identified Bowel: There is a high-grade small bowel obstruction with a transition at the level of an incarcerated right inguinal hernia. There is no pneumatosis. There is no portal venous gas. Peritoneum: There is no intraperitoneal free air or abdominal ascites. Vasculature: The abdominal aorta is normal in course and caliber. Adenopathy: None. Pelvic viscera: There is mild prostatomegaly Skeletal structures: No destructive osseous lesions are seen. IMPRESSION: 1. High-grade small bowel obstruction with a transition zone at the level of an incarcerated right inguinal hernia. Surgical consultation recommended 2. Interval development of an indeterminate 46 mm ill-defined left hepatic lobe mass 3. Indeterminate 24 mm left adrenal nodule ACT 112: Negative or not required by law. Electronically signed by: Reinaldo Castillo M.D. 02/03/2021 4:24 PM Dictated: 02/03/21 1616Transcribed: 02/03/211615 XR chest 1V portable CLINICAL HISTORY: SEPSIS COMPARISON STUDY: Chest radiograph and chest CT February 27, 2012. FINDINGS: Left shoulder arthroplasty is incidentally noted. Lung volumes are diminished. Mild left basilar opacity favors atelectasis. There is no evidence for pulmonary edema. Cardiomediastinal silhouette is unremarkable. Prominent gas-filled loops of bowel within the upper abdomen are partially imaged on this study. IMPRESSION: 1. Low lung volumes with left basilar opacity that favors atelectasis. 2. Prominent gas-filled loops of bowel within the upper abdomen, partially imaged on this exam. ACT 112: Negative or not required by law. Electronically signed by: Ric Walton M.D. 02/03/2021 3:51 PM Dictated: 02/03/211547Transcribed: 02/03/211547 Hospital Course (1) Incarcerated inguinal hernia: Severe sepsis with gram-negative bacteremia: Secondary to incarcerated rt inguinal hernia leading to bowel ischemia Blood culture 02/05: Enterococcus ; repeat blood cultures 02/07 no growth Initially received IV cefepime and Flagyl that discontinued ID on board that recommended to continue Zosyn for 14 days (last dose of abx 02/21) High-grade small bowel obstruction Incarcerated femoral hernia Postoperative day 11. Status post reduction and repair of incarcerated right femoral hernia with partial small-bowel resection CT ABD/pelvis on admission:High-grade small bowel obstruction with a transition zone at the level of an incarcerated right inguinal hernia. Surgery on board Diet advanced to low fiber, tolerated well so far Pt had normal BM today Ok from surgery standpoint to discharge home Leukocytosis: Possible secondary to gram-negative bacteremia/peritonitis/sepsis? No source of infection note WBC continued trending down to 17K If WBC does not trending down, will consider to get a TTE in am Check CBC in 1 week Lactic Acidosis Resolved likely secondary to bowel ischemia/sepsis -normal lactate acid level after receiving adequate fluid resuscitation Acute hypoxemic respiratory failure Possible secondary to severe sepsis with multifocal pneumonia/intubated perioperatively, and postoperatively. Extubated 02/06/2021, on room air Negative COVID screen CTA:No evidence of acute pulmonary embolism given the technical limitations of the study. Multifocal groundglass pulmonary opacities suspicious for multifocal pneumonia. Dilated fluid-filled stomach and esophagus Antibiotic as above Acute kidney injury Resolved after IV hydration Due to bowel obstruction/ischemia, sepsis. Avoid nephrotoxic agents as able DM Type II: Last A1c:7.7 on Oct 12 Metformin on hold, NovoLog per protocol while hospitalized Transaminitis Continues to improve Left hepatic lobe mass Left adrenal nodule Incidental Findings on CT scan CT abd: Interval development of an indeterminate 46 mm ill-defined left hepatic lobe mass. Indeterminate 24 mm left adrenal nodule Further work-up as outpatient DVT prophylaxis Subcu heparin Disposition Plan to transition to rehab today Total Time Total Time Spent Total Time Spent (In Minutes): 35 minutes Total Time Includes: Examination of the Patient, Discharge Planning, Medication Reconciliation, Communication With Other Providers and Other Discharge Plan Discharge Items Patient Disposition: Transfer Inpatient Rehab Fac Reason For Visit: HIGH GRADE SBO, SKI, ANION GAP METABOLIC ACIDOSIS Discharge Diagnosis: High grade small bowel obstruction secondary to incarcerated femoral hernia containing bowel metabolic acidosis Activity: Per Instructions section Non-emergency contact: Surgeon Call non-emergency contact if: your pain is not controlled, your pain is worsening, your pain is concerning for you, you have a fever, your temperature is above 101, your wound has increased redness, your wound has increased drainage and your wound pain has increased Follow-up/Referrals: Bg Clarke MD [Primary Care Provider] - Diet: Low Fiber Addtl Attending Provider Instructions: Follow up with your primary care provider once discharge from rehab Check CBC in 1 week to monitor leukocytosis and platelet count Continue physical and occupational therapy Continue antibiotic infusion with Zosyn (Last day on 02/21/21) Fall precaution Post-Surgical ~Discharge Instructions Activity Recommendations: - lifting limitation: (10 pounds for at least 6 weeks), - exercise/sex/sports limit: (nonstrenuous until cleared by surgeon), - driving or machine use limit: (none for 1 week or until pain free or not taking any narcotic pain medication), - Shower/bathe limit: (may shower, no submerging incisions underwater for 2 weeks) Diet: - Low fiber diet for 2-4 weeks recommended and then advance to regular diet SPECIAL CARE INSTRUCTIONS: - May shower. Let water run over area and pat dry. - Leave steri strips on incisions for 1 week and then remove. They may fall off on their own that is okay. - Call the surgeon's office with any questions or concerns - - (ex. temperature higher than 101 degrees F, excessive bleeding or pain). MEDICATIONS: IV Zosyn to be administered 4.5 gm IV q 8 h and completed at end of day on 02/21/2021 - Resume previous medications unless instructed otherwise by your surgeon. - You may alternate extra strength Tylenol and Ibuprofen as needed for pain - Ibuprofen 600 mg every 6 hours as needed with food - Tylenol 500-650 mg every 6 hours as needed FOLLOW UP VISIT: - If not already scheduled, please call the office to schedule a two week follow-up appointment. Office number Pending Studies at Discharge: No Stand-Alone Forms: My [facility] Skilled Items Patient informed of condition?: Yes DNR: No Discharge Level of Care: Acute rehab Communicable Disease: No Discharge Prognosis: Stable Lines: Peripheral IV Urinary Catheter: No Medications and DC Order Prescriptions: Continued cholecalciferol (vitamin D3) 1,000 unit capsule 1,000 units PO DAILY RF: 0 atorvastatin 40 mg Tablet 40 mg PO HS RF: 0 tamsulosin [Flomax] 0.4 mg Capsule 0.8 mg PO DAILY RF: 0 losartan [Cozaar] 25 mg Tablet 25 mg PO DAILY RF: 0 balsalazide 750 mg Capsule 2,250 mg PO TID RF: 0 nortriptyline 50 mg Capsule 50 mg PO HS RF: 0 aspirin 81 mg Tablet,Delayed Release (Dr/Ec) 81 mg PO DAILY RF: 0 metformin 1,000 mg tablet 1,000 mg PO BID RF: 0 nifedipine 60 mg tablet extended release 24hr 60 mg PO DAILY RF: 0 mesalamine 1,000 mg suppository 1,000 mg [place] UD RF: 0 Discharge Orders: Discharge Order (Routine); Ordered 02/15/21 Ordered By: Mayda Arteaga/Other Patient Handouts: Managing Type 2 Diabetes, Managing Diabetes: The A1C Test Admission Data Admit Date/Time: 02/03/21 19:16 Attending Provider: Kurt Donald Admit Provider: Cesar Rust Primary Care Provider: Bg Clarke Other Providers: Kurt Donald ; Cesar Rust ; Mayda Christianson ; [facility] ; Alia Barriga ; Austen Camejo ; Laura Eric ; Justo Longoria I. ; Henry Rain II ; Trinity Gordillo ; Kurt Cage Other Interventions: Discharge Summary Assessment (RN) Last Done: 02/15/21 18:34
== END 2021-02-15 18:50 | DRG 329 ==
LOC: ED 15:16 → OR 19:15 → 1E 19:16 → 2S 02-07 18:45 → 3N 02-09 18:46

== ENCOUNTER 2023-04-05 10:18 | Observation (INO) ==
--- NOTE | 2023-01-18 13:18 | PAT Medication Instructions ---
Medication Instructions Date of Service January 18, 2023 Home Medications atorvastatin 40 mg tablet 40 mg PO HS balsalazide 750 mg capsule 2,250 mg PO TID losartan 25 mg tablet (Cozaar) 25 mg PO QAM tamsulosin 0.4 mg capsule (Flomax) 0.4 mg PO BID cholecalciferol (vitamin D3) 25 mcg (1,000 unit) capsule 1,000 units PO QAM aspirin 81 mg tablet,delayed release 81 mg PO QAM nifedipine 60 mg tablet,extended release 24 hr 60 mg PO QAM PRN Other hydrocortisone 1 % topical solution 1 applic topical UD PRN ear irritation lisinopril 5 mg tablet 5 mg PO QAM metformin 500 mg tablet 500 mg PO BID naproxen 500 mg tablet 500 mg PO BID PRN Pain vitamin B complex 1 cap PO QAM ASK your surgeon for instructions naproxen 500 mg tablet 500 mg PO BID PRN Pain ASK your prescriber and surgeon balsalazide 750 mg capsule 2,250 mg PO TID aspirin 81 mg tablet,delayed release 81 mg PO QAM STOP taking 24 hours before surgery hydrocortisone 1 % topical solution 1 applic topical UD PRN ear irritation DO NOT take the morning of surgery losartan 25 mg tablet (Cozaar) 25 mg PO QAM cholecalciferol (vitamin D3) 25 mcg (1,000 unit) capsule 1,000 units PO QAM lisinopril 5 mg tablet 5 mg PO QAM metformin 500 mg tablet 500 mg PO BID vitamin B complex 1 cap PO QAM Take morning of surgery With a small sip of water, OTHERWISE NOTHING TO EAT OR DRINK AFTER MIDNIGHT: tamsulosin 0.4 mg capsule (Flomax) 0.4 mg PO BID nifedipine 60 mg tablet,extended release 24 hr 60 mg PO QAM PRN Other (if needed) Take evening before surgery atorvastatin 40 mg tablet 40 mg PO HS tamsulosin 0.4 mg capsule (Flomax) 0.4 mg PO BID metformin 500 mg tablet 500 mg PO BID Other Notes If you have any questions please call us at [phone] or [phone] or [phone] or [phone]
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
[~2023-04-05 10:18] MED LIST: ACETAMINOPHEN 500 MG TAB PO SCH; CeleBREX 200 MG CAP PO SCH; FAMOTIDINE 20 MG TAB PO SCH; GABAPENTIN 300 MG CAP PO SCH; LR 15ML/HR IV SCH; METOCLOPRAMIDE HCL 10 MG TABLET PO SCH; TRANEXAMIC ACID 1,000 MG **IV Intra-op IV SCH; TRANEXAMIC ACID 1,000 MG **IV Pre-op IV SCH; ceFAZolin 2000MG 2,000 MG/15 ML SYR IV SCH
[2023-04-05] MEDS ORDERED: fentaNYL citrate PF 100 MCG/2 ML VIAL ONE (10:54)
[2023-04-05] MEDS ORDERED: MIDAZOLAM HCL 1 MG/ML 2ML VIAL ONE (10:54)
--- NOTE | 2023-04-05 11:32 | History & Physical Bridge Note ---
Date of Service April 05, 2023 History & Physical Bridge Note I have examined the patient, reviewed the History & Physical and in the interval since the performance of the History & Physical I have noted the following changes of clinical significance: no changes noted
[2023-04-05] MEDS ORDERED: EPINEPHrine HCL INJ 1 MG/ML 30ML ONE (11:49)
[2023-04-05] MEDS ORDERED: ePHEDrine sulfate 50 MG/ML AMP IV PRN (12:40)
[2023-04-05] MEDS ORDERED: ONDANSETRON INJ 2 MG/ML 2 ML VIAL IV PRN ×2 (12:40→17:47)
[2023-04-05] MEDS ORDERED: ATROPINE SULFATE 0.1 MG/ML 10ML SYR IV PRN (12:40)
[2023-04-05] MEDS ORDERED: fentaNYL citrate PF 100 MCG/2 ML VIAL IV PRN (12:40)
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
[2023-04-05] MEDS ORDERED: DEXAMETHASONE SOD INJ 4 MG/ML VIAL ONE (14:04)
[2023-04-05] MEDS ORDERED: ONDANSETRON INJ 2 MG/ML 2 ML VIAL ONE (14:04)
[2023-04-05] MEDS ORDERED: LIDOCAINE 2% 2 ML VIAL/AMP(20MG/ML) INFIL ONE (14:04)
[2023-04-05] MEDS ORDERED: ROCURONIUM BROMIDE 10 MG/ML 5 ML VIAL IV ONE (14:04)
[2023-04-05] MEDS ORDERED: PROPOFOL IV EMULSION 10 MG/ML 20 ML VIAL IV ONE (14:04)
[2023-04-05] MEDS ORDERED: SUGAMMADEX SODIUM 200 MG/2 ML VIAL IV ONE (14:04)
[2023-04-05] MEDS ORDERED: PHENYLEPHRINE HCL 10 MG/ML VIAL ONE (15:12)
--- NOTE | 2023-04-05 16:12 | Operative Report ---
Post Operative Report Pre & Post Diagnosis Operation Date: 04/05/23 12:40 Pre-Op Diagnosis: Right Shoulder end-stage glenohumeral osteoarthritis, subcoracoid loose body, biceps tenosynovitis Post-Op Diagnosis: Right Shoulder end-stage glenohumeral joint osteoarthritis, subcoracoid loose body, biceps tenosynovitis, biceps tendinopathy. I identified the patient and participated in the time-out.: Yes Procedure Operation Date: 04/05/23 12:40 Actual Procedures p Right Total Shoulder Arthroplasty, Excision subcoracoid Loose Body, Biceps Tenodesis(Right), Biceps tenosynovectomy - Edu Paez MD Surgeon Edu Paez MD Resistance Machine Welder Setter Jaime STEWARD Estimated Blood Loss 75 Findings Consistent with Post-Op Diagnosis Specimens humeral head cut Drains 2 Hemovac Anesthesia Type General Regional Complications none Disposition Disposition: Recovery Room Indications 72-year-old male with chronic progressive osteoarthritis right shoulder failed conservative management. Patient has end-stage glenohumeral osteoarthritis [id number] glenohumeral joint on x-rays with type a concentric wear pattern. MRI demonstrates intact rotator cuff but more biceps tenosynovitis and a large subcoracoid loose body Description of Procedure the patient was taken to the operating room and anesthetized under a general and regional block anesthesia. A towel roll was placed under the medial border of the scapula of the Right shoulder. The patient's head was placed on a foam headrest and protective eyewear was placed and the extremities were well padded. The arm was draped free in order to manipulate the shoulder as necessary. The shoulder exam demonstrated [id number] crepitation 120 degrees forward flexion 80 degrees AB duction and 30 degrees external rotation . The shoulder was sterilely prepped and draped in the usual sterile fashion. An anterior deltopectoral approach was performed. A longitudinal incision was made in the interval. The skin was incised sharply and subcutaneous tissues dissected down to the fascia. The cephalic vein was identified and retracted laterally with the deltoid. Any crossing veins were tied off with silk ties and divided. The clavipectoral fascia was divided at the lateral margin of the conjoined tendon and divided up to the level of the coracoacromial ligament which was preserved. The upper 1 cm of the pectoralis was released for inferior exposure. The biceps tendon findings demonstrated very large fluid collection around the biceps tendon with chronic tenosynovitis and proximal biceps tendinopathy with widening and clearly tendinopathy within the joint. . The rotator cuff tendon findings demonstrated Chronic synovitis intra-articularly on the joint side of the tendons. There was bulging fluid collection in the rotator interval area . The circumflex vessels were identified and tied off with silk ties and divided laterally. The fibers and subscapularis were split longitudinally at the level of the circumflex vessels down to the capsule and then reflected off the inferior capsule using a Kitner elevator. The axillary nerve was identified with a tug test and protected with a blunt Krystin retractor. The rotator interval was opened up and extended down to the glenoid. The biceps tendon was identified and tenodesed to the pectoralis tendon with famlbz-br-uomag and whipstitch type suture repair with #2 FiberWire sutures and the proximal biceps was resected. The subscapularis tendon was taken down with a trans-tendinous incision leaving a cuff of tissue for repair on the lesser tuberosity. The incision was carried down to the tendon and the capsule and a #1 Vicryl suture was placed into the free end of the subscapularis tendon. The capsule was subperiosteally dissected off the inferior neck of the humerus exposing the humeral osteophytes which demonstrated a large inferior osteophyte more inferior than typical right over the metaphysis of the medial humerus and some smaller moderately sized rimming osteophytes around the edge of the articular surface. Humeral head was completely eburnated bone with some bone loss and no articular cartilage remaining. The osteophytes were excised with an artist chisel and a rongeur. The capsular release along the inferior neck of the humerus was completed. The humerus was then retracted posterior to the glenoid with a Fukuda retractor. The remainder of the biceps tendon and labrum were resected. The labrum was degenerated circumferentially. The glenoid findings demonstrated Concentric wear with completely eburnated bone no articular cartilage remaining. I did an anterior inferior and posterior inferior release with electrocautery on bone and a Vargas elevator with the axillary nerve continuing to be protected with the blunt Hohmann retractor inferiorly. When the releases were completed and the humeral head was exposed with some extension and external rotation and in anatomic head cut was made using the oscillating saw. The Tornier ascend flex total shoulder arthroplasty was used including the Cortiloc glenoid component. Attention was first taken to preparation of the humeral shaft. A centralizing awl was used followed by broaches up to size 5 which was tight in the metaphyseal area although a 7 stem would have fit distally but patient had fairly hard bone proximally with excellent fixation at the 5 size.. The trial broach was left in place and a cut protector was placed. The humerus was then retracted posterior to the glenoid using a Bankart retractor anteriorly and blunt Krystin and posterior Tornier glenoid retractor. A central drill hole was made into the glenoid. The glenoid was sized for a size Large 40 radius component. The glenoid was reamed and the central drill widened and the guide for the 3 peripheral peg holes was placed in the peg holes were drilled and a trial component was placed with a tight fit. The trial was removed and the g lenoid was irrigated with pulsatile lavage antibiotic solution and the drill holes were dried and packed with epinephrine-soaked tampons for hemostasis. The Palacos G cement was vacuum mixed. The final component was cemented into position and held in position with pressure until the cement cured. final component was large 40 Cortiloc glenoid pegged component A humeral head trial was placed. A trial reduction was performed and the shoulder was stable. the 52 x 23 mm high offset head trial gave the appropriate stability and range of motion. The trial was removed and the humerus and canal were irrigated with Pulsed saline solution. 3 drill holes were made into the hard bone in the bicipital groove lateral to the lesser tuberosity and 3 #5 FiberWire transosseous sutures were placed for repair of the subscapularis. After further irrigation of the canal and the final components were assembled. The final components were the 5B PTC stem assembled to the 52 x 23 high offset humeral h ead . The implant was then impacted into the humerus with a tight press-fit. The humerus was reduced to the glenoid and stability verified. The subscapularis was repaired with the #5 FiberWire sutures in a Rafa-Benjamin suture technique and lateral row fixation with [id number] #2 FiberWire in the soft tissue. The rotator interval was closed and maximal external rotation. The pectoralis was then closed with [id number]-[id number] #2 FiberWire suture. The sutures were passed through the biceps tendon as well to reinforce the biceps tenodesis. range of motion assessed at 140 degrees of forward flexion and 100 degrees AB duction and 50 degrees of external rotation without tension on repair. 2 Hemovac drains were placed. The deltopectoral interval was closed with [id number]-pa-[id number] #1 Vicryl sutures. The subcutaneous tissues were closed with interrupted 2-0 Vicryl and the skin was closed with braxton and a sterile dressing was applied. The patient tolerated the procedure well. Jaime STEWARD My physician recovery assistant, assisted in soft tissue retraction instrument management suture management and assisted in the subcutaneous and skin closure and will participate in the postoperative care the patient. I attest to the content of the Intraoperative Record and any orders documented therein. Any exceptions are noted below.
--- NOTE | 2023-04-05 16:14 | Post Operative Brief Note ---
Immediate Post Op Note v1 Date of Surgery April 05, 2023 Pre & Post Diagnosis Operation Date: 04/05/23 12:40 Pre-Op Diagnosis: Right Shoulder glenohumeral end-stage Osteoarthritis, Loose Body, Biceps tenosynovitis Post-Op Diagnosis: Right Shoulder glenohumeral end-stage Osteoarthritis, Loose Body, biceps tenosynovitis biceps tendinopathy I identified the patient and participated in the time-out.: Yes Procedure Operation Date: 04/05/23 12:40 Actual Procedures p Right Total Shoulder Arthroplasty, Excison Loose Body, Biceps Tenodesis(Right) - Edu Paez MD Surgeon Edu Paez MD Pond Sawyer Jaime STEWARD Estimated Blood Loss 75 Findings Consistent with Post-Op Diagnosis Specimens humeral head cut Drains Hemovac Drain Anesthesia Type General Regional Complications none Disposition Disposition: Recovery Room Overlapping Procedure I was immediately available: during the entire case.
[2023-04-05] MEDS ORDERED: PHARMACY GLYCEMIC MGMT CONSULT PRN (16:26)
[2023-04-05] MEDS ORDERED: GLUCOSE 10 TAB/TUBE PO PRN (16:45)
[2023-04-05] MEDS ORDERED: GLUCAGON FOR INJ 1 MG VIAL IM PRN (16:45)
[2023-04-05] MEDS ORDERED: CARBOHYDRATES FOR HYPOGLYCEMIA PO PRN (16:45)
[2023-04-05] MEDS ORDERED: GLUCOSE 40% GEL 15 GM TUBE PO PRN (16:45)
[2023-04-05] MEDS ORDERED: DEXTROSE 50% 50 ML SYRINGE IV PRN (16:45)
--- NOTE | 2023-04-05 16:45 | XRay Report ---
XR shoulder RT min 2V routine HISTORY: 72 years-old Male Post shoulder surgery right shoulder arthroplasty COMPARISON: 01/25/2023 TECHNIQUE: 2 views of the right shoulder FINDINGS: Total joint arthroplasty with overlying skin braxton. Expected postoperative soft tissue swelling wit h deep tissue air and surgical drainage catheter. Mild osteoarthritis of the AC joint. IMPRESSION: Right shoulder arthroplasty with expected postoperative changes. ACT 112: Negative or not required by law. The above report was generated using voice recognition software. It may contain grammatical, syntax o r spelling errors. Electronically signed by: Yobany Jackson M.D. 04/05/2023 4:44 PM
--- NOTE | 2023-04-05 16:50 | Anesthesiology Progress Note ---
Date of Service April 05, 2023 Anesthesia Post Procedure Vital Signs Vital Signs: Temp Pulse Pulse Resp BP Pulse Ox O2 Del Method 04/05/23 16:45 36.5 C 65 17 109/66 96 Room Air 04/05/23 16:35 66 15 134/74 96 Room Air 04/05/23 16:25 65 17 122/68 100 Oxymask 04/05/23 16:15 63 14 116/68 100 Oxymask 04/05/23 16:06 36.0 C L 65 16 130/76 100 Oxymask 04/05/23 11:00 36.9 C 84 20 152/99 H 98 Room Air O2 Flow Rate 04/05/23 16:45 04/05/23 16:35 04/05/23 16:25 4 04/05/23 16:15 8 04/05/23 16:06 8 04/05/23 11:00 Pain Intensity Right Shoulder: Pain Intensity: 4 Transfer of Care Handoff Completed per policy Notes Mental Status: alert / awake / arousable and participated in evaluation Patient Amnestic to Procedure: Yes Nausea / Vomiting: adequately controlled Pain: adequately controlled Airway Patency, RR, SpO2: stable & adequate BP & HR: stable & adequate Hydration State: stable & adequate Anesthetic Complications: no major complications apparent
--- NOTE | 2023-04-05 16:51 | Pharmacy Report ---
Pharmacy Glycemic Short Note 2 - Date of Service April 05, 2023 - Glycemic Short BSG Results (Last 24 hours): 04/05/23 16:08 POC Glucose 132 H OUTPATIENT ANTIDIABETIC REGIMEN: * metformin 500 mg bid ASSESSMENT: * 72 year old now s/p R total shoulder arthroplasty, POD 0. Type 2 diabetic managed only on metformin at home * BSG 132 mg/dL post op - plan to start novolog stress 2/3. May consider adding basal if BSGs trend upward PLAN FOR INPATIENT GLYCEMIC CONTROL: * Hold outpatient oral diabetes medications * Basal insulin * Lantus - hold * Bolus insulin * NovoLog per scale ACHS or Q6hrs while NPO * Goal Range: Low 110 mg/dL - High 140 mg/dL * Correction Factor: 20 mg/dL/unit * Nutritional / Prandial insulin per carb ratio of 1 unit per 7 grams CHO consumed
[2023-04-05] MEDS ORDERED: MAGNESIUM HYDROXIDE SUSP 30 ML UDC PO PRN (17:47)
[2023-04-05] MEDS ORDERED: HYDROmorphone INJ 0.5 MG/0.5 ML SYR IV PRN (17:47)
[2023-04-05] MEDS ORDERED: NIFEDIPINE 60 MG PO PRN (17:47)
[2023-04-05] MEDS ORDERED: diphenhydrAMINE 50 MG/ML VIAL IV PRN (17:47)
[2023-04-05] MEDS ORDERED: NALOXONE HCL 0.4 MG/1 ML VIAL/CARP IV PRN (17:47)
[2023-04-05] MEDS ORDERED: bisacodyL 10 MG SUPP PR PRN (17:47)
[2023-04-05] MEDS ORDERED: oxyCODONE HCL IR 5 MG TAB (IMMEDIATE RELEASE) PO PRN (17:47)
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
[2023-04-05] MEDS: INSULIN ASPART PER UNIT CHARGE SC SCH ×2 (18:16→21:46)
[2023-04-05] MEDS: SODIUM CHLORIDE 0.9% 1000ML 1,000 ML IV SCH (18:49)
[2023-04-05] MEDS ORDERED: ATORVASTATIN 40 MG TAB PO SCH (21:00)
[2023-04-05] MEDS ORDERED: BALSALAZIDE 750 MG PO SCH (21:00)
[2023-04-05] MEDS ORDERED: SENNA 8.6 MG TAB PO SCH (21:00)
[2023-04-05] MEDS ORDERED: metFORMIN HCL 500 MG TAB PO SCH (21:00)
[2023-04-05] MEDS: DOCUSATE SODIUM 100 MG CAP PO SCH (21:34)
[2023-04-05] MEDS: TAMSULOSIN HCL 0.4 MG CAP PO SCH (21:34)
[2023-04-05] MEDS: ACETAMINOPHEN 500 MG TAB PO SCH (21:34)
[2023-04-05] MEDS: ceFAZolin 2000MG 2,000 MG/15 ML SYR IV SCH (22:49)
[2023-04-06] MEDS: SODIUM CHLORIDE 0.9% 1000ML 1,000 ML IV SCH (05:47)
[2023-04-06] MEDS: ACETAMINOPHEN 500 MG TAB PO SCH ×2 (06:02→15:28)
[2023-04-06] MEDS: ceFAZolin 2000MG 2,000 MG/15 ML SYR IV SCH (06:02)
[2023-04-06 07:22] LABS: Basophils # (auto) 0.04 K/uL (0-0.2); Basophils % (auto) 0.2 %; Eosinophils # (auto) 0.08 K/uL (0-0.50); Eosinophils % (auto) 0.4 %; Hematocrit (blood only) 39.6 % (42.0-52.0); Hemoglobin 13.3 g/dl (14.0-18.0); Immature Granulocytes # (auto) 0.06 K/uL (0.01-0.20); Immature Granulocytes % (auto) 0.3 %; Lymphocytes # (auto) 2.43 K/uL (1.2-3.4); Lymphocytes % (auto) 13.6 %; Mean Corpuscular Hemoglobin 30.7 pg (25.0-34.0); Mean Corpuscular Hgb Conc 33.6 g/dL (32.0-36.0); Mean Corpuscular Volume 91.5 fL (80.0-100.0); Mean Platelet Volume 10.7 fL (9.4-12.4); Monocytes # (auto) 2.01 K/uL (0.11-0.59); Monocytes % (auto) 11.3 %; Neutrophils # (auto) 13.22 K/uL (1.40-6.50); Neutrophils % (auto) 74.2 %; Platelet Count 262 K/uL (130-400); RDW Coefficient of Variation 13.4 % (11.5-14.5); RDW Standard Deviation 45.6 fL (36.4-46.3); Red Blood Count 4.33 M/uL (4.70-6.10); White Blood Count 17.84 K/ul (4.8-10.8)
--- NOTE | 2023-04-06 07:26 | Orthopedic Progress Note ---
Date of Service April 06, 2023 Assessment & Plan (1) Primary osteoarthritis, right shoulder: Plan: Postop day 1 status post right total shoulder arthroplasty. PT/OT protocols. Nonweightbearing right upper extremity. DVT prophylaxis-aspirin p.o. daily, SCDs. Pain management as written. A.m. labs pending. DC planning-patient is wanting to try to get to a rehab facility versus senior care facility. Patient lives [facility] Case management to discuss. Admission and Anticipated Discharge Date Admission Date: April 05, 2023 Subjective postop day 1 patient was lying in bed awake and alert. States that his nerve block is still working well. No other complaints at this time. Pain controlled. Denies shortness of breath, chest pain, lightheadedness. Physical Exam Physical Exam: Dressings are clean, dry, and intact. Sling is in place. Patient continues to have good nerve block functioning at this time with some weakness with wrist extension. He does have the ability to flex his fingers which are weak at this time but has increased weakness with extension all due to nerve block. Capillary refill is less than 2 seconds. Results & Data Vital Signs (Past 12 Hours) Vital Signs Temp Pulse Pulse Resp BP Pulse Ox O2 Del Method 04/06/23 04:10 36.5 C 78 18 108/70 96 Room Air 04/05/23 21:20 Room Air 04/05/23 23:00 36.3 C L 91 H 18 110/67 96 Room Air 04/05/23 20:30 36.9 C 80 18 119/72 95 Room Air 04/05/23 19:30 36.9 C 80 18 119/72 95 Room Air
[2023-04-06 07:41] LABS: Calcium 8.6 mg/dl (8.6-10.3); Creatinine Clr Calc Pharmacy 103.2 ml/min; Est GFR (Non-African American) 93.2 ml/min; Potassium 4.1 mmol/L (3.5-5.1)
[2023-04-06] MEDS: DOCUSATE SODIUM 100 MG CAP PO SCH (08:22)
[2023-04-06] MEDS: TAMSULOSIN HCL 0.4 MG CAP PO SCH (08:24)
[2023-04-06] MEDS: INSULIN ASPART PER UNIT CHARGE SC SCH ×2 (08:30→12:36)
[2023-04-06] MEDS ORDERED: SODIUM CHLORIDE 0.9% 1000ML 1,000 ML IV ONE (08:51)
[2023-04-06] MEDS ORDERED: ASPIRIN 81 MG ECTAB PO SCH (09:00)
[2023-04-06] MEDS ORDERED: MULTIVITAMIN TAB PO SCH (09:00)
[2023-04-06] MEDS ORDERED: CHOLECALCIFEROL 1,000 UNITS 25 MCG TAB PO SCH (09:00)
[2023-04-06] MEDS ORDERED: LOSARTAN POTASSIUM 25 MG TAB PO SCH (09:00)
[2023-04-06] MEDS ORDERED: lisinopril 5 MG TAB PO SCH (09:00)
[2023-04-06] MEDS ORDERED: VITAMIN B COMPLEX TAB PO SCH (09:00)
[2023-04-06] MEDS ORDERED: LANTUS PER UNIT CHARGE SC SCH (09:00)
[2023-04-06] MEDS ORDERED: CeleBREX 200 MG CAP PO SCH (09:00)
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
--- NOTE | 2023-04-06 13:26 | Hospitalist Progress Note ---
Date of Service April 06, 2023 Assessment & Plan (1) Primary osteoarthritis, right shoulder: (2) HTN (hypertension): (3) Ulcerative pancolitis: (4) CODY (obstructive sleep apnea): (5) T2DM (type 2 diabetes mellitus): Plan Right Shoulder end-stage glenohumeral joint osteoarthritis, subcoracoid loose body, biceps tenosynovitis, biceps tendinopathy S/P Right Total Shoulder Arthroplasty, Excision subcoracoid Loose Body, Biceps Tenodesis(Right), Biceps tenosynovectomy by on 04/05/23 Pain/wound management per orthopedics Activity and therapy as prescribed by Ortho Encourage incentive spirometry Rehab as able Leukocytosis likely reactive Plan to be discharged to rehab facility as able DM II Well-controlled with A1c of 7.0 Hold metformin while inpatient Glycemic managing insulin, appreciate their assistance Continue insulin while hospitalized CODY CPAP at bedtime Ulcerative colitis Continue balsalazide HTN Hold losartan given low BP Continue IV fluids Monitor DVT Px: SCDs per primary Code Status Full code Admission and Anticipated Discharge Date Admission Date: April 05, 2023 Subjective Patient is seen and examined at bedside Denies any significant right shoulder pain at surgical site States having right thumb numbness which she attributes to nerve block Denies any chest pain, dyspnea, dizziness, nausea, vomiting, abdominal pain BP low today Plan to be discharged to rehab facility as able Review of Systems Review of Systems: All systems reviewed & are unremarkable except as noted in Subjective Physical Exam Physical Exam: Physical Exam: Vitals signs as noted above General Appearance:Moderately built and nourished, no apparent distress Head: normocephalic, Atraumatic Eyes: normal inspection, EOMI Neck: supple, Trachea midline Respiratory/Chest: Normal breath sounds, CTA, No accessory muscle use Cardiovascular: S1, S2, No murmur Abdomen/GI:Soft, Non tender, Bowel sounds present Extremities/Musculoskeletal:normal inspection, no edema Neurologic/Psych:AAOX3, grossly no focal neurological deficits Skin: normal color, warm Results & Data Results & Data Vital Signs (Past 12 Hours) Vital Signs Temp Pulse Pulse Resp BP Pulse Ox O2 Del Method 04/06/23 07:23 36.8 C 63 18 92/60 L 97 Room Air 04/06/23 04:10 36.5 C 78 18 108/70 96 Room Air Laboratory Results Short CBC 04/06/23 Range/Units 06:46 WBC 17.84 H (4.8-10.8) K/ul Hgb 13.3 L (14.0-18.0) g/dl Hct 39.6 L (42.0-52.0) % Plt Count 262 (130-400) K/uL BMP 04/06/23 06:46 Sodium 141 Potassium 4.1 Chloride 111 H Carbon Dioxide 25 BUN 18 Creatinine 0.72 Glucose 144 H Calcium 8.6
== END 2023-04-06 17:43 ==
LOC: 3E 10:18 → ASU 10:18